=== PATIENT | female | born 1930 | race Caucasian/White ===

== ENCOUNTER 2016-06-30 01:44 | Emergency (ER) | payer MEDICARE, BC ==
[2016-06-30 01:49] VITALS: BP 160/62
--- NOTE | 2016-06-30 02:32 | EDM.PDOC ---
ED HPI GENERAL MEDICAL PROBLEM - General Chief Complaint: Respiratory Problem Stated Complaint: [facility] Time Seen by Provider: 06/30/16 01:47 Source of Information: Reports: Patient, RN Notes Reviewed History Limitations: Reports: No Limitations - History of Present Illness INITIAL COMMENTS - FREE TEXT/NARRATIVE: The patient is brought to the ED by EMS after she developed shortness of breath this evening while trying to sleep. She denies orthopnea, and states that she feels better if she is lying on her right side. She reports a dry cough with occasional white sputum that developed on Thursday, , but resolved. It returned this past Thursday or , 06/25/2016 or 06/26/2016. She has not had a fever. No recent nausea, vomiting, constipation, diarrhea, or sore throat. No prior similar symptoms. The patient's PCP is Dr. De La Torre. - Related Data Allergies Allergy/AdvReac Type Severity Reaction Status Date / Time No Known Allergies Allergy Verified 06/30/16 01:46 Home Meds: Home Meds Aspirin [Silvia Chewable Aspirin] 1 tab PO DAILY 09/20/13 [History] Ca Cmb No.1/Vit D3/B-6/FA/B12 [Vitamin D3 1,000 Unit] 1 tab PO DAILY 09/20/13 [ History] Calcium Carbonate/Vitamin D3 [Caltrate 600+D 1500 MG-400 Units] 1 tab PO DAILY 09/20/13 [History] Ezetimibe [Zetia] 10 mg PO DAILY 09/20/13 [History] Hydrochlorothiazide/Lisinopril [Lisinopril/HCTZ 20-12.5 MG] 1 tab PO DAILY 09/20 [History] Insulin Glarg,Human.Rec.Analog [Lantus] 28 units SQ BID 09/20/13 [History] Omeprazole [Prilosec] 1 tab PO DAILY 09/20/13 [History] Vitamin B6-pyridOXINE 200 mg PO DAILY 09/20/13 [History] amLODIPine [Norvasc] 1 tab PO DAILY 09/20/13 [History] Furosemide [Lasix] 40 mg PO BID #60 tablet 01/04/16 [Rx] Potassium Chloride [Klor-Con 10] 10 meq PO DAILY #5 tab.er 01/04/16 [Rx] Allopurinol [Allopurinol] 1 tab PO DAILY 01/28/16 [History] Insulin Aspart [NovoLOG] 20 units SQ TID 01/28/16 [History] Multivits,Ca,Minerals/Iron/FA [One-A-Day Women's] 1 tab PO DAILY 01/28/16 [ History] Simvastatin [Simvastatin] 1 tab PO DAILY 01/28/16 [History] Gabapentin [Neurontin] 100 mg PO DAILY 01/29/16 [History] Gabapentin [Neurontin] 200 mg PO DAILY 01/29/16 [History] Past Medical History HEENT History: Reports: Cataract, Impaired Vision Other HEENT History: Wears glasses Cardiovascular History: Reports: Heart Failure, High Cholesterol, Hypertension Gastrointestinal History: Reports: GERD Genitourinary History: Reports: Renal Calculus, Urinary Incontinence (stress) 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: Musculoskeletal History: Reports: Arthritis, Gout Psychiatric History: Reports: Depression Endocrine/Metabolic History: Reports: Hypothyroidism (untreated), IDDM, Obesity/ BMI 30+, Other (See Below) (Goiter) - Infectious Disease History Infectious Disease History: Reports: Herpes, Shingles - Past Surgical History HEENT Surgical History: Reports: Cataract Surgery Female Surgical History: Reports: Section (x 1), Lithotripsy/ESWL Social & Family History - Tobacco Use Smoking Status *Q: Never Smoker Second Hand Smoke Exposure: No - Caffeine Use Caffeine Use: Reports: Soda - Alcohol Use Alcohol Use History: No Days Per Week of Alcohol Use: 0 - Recreational Drug Use Recreational Drug Use: No - Living Situation & Occupation Living situation: Reports: , Alone Occupation: Retired ED ROS GENERAL - Review of Systems Review Of Systems: See Below Constitutional: Reports: No Symptoms HEENT: Reports: No Symptoms Respiratory: Reports: No Symptoms Cardiovascular: Reports: No Symptoms Endocrine: Reports: No Symptoms GI/Abdominal: Reports: No Symptoms : Reports: No Symptoms Musculoskeletal: Reports: No Symptoms Skin: Reports: No Symptoms Neurological: Reports: No Symptoms Psychiatric: Reports: No Symptoms Hematologic/Lymphatic: Reports: No Symptoms Immunologic: Reports: No Symptoms ED EXAM, GENERAL - Physical Exam Exam: See Below Exam Limited By: No Limitations General Appearance: Alert, WD/WN, No Apparent Distress Eye Exam: Bilateral Eye: Normal Inspection Ears: Normal External Exam, Normal Canal, Hearing Grossly Normal, Normal TMs Ear Exam: Bilateral Ear: Auricle Normal, Canal Normal, TM normal Nose: Normal Inspection, No Blood, Other (Mild nasal mucosal edema) Throat/Mouth: Normal Inspection, Normal Lips, Normal Teeth, Normal Gums, Normal Oropharynx, Normal Voice, No Airway Compromise Head: Atraumatic, Normocephalic Neck: Normal Inspection, Supple, Non-Tender, Full Range of Motion. No: Lymphadenopathy (L), Lymphadenopathy (R) Respiratory/Chest: No Respiratory Distress, Lungs Clear, Normal Breath Sounds, No Accessory Muscle Use Cardiovascular: Normal Peripheral Pulses, Regular Rate, Rhythm, No Gallop, No JVD, No Murmur, No Rub Peripheral Pulses: 4+: Radial (L), Radial (R) GI/Abdominal: Normal Bowel Sounds, Soft, Non-Tender, No Organomegaly, No Distention, No Abnormal Bruit, Other (Obese) (Female) Exam: Deferred Rectal (Female) Exam: Deferred Back Exam: Normal Inspection, Full Range of Motion, NT Extremities: Normal Inspection, Normal Range of Motion, No Pedal Edema, Normal Capillary Refill Neurological: Alert, Oriented, Normal Cognition, No Motor/Sensory Deficits Psychiatric: Normal Affect Skin Exam: Warm, Dry, Intact, Normal Color, No Rash Lymphatic: No Adenopathy EKG INTERPRETATION EKG Date: 06/30/16 Time: 02:20 Rhythm: NSR Rate (beats/min): 80 [place]: normal P-wave: present QRS: normal ST-T: normal QT: normal Comparison: no change (01/04/2016) Course - Vital Signs Last Recorded V/S: Last Vital Signs Temp 36.2 C 06/30/16 01:47 Pulse 84 06/30/16 01:47 Resp 12 06/30/16 01:47 BP 160/62 H 06/30/16 01:47 Pulse Ox 92 L 06/30/16 01:47 - Orders/Labs/Meds Orders: Active Orders 24 hr Category Date Time Status EKG Documentation Completion [RC] STAT Care 06/30/16 02:12 Active Labs: Laboratory Tests 06/30/16 06/30/16 06/30/16 Range/Units 02:25 02:28 02:28 WBC 7.45 (3.98-10.04) K/mm3 RBC 3.94 L (3.98-5.22) M/mm3 Hgb 11.4 (11.2-15.7) gm/L Hct 35.0 (34.1-44.9) % MCV 88.8 (79.4-94.8) fl MCH 28.9 (25.6-32.2) pg MCHC 32.6 (32.2-35.5) g/dl RDW Std Deviation 54.9 H (36.4-46.3) fL Plt Count 216 (182-369) K/mm3 MPV 10.9 (9.4-12.3) fl Neutrophils % (Manual) 90 H (40-60) % Band Neutrophils % 1 (0-10) % Lymphocytes % (Manual) 7 L (20-40) % Atypical Lymphs % 0 % Immat Monocytes % (Man) 0 Monocytes % (Manual) 1 L (2-10) % Eosinophils % (Manual) 1 (0.7-5.8) % Basophils % (Manual) 0 L (0.1-1.2) Metamyelocytes % 0 Myelocytes % 0 Promyelocytes % 0 Blast Cells % 0 Plasma Cell % (Manual) 0 Nucleated RBCs 0.0 % Platelet Estimate Adequate RBC Morph Comment Normal PT (8.0-13.0) SECONDS INR APTT (22-36) SECONDS D-Dimer, Quantitative (0.19-0.59) mg/L Puncture Site Lt radial ABG pH 7.43 (7.35-7.45) ABG pCO2 47.8 H (35.0-45.0) mmHg ABG pO2 52.0 L (80.0-100.0) mmHg ABG HCO3 31.2 H (22.0-26.0) meq/L ABG O2 Saturation 90.4 L (96.0-97.0) % ABG Base Excess 6.3 H (-2-2.0) Vlad Test Positive A-a Gradient 23 mmHg O2 Delivery Device Room air FiO2 21.00 (21.00-100.00) % Sodium 137 (136-145) mEq/L Potassium 3.1 L (3.5-5.1) mEq/L Chloride 99 (98-107) mEq/L Carbon Dioxide 31 (21-32) mEq/L Anion Gap 10.1 (5-15) BUN 29 H (7-18) mg/dL Creatinine 1.3 H (0.55-1.02) mg/dL Est Cr Clr Drug Dosing 24.74 mL/min Estimated GFR (MDRD) 39 (>60) mL/min BUN/Creatinine Ratio 22.3 H (14-18) Glucose 226 H (83-115) mg/dL Calcium 8.9 (8.5-10.1) mg/dL Total Bilirubin 0.3 (0.2-1.0) mg/dL AST 30 (15-37) U/L ALT 38 (14-59) U/L Alkaline Phosphatase 55 (46-116) U/L Troponin I < 0.017 (0.00-0.056) ng/mL C-Reactive Protein 1.1 H* (<1.0) mg/dL B-Natriuretic Peptide (0-100) pg/mL Total Protein 6.3 L (6.4-8.2) g/dl Albumin 3.2 L (3.4-5.0) g/dl Globulin 3.1 gm/dL Albumin/Globulin Ratio 1.0 (1-2) 06/30/16 06/30/16 Range/Units 02:28 02:28 WBC (3.98-10.04) K/mm3 RBC (3.98-5.22) M/mm3 Hgb (11.2-15.7) gm/L Hct (34.1-44.9) % MCV (79.4-94.8) fl MCH (25.6-32.2) pg MCHC (32.2-35.5) g/dl RDW Std Deviation (36.4-46.3) fL Plt Count (182-369) K/mm3 MPV (9.4-12.3) fl Neutrophils % (Manual) (40-60) % Band Neutrophils % (0-10) % Lymphocytes % (Manual) (20-40) % Atypical Lymphs % % Immat Monocytes % (Man) Monocytes % (Manual) (2-10) % Eosinophils % (Manual) (0.7-5.8) % Basophils % (Manual) (0.1-1.2) Metamyelocytes % Myelocytes % Promyelocytes % Blast Cells % Plasma Cell % (Manual) Nucleated RBCs % Platelet Estimate RBC Morph Comment PT 10.4 (8.0-13.0) SECONDS INR 0.96 APTT 28 (22-36) SECONDS D-Dimer, Quantitative 0.78 H (0.19-0.59) mg/L Puncture Site ABG pH (7.35-7.45) ABG pCO2 (35.0-45.0) mmHg ABG pO2 (80.0-100.0) mmHg ABG HCO3 (22.0-26.0) meq/L ABG O2 Saturation (96.0-97.0) % ABG Base Excess (-2-2.0) Vlad Test A-a Gradient mmHg O2 Delivery Device FiO2 (21.00-100.00) % Sodium (136-145) mEq/L Potassium (3.5-5.1) mEq/L Chloride (98-107) mEq/L Carbon Dioxide (21-32) mEq/L Anion Gap (5-15) BUN (7-18) mg/dL Creatinine (0.55-1.02) mg/dL Est Cr Clr Drug Dosing mL/min Estimated GFR (MDRD) (>60) mL/min BUN/Creatinine Ratio (14-18) Glucose (83-115) mg/dL Calcium (8.5-10.1) mg/dL Total Bilirubin (0.2-1.0) mg/dL AST (15-37) U/L ALT (14-59) U/L Alkaline Phosphatase (46-116) U/L Troponin I (0.00-0.056) ng/mL C-Reactive Protein (<1.0) mg/dL B-Natriuretic Peptide 90 (0-100) pg/mL Total Protein (6.4-8.2) g/dl Albumin (3.4-5.0) g/dl Globulin gm/dL Albumin/Globulin Ratio (1-2) Meds: Medications Discontinued Medications Generic Name Dose Route Start Last Admin Trade Name Freq PRN Reason Stop Dose Admin Insulin Human Regular 7 unit 06/30/16 03:22 06/30/16 03:29 Humulin R SUBCUT 06/30/16 03:23 7 unit ONETIME STA Administration Protocol Potassium Chloride 40 meq 06/30/16 03:15 06/30/16 03:30 Klor-Con M20 PO 06/30/16 03:16 40 meq ONETIME ONE Administration - Radiology Interpretation Free Text/Narrative:: Two-view chest radiograph appears to be grossly unremarkable. Cardiac silhouette is within normal limits. No pulmonary vascular congestion. No pleural effusions. No focal infiltrate. No pneumothorax. Bilateral diaphragmatic flattening noted, suggestive of COPD. Formal read per the Radiologist pending. - Re-Assessments/Exams Free Text/Narrative Re-Assessment/Exam: 06/30/16 03:22 Test results discussed with the patient. Today's workup is grossly unremarkable , with the exception of the finding of modest hypokalemia and hyperglycemia. The patient's D-dimer is mildly elevated at 0.70, however, this is likely due to her mild renal insufficiency. There is no evidence for pneumonia. Based on the patient's presentation and physical exam, I believe it most likely that the patient has a viral URI with cough. Departure - Departure Time of Disposition: 03:23 Disposition: Home, Self-Care 01 Condition: fair Clinical Impression: Viral URI with cough, Hypokalemia, Hyperglycemia due to type 2 diabetes mellitus - Discharge Information Instructions: Type 2 Diabetes Mellitus, Adult, Hypokalemia, Upper Respiratory Infection, Adult, [id number] Referrals: Fredis De La Torre MD [Primary Care Provider] - Forms: ED Department Discharge Additional Instructions: You were seen in the emergency room for shortness of breath and cough. Workup in the ER included blood work, an ABG, an ECG, and a chest x-ray. Your workup was remarkable for modestly low potassium at 3.1 and elevated blood sugar at 226. You were given some potassium and insulin. The remainder of your workup was unremarkable. You do not have pneumonia. You have not suffered a heart attack. You do not have a blood clot in your lungs. Your symptoms are MOST LIKELY due to a viral URI. Unfortunately, there is no treatment for a viral URI. It will simply have to run its course. We DO NOT recommend you take any [id number] cough or cold remedies. They do not work, but do have side effects, some serious. Followup with Dr. De La Torre as needed. If any other problems, please do not hesitate to return to the ER. - My Orders Last 24 Hours: My Active Orders 06/30/16 02:12 EKG Documentation Completion [RC] STAT - Assessment/Plan Last 24 Hours: My Active Orders 06/30/16 02:12 EKG Documentation Completion [RC] STAT
[2016-06-30] MEDS ORDERED: Potassium Chloride 20 MEQ Tab.ER PO ONE (03:15)
[2016-06-30] MEDS ORDERED: Insulin Regular, Human 100 Units/ML 3 ML Vial SUBCUT STA (03:22)
--- NOTE | 2016-06-30 07:37 | CR ---
Chest: Two views of the chest were obtained. Comparison: Previous chest x-ray of 01/04/16. Heart size and mediastinum are within normal limits. Lungs are hyperinflated compatible with emphysematous change. Possible mild right sided bronchitis is present. Lungs otherwise are clear. Bony structures are unremarkable for the patient's age. Impression: 1. Emphysematous change. 2. Mild increased right sided lung markings raising the possibility of bronchitis. Diagnostic code #3
== END 2016-06-30 03:45 | disposition home or self-care (01) ==
LOC: JD.ED 01:44 → SUPCPDRO 01:44 → JD.ED 03:45
DX: J06.9 Acute upper respiratory infection, unspecified (principal); E87.6 Hypokalemia; E11.65 Type 2 diabetes mellitus with hyperglycemia; I11.0 Hypertensive heart disease with heart failure; I50.9 Heart failure, unspecified; K21.9 Gastro-esophageal reflux disease without esophagitis; M19.90 Unspecified osteoarthritis, unspecified site; E78.00 Pure hypercholesterolemia, unspecified; M10.9 Gout, unspecified; E03.9 Hypothyroidism, unspecified; E66.9 Obesity, unspecified; Z79.82 Long term (current) use of aspirin; Z79.4 Long term (current) use of insulin; Z79.899 Other long term (current) drug therapy; Z68.36 Body mass index [BMI] 36.0-36.9, adult; Z98.49 Cataract extraction status, unspecified eye
CPT/HCPCS: 36415; 36600; 71020; 80053; 82803; 83880; 84484; 85025; 85379; 85610; 85730; 86140; 93005; 96372; 99285; A9270; J1817; 99283

== ENCOUNTER 2016-08-11 09:38 | Emergency (ER) | payer MEDICARE, BC ==
--- NOTE | 2016-08-11 10:04 | EDM.PDOC ---
ED HPI GENERAL MEDICAL PROBLEM - General Chief Complaint: Back Pain or Injury Stated Complaint: NECK PAIN Time Seen by Provider: 08/11/16 10:04 - History of Present Illness INITIAL COMMENTS - FREE TEXT/NARRATIVE: 85-year-old female presents emergency room with neck pain. This pain started yesterday afternoon but seemed to get better this morning she awoke and had significant discomfort in her lower neck and upper back radiating into the back of her left shoulder. She does not have any pain down her arm she has difficulty raising her arm but she has problems with her shoulders and this is not new for her. Patient denies any chest pain or breathing difficulties no shortness of breath. Patient denies any recent injuries to the head upper back or neck region. Patient denies any numbness or tingling in her upper extremities the patient ambulates usually with the aid of a walker at home. 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: Musculoskeletal History: Reports: Arthritis, Gout Other Musculoskeletal History: broken foot Neurological History: Reports: Neuropathy, Peripheral Psychiatric History: Reports: Depression Endocrine/Metabolic History: Reports: Hypothyroidism (untreated), IDDM, Obesity/ BMI 30+, Other (See Below) (Goiter) Other Endocrine/Metabolic History: 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, has goiter Dermatologic History: Reports: Melanoma - Infectious Disease History Infectious Disease History: Reports: Herpes, Shingles - Past Surgical History HEENT Surgical History: Reports: Cataract Surgery Female Surgical History: Reports: Section (x 1), Lithotripsy/ESWL Social & Family History - Tobacco Use Smoking Status *Q: Never Smoker Second Hand Smoke Exposure: No - Caffeine Use Caffeine Use: Reports: Soda - Alcohol Use Days Per Week of Alcohol Use: 0 - Recreational Drug Use Recreational Drug Use: No - Living Situation & Occupation Living situation: Reports: , Alone Occupation: Retired ED ROS GENERAL - Review of Systems Review Of Systems: See Below Constitutional: Reports: No Symptoms Respiratory: Reports: No Symptoms Cardiovascular: Reports: No Symptoms GI/Abdominal: Reports: No Symptoms Neurological: Reports: No Symptoms ED EXAM, UPPER BACK/NECK PAIN - Physical Exam Exam: See Below Exam Limited By: No Limitations General Appearance: Alert, No Apparent Distress Head Exam: Atraumatic, Normocephalic Neck Exam: Normal Alignment, Other (Patient has a midline discomfort at the base of her neck most of her discomfort seems to be in the left lateral neck in the paraspinous muscles radiated into her shoulder. ) Cardiovascular/Respiratory: Regular Rate, Rhythm, No M/R/G, Normal Peripheral Pulses, Normal Breath Sounds, No Respiratory Distress Back Exam: Other (She has some discomfort near her thoracic region on the left side this is somewhat vague she does have some midline discomfort.) Extremities: Other (Examination patient of the left upper extremity shows some decreased range of motion with her shoulder according to the patient this is not new. She has no numbness or tingling vascular status of the hand is normal as his neurologic status) Course - Vital Signs Last Recorded V/S: Last Vital Signs Temp 37.1 C 08/11/16 10:01 Pulse 82 08/11/16 10:01 Resp 16 08/11/16 10:01 BP 161/55 H 08/11/16 10:01 Pulse Ox 98 08/11/16 10:01 - Orders/Labs/Meds Meds: Medications Discontinued Medications Generic Name Dose Route Start Last Admin Trade Name Dominikq PRN Reason Stop Dose Admin Acetaminophen 650 mg 08/11/16 10:12 08/11/16 10:30 Tylenol PO 08/11/16 10:13 650 mg NOW ONE Administration - Re-Assessments/Exams Free Text/Narrative Re-Assessment/Exam: 08/11/16 11:50 Patient received 650 mg Tylenol she's having some improvement certainly not complete. X-ray examination of her thoracic spine so is some scoliosis and degenerative changes no acute fracture dislocation examination of her C-spines a little bit limited because of body habitus area to get some arthritic changes with some spondylosis is noted at C4-5 and C5-6 no acute changes noted. Discussed further treatment with this with the patient this point we'll try her on Tylenol 650 mg 4 times a day and see how she does we discussed stronger pain medication and the risk of balance and falling the patient does not want to take at this time. She agrees to follow-up with her regular physician next week Departure - Departure Time of Disposition: 11:51 Disposition: Home, Self-Care 01 Clinical Impression: Cervical strain, acute - Discharge Information Forms: ED Department Discharge Additional Instructions: Return to the emergency room with any questions problems or worsening symptoms. Follow up with your regular physician next week for recheck. As we discussed start out with Tylenol regular strength 325 mg tablets take 2 every 6 hours and let see how you do. You may increase the dose but I would not use more than 3000 mg of Tylenol, or acetaminophen in a 24-hour period. As we discussed try icing the area as this is often beneficial.
[2016-08-11] MEDS ORDERED: Acetaminophen 325 MG Tab PO ONE (10:12)
[2016-08-11 10:15] VITALS: BP 161/55
--- NOTE | 2016-08-11 11:45 | CR ---
Cervical spine: AP, lateral and odontoid views of the cervical spine were obtained. Comparison: Previous MRI cervical spine study of 02/07/12. Moderate to severe disc space narrowing is seen at C5-C6. Mild disc space narrowing is noted at C6-C7. Disc spaces otherwise are felt to be maintained. Mild posterior ridging and anterior osteophytes are noted at C5-C6. Very minimal spondylolisthesis is noted at C4-C5 likely due to degenerative apophyseal change. Prevertebral soft tissues are normal. No acute abnormality is seen. Impression: 1. Degenerative change as described above. Diagnostic code #2
--- NOTE | 2016-08-11 11:45 | CR ---
Thoracic spine: AP, lateral and swimmer's views of the thoracic spine were obtained. Comparison: No previous thoracic spine imaging. Vertebral body heights are maintained. Mild disc space narrowing is scattered within the thoracic spine which is most prominent within the upper levels. Mild scattered endplate osteophytes are seen. Pedicles are intact. Minimal scoliosis is noted. No subluxation or fracture is seen. Impression: 1. Mild degenerative change and mild scoliosis. Diagnostic code #2
== END 2016-08-11 12:10 | disposition home or self-care (01) ==
LOC: JD.ED 09:38
DX: S16.1XXA Strain of muscle, fascia and tendon at neck level, initial encounter (principal); I50.9 Heart failure, unspecified; E78.00 Pure hypercholesterolemia, unspecified; K21.9 Gastro-esophageal reflux disease without esophagitis; E03.9 Hypothyroidism, unspecified; E11.9 Type 2 diabetes mellitus without complications; E66.9 Obesity, unspecified; Z98.49 Cataract extraction status, unspecified eye; Z87.442 Personal history of urinary calculi; X58.XXXA Exposure to other specified factors, initial encounter
CPT/HCPCS: 72040; 72072; 99284; A9270; 99283

== ENCOUNTER 2016-09-04 03:17 | Emergency (ER) | payer MEDICARE, BC ==
[2016-09-04 03:24] VITALS: BP 169/68
[2016-09-04] MEDS ORDERED: Sodium Chloride 0.9% 10 ML Syringe FLUSH PRN (03:26)
[2016-09-04] MEDS ORDERED: Ondansetron 4 MG/2 ML SDV IVPUSH ONE (03:34)
--- NOTE | 2016-09-04 04:25 | EDM.PDOC ---
ED HPI GENERAL MEDICAL PROBLEM - General Chief Complaint: Abdominal Pain Stated Complaint: [facility] Time Seen by Provider: 09/04/16 03:26 Source of Information: Reports: Patient, RN Notes Reviewed - History of Present Illness INITIAL COMMENTS - FREE TEXT/NARRATIVE: 85-year-old female has been brought in by ambulance with right lower quadrant pain. This started about 2 or 3 hours ago. She had been feeling fine all through the prior day and even last evening. She had fairly sudden onset of the discomfort. The pain does not radiate. She did have some mild nausea and dry heaves but that has resolved. After arrival to the ED she states that the pain also is much less and very mild at time of my evaluation. She's had no recent diarrhea. She also denies constipation problems. No voiding symptomatology. She still does have her appendix and that is her main concern at this time. He has had prior C-sections. - Related Data Allergies Allergy/AdvReac Type Severity Reaction Status Date / Time No Known Allergies Allergy Verified 09/04/16 03:31 Home Meds: Home Meds Allopurinol [Zyloprim] 100 mg PO BID 08/11/16 [History] Aspirin 81 mg PO DAILY 08/11/16 [History] Furosemide [Lasix] 20 mg PO BID 08/11/16 [History] Gabapentin [Neurontin] 300 mg PO BID 08/11/16 [History] Insulin Aspart [Novolog Flexpen] 0 units SUBCUT TID 08/11/16 [History] Insulin Glarg,Human.Rec.Analog [Lantus] 28 units SUBCUT BID 08/11/16 [History] Lisinopril/Hydrochlorothiazide [Lisinopril-Hctz 20-12.5 mg Tab] 1 tab PO DAILY 08/11/16 [History] Omeprazole 20 mg PO DAILY 08/11/16 [History] Simvastatin [Zocor] 20 mg PO BEDTIME 08/11/16 [History] amLODIPine [Norvasc] 2.5 mg PO DAILY 08/11/16 [History] Calcium Carbonate/Vitamin D3 [Caltrate 600 Plus D3 Tablet] 1 tab PO DAILY [History] Fenofibrate 160 mg PO BEDTIME 09/04/16 [History] Potassium Chloride [Klor-Con] 20 meq PO BEDTIME 09/04/16 [History] Vit B6/Mag Cit & Ox/Potass Cit [Theralith XR] 200 tab PO DAILY 09/04/16 [History ] Vit D3/Folic Acid/B2/B6/B12 [Folgard Tablet] 1,000 mg PO DAILY 09/04/16 [History ] Past Medical History HEENT History: Reports: Cataract, Impaired Vision Other HEENT History: Wears glasses Cardiovascular History: Reports: Heart Failure, High Cholesterol, Hypertension Respiratory History: Reports: SOB Gastrointestinal History: Reports: GERD Genitourinary History: Reports: Renal Calculus, Urinary Incontinence 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: Musculoskeletal History: Reports: Arthritis, Gout Other Musculoskeletal History: broken foot Neurological History: Reports: Neuropathy, Peripheral Psychiatric History: Reports: Depression Endocrine/Metabolic History: Reports: Hypothyroidism, IDDM, Obesity/BMI 30+, Other (See Below) Other Endocrine/Metabolic History: 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, has goiter Dermatologic History: Reports: Melanoma - Infectious Disease History Infectious Disease History: Reports: Herpes, Shingles - Past Surgical History HEENT Surgical History: Reports: Cataract Surgery Female Surgical History: Reports: Section, Lithotripsy/ESWL Social & Family History - Tobacco Use Smoking Status *Q: Never Smoker Second Hand Smoke Exposure: No - Caffeine Use Caffeine Use: Reports: None - Alcohol Use Days Per Week of Alcohol Use: 0 - Recreational Drug Use Recreational Drug Use: No - Living Situation & Occupation Living situation: Reports: , Alone Occupation: Retired ED ROS GENERAL - Review of Systems Review Of Systems: See Below Constitutional: Denies: Fever, Chills, Diaphoresis HEENT: Reports: No Symptoms Respiratory: Denies: Shortness of Breath Cardiovascular: Denies: Chest Pain GI/Abdominal: Reports: Abdominal Pain, Nausea. Denies: Constipation, Diarrhea, Vomiting Musculoskeletal: Reports: No Symptoms Skin: Reports: No Symptoms Neurological: Reports: No Symptoms ED EXAM, GI/ABD - Physical Exam Exam: See Below General Appearance: Alert, No Apparent Distress Throat/Mouth: Normal Inspection, Normal Oropharynx Head: Atraumatic Neck: Supple, Full Range of Motion Respiratory/Chest: No Respiratory Distress, Lungs Clear, Normal Breath Sounds Cardiovascular: Regular Rate, Rhythm GI/Abdominal Exam: Soft, Tender (Very minimal tenderness right lower abdomen). No: Guarding, Rebound Extremities: Normal Inspection. No: Pedal Edema Neurological: Alert, Oriented, No Motor/Sensory Deficits Skin Exam: Warm, Dry, Normal Color Course - Vital Signs Last Recorded V/S: Last Vital Signs Temp 97.4 F 09/04/16 03:19 Pulse 79 09/04/16 03:19 Resp 18 09/04/16 03:19 BP 169/68 H 09/04/16 03:19 Pulse Ox 91 L 09/04/16 03:19 - Orders/Labs/Meds Orders: Active Orders 24 hr Category Date Time Status Peripheral IV Care [RC] . DIRECTED Care 09/04/16 03:26 Active Abdomen 2V AP Flat Upright [CR] Stat Exams 09/04/16 03:34 Taken Sodium Chloride 0.9% [Saline Flush] Med 09/04/16 03:26 Active 10 ml FLUSH ASDIRECTED PRN Peripheral IV Insertion Adult [OM.PC] Stat Oth 09/04/16 03:26 Ordered Medication Orders Sodium Chloride (Saline Flush) 10 ml FLUSH ASDIRECTED PRN PRN Reason: Keep Vein Open Last Admin: 09/04/16 03:45 Dose: 10 ml Labs: Laboratory Tests 09/04/16 09/04/16 09/04/16 Range/Units 03:27 03:45 03:45 WBC 7.36 (3.98-10.04) K/mm3 RBC 3.96 L (3.98-5.22) M/mm3 Hgb 12.1 (11.2-15.7) gm/L Hct 35.7 (34.1-44.9) % MCV 90.2 (79.4-94.8) fl MCH 30.6 (25.6-32.2) pg MCHC 33.9 (32.2-35.5) g/dl RDW Std Deviation 50.3 H (36.4-46.3) fL Plt Count 265 (182-369) K/mm3 MPV 10.7 (9.4-12.3) fl Neut % (Auto) 67.5 (34.0-71.1) % Lymph % (Auto) 21.1 (19.3-51.7) % Talbot % (Auto) 9.0 (4.7-12.5) % Eos % (Auto) 2.0 (0.7-5.8) Baso % (Auto) 0.1 (0.1-1.2) % Neut # (Auto) 4.97 (1.56-6.13) K/mm3 Lymph # (Auto) 1.55 (1.18-3.74) K/mm3 Talbot # (Auto) 0.66 H (0.24-0.36) K/mm3 Eos # (Auto) 0.15 (0.04-0.36) K/mm3 Baso # (Auto) 0.01 (0.01-0.08) K/mm3 Sodium (136-145) mEq/L Potassium (3.5-5.1) mEq/L Chloride (98-107) mEq/L Carbon Dioxide (21-32) mEq/L Anion Gap (5-15) BUN (7-18) mg/dL Creatinine (0.55-1.02) mg/dL Est Cr Clr Drug Dosing Estimated GFR (MDRD) (>60) mL/min BUN/Creatinine Ratio (14-18) Glucose (83-115) mg/dL POC Glucose 209 H (83-110) mg/dL Calcium (8.5-10.1) mg/dL Total Bilirubin (0.2-1.0) mg/dL AST (15-37) U/L ALT (14-59) U/L Alkaline Phosphatase (46-116) U/L C-Reactive Protein < 0.2 (<1.0) mg/dL Total Protein (6.4-8.2) g/dl Albumin (3.4-5.0) g/dl Globulin gm/dL Albumin/Globulin Ratio (1-2) 09/04/16 Range/Units 03:45 WBC (3.98-10.04) K/mm3 RBC (3.98-5.22) M/mm3 Hgb (11.2-15.7) gm/L Hct (34.1-44.9) % MCV (79.4-94.8) fl MCH (25.6-32.2) pg MCHC (32.2-35.5) g/dl RDW Std Deviation (36.4-46.3) fL Plt Count (182-369) K/mm3 MPV (9.4-12.3) fl Neut % (Auto) (34.0-71.1) % Lymph % (Auto) (19.3-51.7) % Talbot % (Auto) (4.7-12.5) % Eos % (Auto) (0.7-5.8) Baso % (Auto) (0.1-1.2) % Neut # (Auto) (1.56-6.13) K/mm3 Lymph # (Auto) (1.18-3.74) K/mm3 Talbot # (Auto) (0.24-0.36) K/mm3 Eos # (Auto) (0.04-0.36) K/mm3 Baso # (Auto) (0.01-0.08) K/mm3 Sodium 137 (136-145) mEq/L Potassium 3.6 (3.5-5.1) mEq/L Chloride 100 (98-107) mEq/L Carbon Dioxide 28 (21-32) mEq/L Anion Gap 12.6 (5-15) BUN 26 H (7-18) mg/dL Creatinine 1.5 H (0.55-1.02) mg/dL Est Cr Clr Drug Dosing TNP Estimated GFR (MDRD) 33 (>60) mL/min BUN/Creatinine Ratio 17.3 (14-18) Glucose 223 H (83-115) mg/dL POC Glucose (83-110) mg/dL Calcium 9.2 (8.5-10.1) mg/dL Total Bilirubin 0.4 (0.2-1.0) mg/dL AST 27 (15-37) U/L ALT 35 (14-59) U/L Alkaline Phosphatase 38 L (46-116) U/L C-Reactive Protein (<1.0) mg/dL Total Protein 6.3 L (6.4-8.2) g/dl Albumin 3.4 (3.4-5.0) g/dl Globulin 2.9 gm/dL Albumin/Globulin Ratio 1.2 (1-2) Meds: Medications Generic Name Dose Route Start Last Admin Trade Name Freq PRN Reason Stop Dose Admin Sodium Chloride 10 ml 09/04/16 03:26 09/04/16 03:45 Saline Flush FLUSH 10 ml ASDIRECTED PRN Administration Keep Vein Open Discontinued Medications Generic Name Dose Route Start Last Admin Trade Name Freq PRN Reason Stop Dose Admin Ondansetron HCl 4 mg 09/04/16 03:34 09/04/16 03:46 Zofran IVPUSH 09/04/16 03:35 4 mg ONETIME ONE Administration - Re-Assessments/Exams Free Text/Narrative Re-Assessment/Exam: 09/04/16 05:24 White blood count was normal, C-reactive protein less than 0.2. SHe has been resting quite comfortably. When she did get up to use the bathroom she did have some mild discomfort in the right lower abdomen. On reevaluation her abdomen is really soft with just small areas of very slight tenderness right lower abdomen and left lower abdomen. She continues to have no guarding or rebound. He does not have an acute abdomen at this time. Therefore CT of abdomen pelvis not clinically indicated at this time. I've discussed with her that if the pain gets worse today instead of resolving then she will need to come back and consideration will be given for CT of abdomen and pelvis. Departure - Departure Time of Disposition: Disposition: Home, Self-Care 01 Condition: Fair Clinical Impression: Abdominal pain Qualifiers: Abdominal location: lower abdomen, unspecified Qualified Code(s): R10.30 - Lower abdominal pain, unspecified - Discharge Information Forms: ED Department Discharge Additional Instructions: I recommend clear liquids only until noon today and then very careful bland diet as tolerated thereafter. It also would be helpful to vegetable picker some probiotic , available OTC and take that twice daily for about 5 days. Follow-up with your regular medical provider in 1-2 days if not getting better as expected or return to ED if pain in right lower abdomen worsening, if you start running a fever or otherwise becoming more ill. - My Orders Last 24 Hours: My Active Orders 09/04/16 03:26 Peripheral IV Care [RC] . DIRECTED Sodium Chloride 0.9% [Saline Flush] 10 ml FLUSH ASDIRECTED PRN Peripheral IV Insertion Adult [OM.PC] Stat 09/04/16 03:34 Abdomen 2V AP Flat Upright [CR] Stat - Assessment/Plan Last 24 Hours: My Active Orders 09/04/16 03:26 Peripheral IV Care [RC] . DIRECTED Sodium Chloride 0.9% [Saline Flush] 10 ml FLUSH ASDIRECTED PRN Peripheral IV Insertion Adult [OM.PC] Stat 09/04/16 03:34 Abdomen 2V AP Flat Upright [CR] Stat
[2016-09-04] MEDS ORDERED: HYDROmorphone 0.5 MG/0.5 ML Syringe IVPUSH ONE (05:31)
--- NOTE | 2016-09-04 08:39 | CR ---
Abdomen: Supine and upright views of the abdomen were obtained. Comparison: No previous abdominal x-ray, previous CT abdomen and pelvis exam of 01/05/15 was utilized for comparison. Slight degenerative change is scattered within the spine. Bowel gas pattern is unremarkable. Several calcifications are seen within the left upper abdomen compatible with splenic artery calcification. Several calcifications are noted within the right upper abdomen which appear to correlate to a calcified lymph node on the CT exam. Mitral annulus calcification is seen within the heart. No additional abnormality is seen. Impression: 1. Incidental findings. Nothing acute is appreciated. Diagnostic code #2
== END 2016-09-04 05:59 | disposition home or self-care (01) ==
LOC: JD.ED 03:17
DX: R10.31 Right lower quadrant pain (principal); I11.0 Hypertensive heart disease with heart failure; I50.9 Heart failure, unspecified; E78.00 Pure hypercholesterolemia, unspecified; K21.9 Gastro-esophageal reflux disease without esophagitis; M19.90 Unspecified osteoarthritis, unspecified site; E11.42 Type 2 diabetes mellitus with diabetic polyneuropathy; E03.9 Hypothyroidism, unspecified; E66.9 Obesity, unspecified; Z85.820 Personal history of malignant melanoma of skin; Z98.49 Cataract extraction status, unspecified eye; Z87.442 Personal history of urinary calculi; Z98.890 Other specified postprocedural states; Z79.82 Long term (current) use of aspirin; Z79.4 Long term (current) use of insulin; Z79.899 Other long term (current) drug therapy; Z68.36 Body mass index [BMI] 36.0-36.9, adult
CPT/HCPCS: 36415; 74020; 80053; 82962; 85025; 86140; 96374; 96375; 99285; J1170; J2405; J7050; 99284

== ENCOUNTER 2016-09-25 07:59 | Inpatient (IN) | payer MEDICARE, BC ==
[~2016-09-25 07:59] MED LIST: Lactated Ringers 1,000 ML IV SCH; Lidocaine 1%/Sod Bicarbonate in NS 8.4% 1 ML Syringe IV PRN; Sodium Chloride 0.9% 10 ML Syringe FLUSH PRN
[2016-09-25] MEDS: Sodium Chloride 0.9% 1,000 ML IV SCH ×2 (08:45→21:55)
--- NOTE | 2016-09-25 09:12 | PCM.PREANE ---
Preanesthetic Assessment - Procedure Proposed Procedure: Lap Milana with IOC - Anesthesia/Transfusion/Family Hx Anesthesia History: Prior Anesthesia Without Reaction Family History of Anesthesia Reaction: No Transfusion History: No Prior Transfusion(s) Additional History: renal insufficiency - Review of Systems General: No Symptoms Pulmonary: Shortness of Breath (with exertion) Cardiovascular: Edema, Other (HTN, HLD, CHF) Neurological: Numbness (diabtic neuropathy feet, hands ) Other: Reports: Easy Bleeding, Diabetes (IDDM), Depression - Physical Assessment NPO Status Date: 09/24/16 NPO Status Time: 21:00 O2 Sat by Pulse Oximetry: 94 Respiratory Rate: 18 Vital Signs: Last Vital Signs Temp 36.6 C 09/25/16 08:10 Pulse 73 09/25/16 08:10 Resp 18 09/25/16 08:10 BP 112/59 L 09/25/16 08:10 Pulse Ox 94 L 09/25/16 08:10 Height: 1.55 m Weight: 88.451 kg ASA Class: 3 Mental Status: Alert & Oriented x3 Airway Class: Mallampati = 2 Dentition: Reports: Dentures (upper and lower ) Thyro-Mental Finger Breadths: 3 Mouth Opening Finger Breadths: 3 ROM/Head Extension: Full Lungs: Clear to Auscultation, Normal Respiratory Effort Cardiovascular: Regular Rate, Regular Rhythm - Allergies Allergies/Adverse Reactions: Allergies Allergy/AdvReac Type Severity Reaction Status Date / Time No Known Allergies Allergy Verified 09/04/16 03:31 - Blood Blood Available: No Product(s) Available: None - Anesthesia Plan Pre-Op Medication Ordered: None - Acknowledgements Anesthesia Type Planned: General Anesthesia Pt an Appropriate Candidate for the Planned Anesthesia: Yes Alternatives and Risks of Anesthesia Discussed w Pt/Guardian: Yes Pt/Guardian Understands and Agrees with Anesthesia Plan: Yes PreAnesthesia Questionnaire HEENT History: Reports: Cataract, Impaired Vision Other HEENT History: Wears glasses Cardiovascular History: Reports: Heart Failure, High Cholesterol, Hypertension Respiratory History: Reports: SOB Gastrointestinal History: Reports: GERD Genitourinary History: Reports: Renal Calculus, Urinary Incontinence 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: Musculoskeletal History: Reports: Arthritis, Gout Other Musculoskeletal History: broken foot Neurological History: Reports: Neuropathy, Peripheral Psychiatric History: Reports: Depression Endocrine/Metabolic History: Reports: Hypothyroidism, IDDM, Obesity/BMI 30+, Other (See Below) Other Endocrine/Metabolic History: 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, has goiter Dermatologic History: Reports: Melanoma - Infectious Disease History Infectious Disease History: Reports: Herpes, Shingles - Past Surgical History HEENT Surgical History: Reports: Cataract Surgery Female Surgical History: Reports: Section, Lithotripsy/ESWL - SUBSTANCE USE Smoking Status *Q: Never Smoker Second Hand Smoke Exposure: No Days Per Week of Alcohol Use: 0 Recreational Drug Use History: No - HOME MEDS Home Medications: Home Meds Allopurinol [Zyloprim] 100 mg PO BID 08/11/16 [History] Aspirin 81 mg PO DAILY 08/11/16 [History] Furosemide [Lasix] 20 mg PO BID 08/11/16 [History] Gabapentin [Neurontin] 300 mg PO BID 08/11/16 [History] Insulin Aspart [Novolog Flexpen] 0 units SUBCUT TID 08/11/16 [History] Insulin Glarg,Human.Rec.Analog [Lantus] 28 units SUBCUT BID 08/11/16 [History] Lisinopril/Hydrochlorothiazide [Lisinopril-Hctz 20-12.5 mg Tab] 1 tab PO DAILY 08/11/16 [History] Omeprazole 20 mg PO DAILY 08/11/16 [History] Simvastatin [Zocor] 20 mg PO BEDTIME 08/11/16 [History] amLODIPine [Norvasc] 2.5 mg PO DAILY 08/11/16 [History] Calcium Carbonate/Vitamin D3 [Caltrate 600 Plus D3 Tablet] 1 tab PO DAILY [History] Fenofibrate 160 mg PO BEDTIME 09/04/16 [History] Potassium Chloride [Klor-Con] 20 meq PO BEDTIME 09/04/16 [History] Vit B6/Mag Cit & Ox/Potass Cit [Theralith XR] 200 tab PO DAILY 09/04/16 [History ] Vit D3/Folic Acid/B2/B6/B12 [Folgard Tablet] 1,000 mg PO DAILY 09/04/16 [History ] - CURRENT (IN HOUSE) MEDS Current Meds: Current Medications Lactated Ringer's (Ringers, Lactated) 1,000 mls @ 125 mls/hr IV ASDIRECTED HECTOR Lidocaine/Sodium Bicarbonate (Buffered Lidocaine 1% In Ns 8.4%) 0.25 ml IV ONETIME PRN PRN Reason: Prior to IV Start Sodium Chloride (Saline Flush) 10 ml FLUSH ASDIRECTED PRN PRN Reason: Keep Vein Open Discontinued Medications Bupivacaine HCl (Marcaine 0.5%) Confirm Administered Dose 30 ml .ROUTE .STK-MED ONE Stop: 09/25/16 08:53 Iopamidol (Isovue-300 (61%)) Confirm Administered Dose 50 ml .ROUTE .STK-MED ONE Stop: 09/25/16 08:53 Sodium Chloride (Normal Saline) Confirm Administered Dose 50 ml .ROUTE .STK-MED ONE Stop: 09/25/16 08:53
[2016-09-25] MEDS ORDERED: fentaNYL 100 MCG/2 ML SDV ONE (09:37)
[2016-09-25] MEDS ORDERED: Propofol 200 MG/20 ML SDV ONE ×2 (09:37→09:43)
[2016-09-25] MEDS ORDERED: fentaNYL 250 MCG/5 ML SDV ONE (09:43)
[2016-09-25] MEDS ORDERED: Rocuronium 50 MG/5 ML Vial ONE (09:44)
[2016-09-25] MEDS ORDERED: Lidocaine 1% 4 ML ONE (09:44)
[2016-09-25] MEDS ORDERED: Ondansetron 4 MG/2 ML SDV ONE (09:44)
[2016-09-25] MEDS ORDERED: ceFAZolin 1 GM Vial ONE (09:46)
[2016-09-25] MEDS: Bupivacaine 0.5% 30 ML SDV ONE ×2 (10:08→10:36)
[2016-09-25] MEDS ORDERED: ePHEDrine 50 MG/ML SDV ONE (10:14)
[2016-09-25] MEDS: Iopamidol 612 MG/ML 50 ML SDV ONE ×2 (10:36→11:00)
[2016-09-25] MEDS: Sodium Chloride 0.9% 50 ML SDV ONE ×2 (10:38→11:00)
[2016-09-25] MEDS ORDERED: Albuterol 6.7 GM Inhaler INH ONE (10:51)
[2016-09-25] MEDS ORDERED: Glycopyrrolate 0.2 MG/ML SDV ONE ×2 (10:55)
[2016-09-25] MEDS ORDERED: Neostigmine Methylsulfate 10 MG/10 ML MDV ONE (10:55)
[2016-09-25] MEDS ORDERED: Ondansetron 4 MG/2 ML SDV IVPUSH PRN ×2 (11:40→12:07)
[2016-09-25] MEDS ORDERED: fentaNYL 100 MCG/2 ML SDV IVPUSH PRN (11:40)
--- NOTE | 2016-09-25 12:04 | PCM.OPNOTE ---
- General Post-Op/Procedure Note Date of Surgery/Procedure: 09/25/16 Operative Procedure(s): lap diana with Ioc Pre Op Diagnosis: cholecystitis with cholelithiasis with obstruction of the cystic duct Post-Op Diagnosis: Same Primary Surgeon: Ricardo Denson EBL in mLs: 20 Complications: None Condition: Good
[2016-09-25] MEDS ORDERED: Lactated Ringers 1,000 ML IV SCH (12:15)
--- NOTE | 2016-09-25 12:27 | PCM.POSTAN ---
POST ANESTHESIA ASSESSMENT - MENTAL STATUS Mental Status: Alert, Oriented - VITAL SIGNS Pulse Rate: 89 SaO2: 96 Resp Rate: 19 Blood Pressure: 150/62 Temperature: 99.7 C - RESPIRATORY Respiratory Status: Respiratory Rate WNL, Airway Patent, O2 Saturation Stable - CARDIOVASCULAR CV Status: Pulse Rate WNL, Blood Pressure Stable - GASTROINTESTINAL GI Status: No Symptoms - POST OP HYDRATION Hydration Status: Adequate & Stable (verbalizing comfort)
[2016-09-25] MEDS ORDERED: HYDROmorphone 0.5 MG/0.5 ML Syringe IVPUSH PRN (12:30)
[2016-09-25] MEDS: HYDROmorphone 0.5 MG/0.5 ML Syringe IVPUSH PRN ×3 (15:09→21:56)
[2016-09-25] MEDS ORDERED: Sodium Chloride 0.9% 10 ML Syringe FLUSH PRN (17:01)
--- NOTE | 2016-09-25 17:50 | PCM.CONSN ---
- General Info Date of Service: 09/25/16 Admission Dx/Problem (Free Text): 85 year old female referred for cholecystitis is s/p cholecystectomy, POD 0. She initially presented with abdominal pain triggered by fatty food on 09/04/16. Subsequently she was seen by her PCP who made the referral for a cholecystectomy. The surgical risk was assessed by Dr Scott Chen and Sole Peng. She is post op without significant nausea or vomiting. Medical management for diabetes mellitus is requested. Functional Status: Reports: Pain Controlled, Urinating - Review of Systems General: Reports: No Symptoms HEENT: Reports: No Symptoms Pulmonary: Reports: No Symptoms Cardiovascular: Reports: No Symptoms Gastrointestinal: Reports: No Symptoms Genitourinary: Reports: No Symptoms Musculoskeletal: Reports: No Symptoms Skin: Reports: No Symptoms Neurological: Reports: No Symptoms Psychiatric: Reports: No Symptoms - Patient Data Vitals - Most Recent: Last Vital Signs Temp 36.9 C 09/25/16 17:04 Pulse 88 09/25/16 17:17 Resp 18 09/25/16 17:04 BP 133/58 L 09/25/16 17:17 Pulse Ox 93 L 09/25/16 17:23 Weight - Most Recent: 132.449 kg I&O - Last 24 Hours: Intake & Output 09/25/16 09/25/16 09/25/16 06:59 14:59 22:59 Intake Total 30 Balance 30 Lab Results Last 24 Hours: Laboratory Results - last 24 hr 09/25/16 Range/Units 12:12 POC Glucose 182 H (83-110) mg/dL Med Orders - Current: Current Medications Hydrocodone Bitart/Acetaminophen ([place] 325-5 Mg) 1 tab PO Q6H PRN PRN Reason: Pain Allopurinol (Zyloprim) 200 mg PO BID [facility] Fentanyl (Sublimaze) 50 mcg IVPUSH Q5M PRN PRN Reason: Pain Stop: 09/25/16 18:00 Furosemide (Lasix) 20 mg PO BID [facility] Hydrochlorothiazide (Hydrochlorothiazide) 12.5 mg PO DAILY [facility] Hydromorphone HCl (Dilaudid) 0.5 mg IVPUSH Q1H PRN PRN Reason: Pain Last Admin: 09/25/16 16:11 Dose: 0.5 mg Sodium Chloride (Normal Saline) 1,000 mls @ 100 mls/hr IV ASDIRECTED [facility] Stop: 09/25/16 23:00 Last Admin: 09/25/16 08:45 Dose: 100 mls/hr Lidocaine/Sodium Bicarbonate (Buffered Lidocaine 1% In Ns 8.4%) 0.25 ml IV ONETIME PRN PRN Reason: Prior to IV Start Stop: 09/25/16 18:00 Last Admin: 09/25/16 08:44 Dose: 0.25 ml Lisinopril (Prinivil) 20 mg PO DAILY [facility] Non-Formulary Medication (Fenofibrate) 160 mg PO BEDTIME [facility] Ondansetron HCl (Zofran) 4 mg IVPUSH ONETIME PRN PRN Reason: Nausea/Vomiting Stop: 09/25/16 18:00 Ondansetron HCl (Zofran) 4 mg IVPUSH Q8H PRN PRN Reason: Nausea Last Admin: 09/25/16 14:54 Dose: 4 mg Omeprazole 20 Mg 0 each PO DAILY [facility] Simvastatin (Zocor) 20 mg PO BEDTIME [facility] Sodium Chloride (Saline Flush) 10 ml FLUSH ASDIRECTED PRN PRN Reason: Keep Vein Open Stop: 09/25/16 18:00 Discontinued Medications Albuterol (Proventil Hfa) Confirm Administered Dose 6.7 gm INH .STK-MED ONE Stop: 09/25/16 10:52 Bupivacaine HCl (Marcaine 0.5%) Confirm Administered Dose 30 ml .ROUTE .STK-MED ONE Stop: 09/25/16 08:53 Last Admin: 09/25/16 10:08 Dose: 30 ml Cefazolin Sodium (Ancef) Confirm Administered Dose 2 gm .ROUTE .STK-MED ONE Stop: 09/25/16 09:47 Ephedrine Sulfate (Ephedrine Sulfate) Confirm Administered Dose 50 mg .ROUTE .STK-MED ONE Stop: 09/25/16 10:15 Fentanyl (Sublimaze) Confirm Administered Dose 100 mcg .ROUTE .STK-MED ONE Stop: 09/25/16 09:38 Fentanyl (Sublimaze) Confirm Administered Dose 250 mcg .ROUTE .STK-MED ONE Stop: 09/25/16 09:44 Glycopyrrolate (Robinul) Confirm Administered Dose 0.2 mg .ROUTE .STK-MED ONE Stop: 09/25/16 10:56 Glycopyrrolate (Robinul) Confirm Administered Dose 0.2 mg .ROUTE .STK-MED ONE Stop: 09/25/16 10:56 Hydromorphone HCl (Dilaudid) 0.5 mg IVPUSH Q15M PRN PRN Reason: severe pain Stop: 09/25/16 12:46 Lactated Ringer's (Ringers, Lactated) 1,000 mls @ 125 mls/hr IV ASDIRECTED [facility] Lidocaine HCl (Xylocaine-Mpf 1%) Confirm Administered Dose 4 mls @ as directed .ROUTE .STK-MED ONE Stop: 09/25/16 09:45 Lactated Ringer's (Ringers, Lactated) 1,000 mls @ 75 mls/hr IV ASDIRECTED [facility] Iopamidol (Isovue-300 (61%)) Confirm Administered Dose 50 ml .ROUTE .STK-MED ONE Stop: 09/25/16 08:53 Last Admin: 09/25/16 11:00 Dose: 20 ml Neostigmine Methylsulfate (Neostigmine Methylsulfate) Confirm Administered Dose 10 mg .ROUTE .STK-MED ONE Stop: 09/25/16 10:56 Ondansetron HCl (Zofran) Confirm Administered Dose 4 mg .ROUTE .STK-MED ONE Stop: 09/25/16 09:45 Propofol (Diprivan 20 Ml) Confirm Administered Dose 200 mg .ROUTE .STK-MED ONE Stop: 09/25/16 09:38 Propofol (Diprivan 20 Ml) Confirm Administered Dose 200 mg .ROUTE .STK-MED ONE Stop: 09/25/16 09:44 Rocuronium [place] (Zemuron) Confirm Administered Dose 50 mg .ROUTE .STK-MED ONE Stop: 09/25/16 09:45 Sodium Chloride (Normal Saline) Confirm Administered Dose 50 ml .ROUTE .STK-MED ONE Stop: 09/25/16 08:53 Last Admin: 09/25/16 11:00 Dose: 20 ml Sodium Chloride (Saline Flush) 10 ml FLUSH ASDIRECTED PRN PRN Reason: Keep Vein Open - Exam Quality Assessment: Supplemental Oxygen, Urine Catheter, DVT Prophylaxis General: Alert, Oriented, Cooperative, No Acute Distress HEENT: Pupils Equal, Pupils Reactive, EOMI Neck: Supple, Trachea Midline, No JVD Lungs: Normal Respiratory Effort Cardiovascular: Regular Rate, Regular Rhythm GI/Abdominal Exam: Soft, No Organomegaly, Abnormal Bowel Sounds (Female) Exam: Deferred Back Exam: Normal Inspection Extremities: Normal Inspection, Normal Capillary Refill Skin: Warm Neurological: No New Focal Deficit Psy/Mental Status: Alert, Normal Affect, Normal Mood Consult PN Assessment/Plan POD#: 0 Procedures: Procedures ASSAY OF FREE THYROXINE (09/20/13) ASSAY OF MAGNESIUM (05/14/15) ASSAY OF NATRIURETIC PEPTIDE (06/30/16) ASSAY OF TROPONIN QUANT (06/30/16) ASSAY THYROID STIM HORMONE (09/20/13) BLOOD GASES ANY COMBINATION (06/30/16) C-REACTIVE PROTEIN (09/04/16) CARDIOVASCULAR STRESS TEST (01/14/16) CHEST X-RAY 1 VIEW FRONTAL (01/04/16) CHEST X-RAY 2VW FRONTAL&LATL (06/30/16) COMPLETE CBC W/AUTO DIFF WBC (09/04/16) COMPREHEN METABOLIC PANEL (09/04/16) CREATINE MB FRACTION (05/14/15) CT ABD & PELV W/CONTRAST (01/05/15) CT HEAD/BRAIN W/O DYE (09/20/13) ELECTROCARDIOGRAM TRACING (06/30/16) EMERGENCY DEPT VISIT (09/04/16) EMERGENCY DEPT VISIT (08/11/16) EMERGENCY DEPT VISIT (06/30/16) EXC TR-EXT MAL+MARY KATE 2.1-3 CM (01/29/16) FIBRIN DEGRADATION QUANT (06/30/16) GAIT TRAINING THERAPY (09/20/13) GLUCOSE BLOOD TEST (09/04/16) HT MUSCLE IMAGE SPECT MULT (01/14/16) HYDRATE IV INFUSION ADD-ON (09/20/13) INTMD RPR S/A/T/EXT 2.5 CM/< (01/29/16) OT EVALUATION (09/20/13) PATH CONSULT INTRAOP 1 BLOC (01/29/16) PATH CONSULT INTRAOP ADDL (01/29/16) PPSV23 VACC 2 YRS+ SUBQ/IM (09/20/13) PROTHROMBIN TIME (06/30/16) PT EVALUATION (09/20/13) ROUTINE VENIPUNCTURE (09/04/16) SELF CARE MNGMENT TRAINING (09/20/13) THER/PROPH/DIAG INJ IV PUSH (09/04/16) THER/PROPH/DIAG INJ SC/IM (06/30/16) THROMBOPLASTIN TIME PARTIAL (06/30/16) TISSUE EXAM BY PATHOLOGIST (01/29/16) TX/PRO/DX INJ NEW DRUG ADDON (09/04/16) URINALYSIS AUTO W/SCOPE (05/14/15) URINE BACTERIA CULTURE (09/20/13) WITHDRAWAL OF ARTERIAL BLOOD (06/30/16) X-RAY EXAM NECK SPINE 2-3 VW (08/11/16) X-RAY EXAM OF ABDOMEN (09/04/16) X-RAY EXAM THORAC SPINE 3VWS (08/11/16) (1) Gallstones SNOMED Code(s): 842007759 Code(s): K80.20 - CALCULUS OF GALLBLADDER W/O CHOLECYSTITIS W/O OBSTRUCTION Current Visit: Yes (2) S/P cholecystectomy SNOMED Code(s): 944391560, 407500953 Code(s): Z90.49 - ACQUIRED ABSENCE OF OTHER SPECIFIED PARTS OF DIGESTIVE TRACT Current Visit: Yes (3) Diabetes mellitus SNOMED Code(s): 12558177 Code(s): E11.9 - TYPE 2 DIABETES MELLITUS WITHOUT COMPLICATIONS Current Visit: Yes (4) Hyperlipemia SNOMED Code(s): 25123975 Code(s): E78.5 - HYPERLIPIDEMIA, UNSPECIFIED Current Visit: Yes (5) Hypertension SNOMED Code(s): 25532057 Code(s): I10 - ESSENTIAL (PRIMARY) HYPERTENSION Current Visit: Yes (6) Abdominal pain SNOMED Code(s): 63264566 Code(s): R10.9 - UNSPECIFIED ABDOMINAL PAIN Current Visit: No Qualifiers: Abdominal location: lower abdomen, unspecified Qualified Code(s): R10.30 - Lower abdominal pain, unspecified (7) Hyperglycemia due to type 2 diabetes mellitus SNOMED Code(s): 748353584013079, 732104558652263 Code(s): E11.65 - TYPE 2 DIABETES MELLITUS WITH HYPERGLYCEMIA Current Visit : No Problem List Initiated/Reviewed/Updated: Yes Plan: Impression: POD 0, cholecystectomy Diabetes Mellitus Chronic CHF HLD HTN GERD Hypothyroidism Obesity Plan: Resume home meds as appropriate Sliding scale insulin DVT/GI prophylaxis Pain mgt/IVF per primary service Daily Labs
[2016-09-25] MEDS: Acetaminophen/HYDROcodone 325-5 MG Tab PO PRN (18:04)
[2016-09-25] MEDS ORDERED: 50% Dextrose in Water 50 ML Syringe IVPUSH PRN (18:07)
[2016-09-25] MEDS ORDERED: hydrALAZINE 20 MG/ML SDV IVPUSH PRN (18:08)
[2016-09-25] MEDS: Fenofibrate 54 MG Tab PO SCH (20:35)
[2016-09-25] MEDS: Simvastatin 20 MG Tab PO SCH (20:36)
[2016-09-25] MEDS: Allopurinol 100 MG Tab PO SCH (20:36)
[2016-09-25] MEDS: Furosemide 20 MG Tab PO SCH (20:36)
[2016-09-25] MEDS: Insulin Aspart 100 Units/ML 3 ML Pen SUBCUT SCH (21:57)
[2016-09-26] MEDS: Acetaminophen/HYDROcodone 325-5 MG Tab PO PRN ×2 (06:14→16:29)
--- NOTE | 2016-09-26 08:17 | CR ---
Operative cholangiogram: Multiple fluoroscopic spot views utilizing C-arm device was obtained during operative cholangiogram exam. Opacification of the CHD and CBD is noted. Mild intrahepatic opacification is seen. No filling defects are seen within the opacified biliary tree to indicate retained stone. Contrast is noted within the duodenum. Impression: 1. No abnormality is identified on operative cholangiogram exam. Diagnostic code #1
[2016-09-26] MEDS: Insulin Aspart 100 Units/ML 3 ML Pen SUBCUT SCH ×4 (08:36→22:13)
[2016-09-26] MEDS: Allopurinol 100 MG Tab PO SCH ×2 (08:37→22:12)
[2016-09-26] MEDS: Hydrochlorothiazide 12.5 MG Cap PO SCH (08:37)
[2016-09-26] MEDS: Furosemide 20 MG Tab PO SCH ×2 (08:38→22:11)
[2016-09-26] MEDS: Lisinopril 20 MG Tab PO SCH (08:38)
--- NOTE | 2016-09-26 08:56 | PCM48HPAN ---
Post Anesthesia Note - EVALUATION WITHIN 48HRS OF ANESTHETIC Vital Signs in Normal Range: Yes Patient Participated in Evaluation: Yes Respiratory Function Stable: Yes Airway Patent: Yes Cardiovascular Function Stable: Yes Hydration Status Stable: Yes Pain Control Satisfactory: Yes Nausea and Vomiting Control Satisfactory: Yes Mental Status Recovered: Yes
[2016-09-26] MEDS ORDERED: Pantoprazole 40 MG Tab.CR PO SCH (09:06)
--- NOTE | 2016-09-26 10:12 | OR ---
DATE OF OPERATION: 09/25/2016 SURGEON: Ricardo Denson MD PREOPERATIVE DIAGNOSIS: Cholecystitis and cholelithiasis. POSTOPERATIVE DIAGNOSIS: Cholecystitis and cholelithiasis. OPERATION PERFORMED: Laparoscopic cholecystectomy and intraoperative cholangiogram. FINDINGS: Gallbladder with obstruction of the cystic duct, which was very deep in the subhepatic space, making this a very difficult gallbladder to remove laparoscopically. ESTIMATED BLOOD LOSS: About 10 to 20 mL. ANESTHESIA: Procedure done under general anesthetic. DESCRIPTION OF PROCEDURE: The patient was taken to the operating room, placed in a supine position, connected to monitoring equipment, given antibiotics, given a general anesthetic and intubated. The abdomen was then prepped with DuraPrep and draped off in a sterile fashion. An incision was made just above the umbilicus and using a 5-mm Opti port, the abdominal cavity was entered without incident. Pneumoperitoneum established and a 5-mm 0-degree camera was inserted. Abdominal cavity was scanned showing an obese female with a large omentum. The gallbladder was buried deep into the subhepatic space and would not come up readily, thus making this a very tedious operation. A 10-mm trocar was placed in the epigastric position and 5-mm trocar placed in the right upper and right lateral position. The patient was placed in reverse Trendelenburg with leftward tilt. The fundus of the gallbladder was then retracted as much as possible in the cephalad position. The omentum was pushed inferiorly, and I could see just the Criss pouch, which was adherent to the surrounding tissues deep in the subhepatic space. These tissues were then carefully dissected free, clipping the cystic artery and cutting, after securing it with proximal and distal clips. The space between Criss pouch and the cystic duct was then dissected out along with the cystic plate showing a critical anatomy. It was noted that the cystic duct was obstructed with a stone. A clip was placed in the cystic duct Criss pouch junction and an incision of the cystic duct was performed. It was milked and then cholangiogram was obtained using contrast material diluted with equal parts of saline and C-arm. This demonstrated free flow of dye into the duodenum, right and left hepatic ducts. The cholangiocatheter was removed. Then, 2 clips were placed in the cystic duct, cystic duct was cut, and 0 PDS Endoloop was placed on this. The Criss pouch was still quite tethered and by careful lifting it up and careful dissection, this was brought up out of the pelvis. I was able to complete the operative procedure by removing the attachments of the gallbladder from the liver. It was placed in an Endobag and removed. An enlargement of the incision was necessary in order to remove this gallbladder in the Endopouch. The fascia of the epigastric port was then closed with running 0 PDS Vicryl suture and pneumoperitoneum was established. The area was checked for bleeding. Some detachment of the lateral edge of the gallbladder capsule from the liver was noted, and this was controlled with electrocautery. Then, a Surgicel was placed and the oozing stopped. This completed the intraabdominal portion. Pneumoperitoneum was removed along with the ports. Each ports were closed with subdermal 4-0 Dexon suture and injected with 0.5% Marcaine. Steri- Strips, sterile dressing placed. The patient tolerated the procedure. Because of her living situation, she is alone, she is diabetic, she is obese, and she has had a long laparoscopic surgery that it would be prudent to keep this patient in for observation overnight. MMODAL /[id number]
[2016-09-26] MEDS ORDERED: Bisacodyl 10 MG Supp RECTAL ONE (11:46)
--- NOTE | 2016-09-26 11:46 | PCM.SURGPN ---
- General Info Date of Service: 09/26/16 POD#: 1 Functional Status: Reports: Pain Controlled - Review of Systems General: Reports: No Symptoms Pulmonary: Reports: Other (hypoxia off o2) Gastrointestinal: Reports: No Symptoms - Patient Data Vitals - Most Recent: Last Vital Signs Temp 98.4 F 09/26/16 08:34 Pulse 82 09/26/16 09:29 Resp 14 09/26/16 08:34 BP 146/67 H 09/26/16 08:38 Pulse Ox 91 L 09/26/16 09:29 Weight - Most Recent: 89.896 kg I&O - Last 24 Hours: Intake & Output 09/25/16 09/26/16 09/26/16 23:59 07:59 15:59 Intake Total 240 1200 800 Balance 240 1200 800 Lab Results Last 24 Hrs: Laboratory Results - last 24 hr 09/25/16 09/25/16 09/25/16 Range/Units 12:12 17:55 21:34 POC Glucose 182 H 168 H 194 H (83-110) mg/dL 09/26/16 09/26/16 Range/Units 06:17 11:08 POC Glucose 194 H 219 H (83-110) mg/dL Med Orders - Current: Current Medications Hydrocodone Bitart/Acetaminophen ([place] 325-5 Mg) 1 tab PO Q6H PRN PRN Reason: Pain Last Admin: 09/26/16 06:14 Dose: 1 tab Allopurinol (Zyloprim) 200 mg PO BID [facility] Last Admin: 09/26/16 08:37 Dose: 200 mg Dextrose/Water (Dextrose 50% In Water) 50 ml IVPUSH ASDIRECTED PRN PRN Reason: Hypoglycemia Fenofibrate (Fenofibrate) 162 mg PO BEDTIME [facility] Last Admin: 09/25/16 20:35 Dose: Not Given Furosemide (Lasix) 20 mg PO BID [facility] Last Admin: 09/26/16 08:38 Dose: 20 mg Hydralazine HCl (Apresoline) 10 mg IVPUSH Q6H PRN PRN Reason: Hypertension Hydrochlorothiazide (Hydrochlorothiazide) 12.5 mg PO DAILY [facility] Last Admin: 09/26/16 08:37 Dose: 12.5 mg Hydromorphone HCl (Dilaudid) 0.5 mg IVPUSH Q1H PRN PRN Reason: Pain Last Admin: 09/25/16 21:56 Dose: 0.5 mg Insulin Aspart (Novolog) 0 unit SUBCUT QIDACANDBED [facility] PRN Reason: Protocol Last Admin: 09/26/16 11:09 Dose: 2 unit Lisinopril (Prinivil) 20 mg PO DAILY [facility] Last Admin: 09/26/16 08:38 Dose: 20 mg Ondansetron HCl (Zofran) 4 mg IVPUSH Q8H PRN PRN Reason: Nausea Last Admin: 09/25/16 14:54 Dose: 4 mg Pantoprazole Sodium (Protonix) 40 mg PO DAILY [facility] Simvastatin (Zocor) 20 mg PO BEDTIME [facility] Last Admin: 09/25/16 20:36 Dose: Not Given Discontinued Medications Albuterol (Proventil Hfa) Confirm Administered Dose 6.7 gm INH .STK-MED ONE Stop: 09/25/16 10:52 Bupivacaine HCl (Marcaine 0.5%) Confirm Administered Dose 30 ml .ROUTE .STK-MED ONE Stop: 09/25/16 08:53 Last Admin: 09/25/16 10:08 Dose: 30 ml Cefazolin Sodium (Ancef) Confirm Administered Dose 2 gm .ROUTE .STK-MED ONE Stop: 09/25/16 09:47 Ephedrine Sulfate (Ephedrine Sulfate) Confirm Administered Dose 50 mg .ROUTE .STK-MED ONE Stop: 09/25/16 10:15 Fentanyl (Sublimaze) Confirm Administered Dose 100 mcg .ROUTE .STK-MED ONE Stop: 09/25/16 09:38 Fentanyl (Sublimaze) Confirm Administered Dose 250 mcg .ROUTE .STK-MED ONE Stop: 09/25/16 09:44 Fentanyl (Sublimaze) 50 mcg IVPUSH Q5M PRN PRN Reason: Pain Stop: 09/25/16 18:00 Glycopyrrolate (Robinul) Confirm Administered Dose 0.2 mg .ROUTE .STK-MED ONE Stop: 09/25/16 10:56 Glycopyrrolate (Robinul) Confirm Administered Dose 0.2 mg .ROUTE .STK-MED ONE Stop: 09/25/16 10:56 Hydromorphone HCl (Dilaudid) 0.5 mg IVPUSH Q15M PRN PRN Reason: severe pain Stop: 09/25/16 12:46 Lactated Ringer's (Ringers, Lactated) 1,000 mls @ 125 mls/hr IV ASDIRECTED [facility]ECTOR Sodium Chloride (Normal Saline) 1,000 mls @ 100 mls/hr IV ASDIRECTED [facility]ECTOR Stop: 09/25/16 23:00 Last Admin: 09/25/16 21:55 Dose: 100 mls/hr Lidocaine HCl (Xylocaine-Mpf 1%) Confirm Administered Dose 4 mls @ as directed .ROUTE .STK-MED ONE Stop: 09/25/16 09:45 Lactated Ringer's (Ringers, Lactated) 1,000 mls @ 75 mls/hr IV ASDIRECTED [facility] Iopamidol (Isovue-300 (61%)) Confirm Administered Dose 50 ml .ROUTE .STK-MED ONE Stop: 09/25/16 08:53 Last Admin: 09/25/16 11:00 Dose: 20 ml Lidocaine/Sodium Bicarbonate (Buffered Lidocaine 1% In Ns 8.4%) 0.25 ml IV ONETIME PRN PRN Reason: Prior to IV Start Stop: 09/25/16 18:00 Last Admin: 09/25/16 08:44 Dose: 0.25 ml Neostigmine Methylsulfate (Neostigmine Methylsulfate) Confirm Administered Dose 10 mg .ROUTE .STK-MED ONE Stop: 09/25/16 10:56 Ondansetron HCl (Zofran) Confirm Administered Dose 4 mg .ROUTE .STK-MED ONE Stop: 09/25/16 09:45 Ondansetron HCl (Zofran) 4 mg IVPUSH ONETIME PRN PRN Reason: Nausea/Vomiting Stop: 09/25/16 18:00 Omeprazole 20 Mg 0 each PO DAILY [facility] Last Admin: 09/26/16 08:39 Dose: Not Given Propofol (Diprivan 20 Ml) Confirm Administered Dose 200 mg .ROUTE .STK-MED ONE Stop: 09/25/16 09:38 Propofol (Diprivan 20 Ml) Confirm Administered Dose 200 mg .ROUTE .STK-MED ONE Stop: 09/25/16 09:44 Rocuronium [place] (Zemuron) Confirm Administered Dose 50 mg .ROUTE .STK-MED ONE Stop: 09/25/16 09:45 Sodium Chloride (Saline Flush) 10 ml FLUSH ASDIRECTED PRN PRN Reason: Keep Vein Open Stop: 09/25/16 18:00 Sodium Chloride (Normal Saline) Confirm Administered Dose 50 ml .ROUTE .STK-MED ONE Stop: 09/25/16 08:53 Last Admin: 09/25/16 11:00 Dose: 20 ml Sodium Chloride (Saline Flush) 10 ml FLUSH ASDIRECTED PRN PRN Reason: Keep Vein Open - Exam Wound/Incisions: Healing Well General: Alert, Oriented Lungs: Clear to Auscultation, Normal Respiratory Effort Cardiovascular: Regular Rate, Regular Rhythm GI/Abdominal Exam: Other (thypanic ) - Problem List Review Problem List Initiated/Reviewed/Updated: Yes - My Orders Last 24 Hours: Active Orders 24 hr Category Date Time Status Patient Status [ADT] Stat ADT 09/25/16 12:04 Active Ambulate [RC] PER UNIT ROUTINE Care 09/25/16 12:06 Active Antiembolic Devices [RC] PER UNIT ROUTINE Care 09/25/16 19:49 Active Blood Glucose Check, Bedside [RC] QIDACANDBED Care 09/25/16 18:07 Active Notify Provider [RC] ASDIRECTED Care 09/25/16 11:40 Active Oxygen Therapy [RC] ASDIRECTED Care 09/25/16 11:39 Active Pulse Oximetry [RC] ASDIRECTED Care 09/25/16 11:39 Active Turn, Cough, Deep Breathe [RC] .PRN Care 09/25/16 12:06 Active Vital Signs [RC] Q4HR Care 09/25/16 11:39 Active ADA Diabetic [[employer] Diet] [DIET Diet 09/26/16 Lunch Active ] CBC W/O DIFF,HEMOGRAM [HEME] MOTH@0700 Lab 09/29/16 07:00 Ordered CBC W/O DIFF,HEMOGRAM [HEME] MOTH@0700 Lab 10/02/16 07:00 Ordered CBC W/O DIFF,HEMOGRAM [HEME] MOTH@0700 Lab 10/06/16 07:00 Ordered CBC W/O DIFF,HEMOGRAM [HEME] MOTH@0700 Lab 10/09/16 07:00 Ordered CBC W/O DIFF,HEMOGRAM [HEME] MOTH@0700 Lab 10/13/16 07:00 Ordered CBC W/O DIFF,HEMOGRAM [HEME] MOTH@0700 Lab 10/16/16 07:00 Ordered Acetaminophen/HYDROcodone [[place]elzer 325-5 MG] Med 09/25/16 17:00 Active 1 tab PO Q6H PRN Allopurinol [Zyloprim] Med 09/25/16 21:00 Active 200 mg PO BID Dextrose 50% in Water Med 09/25/16 18:07 Active 50 ml IVPUSH ASDIRECTED PRN Fenofibrate Med 09/25/16 21:00 Active 162 mg PO BEDTIME Furosemide [Lasix] Med 09/25/16 21:00 Active 20 mg PO BID HYDROmorphone [Dilaudid] Med 09/25/16 12:07 Active 0.5 mg IVPUSH Q1H PRN Heparin Sodium Med 09/26/16 21:00 Ordered 5,000 units SUBCUT Q12HR Hydrochlorothiazide Med 09/26/16 09:00 Active 12.5 mg PO DAILY Insulin Aspart [NovoLOG] Med 09/25/16 22:00 Active See Protocol SUBCUT QIDACANDBED Lisinopril [Prinivil] Med 09/26/16 09:00 Active 20 mg PO DAILY Ondansetron [Zofran] Med 09/25/16 12:07 Active 4 mg IVPUSH Q8H PRN Pantoprazole [ProTONIX] Med 09/26/16 09:06 Active 40 mg PO DAILY Simvastatin [Zocor] Med 09/25/16 21:00 Active 20 mg PO BEDTIME hydrALAZINE [Apresoline] Med 09/25/16 18:08 Active 10 mg IVPUSH Q6H PRN Convert IV to Saline Lock [OM.PC] Routine Oth 09/25/16 17:01 Ordered SCD [Sequential Compression Device] [OM.PC] Routine Oth 09/25/16 19:49 Ordered Code Status [Resuscitation Status] Routine Resus Stat 09/25/16 17:02 Ordered Medication Orders Hydrocodone Bitart/Acetaminophen ([place]zer 325-5 Mg) 1 tab PO Q6H PRN PRN Reason: Pain Last Admin: 09/26/16 06:14 Dose: 1 tab Admin: 09/25/16 18:04 Dose: 1 tab Allopurinol (Zyloprim) 200 mg PO BID [facility] Last Admin: 09/26/16 08:37 Dose: 200 mg Admin: 09/25/16 20:36 Dose: Not Given Dextrose/Water (Dextrose 50% In Water) 50 ml IVPUSH ASDIRECTED PRN PRN Reason: Hypoglycemia Fenofibrate (Fenofibrate) 162 mg PO BEDTIME [facility] Last Admin: 09/25/16 20:35 Dose: Furosemide (Lasix) 20 mg PO BID [facility] Last Admin: 09/26/16 08:38 Dose: 20 mg Admin: 09/25/16 20:36 Dose: Not Given Hydralazine HCl (Apresoline) 10 mg IVPUSH Q6H PRN PRN Reason: Hypertension Hydrochlorothiazide (Hydrochlorothiazide) 12.5 mg PO DAILY [facility] Last Admin: 09/26/16 08:37 Dose: 12.5 mg Hydromorphone HCl (Dilaudid) 0.5 mg IVPUSH Q1H PRN PRN Reason: Pain Last Admin: 09/25/16 21:56 Dose: 0.5 mg Admin: 09/25/16 16:11 Dose: 0.5 mg Admin: 09/25/16 15:09 Dose: 0.5 mg Insulin Aspart (Novolog) 0 unit SUBCUT QIDACANDBED [facility] PRN Reason: Protocol Last Admin: 09/26/16 11:09 Dose: 2 unit Admin: 09/26/16 08:36 Dose: 1 unit Admin: 09/25/16 21:57 Dose: 1 unit Lisinopril (Prinivil) 20 mg PO DAILY [facility] Last Admin: 09/26/16 08:38 Dose: 20 mg Ondansetron HCl (Zofran) 4 mg IVPUSH Q8H PRN PRN Reason: Nausea Last Admin: 09/25/16 14:54 Dose: 4 mg Pantoprazole Sodium (Protonix) 40 mg PO DAILY [facility] Simvastatin (Zocor) 20 mg PO BEDTIME [facility] Last Admin: 09/25/16 20:36 Dose: Not Given - Plan Plan (Free Text/Narrative):: pt alert and feeling better eating without problem having some flatus exam hypoxia on room air in 88 % abdomen typanic on percussion ass gas present hypoxemia plan continue with o2 by [employer] and will give suppository and advance diet and will DC IV fluid and start sub q heparin. LI
--- NOTE | 2016-09-26 11:53 | PCM.CONSN ---
- General Info Functional Status: Reports: Tolerating Diet, Urinating - Review of Systems General: Reports: No Symptoms HEENT: Reports: No Symptoms Pulmonary: Reports: No Symptoms Cardiovascular: Reports: No Symptoms Gastrointestinal: Reports: No Symptoms Genitourinary: Reports: No Symptoms Musculoskeletal: Reports: No Symptoms Skin: Reports: No Symptoms Neurological: Reports: No Symptoms Psychiatric: Reports: No Symptoms - Patient Data Vitals - Most Recent: Last Vital Signs Temp 36.9 C 09/26/16 08:34 Pulse 82 09/26/16 09:29 Resp 14 09/26/16 08:34 BP 146/67 H 09/26/16 08:38 Pulse Ox 91 L 09/26/16 09:29 Weight - Most Recent: 89.896 kg I&O - Last 24 Hours: Intake & Output 09/25/16 09/26/16 09/26/16 22:59 06:59 14:59 Intake Total 240 1200 800 Balance 240 1200 800 Lab Results Last 24 Hours: Laboratory Results - last 24 hr 09/25/16 09/25/16 09/25/16 Range/Units 12:12 17:55 21:34 POC Glucose 182 H 168 H 194 H (83-110) mg/dL 09/26/16 09/26/16 Range/Units 06:17 11:08 POC Glucose 194 H 219 H (83-110) mg/dL Med Orders - Current: Current Medications Hydrocodone Bitart/Acetaminophen ([place] 325-5 Mg) 1 tab PO Q6H PRN PRN Reason: Pain Last Admin: 09/26/16 06:14 Dose: 1 tab Allopurinol (Zyloprim) 200 mg PO BID [facility] Last Admin: 09/26/16 08:37 Dose: 200 mg Dextrose/Water (Dextrose 50% In Water) 50 ml IVPUSH ASDIRECTED PRN PRN Reason: Hypoglycemia Fenofibrate (Fenofibrate) 162 mg PO BEDTIME [facility] Last Admin: 09/25/16 20:35 Dose: Not Given Furosemide (Lasix) 20 mg PO BID [facility] Last Admin: 09/26/16 08:38 Dose: 20 mg Heparin Sodium (Porcine) (Heparin Sodium) 5,000 units SUBCUT Q12HR [facility] Hydralazine HCl (Apresoline) 10 mg IVPUSH Q6H PRN PRN Reason: Hypertension Hydrochlorothiazide (Hydrochlorothiazide) 12.5 mg PO DAILY [facility] Last Admin: 09/26/16 08:37 Dose: 12.5 mg Hydromorphone HCl (Dilaudid) 0.5 mg IVPUSH Q1H PRN PRN Reason: Pain Last Admin: 09/25/16 21:56 Dose: 0.5 mg Insulin Aspart (Novolog) 0 unit SUBCUT QIDACANDBED [facility] PRN Reason: Protocol Last Admin: 09/26/16 11:09 Dose: 2 unit Lisinopril (Prinivil) 20 mg PO DAILY [facility] Last Admin: 09/26/16 08:38 Dose: 20 mg Ondansetron HCl (Zofran) 4 mg IVPUSH Q8H PRN PRN Reason: Nausea Last Admin: 09/25/16 14:54 Dose: 4 mg Pantoprazole Sodium (Protonix) 40 mg PO DAILY [facility] Simvastatin (Zocor) 20 mg PO BEDTIME [facility] Last Admin: 09/25/16 20:36 Dose: Not Given Discontinued Medications Albuterol (Proventil Hfa) Confirm Administered Dose 6.7 gm INH .STK-MED ONE Stop: 09/25/16 10:52 Bupivacaine HCl (Marcaine 0.5%) Confirm Administered Dose 30 ml .ROUTE .STK-MED ONE Stop: 09/25/16 08:53 Last Admin: 09/25/16 10:08 Dose: 30 ml Cefazolin Sodium (Ancef) Confirm Administered Dose 2 gm .ROUTE .STK-MED ONE Stop: 09/25/16 09:47 Ephedrine Sulfate (Ephedrine Sulfate) Confirm Administered Dose 50 mg .ROUTE .STK-MED ONE Stop: 09/25/16 10:15 Fentanyl (Sublimaze) Confirm Administered Dose 100 mcg .ROUTE .STK-MED ONE Stop: 09/25/16 09:38 Fentanyl (Sublimaze) Confirm Administered Dose 250 mcg .ROUTE .STK-MED ONE Stop: 09/25/16 09:44 Fentanyl (Sublimaze) 50 mcg IVPUSH Q5M PRN PRN Reason: Pain Stop: 09/25/16 18:00 Glycopyrrolate (Robinul) Confirm Administered Dose 0.2 mg .ROUTE .STK-MED ONE Stop: 09/25/16 10:56 Glycopyrrolate (Robinul) Confirm Administered Dose 0.2 mg .ROUTE .STK-MED ONE Stop: 09/25/16 10:56 Hydromorphone HCl (Dilaudid) 0.5 mg IVPUSH Q15M PRN PRN Reason: severe pain Stop: 09/25/16 12:46 Lactated Ringer's (Ringers, Lactated) 1,000 mls @ 125 mls/hr IV ASDIRECTED [facility] Sodium Chloride (Normal Saline) 1,000 mls @ 100 mls/hr IV ASDIRECTED [facility]ECTOR Stop: 09/25/16 23:00 Last Admin: 09/25/16 21:55 Dose: 100 mls/hr Lidocaine HCl (Xylocaine-Mpf 1%) Confirm Administered Dose 4 mls @ as directed .ROUTE .STK-MED ONE Stop: 09/25/16 09:45 Lactated Ringer's (Ringers, Lactated) 1,000 mls @ 75 mls/hr IV ASDIRECTED [facility] Iopamidol (Isovue-300 (61%)) Confirm Administered Dose 50 ml .ROUTE .STK-MED ONE Stop: 09/25/16 08:53 Last Admin: 09/25/16 11:00 Dose: 20 ml Lidocaine/Sodium Bicarbonate (Buffered Lidocaine 1% In Ns 8.4%) 0.25 ml IV ONETIME PRN PRN Reason: Prior to IV Start Stop: 09/25/16 18:00 Last Admin: 09/25/16 08:44 Dose: 0.25 ml Neostigmine Methylsulfate (Neostigmine Methylsulfate) Confirm Administered Dose 10 mg .ROUTE .STK-MED ONE Stop: 09/25/16 10:56 Ondansetron HCl (Zofran) Confirm Administered Dose 4 mg .ROUTE .STK-MED ONE Stop: 09/25/16 09:45 Ondansetron HCl (Zofran) 4 mg IVPUSH ONETIME PRN PRN Reason: Nausea/Vomiting Stop: 09/25/16 18:00 Omeprazole 20 Mg 0 each PO DAILY [facility] Last Admin: 09/26/16 08:39 Dose: Not Given Propofol (Diprivan 20 Ml) Confirm Administered Dose 200 mg .ROUTE .STK-MED ONE Stop: 09/25/16 09:38 Propofol (Diprivan 20 Ml) Confirm Administered Dose 200 mg .ROUTE .STK-MED ONE Stop: 09/25/16 09:44 Rocuronium [place] (Zemuron) Confirm Administered Dose 50 mg .ROUTE .STK-MED ONE Stop: 09/25/16 09:45 Sodium Chloride (Saline Flush) 10 ml FLUSH ASDIRECTED PRN PRN Reason: Keep Vein Open Stop: 09/25/16 18:00 Sodium Chloride (Normal Saline) Confirm Administered Dose 50 ml .ROUTE .STK-MED ONE Stop: 09/25/16 08:53 Last Admin: 09/25/16 11:00 Dose: 20 ml Sodium Chloride (Saline Flush) 10 ml FLUSH ASDIRECTED PRN PRN Reason: Keep Vein Open - Exam Quality Assessment: DVT Prophylaxis General: Alert, Oriented, Cooperative, No Acute Distress HEENT: Pupils Equal, Pupils Reactive, EOMI Neck: Supple, Trachea Midline Lungs: Normal Respiratory Effort Cardiovascular: Regular Rate, Regular Rhythm GI/Abdominal Exam: Normal Bowel Sounds, Soft, Non-Tender, No Organomegaly, No Distention (Female) Exam: Deferred Back Exam: Normal Inspection Extremities: Normal Inspection, Normal Capillary Refill Skin: Warm Wound/Incisions: Healing Well Neurological: No New Focal Deficit, Normal Gait, Normal Speech Psy/Mental Status: Alert, Normal Affect, Normal Mood Consult PN Assessment/Plan POD#: 1 Procedures: Procedures ASSAY OF FREE THYROXINE (09/20/13) ASSAY OF MAGNESIUM (05/14/15) ASSAY OF NATRIURETIC PEPTIDE (06/30/16) ASSAY OF TROPONIN QUANT (06/30/16) ASSAY THYROID STIM HORMONE (09/20/13) BLOOD GASES ANY COMBINATION (06/30/16) C-REACTIVE PROTEIN (09/04/16) CARDIOVASCULAR STRESS TEST (01/14/16) CHEST X-RAY 1 VIEW FRONTAL (01/04/16) CHEST X-RAY 2VW FRONTAL&LATL (06/30/16) COMPLETE CBC W/AUTO DIFF WBC (09/04/16) COMPREHEN METABOLIC PANEL (09/04/16) CREATINE MB FRACTION (05/14/15) CT ABD & PELV W/CONTRAST (01/05/15) CT HEAD/BRAIN W/O DYE (09/20/13) ELECTROCARDIOGRAM TRACING (06/30/16) EMERGENCY DEPT VISIT (09/04/16) EMERGENCY DEPT VISIT (08/11/16) EMERGENCY DEPT VISIT (06/30/16) EXC TR-EXT MAL+MARY KATE 2.1-3 CM (01/29/16) FIBRIN DEGRADATION QUANT (06/30/16) GAIT TRAINING THERAPY (09/20/13) GLUCOSE BLOOD TEST (09/04/16) HT MUSCLE IMAGE SPECT MULT (01/14/16) HYDRATE IV INFUSION ADD-ON (09/20/13) INTMD RPR S/A/T/EXT 2.5 CM/< (01/29/16) OT EVALUATION (09/20/13) PATH CONSULT INTRAOP 1 BLOC (01/29/16) PATH CONSULT INTRAOP ADDL (01/29/16) PPSV23 VACC 2 YRS+ SUBQ/IM (09/20/13) PROTHROMBIN TIME (06/30/16) PT EVALUATION (09/20/13) ROUTINE VENIPUNCTURE (09/04/16) SELF CARE MNGMENT TRAINING (09/20/13) THER/PROPH/DIAG INJ IV PUSH (09/04/16) THER/PROPH/DIAG INJ SC/IM (06/30/16) THROMBOPLASTIN TIME PARTIAL (06/30/16) TISSUE EXAM BY PATHOLOGIST (01/29/16) TX/PRO/DX INJ NEW DRUG ADDON (09/04/16) URINALYSIS AUTO W/SCOPE (05/14/15) URINE BACTERIA CULTURE (09/20/13) WITHDRAWAL OF ARTERIAL BLOOD (06/30/16) X-RAY EXAM NECK SPINE 2-3 VW (08/11/16) X-RAY EXAM OF ABDOMEN (09/04/16) X-RAY EXAM THORAC SPINE 3VWS (08/11/16) (1) Gallstones SNOMED Code(s): 017518443 Code(s): K80.20 - CALCULUS OF GALLBLADDER W/O CHOLECYSTITIS W/O OBSTRUCTION Current Visit: Yes (2) S/P cholecystectomy SNOMED Code(s): 179279551, 843507266 Code(s): Z90.49 - ACQUIRED ABSENCE OF OTHER SPECIFIED PARTS OF DIGESTIVE TRACT Current Visit: Yes (3) Diabetes mellitus SNOMED Code(s): 90060541 Code(s): E11.9 - TYPE 2 DIABETES MELLITUS WITHOUT COMPLICATIONS Current Visit: Yes (4) Hyperlipemia SNOMED Code(s): 15745672 Code(s): E78.5 - HYPERLIPIDEMIA, UNSPECIFIED Current Visit: Yes (5) Hypertension SNOMED Code(s): 06946317 Code(s): I10 - ESSENTIAL (PRIMARY) HYPERTENSION Current Visit: Yes (6) Abdominal pain SNOMED Code(s): 44420774 Code(s): R10.9 - UNSPECIFIED ABDOMINAL PAIN Current Visit: No Qualifiers: Abdominal location: lower abdomen, unspecified Qualified Code(s): R10.30 - Lower abdominal pain, unspecified (7) Hyperglycemia due to type 2 diabetes mellitus SNOMED Code(s): 574731216698998, 631595002444272 Code(s): E11.65 - TYPE 2 DIABETES MELLITUS WITH HYPERGLYCEMIA Current Visit : No Problem List Initiated/Reviewed/Updated: Yes My Orders Last 24 Hours: My Active Orders 09/25/16 18:07 Blood Glucose Check, Bedside [RC] QIDACANDBED Dextrose 50% in Water 50 ml IVPUSH ASDIRECTED PRN 09/25/16 18:08 hydrALAZINE [Apresoline] 10 mg IVPUSH Q6H PRN 09/25/16 22:00 Insulin Aspart [NovoLOG] See Protocol SUBCUT QIDACANDBED 09/27/16 05:00 CBC WITH AUTO DIFF [HEME] Routine 09/27/16 05:41 BASIC METABOLIC PANEL,BMP [CHEM] Routine Plan: Impression/Plan: POD 1 Cholecystectomy Diabetes mellitus on sliding scale insulin Advance diet as tolerated per primary service Pain controlled post op DVT/GI prophylaxis
[2016-09-26] MEDS: HYDROmorphone 0.5 MG/0.5 ML Syringe IVPUSH PRN (16:47)
[2016-09-26] MEDS: Fenofibrate 54 MG Tab PO SCH (22:10)
[2016-09-26] MEDS: Heparin Sodium 5,000 Units/ML Vial SUBCUT SCH (22:11)
[2016-09-26] MEDS: Simvastatin 20 MG Tab PO SCH (22:12)
[2016-09-27] MEDS: Acetaminophen/HYDROcodone 325-5 MG Tab PO PRN ×3 (03:27→17:25)
[2016-09-27] MEDS: Insulin Aspart 100 Units/ML 3 ML Pen SUBCUT SCH ×4 (08:34→22:33)
[2016-09-27] MEDS: Lisinopril 20 MG Tab PO SCH (08:35)
[2016-09-27] MEDS: Heparin Sodium 5,000 Units/ML Vial SUBCUT SCH ×2 (08:35→22:31)
[2016-09-27] MEDS: Furosemide 20 MG Tab PO SCH (08:36)
[2016-09-27] MEDS: Hydrochlorothiazide 12.5 MG Cap PO SCH (08:36)
[2016-09-27] MEDS: Allopurinol 100 MG Tab PO SCH ×2 (08:36→21:49)
[2016-09-27] MEDS: HYDROmorphone 0.5 MG/0.5 ML Syringe IVPUSH PRN ×3 (08:49→18:26)
[2016-09-27] MEDS ORDERED: Piperacillin/Tazobactam 3.375 GM in Sodium Chloride 0.9% 100 ML IV SCH (09:15)
[2016-09-27] MEDS ORDERED: Piperacillin/Tazobactam 4.5 GM in Sodium Chloride 0.9% 100 ML IV ONE (09:30)
--- NOTE | 2016-09-27 10:54 | PCM.CONSN ---
- General Info Date of Service: 09/27/16 Functional Status: Reports: Tolerating Diet, Ambulating, Urinating - Review of Systems General: Reports: No Symptoms HEENT: Reports: No Symptoms Pulmonary: Reports: Shortness of Breath Cardiovascular: Reports: No Symptoms Gastrointestinal: Reports: No Symptoms Genitourinary: Reports: No Symptoms Musculoskeletal: Reports: No Symptoms Skin: Reports: No Symptoms Neurological: Reports: No Symptoms Psychiatric: Reports: No Symptoms - Patient Data Vitals - Most Recent: Last Vital Signs Temp 36.4 C 09/27/16 08:30 Pulse 118 H 09/27/16 08:30 Resp 16 09/27/16 08:30 BP 156/97 H 09/27/16 08:35 Pulse Ox 92 L 09/27/16 10:07 Weight - Most Recent: 90.855 kg I&O - Last 24 Hours: Intake & Output 09/26/16 09/27/16 09/27/16 22:59 06:59 14:59 Intake Total 1960 800 Output Total 400 1300 Balance 1560 -500 Lab Results Last 24 Hours: Laboratory Results - last 24 hr 09/26/16 09/26/16 09/26/16 Range/Units 11:08 16:50 22:08 WBC (3.98-10.04) K/mm3 RBC (3.98-5.22) M/mm3 Hgb (11.2-15.7) gm/L Hct (34.1-44.9) % MCV (79.4-94.8) fl MCH (25.6-32.2) pg MCHC (32.2-35.5) g/dl RDW Std Deviation (36.4-46.3) fL Plt Count (182-369) K/mm3 MPV (9.4-12.3) fl Neut % (Auto) (34.0-71.1) % Lymph % (Auto) (19.3-51.7) % [place] % (Auto) (4.7-12.5) % Eos % (Auto) (0.7-5.8) Baso % (Auto) (0.1-1.2) % Neut # (Auto) (1.56-6.13) K/mm3 Lymph # (Auto) (1.18-3.74) K/mm3 [place] # (Auto) (0.24-0.36) K/mm3 Eos # (Auto) (0.04-0.36) K/mm3 Baso # (Auto) (0.01-0.08) K/mm3 Sodium (136-145) mEq/L Potassium (3.5-5.1) mEq/L Chloride (98-107) mEq/L Carbon Dioxide (21-32) mEq/L Anion Gap (5-15) BUN (7-18) mg/dL Creatinine (0.55-1.02) mg/dL Est Cr Clr Drug Dosing mL/min Estimated GFR (MDRD) (>60) mL/min BUN/Creatinine Ratio (14-18) Glucose (83-115) mg/dL POC Glucose 219 H 187 H 193 H (83-110) mg/dL Calcium (8.5-10.1) mg/dL Total Bilirubin (0.2-1.0) mg/dL AST (15-37) U/L ALT (14-59) U/L Alkaline Phosphatase (46-116) U/L Total Protein (6.4-8.2) g/dl Albumin (3.4-5.0) g/dl Globulin gm/dL Albumin/Globulin Ratio (1-2) 09/27/16 09/27/16 09/27/16 Range/Units 05:50 05:50 05:50 WBC 13.64 H (3.98-10.04) K/mm3 RBC 3.75 L (3.98-5.22) M/mm3 Hgb 11.4 (11.2-15.7) gm/L Hct 35.3 (34.1-44.9) % MCV 94.1 (79.4-94.8) fl MCH 30.4 (25.6-32.2) pg MCHC 32.3 (32.2-35.5) g/dl RDW Std Deviation 51.9 H (36.4-46.3) fL Plt Count 233 (182-369) K/mm3 MPV 11.3 (9.4-12.3) fl Neut % (Auto) 79.8 H (34.0-71.1) % Lymph % (Auto) 12.0 L (19.3-51.7) % [place] % (Auto) 6.7 (4.7-12.5) % Eos % (Auto) 1.2 (0.7-5.8) Baso % (Auto) 0.1 (0.1-1.2) % Neut # (Auto) 10.88 H (1.56-6.13) K/mm3 Lymph # (Auto) 1.63 (1.18-3.74) K/mm3 [place] # (Auto) 0.92 H (0.24-0.36) K/mm3 Eos # (Auto) 0.17 (0.04-0.36) K/mm3 Baso # (Auto) 0.01 (0.01-0.08) K/mm3 Sodium 138 136 (136-145) mEq/L Potassium 4.1 4.1 (3.5-5.1) mEq/L Chloride 102 101 (98-107) mEq/L Carbon Dioxide 27 27 (21-32) mEq/L Anion Gap 13.1 12.1 (5-15) BUN 18 19 H (7-18) mg/dL Creatinine 1.2 H 1.3 H (0.55-1.02) mg/dL Est Cr Clr Drug Dosing 26.80 24.74 mL/min Estimated GFR (MDRD) 43 39 (>60) mL/min BUN/Creatinine Ratio 15.0 14.6 (14-18) Glucose 208 H 206 H (83-115) mg/dL POC Glucose (83-110) mg/dL Calcium 8.8 8.9 (8.5-10.1) mg/dL Total Bilirubin 0.6 (0.2-1.0) mg/dL AST 51 H (15-37) U/L ALT 36 (14-59) U/L Alkaline Phosphatase 48 (46-116) U/L Total Protein 6.2 L (6.4-8.2) g/dl Albumin 2.9 L (3.4-5.0) g/dl Globulin 3.3 gm/dL Albumin/Globulin Ratio 0.9 L (1-2) 09/27/16 Range/Units 06:55 WBC (3.98-10.04) K/mm3 RBC (3.98-5.22) M/mm3 Hgb (11.2-15.7) gm/L Hct (34.1-44.9) % MCV (79.4-94.8) fl MCH (25.6-32.2) pg MCHC (32.2-35.5) g/dl RDW Std Deviation (36.4-46.3) fL Plt Count (182-369) K/mm3 MPV (9.4-12.3) fl Neut % (Auto) (34.0-71.1) % Lymph % (Auto) (19.3-51.7) % [place] % (Auto) (4.7-12.5) % Eos % (Auto) (0.7-5.8) Baso % (Auto) (0.1-1.2) % Neut # (Auto) (1.56-6.13) K/mm3 Lymph # (Auto) (1.18-3.74) K/mm3 [place] # (Auto) (0.24-0.36) K/mm3 Eos # (Auto) (0.04-0.36) K/mm3 Baso # (Auto) (0.01-0.08) K/mm3 Sodium (136-145) mEq/L Potassium (3.5-5.1) mEq/L Chloride (98-107) mEq/L Carbon Dioxide (21-32) mEq/L Anion Gap (5-15) BUN (7-18) mg/dL Creatinine (0.55-1.02) mg/dL Est Cr Clr Drug Dosing mL/min Estimated GFR (MDRD) (>60) mL/min BUN/Creatinine Ratio (14-18) Glucose (83-115) mg/dL POC Glucose 206 H (83-110) mg/dL Calcium (8.5-10.1) mg/dL Total Bilirubin (0.2-1.0) mg/dL AST (15-37) U/L ALT (14-59) U/L Alkaline Phosphatase (46-116) U/L Total Protein (6.4-8.2) g/dl Albumin (3.4-5.0) g/dl Globulin gm/dL Albumin/Globulin Ratio (1-2) Med Orders - Current: Current Medications Hydrocodone Bitart/Acetaminophen ([place] 325-5 Mg) 1 tab PO Q6H PRN PRN Reason: Pain Last Admin: 09/27/16 09:41 Dose: 1 tab Allopurinol (Zyloprim) 200 mg PO BID [facility] Last Admin: 09/27/16 08:36 Dose: 200 mg Dextrose/Water (Dextrose 50% In Water) 50 ml IVPUSH ASDIRECTED PRN PRN Reason: Hypoglycemia Fenofibrate (Fenofibrate) 162 mg PO BEDTIME [facility] Last Admin: 09/26/16 22:10 Dose: 162 mg Furosemide (Lasix) 20 mg PO BID [facility] Last Admin: 09/27/16 08:36 Dose: 20 mg Gabapentin (Neurontin) 300 mg PO BID [facility] Heparin Sodium (Porcine) (Heparin Sodium) 5,000 units SUBCUT Q12HR [facility] Last Admin: 09/27/16 08:35 Dose: 5,000 units Hydralazine HCl (Apresoline) 10 mg IVPUSH Q6H PRN PRN Reason: Hypertension Hydrochlorothiazide (Hydrochlorothiazide) 12.5 mg PO DAILY [facility] Last Admin: 09/27/16 08:36 Dose: 12.5 mg Hydromorphone HCl (Dilaudid) 0.5 mg IVPUSH Q1H PRN PRN Reason: Pain Last Admin: 09/27/16 08:49 Dose: 0.5 mg Piperacillin Sod/Tazobactam (Sod 4.5 gm/ Sodium Chloride) 100 mls @ 25 mls/hr IV Q8H [facility] Insulin Aspart (Novolog) 0 unit SUBCUT QIDACANDBED [facility] PRN Reason: Protocol Last Admin: 09/27/16 08:34 Dose: 2 unit Lisinopril (Prinivil) 20 mg PO DAILY [facility] Last Admin: 09/27/16 08:35 Dose: 20 mg Ondansetron HCl (Zofran) 4 mg IVPUSH Q8H PRN PRN Reason: Nausea Last Admin: 09/25/16 14:54 Dose: 4 mg Pantoprazole Sodium (Protonix) 40 mg PO DAILY [facility] Last Admin: 09/27/16 08:36 Dose: 40 mg Potassium Chloride (Klor-Con 10) 10 meq PO BEDTIME [facility] Simvastatin (Zocor) 20 mg PO BEDTIME [facility] Last Admin: 09/26/16 22:12 Dose: 20 mg Discontinued Medications Albuterol (Proventil Hfa) Confirm Administered Dose 6.7 gm INH .STK-MED ONE Stop: 09/25/16 10:52 Bisacodyl (Dulcolax) 10 mg RECTAL ONETIME ONE Stop: 09/26/16 11:47 Last Admin: 09/26/16 14:27 Dose: Not Given Bupivacaine HCl (Marcaine 0.5%) Confirm Administered Dose 30 ml .ROUTE .STK-MED ONE Stop: 09/25/16 08:53 Last Admin: 09/25/16 10:08 Dose: 30 ml Cefazolin Sodium (Ancef) Confirm Administered Dose 2 gm .ROUTE .STK-MED ONE Stop: 09/25/16 09:47 Ephedrine Sulfate (Ephedrine Sulfate) Confirm Administered Dose 50 mg .ROUTE .STK-MED ONE Stop: 09/25/16 10:15 Fentanyl (Sublimaze) Confirm Administered Dose 100 mcg .ROUTE .STK-MED ONE Stop: 09/25/16 09:38 Fentanyl (Sublimaze) Confirm Administered Dose 250 mcg .ROUTE .STK-MED ONE Stop: 09/25/16 09:44 Fentanyl (Sublimaze) 50 mcg IVPUSH Q5M PRN PRN Reason: Pain Stop: 09/25/16 18:00 Glycopyrrolate (Robinul) Confirm Administered Dose 0.2 mg .ROUTE .STK-MED ONE Stop: 09/25/16 10:56 Glycopyrrolate (Robinul) Confirm Administered Dose 0.2 mg .ROUTE .STK-MED ONE Stop: 09/25/16 10:56 Hydromorphone HCl (Dilaudid) 0.5 mg IVPUSH Q15M PRN PRN Reason: severe pain Stop: 09/25/16 12:46 Lactated Ringer's (Ringers, Lactated) 1,000 mls @ 125 mls/hr IV ASDIRECTED [facility] Sodium Chloride (Normal Saline) 1,000 mls @ 100 mls/hr IV ASDIRECTED [facility] Stop: 09/25/16 23:00 Last Admin: 09/25/16 21:55 Dose: 100 mls/hr Lidocaine HCl (Xylocaine-Mpf 1%) Confirm Administered Dose 4 mls @ as directed .ROUTE .STK-MED ONE Stop: 09/25/16 09:45 Lactated Ringer's (Ringers, Lactated) 1,000 mls @ 75 mls/hr IV ASDIRECTED [facility] Piperacillin Sod/Tazobactam (Sod 3.375 gm/ Sodium Chloride) 100 mls @ 25 mls/ hr IV Q6H [facility] Last Admin: 09/27/16 10:30 Dose: Not Given Piperacillin Sod/Tazobactam (Sod 4.5 gm/ Sodium Chloride) 100 mls @ 200 mls/hr IV ONETIME ONE Stop: 09/27/16 09:59 Last Admin: 09/27/16 09:41 Dose: 200 mls/hr Iopamidol (Isovue-300 (61%)) Confirm Administered Dose 50 ml .ROUTE .STK-MED ONE Stop: 09/25/16 08:53 Last Admin: 09/25/16 11:00 Dose: 20 ml Lidocaine/Sodium Bicarbonate (Buffered Lidocaine 1% In Ns 8.4%) 0.25 ml IV ONETIME PRN PRN Reason: Prior to IV Start Stop: 09/25/16 18:00 Last Admin: 09/25/16 08:44 Dose: 0.25 ml Neostigmine Methylsulfate (Neostigmine Methylsulfate) Confirm Administered Dose 10 mg .ROUTE .STK-MED ONE Stop: 09/25/16 10:56 Ondansetron HCl (Zofran) Confirm Administered Dose 4 mg .ROUTE .STK-MED ONE Stop: 09/25/16 09:45 Ondansetron HCl (Zofran) 4 mg IVPUSH ONETIME PRN PRN Reason: Nausea/Vomiting Stop: 09/25/16 18:00 Omeprazole 20 Mg 0 each PO DAILY [facility] Last Admin: 09/26/16 08:39 Dose: Not Given Propofol (Diprivan 20 Ml) Confirm Administered Dose 200 mg .ROUTE .STK-MED ONE Stop: 09/25/16 09:38 Propofol (Diprivan 20 Ml) Confirm Administered Dose 200 mg .ROUTE .STK-MED ONE Stop: 09/25/16 09:44 Rocuronium [place] (Zemuron) Confirm Administered Dose 50 mg .ROUTE .STK-MED ONE Stop: 09/25/16 09:45 Sodium Chloride (Saline Flush) 10 ml FLUSH ASDIRECTED PRN PRN Reason: Keep Vein Open Stop: 09/25/16 18:00 Sodium Chloride (Normal Saline) Confirm Administered Dose 50 ml .ROUTE .STK-MED ONE Stop: 09/25/16 08:53 Last Admin: 09/25/16 11:00 Dose: 20 ml Sodium Chloride (Saline Flush) 10 ml FLUSH ASDIRECTED PRN PRN Reason: Keep Vein Open - Exam Quality Assessment: Supplemental Oxygen, DVT Prophylaxis General: Alert, Oriented, No Acute Distress HEENT: Pupils Equal, Pupils Reactive, EOMI Neck: Supple, Trachea Midline, No JVD Lungs: Normal Respiratory Effort Cardiovascular: Regular Rate, Regular Rhythm GI/Abdominal Exam: Normal Bowel Sounds, Soft, Non-Tender, No Organomegaly, No Distention (Female) Exam: Deferred Back Exam: Normal Inspection Extremities: Normal Inspection, Normal Capillary Refill Skin: Warm Wound/Incisions: Healing Well Neurological: No New Focal Deficit, Normal Gait, Normal Speech Psy/Mental Status: Alert, Normal Affect, Normal Mood Consult PN Assessment/Plan POD#: 2 Procedures: Procedures ASSAY OF FREE THYROXINE (09/20/13) ASSAY OF MAGNESIUM (05/14/15) ASSAY OF NATRIURETIC PEPTIDE (06/30/16) ASSAY OF TROPONIN QUANT (06/30/16) ASSAY THYROID STIM HORMONE (09/20/13) BLOOD GASES ANY COMBINATION (06/30/16) C-REACTIVE PROTEIN (09/04/16) CARDIOVASCULAR STRESS TEST (01/14/16) CHEST X-RAY 1 VIEW FRONTAL (01/04/16) CHEST X-RAY 2VW FRONTAL&LATL (06/30/16) COMPLETE CBC W/AUTO DIFF WBC (09/04/16) COMPREHEN METABOLIC PANEL (09/04/16) CREATINE MB FRACTION (05/14/15) CT ABD & PELV W/CONTRAST (01/05/15) CT HEAD/BRAIN W/O DYE (09/20/13) ELECTROCARDIOGRAM TRACING (06/30/16) EMERGENCY DEPT VISIT (09/04/16) EMERGENCY DEPT VISIT (08/11/16) EMERGENCY DEPT VISIT (06/30/16) EXC TR-EXT MAL+MARY KATE 2.1-3 CM (01/29/16) FIBRIN DEGRADATION QUANT (06/30/16) GAIT TRAINING THERAPY (09/20/13) GLUCOSE BLOOD TEST (09/04/16) HT MUSCLE IMAGE SPECT MULT (01/14/16) HYDRATE IV INFUSION ADD-ON (09/20/13) INTMD RPR S/A/T/EXT 2.5 CM/< (01/29/16) OT EVALUATION (09/20/13) PATH CONSULT INTRAOP 1 BLOC (01/29/16) PATH CONSULT INTRAOP ADDL (01/29/16) PPSV23 VACC 2 YRS+ SUBQ/IM (09/20/13) PROTHROMBIN TIME (06/30/16) PT EVALUATION (09/20/13) ROUTINE VENIPUNCTURE (09/04/16) SELF CARE MNGMENT TRAINING (09/20/13) THER/PROPH/DIAG INJ IV PUSH (09/04/16) THER/PROPH/DIAG INJ SC/IM (06/30/16) THROMBOPLASTIN TIME PARTIAL (06/30/16) TISSUE EXAM BY PATHOLOGIST (01/29/16) TX/PRO/DX INJ NEW DRUG ADDON (09/04/16) URINALYSIS AUTO W/SCOPE (05/14/15) URINE BACTERIA CULTURE (09/20/13) WITHDRAWAL OF ARTERIAL BLOOD (06/30/16) X-RAY EXAM NECK SPINE 2-3 VW (08/11/16) X-RAY EXAM OF ABDOMEN (09/04/16) X-RAY EXAM THORAC SPINE 3VWS (08/11/16) (1) Gallstones SNOMED Code(s): 203752268 Code(s): K80.20 - CALCULUS OF GALLBLADDER W/O CHOLECYSTITIS W/O OBSTRUCTION Current Visit: Yes (2) S/P cholecystectomy SNOMED Code(s): 961337479, 403703523 Code(s): Z90.49 - ACQUIRED ABSENCE OF OTHER SPECIFIED PARTS OF DIGESTIVE TRACT Current Visit: Yes (3) Diabetes mellitus SNOMED Code(s): 38329799 Code(s): E11.9 - TYPE 2 DIABETES MELLITUS WITHOUT COMPLICATIONS Current Visit: Yes (4) Hyperlipemia SNOMED Code(s): 01952122 Code(s): E78.5 - HYPERLIPIDEMIA, UNSPECIFIED Current Visit: Yes (5) Hypertension SNOMED Code(s): 24345574 Code(s): I10 - ESSENTIAL (PRIMARY) HYPERTENSION Current Visit: Yes (6) Abdominal pain SNOMED Code(s): 71765234 Code(s): R10.9 - UNSPECIFIED ABDOMINAL PAIN Current Visit: No Qualifiers: Abdominal location: lower abdomen, unspecified Qualified Code(s): R10.30 - Lower abdominal pain, unspecified (7) Hyperglycemia due to type 2 diabetes mellitus SNOMED Code(s): 680452032117978, 274462568602326 Code(s): E11.65 - TYPE 2 DIABETES MELLITUS WITH HYPERGLYCEMIA Current Visit : No Problem List Initiated/Reviewed/Updated: Yes Plan: Impression/Plan: Persistent hypoxia, empiric coverage for PNA cf atelectasis POD 2 cholecystectomy Diabetes mellitus Diet advance/pain mgt per primary Continue home meds for HTN Keep sliding scale for DM DVT/GI prophylaxis Pulmonary toilet
[2016-09-27] MEDS ORDERED: Furosemide 20 MG/2 ML VIAL IVPUSH ONE (11:30)
[2016-09-27] MEDS ORDERED: Magnesium Hydroxide 400 MG/5 ML Susp 30 ML Cup PO ONE (12:16)
[2016-09-27] MEDS: Piperacillin/Tazobactam 4.5 GM in Sodium Chloride 0.9% 100 ML IV SCH (17:26)
[2016-09-27] MEDS ORDERED: Bisacodyl 10 MG Supp RECTAL ONE (17:45)
--- NOTE | 2016-09-27 17:58 | PCM.SURGPN ---
- General Info Date of Service: 09/27/16 POD#: 2 - Review of Systems Pulmonary: Reports: No Symptoms, Other (hypoxia) Cardiovascular: Reports: No Symptoms Gastrointestinal: Reports: Abdominal Pain (cramps), Decreased Appetite - Patient Data Vitals - Most Recent: Last Vital Signs Temp 98.4 F 09/27/16 15:26 Pulse 88 09/27/16 15:27 Resp 18 09/27/16 15:26 BP 137/55 L 09/27/16 15:27 Pulse Ox 93 L 09/27/16 15:27 Weight - Most Recent: 90.855 kg I&O - Last 24 Hours: Intake & Output 09/27/16 09/27/16 09/27/16 07:59 15:59 23:59 Intake Total 800 220 800 Output Total 1300 750 Balance -500 220 50 Lab Results Last 24 Hrs: Laboratory Results - last 24 hr 09/26/16 09/27/16 09/27/16 Range/Units 22:08 05:50 05:50 WBC 13.64 H (3.98-10.04) K/mm3 RBC 3.75 L (3.98-5.22) M/mm3 Hgb 11.4 (11.2-15.7) gm/L Hct 35.3 (34.1-44.9) % MCV 94.1 (79.4-94.8) fl MCH 30.4 (25.6-32.2) pg MCHC 32.3 (32.2-35.5) g/dl RDW Std Deviation 51.9 H (36.4-46.3) fL Plt Count 233 (182-369) K/mm3 MPV 11.3 (9.4-12.3) fl Neut % (Auto) 79.8 H (34.0-71.1) % Lymph % (Auto) 12.0 L (19.3-51.7) % [place] % (Auto) 6.7 (4.7-12.5) % Eos % (Auto) 1.2 (0.7-5.8) Baso % (Auto) 0.1 (0.1-1.2) % Neut # (Auto) 10.88 H (1.56-6.13) K/mm3 Lymph # (Auto) 1.63 (1.18-3.74) K/mm3 [place] # (Auto) 0.92 H (0.24-0.36) K/mm3 Eos # (Auto) 0.17 (0.04-0.36) K/mm3 Baso # (Auto) 0.01 (0.01-0.08) K/mm3 Sodium 138 (136-145) mEq/L Potassium 4.1 (3.5-5.1) mEq/L Chloride 102 (98-107) mEq/L Carbon Dioxide 27 (21-32) mEq/L Anion Gap 13.1 (5-15) BUN 18 (7-18) mg/dL Creatinine 1.2 H (0.55-1.02) mg/dL Est Cr Clr Drug Dosing 26.80 mL/min Estimated GFR (MDRD) 43 (>60) mL/min BUN/Creatinine Ratio 15.0 (14-18) Glucose 208 H (83-115) mg/dL POC Glucose 193 H (83-110) mg/dL Calcium 8.8 (8.5-10.1) mg/dL Total Bilirubin (0.2-1.0) mg/dL AST (15-37) U/L ALT (14-59) U/L Alkaline Phosphatase (46-116) U/L Total Protein (6.4-8.2) g/dl Albumin (3.4-5.0) g/dl Globulin gm/dL Albumin/Globulin Ratio (1-2) 09/27/16 09/27/16 09/27/16 Range/Units 05:50 06:55 11:38 WBC (3.98-10.04) K/mm3 RBC (3.98-5.22) M/mm3 Hgb (11.2-15.7) gm/L Hct (34.1-44.9) % MCV (79.4-94.8) fl MCH (25.6-32.2) pg MCHC (32.2-35.5) g/dl RDW Std Deviation (36.4-46.3) fL Plt Count (182-369) K/mm3 MPV (9.4-12.3) fl Neut % (Auto) (34.0-71.1) % Lymph % (Auto) (19.3-51.7) % [place] % (Auto) (4.7-12.5) % Eos % (Auto) (0.7-5.8) Baso % (Auto) (0.1-1.2) % Neut # (Auto) (1.56-6.13) K/mm3 Lymph # (Auto) (1.18-3.74) K/mm3 [place] # (Auto) (0.24-0.36) K/mm3 Eos # (Auto) (0.04-0.36) K/mm3 Baso # (Auto) (0.01-0.08) K/mm3 Sodium 136 (136-145) mEq/L Potassium 4.1 (3.5-5.1) mEq/L Chloride 101 (98-107) mEq/L Carbon Dioxide 27 (21-32) mEq/L Anion Gap 12.1 (5-15) BUN 19 H (7-18) mg/dL Creatinine 1.3 H (0.55-1.02) mg/dL Est Cr Clr Drug Dosing 24.74 mL/min Estimated GFR (MDRD) 39 (>60) mL/min BUN/Creatinine Ratio 14.6 (14-18) Glucose 206 H (83-115) mg/dL POC Glucose 206 H 209 H (83-110) mg/dL Calcium 8.9 (8.5-10.1) mg/dL Total Bilirubin 0.6 (0.2-1.0) mg/dL AST 51 H (15-37) U/L ALT 36 (14-59) U/L Alkaline Phosphatase 48 (46-116) U/L Total Protein 6.2 L (6.4-8.2) g/dl Albumin 2.9 L (3.4-5.0) g/dl Globulin 3.3 gm/dL Albumin/Globulin Ratio 0.9 L (1-2) 09/27/16 Range/Units 17:30 WBC (3.98-10.04) K/mm3 RBC (3.98-5.22) M/mm3 Hgb (11.2-15.7) gm/L Hct (34.1-44.9) % MCV (79.4-94.8) fl MCH (25.6-32.2) pg MCHC (32.2-35.5) g/dl RDW Std Deviation (36.4-46.3) fL Plt Count (182-369) K/mm3 MPV (9.4-12.3) fl Neut % (Auto) (34.0-71.1) % Lymph % (Auto) (19.3-51.7) % [place] % (Auto) (4.7-12.5) % Eos % (Auto) (0.7-5.8) Baso % (Auto) (0.1-1.2) % Neut # (Auto) (1.56-6.13) K/mm3 Lymph # (Auto) (1.18-3.74) K/mm3 [place] # (Auto) (0.24-0.36) K/mm3 Eos # (Auto) (0.04-0.36) K/mm3 Baso # (Auto) (0.01-0.08) K/mm3 Sodium (136-145) mEq/L Potassium (3.5-5.1) mEq/L Chloride (98-107) mEq/L Carbon Dioxide (21-32) mEq/L Anion Gap (5-15) BUN (7-18) mg/dL Creatinine (0.55-1.02) mg/dL Est Cr Clr Drug Dosing mL/min Estimated GFR (MDRD) (>60) mL/min BUN/Creatinine Ratio (14-18) Glucose (83-115) mg/dL POC Glucose 258 H (83-110) mg/dL Calcium (8.5-10.1) mg/dL Total Bilirubin (0.2-1.0) mg/dL AST (15-37) U/L ALT (14-59) U/L Alkaline Phosphatase (46-116) U/L Total Protein (6.4-8.2) g/dl Albumin (3.4-5.0) g/dl Globulin gm/dL Albumin/Globulin Ratio (1-2) Med Orders - Current: Current Medications Hydrocodone Bitart/Acetaminophen ([place] 325-5 Mg) 1 tab PO Q6H PRN PRN Reason: Pain Last Admin: 09/27/16 17:25 Dose: 1 tab Allopurinol (Zyloprim) 200 mg PO BID [facility] Last Admin: 09/27/16 08:36 Dose: 200 mg Dextrose/Water (Dextrose 50% In Water) 50 ml IVPUSH ASDIRECTED PRN PRN Reason: Hypoglycemia Fenofibrate (Fenofibrate) 162 mg PO BEDTIME [facility] Last Admin: 09/26/16 22:10 Dose: 162 mg Furosemide (Lasix) 20 mg PO BID [facility] Last Admin: 09/27/16 08:36 Dose: 20 mg Gabapentin (Neurontin) 300 mg PO BID [facility] Heparin Sodium (Porcine) (Heparin Sodium) 5,000 units SUBCUT Q12HR [facility] Last Admin: 09/27/16 08:35 Dose: 5,000 units Hydralazine HCl (Apresoline) 10 mg IVPUSH Q6H PRN PRN Reason: Hypertension Hydrochlorothiazide (Hydrochlorothiazide) 12.5 mg PO DAILY [facility] Last Admin: 09/27/16 08:36 Dose: 12.5 mg Hydromorphone HCl (Dilaudid) 0.5 mg IVPUSH Q1H PRN PRN Reason: Pain Last Admin: 09/27/16 17:24 Dose: 0.5 mg Piperacillin Sod/Tazobactam (Sod 4.5 gm/ Sodium Chloride) 100 mls @ 25 mls/hr IV Q8H [facility] Last Admin: 09/27/16 17:26 Dose: 25 mls/hr Insulin Aspart (Novolog) 0 unit SUBCUT QIDACANDBED [facility] PRN Reason: Protocol Last Admin: 09/27/16 17:30 Dose: 3 unit Lisinopril (Prinivil) 20 mg PO DAILY [facility] Last Admin: 09/27/16 08:35 Dose: 20 mg Metoclopramide HCl (Reglan) 5 mg IVPUSH Q6H [facility] Stop: 09/28/16 18:00 Pantoprazole Sodium (Protonix) 40 mg PO DAILY [facility] Last Admin: 09/27/16 08:36 Dose: 40 mg Potassium Chloride (Klor-Con 10) 10 meq PO BEDTIME [facility] Simvastatin (Zocor) 20 mg PO BEDTIME [facility] Last Admin: 09/26/16 22:12 Dose: 20 mg Discontinued Medications Albuterol (Proventil Hfa) Confirm Administered Dose 6.7 gm INH .STK-MED ONE Stop: 09/25/16 10:52 Bisacodyl (Dulcolax) 10 mg RECTAL ONETIME ONE Stop: 09/26/16 11:47 Last Admin: 09/26/16 14:27 Dose: Not Given Bisacodyl (Dulcolax) 10 mg RECTAL ONETIME ONE Stop: 09/27/16 17:46 Bupivacaine HCl (Marcaine 0.5%) Confirm Administered Dose 30 ml .ROUTE .STK-MED ONE Stop: 09/25/16 08:53 Last Admin: 09/25/16 10:08 Dose: 30 ml Cefazolin Sodium (Ancef) Confirm Administered Dose 2 gm .ROUTE .STK-MED ONE Stop: 09/25/16 09:47 Ephedrine Sulfate (Ephedrine Sulfate) Confirm Administered Dose 50 mg .ROUTE .STK-MED ONE Stop: 09/25/16 10:15 Fentanyl (Sublimaze) Confirm Administered Dose 100 mcg .ROUTE .STK-MED ONE Stop: 09/25/16 09:38 Fentanyl (Sublimaze) Confirm Administered Dose 250 mcg .ROUTE .STK-MED ONE Stop: 09/25/16 09:44 Fentanyl (Sublimaze) 50 mcg IVPUSH Q5M PRN PRN Reason: Pain Stop: 09/25/16 18:00 Furosemide (Lasix) 20 mg IVPUSH ONETIME ONE Stop: 09/27/16 11:31 Last Admin: 09/27/16 12:35 Dose: 20 mg Glycopyrrolate (Robinul) Confirm Administered Dose 0.2 mg .ROUTE .STK-MED ONE Stop: 09/25/16 10:56 Glycopyrrolate (Robinul) Confirm Administered Dose 0.2 mg .ROUTE .STK-MED ONE Stop: 09/25/16 10:56 Hydromorphone HCl (Dilaudid) 0.5 mg IVPUSH Q15M PRN PRN Reason: severe pain Stop: 09/25/16 12:46 Lactated Ringer's (Ringers, Lactated) 1,000 mls @ 125 mls/hr IV ASDIRECTED [facility] Sodium Chloride (Normal Saline) 1,000 mls @ 100 mls/hr IV ASDIRECTED [facility] Stop: 09/25/16 23:00 Last Admin: 09/25/16 21:55 Dose: 100 mls/hr Lidocaine HCl (Xylocaine-Mpf 1%) Confirm Administered Dose 4 mls @ as directed .ROUTE .STK-MED ONE Stop: 09/25/16 09:45 Lactated Ringer's (Ringers, Lactated) 1,000 mls @ 75 mls/hr IV ASDIRECTED [facility] Piperacillin Sod/Tazobactam (Sod 3.375 gm/ Sodium Chloride) 100 mls @ 25 mls/ hr IV Q6H [facility] Last Admin: 09/27/16 10:30 Dose: Not Given Piperacillin Sod/Tazobactam (Sod 4.5 gm/ Sodium Chloride) 100 mls @ 200 mls/hr IV ONETIME ONE Stop: 09/27/16 09:59 Last Admin: 09/27/16 09:41 Dose: 200 mls/hr Iopamidol (Isovue-300 (61%)) Confirm Administered Dose 50 ml .ROUTE .STK-MED ONE Stop: 09/25/16 08:53 Last Admin: 09/25/16 11:00 Dose: 20 ml Lidocaine/Sodium Bicarbonate (Buffered Lidocaine 1% In Ns 8.4%) 0.25 ml IV ONETIME PRN PRN Reason: Prior to IV Start Stop: 09/25/16 18:00 Last Admin: 09/25/16 08:44 Dose: 0.25 ml Magnesium Hydroxide (Milk Of Magnesia) 30 ml PO ONETIME ONE Stop: 09/27/16 12:17 Last Admin: 09/27/16 12:35 Dose: 30 ml Neostigmine Methylsulfate (Neostigmine Methylsulfate) Confirm Administered Dose 10 mg .ROUTE .STK-MED ONE Stop: 09/25/16 10:56 Ondansetron HCl (Zofran) Confirm Administered Dose 4 mg .ROUTE .STK-MED ONE Stop: 09/25/16 09:45 Ondansetron HCl (Zofran) 4 mg IVPUSH ONETIME PRN PRN Reason: Nausea/Vomiting Stop: 09/25/16 18:00 Ondansetron HCl (Zofran) 4 mg IVPUSH Q8H PRN PRN Reason: Nausea Last Admin: 09/25/16 14:54 Dose: 4 mg Omeprazole 20 Mg 0 each PO DAILY [facility] Last Admin: 09/26/16 08:39 Dose: Not Given Propofol (Diprivan 20 Ml) Confirm Administered Dose 200 mg .ROUTE .STK-MED ONE Stop: 09/25/16 09:38 Propofol (Diprivan 20 Ml) Confirm Administered Dose 200 mg .ROUTE .STK-MED ONE Stop: 09/25/16 09:44 Rocuronium [place] (Zemuron) Confirm Administered Dose 50 mg .ROUTE .STK-MED ONE Stop: 09/25/16 09:45 Sodium Chloride (Saline Flush) 10 ml FLUSH ASDIRECTED PRN PRN Reason: Keep Vein Open Stop: 09/25/16 18:00 Sodium Chloride (Normal Saline) Confirm Administered Dose 50 ml .ROUTE .STK-MED ONE Stop: 09/25/16 08:53 Last Admin: 09/25/16 11:00 Dose: 20 ml Sodium Chloride (Saline Flush) 10 ml FLUSH ASDIRECTED PRN PRN Reason: Keep Vein Open - Exam Wound/Incisions: Healing Well Lungs: Clear to Auscultation, Normal Respiratory Effort Cardiovascular: Regular Rate, Regular Rhythm GI/Abdominal Exam: Non-Tender, No Abnormal Bruit, No Mass, Distended (tympanic) - Problem List Review Problem List Initiated/Reviewed/Updated: Yes - My Orders Last 24 Hours: Active Orders 24 hr Category Date Time Status Admission Status [Patient Status] [ADT] Routine ADT 09/27/16 11:59 Active May Shower [RC] ASDIRECTED Care 09/27/16 08:44 Active Abdomen 2V AP Flat Upright [CR] Urgent Exams 09/27/16 17:46 Ordered CXR [Chest 2V] [CR] Routine Exams 09/27/16 08:39 Taken CBC W/O DIFF,HEMOGRAM [HEME] MOTH@0700 Lab 09/29/16 07:00 Ordered CBC W/O DIFF,HEMOGRAM [HEME] MOTH@0700 Lab 10/02/16 07:00 Ordered CBC W/O DIFF,HEMOGRAM [HEME] MOTH@0700 Lab 10/06/16 07:00 Ordered CBC W/O DIFF,HEMOGRAM [HEME] MOTH@0700 Lab 10/09/16 07:00 Ordered CBC W/O DIFF,HEMOGRAM [HEME] MOTH@0700 Lab 10/13/16 07:00 Ordered CBC W/O DIFF,HEMOGRAM [HEME] MOTH@0700 Lab 10/16/16 07:00 Ordered Gabapentin [Neurontin] Med 09/27/16 09:00 Pending 300 mg PO BID Heparin Sodium Med 09/26/16 21:00 Active 5,000 units SUBCUT Q12HR Metoclopramide [Reglan] Med 09/27/16 18:00 Active 5 mg IVPUSH Q6H Piperacillin/Tazobactam [Zosyn] 4.5 gm Med 09/27/16 17:30 Active Sodium Chloride 0.9% [Normal Saline] 100 ml IV Q8H Potassium Chloride [Klor-Con 10] Med 09/27/16 21:00 Pending 10 meq PO BEDTIME Medication Orders Hydrocodone Bitart/Acetaminophen ([place] 325-5 Mg) 1 tab PO Q6H PRN PRN Reason: Pain Last Admin: 09/27/16 17:25 Dose: 1 tab Admin: 09/27/16 09:41 Dose: 1 tab Admin: 09/27/16 03:27 Dose: 1 tab Admin: 09/26/16 16:29 Dose: 1 tab Admin: 09/26/16 06:14 Dose: 1 tab Admin: 09/25/16 18:04 Dose: 1 tab Allopurinol (Zyloprim) 200 mg PO BID [facility] Last Admin: 09/27/16 08:36 Dose: 200 mg Admin: 09/26/16 22:12 Dose: 200 mg Admin: 09/26/16 08:37 Dose: 200 mg Admin: 09/25/16 20:36 Dose: Not Given Dextrose/Water (Dextrose 50% In Water) 50 ml IVPUSH ASDIRECTED PRN PRN Reason: Hypoglycemia Fenofibrate (Fenofibrate) 162 mg PO BEDTIME [facility] Last Admin: 09/26/16 22:10 Dose: 162 mg Admin: 09/25/16 20:35 Dose: Furosemide (Lasix) 20 mg PO BID [facility] Last Admin: 09/27/16 08:36 Dose: 20 mg Admin: 09/26/16 22:11 Dose: 20 mg Admin: 09/26/16 08:38 Dose: 20 mg Admin: 09/25/16 20:36 Dose: Not Given Gabapentin (Neurontin) 300 mg PO BID [facility] Heparin Sodium (Porcine) (Heparin Sodium) 5,000 units SUBCUT Q12HR [facility] Last Admin: 09/27/16 08:35 Dose: 5,000 units Admin: 09/26/16 22:11 Dose: 5,000 units Hydralazine HCl (Apresoline) 10 mg IVPUSH Q6H PRN PRN Reason: Hypertension Hydrochlorothiazide (Hydrochlorothiazide) 12.5 mg PO DAILY [facility] Last Admin: 09/27/16 08:36 Dose: 12.5 mg Admin: 09/26/16 08:37 Dose: 12.5 mg Hydromorphone HCl (Dilaudid) 0.5 mg IVPUSH Q1H PRN PRN Reason: Pain Last Admin: 09/27/16 17:24 Dose: 0.5 mg Admin: 09/27/16 08:49 Dose: 0.5 mg Admin: 09/26/16 16:47 Dose: 0.5 mg Admin: 09/25/16 21:56 Dose: 0.5 mg Admin: 09/25/16 16:11 Dose: 0.5 mg Admin: 09/25/16 15:09 Dose: 0.5 mg Piperacillin Sod/Tazobactam (Sod 4.5 gm/ Sodium Chloride) 100 mls @ 25 mls/hr IV Q8H [facility] Last Admin: 09/27/16 17:26 Dose: 25 mls/hr Insulin Aspart (Novolog) 0 unit SUBCUT QIDACANDBED [facility] PRN Reason: Protocol Last Admin: 09/27/16 17:30 Dose: 3 unit Admin: 09/27/16 12:35 Dose: 2 unit Admin: 09/27/16 08:34 Dose: 2 unit Admin: 09/26/16 22:13 Dose: 1 unit Admin: 09/26/16 16:51 Dose: 1 unit Admin: 09/26/16 11:09 Dose: 2 unit Admin: 09/26/16 08:36 Dose: 1 unit Admin: 09/25/16 21:57 Dose: 1 unit Lisinopril (Prinivil) 20 mg PO DAILY [facility] Last Admin: 09/27/16 08:35 Dose: 20 mg Admin: 09/26/16 08:38 Dose: 20 mg Metoclopramide HCl (Reglan) 5 mg IVPUSH Q6H [facility] Stop: 09/28/16 18:00 Pantoprazole Sodium (Protonix) 40 mg PO DAILY [facility] Last Admin: 09/27/16 08:36 Dose: 40 mg Potassium Chloride (Klor-Con 10) 10 meq PO BEDTIME [facility] Simvastatin (Zocor) 20 mg PO BEDTIME [facility] Last Admin: 09/26/16 22:12 Dose: 20 mg Admin: 09/25/16 20:36 Dose: Not Given - Plan Plan (Free Text/Narrative):: pt stable VS but slow to improve face is puffy no rales abdomen sugest ileus, and lab reviewed good lytes wbc elevated ass possible ongoing infection in abdomen, and possible fluid excess ileus plan will start antibiotic teat with dulcolx suppositoriescheck xray of abdomen and relgan and
[2016-09-27] MEDS: Metoclopramide 10 MG/2 ML SDV IVPUSH SCH ×2 (18:18→23:37)
[2016-09-27] MEDS ORDERED: Lactated Ringers 1,000 ML IV SCH (20:45)
[2016-09-27] MEDS: Fenofibrate 54 MG Tab PO SCH (21:48)
[2016-09-27] MEDS: Simvastatin 20 MG Tab PO SCH (21:49)
[2016-09-27] MEDS: Pantoprazole 40 MG Vial IVPUSH SCH (22:31)
[2016-09-28] MEDS: Piperacillin/Tazobactam 4.5 GM in Sodium Chloride 0.9% 100 ML IV SCH ×3 (01:58→17:22)
[2016-09-28] MEDS: Metoclopramide 10 MG/2 ML SDV IVPUSH SCH ×3 (05:52→17:22)
[2016-09-28] MEDS: Insulin Aspart 100 Units/ML 3 ML Pen SUBCUT SCH ×4 (06:00→22:21)
[2016-09-28] MEDS: Allopurinol 100 MG Tab PO SCH ×2 (08:18→22:06)
[2016-09-28] MEDS: Lisinopril 20 MG Tab PO SCH (08:19)
--- NOTE | 2016-09-28 08:19 | PCM.CONSN ---
- General Info Date of Service: 09/28/16 Admission Dx/Problem (Free Text): Hyperglycemia with IDDM Subjective Update: Follow Up Functional Status: Reports: Pain Controlled, Ambulating, New Symptoms. Denies: Urinating - Review of Systems General: Denies: Fever, Chills HEENT: Reports: No Symptoms Pulmonary: Reports: Shortness of Breath Cardiovascular: Denies: Chest Pain Gastrointestinal: Reports: Abdominal Pain, Flatus. Denies: Nausea, Vomiting Genitourinary: Reports: No Symptoms Musculoskeletal: Reports: No Symptoms Skin: Denies: Cyanosis, Pruritis, Rash Neurological: Denies: Confusion, Difficulty Walking, Weakness, Gait Disturbance Psychiatric: Denies: Depression, Anxiety, Hallucinations Systems Review Comment:: No significant overnight issues. She did not sleep well last night due to NGT in her nose. She is passing gas. Her last BM was yesterday. She denies abdominal pain, chest pain, nausea or vomiting. - Patient Data Vitals - Most Recent: Last Vital Signs Temp 36.6 C 09/28/16 02:52 Pulse 103 H 09/28/16 02:52 Resp 18 09/28/16 02:52 BP 158/96 H 09/28/16 02:52 Pulse Ox 96 09/28/16 02:52 Weight - Most Recent: 89.267 kg I&O - Last 24 Hours: Intake & Output 09/27/16 09/28/16 09/28/16 22:59 06:59 14:59 Intake Total 900 870 Output Total 750 450 Balance 150 420 Lab Results Last 24 Hours: Laboratory Results - last 24 hr 09/27/16 09/27/16 09/27/16 Range/Units 05:50 11:38 17:30 WBC (3.98-10.04) K/mm3 RBC (3.98-5.22) M/mm3 Hgb (11.2-15.7) gm/L Hct (34.1-44.9) % MCV (79.4-94.8) fl MCH (25.6-32.2) pg MCHC (32.2-35.5) g/dl RDW Std Deviation (36.4-46.3) fL Plt Count (182-369) K/mm3 MPV (9.4-12.3) fl Neut % (Auto) (34.0-71.1) % Lymph % (Auto) (19.3-51.7) % [place] % (Auto) (4.7-12.5) % Eos % (Auto) (0.7-5.8) Baso % (Auto) (0.1-1.2) % Neut # (Auto) (1.56-6.13) K/mm3 Lymph # (Auto) (1.18-3.74) K/mm3 [place] # (Auto) (0.24-0.36) K/mm3 Eos # (Auto) (0.04-0.36) K/mm3 Baso # (Auto) (0.01-0.08) K/mm3 Sodium 136 (136-145) mEq/L Potassium 4.1 (3.5-5.1) mEq/L Chloride 101 (98-107) mEq/L Carbon Dioxide 27 (21-32) mEq/L Anion Gap 12.1 (5-15) BUN 19 H (7-18) mg/dL Creatinine 1.3 H (0.55-1.02) mg/dL Est Cr Clr Drug Dosing 24.74 mL/min Estimated GFR (MDRD) 39 (>60) mL/min BUN/Creatinine Ratio 14.6 (14-18) Glucose 206 H (83-115) mg/dL POC Glucose 209 H 258 H (83-110) mg/dL Calcium 8.9 (8.5-10.1) mg/dL Total Bilirubin 0.6 (0.2-1.0) mg/dL AST 51 H (15-37) U/L ALT 36 (14-59) U/L Alkaline Phosphatase 48 (46-116) U/L Total Protein 6.2 L (6.4-8.2) g/dl Albumin 2.9 L (3.4-5.0) g/dl Globulin 3.3 gm/dL Albumin/Globulin Ratio 0.9 L (1-2) Amylase (20-160) U/L 09/27/16 09/28/16 09/28/16 Range/Units 21:07 01:52 05:41 WBC 9.99 (3.98-10.04) K/mm3 RBC 3.83 L (3.98-5.22) M/mm3 Hgb 11.5 (11.2-15.7) gm/L Hct 35.4 (34.1-44.9) % MCV 92.4 (79.4-94.8) fl MCH 30.0 (25.6-32.2) pg MCHC 32.5 (32.2-35.5) g/dl RDW Std Deviation 49.8 H (36.4-46.3) fL Plt Count 254 (182-369) K/mm3 MPV 11.3 (9.4-12.3) fl Neut % (Auto) 78.5 H (34.0-71.1) % Lymph % (Auto) 13.0 L (19.3-51.7) % [place] % (Auto) 6.8 (4.7-12.5) % Eos % (Auto) 1.4 (0.7-5.8) Baso % (Auto) 0.1 (0.1-1.2) % Neut # (Auto) 7.84 H (1.56-6.13) K/mm3 Lymph # (Auto) 1.30 (1.18-3.74) K/mm3 [place] # (Auto) 0.68 H (0.24-0.36) K/mm3 Eos # (Auto) 0.14 (0.04-0.36) K/mm3 Baso # (Auto) 0.01 (0.01-0.08) K/mm3 Sodium (136-145) mEq/L Potassium (3.5-5.1) mEq/L Chloride (98-107) mEq/L Carbon Dioxide (21-32) mEq/L Anion Gap (5-15) BUN (7-18) mg/dL Creatinine (0.55-1.02) mg/dL Est Cr Clr Drug Dosing mL/min Estimated GFR (MDRD) (>60) mL/min BUN/Creatinine Ratio (14-18) Glucose (83-115) mg/dL POC Glucose 255 H 256 H (83-110) mg/dL Calcium (8.5-10.1) mg/dL Total Bilirubin (0.2-1.0) mg/dL AST (15-37) U/L ALT (14-59) U/L Alkaline Phosphatase (46-116) U/L Total Protein (6.4-8.2) g/dl Albumin (3.4-5.0) g/dl Globulin gm/dL Albumin/Globulin Ratio (1-2) Amylase (20-160) U/L 09/28/16 09/28/16 Range/Units 05:41 05:46 WBC (3.98-10.04) K/mm3 RBC (3.98-5.22) M/mm3 Hgb (11.2-15.7) gm/L Hct (34.1-44.9) % MCV (79.4-94.8) fl MCH (25.6-32.2) pg MCHC (32.2-35.5) g/dl RDW Std Deviation (36.4-46.3) fL Plt Count (182-369) K/mm3 MPV (9.4-12.3) fl Neut % (Auto) (34.0-71.1) % Lymph % (Auto) (19.3-51.7) % [place] % (Auto) (4.7-12.5) % Eos % (Auto) (0.7-5.8) Baso % (Auto) (0.1-1.2) % Neut # (Auto) (1.56-6.13) K/mm3 Lymph # (Auto) (1.18-3.74) K/mm3 [place] # (Auto) (0.24-0.36) K/mm3 Eos # (Auto) (0.04-0.36) K/mm3 Baso # (Auto) (0.01-0.08) K/mm3 Sodium 139 (136-145) mEq/L Potassium 3.7 (3.5-5.1) mEq/L Chloride 101 (98-107) mEq/L Carbon Dioxide 30 (21-32) mEq/L Anion Gap 11.7 (5-15) BUN 17 (7-18) mg/dL Creatinine 1.2 H (0.55-1.02) mg/dL Est Cr Clr Drug Dosing 26.80 mL/min Estimated GFR (MDRD) 43 (>60) mL/min BUN/Creatinine Ratio 14.2 (14-18) Glucose 234 H (83-115) mg/dL POC Glucose 239 H (83-110) mg/dL Calcium 9.1 (8.5-10.1) mg/dL Total Bilirubin 0.6 (0.2-1.0) mg/dL AST 36 (15-37) U/L ALT 31 (14-59) U/L Alkaline Phosphatase 73 (46-116) U/L Total Protein 6.5 (6.4-8.2) g/dl Albumin 2.9 L (3.4-5.0) g/dl Globulin 3.6 gm/dL Albumin/Globulin Ratio 0.8 L (1-2) Amylase 20 (20-160) U/L Med Orders - Current: Current Medications Hydrocodone Bitart/Acetaminophen ([place] 325-5 Mg) 1 tab PO Q6H PRN PRN Reason: Pain Last Admin: 09/27/16 17:25 Dose: 1 tab Allopurinol (Zyloprim) 200 mg PO BID [facility] Last Admin: 09/27/16 21:49 Dose: Not Given Dextrose/Water (Dextrose 50% In Water) 50 ml IVPUSH ASDIRECTED PRN PRN Reason: Hypoglycemia Fenofibrate (Fenofibrate) 162 mg PO BEDTIME [facility] Last Admin: 09/27/16 21:48 Dose: Not Given Furosemide (Lasix) 20 mg PO BID [facility] Last Admin: 09/27/16 08:36 Dose: 20 mg Gabapentin (Neurontin) 300 mg PO BID [facility] Heparin Sodium (Porcine) (Heparin Sodium) 5,000 units SUBCUT Q12HR [facility] Last Admin: 09/27/16 22:31 Dose: 5,000 units Hydralazine HCl (Apresoline) 10 mg IVPUSH Q6H PRN PRN Reason: Hypertension Last Admin: 09/28/16 06:43 Dose: 10 mg Hydrochlorothiazide (Hydrochlorothiazide) 12.5 mg PO DAILY [facility] Last Admin: 09/27/16 08:36 Dose: 12.5 mg Piperacillin Sod/Tazobactam (Sod 4.5 gm/ Sodium Chloride) 100 mls @ 25 mls/hr IV Q8H [facility] Last Admin: 09/28/16 01:58 Dose: 25 mls/hr Lactated Ringer's (Ringers, Lactated) 1,000 mls @ 75 mls/hr IV ASDIRECTED [facility] Last Admin: 09/27/16 22:32 Dose: 75 mls/hr Insulin Aspart (Novolog) 0 unit SUBCUT QIDACANDBED [facility] PRN Reason: Protocol Last Admin: 09/28/16 06:00 Dose: 2 unit Lisinopril (Prinivil) 20 mg PO DAILY [facility] Last Admin: 09/27/16 08:35 Dose: 20 mg Metoclopramide HCl (Reglan) 5 mg IVPUSH Q6H [facility] Stop: 09/28/16 18:00 Last Admin: 09/28/16 05:52 Dose: 5 mg Pantoprazole Sodium (Protonix Iv) 40 mg IVPUSH DAILY [facility] Last Admin: 09/27/16 22:31 Dose: 40 mg Potassium Chloride (Klor-Con 10) 10 meq PO BEDTIME [facility] Simvastatin (Zocor) 20 mg PO BEDTIME [facility] Last Admin: 09/27/16 21:49 Dose: Not Given Discontinued Medications Albuterol (Proventil Hfa) Confirm Administered Dose 6.7 gm INH .STK-MED ONE Stop: 09/25/16 10:52 Bisacodyl (Dulcolax) 10 mg RECTAL ONETIME ONE Stop: 09/26/16 11:47 Last Admin: 09/26/16 14:27 Dose: Not Given Bisacodyl (Dulcolax) 10 mg RECTAL ONETIME ONE Stop: 09/27/16 17:46 Last Admin: 09/27/16 18:18 Dose: 10 mg Bupivacaine HCl (Marcaine 0.5%) Confirm Administered Dose 30 ml .ROUTE .STK-MED ONE Stop: 09/25/16 08:53 Last Admin: 09/25/16 10:08 Dose: 30 ml Cefazolin Sodium (Ancef) Confirm Administered Dose 2 gm .ROUTE .STK-MED ONE Stop: 09/25/16 09:47 Ephedrine Sulfate (Ephedrine Sulfate) Confirm Administered Dose 50 mg .ROUTE .STK-MED ONE Stop: 09/25/16 10:15 Fentanyl (Sublimaze) Confirm Administered Dose 100 mcg .ROUTE .STK-MED ONE Stop: 09/25/16 09:38 Fentanyl (Sublimaze) Confirm Administered Dose 250 mcg .ROUTE .STK-MED ONE Stop: 09/25/16 09:44 Fentanyl (Sublimaze) 50 mcg IVPUSH Q5M PRN PRN Reason: Pain Stop: 09/25/16 18:00 Furosemide (Lasix) 20 mg IVPUSH ONETIME ONE Stop: 09/27/16 11:31 Last Admin: 09/27/16 12:35 Dose: 20 mg Glycopyrrolate (Robinul) Confirm Administered Dose 0.2 mg .ROUTE .STK-MED ONE Stop: 09/25/16 10:56 Glycopyrrolate (Robinul) Confirm Administered Dose 0.2 mg .ROUTE .STK-MED ONE Stop: 09/25/16 10:56 Hydromorphone HCl (Dilaudid) 0.5 mg IVPUSH Q15M PRN PRN Reason: severe pain Stop: 09/25/16 12:46 Hydromorphone HCl (Dilaudid) 0.5 mg IVPUSH Q1H PRN PRN Reason: Pain Last Admin: 09/27/16 18:26 Dose: 0.5 mg Lactated Ringer's (Ringers, Lactated) 1,000 mls @ 125 mls/hr IV ASDIRECTED [facility] Sodium Chloride (Normal Saline) 1,000 mls @ 100 mls/hr IV ASDIRECTED [facility] Stop: 09/25/16 23:00 Last Admin: 09/25/16 21:55 Dose: 100 mls/hr Lidocaine HCl (Xylocaine-Mpf 1%) Confirm Administered Dose 4 mls @ as directed .ROUTE .STK-MED ONE Stop: 09/25/16 09:45 Lactated Ringer's (Ringers, Lactated) 1,000 mls @ 75 mls/hr IV ASDIRECTED [facility] Piperacillin Sod/Tazobactam (Sod 3.375 gm/ Sodium Chloride) 100 mls @ 25 mls/ hr IV Q6H [facility] Last Admin: 09/27/16 10:30 Dose: Not Given Piperacillin Sod/Tazobactam (Sod 4.5 gm/ Sodium Chloride) 100 mls @ 200 mls/hr IV ONETIME ONE Stop: 09/27/16 09:59 Last Admin: 09/27/16 09:41 Dose: 200 mls/hr Iopamidol (Isovue-300 (61%)) Confirm Administered Dose 50 ml .ROUTE .STK-MED ONE Stop: 09/25/16 08:53 Last Admin: 09/25/16 11:00 Dose: 20 ml Lidocaine/Sodium Bicarbonate (Buffered Lidocaine 1% In Ns 8.4%) 0.25 ml IV ONETIME PRN PRN Reason: Prior to IV Start Stop: 09/25/16 18:00 Last Admin: 09/25/16 08:44 Dose: 0.25 ml Magnesium Hydroxide (Milk Of Magnesia) 30 ml PO ONETIME ONE Stop: 09/27/16 12:17 Last Admin: 09/27/16 12:35 Dose: 30 ml Neostigmine Methylsulfate (Neostigmine Methylsulfate) Confirm Administered Dose 10 mg .ROUTE .STK-MED ONE Stop: 09/25/16 10:56 Ondansetron HCl (Zofran) Confirm Administered Dose 4 mg .ROUTE .STK-MED ONE Stop: 09/25/16 09:45 Ondansetron HCl (Zofran) 4 mg IVPUSH ONETIME PRN PRN Reason: Nausea/Vomiting Stop: 09/25/16 18:00 Ondansetron HCl (Zofran) 4 mg IVPUSH Q8H PRN PRN Reason: Nausea Last Admin: 09/25/16 14:54 Dose: 4 mg Pantoprazole Sodium (Protonix) 40 mg PO DAILY [facility] Last Admin: 09/27/16 08:36 Dose: 40 mg Omeprazole 20 Mg 0 each PO DAILY [facility] Last Admin: 09/26/16 08:39 Dose: Not Given Propofol (Diprivan 20 Ml) Confirm Administered Dose 200 mg .ROUTE .STK-MED ONE Stop: 09/25/16 09:38 Propofol (Diprivan 20 Ml) Confirm Administered Dose 200 mg .ROUTE .STK-MED ONE Stop: 09/25/16 09:44 Rocuronium [place] (Zemuron) Confirm Administered Dose 50 mg .ROUTE .STK-MED ONE Stop: 09/25/16 09:45 Sodium Chloride (Saline Flush) 10 ml FLUSH ASDIRECTED PRN PRN Reason: Keep Vein Open Stop: 09/25/16 18:00 Sodium Chloride (Normal Saline) Confirm Administered Dose 50 ml .ROUTE .STK-MED ONE Stop: 09/25/16 08:53 Last Admin: 09/25/16 11:00 Dose: 20 ml Sodium Chloride (Saline Flush) 10 ml FLUSH ASDIRECTED PRN PRN Reason: Keep Vein Open - Exam General: Alert, Oriented, Cooperative, No Acute Distress, Other HEENT: Pupils Equal, Pupils Reactive, EOMI, Mucous Membr. Moist/[place], Other ( NGT in place) Neck: Supple, Trachea Midline, No JVD, No Thyromegaly, Other (short and thick) Lungs: Clear to Auscultation, Normal Respiratory Effort Cardiovascular: Regular Rate, Regular Rhythm GI/Abdominal Exam: Soft, No Distention, No Abnormal Bruit, No Mass, Tender, Abnormal Bowel Sounds. No: Distended, Guarding, Rigid, Rebound (Female) Exam: Deferred Back Exam: Normal Inspection, Decreased Range of Motion Extremities: Normal Inspection, Normal Range of Motion, Non-Tender, No Pedal Edema, Normal Capillary Refill Peripheral Pulses: 2+: Dorsalis Pedis (L), Dorsalis Pedis (R) Skin: Warm, Dry, Intact Neurological: No New Focal Deficit Psy/Mental Status: Alert, Normal Affect, Normal Mood Consult PN Assessment/Plan POD#: 3 Procedures: Procedures ASSAY OF FREE THYROXINE (09/20/13) ASSAY OF MAGNESIUM (05/14/15) ASSAY OF NATRIURETIC PEPTIDE (06/30/16) ASSAY OF TROPONIN QUANT (06/30/16) ASSAY THYROID STIM HORMONE (09/20/13) BLOOD GASES ANY COMBINATION (06/30/16) C-REACTIVE PROTEIN (09/04/16) CARDIOVASCULAR STRESS TEST (01/14/16) CHEST X-RAY 1 VIEW FRONTAL (01/04/16) CHEST X-RAY 2VW FRONTAL&LATL (06/30/16) COMPLETE CBC W/AUTO DIFF WBC (09/04/16) COMPREHEN METABOLIC PANEL (09/04/16) CREATINE MB FRACTION (05/14/15) CT ABD & PELV W/CONTRAST (01/05/15) CT HEAD/BRAIN W/O DYE (09/20/13) ELECTROCARDIOGRAM TRACING (06/30/16) EMERGENCY DEPT VISIT (09/04/16) EMERGENCY DEPT VISIT (08/11/16) EMERGENCY DEPT VISIT (06/30/16) EXC TR-EXT MAL+MARY KATE 2.1-3 CM (01/29/16) FIBRIN DEGRADATION QUANT (06/30/16) GAIT TRAINING THERAPY (09/20/13) GLUCOSE BLOOD TEST (09/04/16) HT MUSCLE IMAGE SPECT MULT (01/14/16) HYDRATE IV INFUSION ADD-ON (09/20/13) INTMD RPR S/A/T/EXT 2.5 CM/< (01/29/16) OT EVALUATION (09/20/13) PATH CONSULT INTRAOP 1 BLOC (01/29/16) PATH CONSULT INTRAOP ADDL (01/29/16) PPSV23 VACC 2 YRS+ SUBQ/IM (09/20/13) PROTHROMBIN TIME (06/30/16) PT EVALUATION (09/20/13) ROUTINE VENIPUNCTURE (09/04/16) SELF CARE MNGMENT TRAINING (09/20/13) THER/PROPH/DIAG INJ IV PUSH (09/04/16) THER/PROPH/DIAG INJ SC/IM (06/30/16) THROMBOPLASTIN TIME PARTIAL (06/30/16) TISSUE EXAM BY PATHOLOGIST (01/29/16) TX/PRO/DX INJ NEW DRUG ADDON (09/04/16) URINALYSIS AUTO W/SCOPE (05/14/15) URINE BACTERIA CULTURE (09/20/13) WITHDRAWAL OF ARTERIAL BLOOD (06/30/16) X-RAY EXAM NECK SPINE 2-3 VW (08/11/16) X-RAY EXAM OF ABDOMEN (09/04/16) X-RAY EXAM THORAC SPINE 3VWS (08/11/16) Problem List Initiated/Reviewed/Updated: Yes Plan: Impression/Plan: Acute: Hyperglycemia with IDDM - She takes Lantus 28 units Sub Q BID, will change to 15 units subQ BID since she is NPO - Also on ISS at home with 20-23 units SubQ TID, change to High dose ISS - Allow permissive hyperglycemia but no > 300 Persistent Hypoxia - She has baseline SOB - Likely from Atelectasis and Shallow Breaths - She takes shallow breaths due to pain - CXR shows no obvious infiltrates - Recommend against empiric PNA coverage with ATB - IS as directed and Ambulated QID Post-Operative Ileus - Defer management to GS - Encourage patient to move and be mobile POD 3 cholecystectomy - GS following Chronic: HTN HLD HF of Unknown EF SOB GERD OA Gout Peripheral Neuropathy Hypothyroidism Obesity with BMI 37 Depression Plan: Patient is clinically stable Continue current treatment Diet as per primary team DVT/GI prophylaxis Pulmonary toilet Additional orders as above
[2016-09-28] MEDS: Hydrochlorothiazide 12.5 MG Cap PO SCH (08:20)
[2016-09-28] MEDS: Heparin Sodium 5,000 Units/ML Vial SUBCUT SCH ×2 (08:20→22:19)
[2016-09-28] MEDS: Gabapentin 300 MG Cap PO SCH ×3 (08:20→22:05)
[2016-09-28] MEDS: Pantoprazole 40 MG Vial IVPUSH SCH (08:22)
[2016-09-28] MEDS ORDERED: Metoprolol Tartrate 5 MG/5 ML SDV IVPUSH PRN (08:54)
[2016-09-28] MEDS ORDERED: hydrALAZINE 20 MG/ML SDV IVPUSH PRN (08:54)
[2016-09-28] MEDS ORDERED: Insulin Detemir 100 Units/ML 3 ML Pen SUBCUT SCH ×2 (09:00→21:00)
[2016-09-28] MEDS: Furosemide 20 MG Tab PO SCH ×2 (10:19→22:04)
[2016-09-28] MEDS ORDERED: Insulin Detemir 100 Units/ML 3 ML Pen SUBCUT ONE (12:54)
[2016-09-28] MEDS ORDERED: Sodium Chloride 0.9% 10 ML Syringe FLUSH PRN (13:22)
--- NOTE | 2016-09-28 13:26 | PCM.SURGPN ---
- General Info Date of Service: 09/28/16 POD#: 3 Functional Status: Reports: Pain Controlled - Review of Systems General: Reports: No Symptoms Pulmonary: Reports: No Symptoms Cardiovascular: Reports: No Symptoms Gastrointestinal: Reports: No Symptoms - Patient Data Vitals - Most Recent: Last Vital Signs Temp 98.4 F 09/28/16 07:53 Pulse 105 H 09/28/16 08:11 Resp 18 09/28/16 07:53 BP 165/68 H 09/28/16 08:19 Pulse Ox 87 L 09/28/16 09:13 Weight - Most Recent: 89.267 kg I&O - Last 24 Hours: Intake & Output 09/27/16 09/28/16 09/28/16 23:59 07:59 15:59 Intake Total 1078 592 537 Output Total 850 350 Balance 228 242 537 Lab Results Last 24 Hrs: Laboratory Results - last 24 hr 09/27/16 09/27/16 09/28/16 Range/Units 17:30 21:07 01:52 WBC (3.98-10.04) K/mm3 RBC (3.98-5.22) M/mm3 Hgb (11.2-15.7) gm/L Hct (34.1-44.9) % MCV (79.4-94.8) fl MCH (25.6-32.2) pg MCHC (32.2-35.5) g/dl RDW Std Deviation (36.4-46.3) fL Plt Count (182-369) K/mm3 MPV (9.4-12.3) fl Neut % (Auto) (34.0-71.1) % Lymph % (Auto) (19.3-51.7) % [place] % (Auto) (4.7-12.5) % Eos % (Auto) (0.7-5.8) Baso % (Auto) (0.1-1.2) % Neut # (Auto) (1.56-6.13) K/mm3 Lymph # (Auto) (1.18-3.74) K/mm3 [place] # (Auto) (0.24-0.36) K/mm3 Eos # (Auto) (0.04-0.36) K/mm3 Baso # (Auto) (0.01-0.08) K/mm3 Sodium (136-145) mEq/L Potassium (3.5-5.1) mEq/L Chloride (98-107) mEq/L Carbon Dioxide (21-32) mEq/L Anion Gap (5-15) BUN (7-18) mg/dL Creatinine (0.55-1.02) mg/dL Est Cr Clr Drug Dosing mL/min Estimated GFR (MDRD) (>60) mL/min BUN/Creatinine Ratio (14-18) Glucose (83-115) mg/dL POC Glucose 258 H 255 H 256 H (83-110) mg/dL Calcium (8.5-10.1) mg/dL Total Bilirubin (0.2-1.0) mg/dL AST (15-37) U/L ALT (14-59) U/L Alkaline Phosphatase (46-116) U/L Total Protein (6.4-8.2) g/dl Albumin (3.4-5.0) g/dl Globulin gm/dL Albumin/Globulin Ratio (1-2) Amylase (20-160) U/L 09/28/16 09/28/16 09/28/16 Range/Units 05:41 05:41 05:46 WBC 9.99 (3.98-10.04) K/mm3 RBC 3.83 L (3.98-5.22) M/mm3 Hgb 11.5 (11.2-15.7) gm/L Hct 35.4 (34.1-44.9) % MCV 92.4 (79.4-94.8) fl MCH 30.0 (25.6-32.2) pg MCHC 32.5 (32.2-35.5) g/dl RDW Std Deviation 49.8 H (36.4-46.3) fL Plt Count 254 (182-369) K/mm3 MPV 11.3 (9.4-12.3) fl Neut % (Auto) 78.5 H (34.0-71.1) % Lymph % (Auto) 13.0 L (19.3-51.7) % [place] % (Auto) 6.8 (4.7-12.5) % Eos % (Auto) 1.4 (0.7-5.8) Baso % (Auto) 0.1 (0.1-1.2) % Neut # (Auto) 7.84 H (1.56-6.13) K/mm3 Lymph # (Auto) 1.30 (1.18-3.74) K/mm3 [place] # (Auto) 0.68 H (0.24-0.36) K/mm3 Eos # (Auto) 0.14 (0.04-0.36) K/mm3 Baso # (Auto) 0.01 (0.01-0.08) K/mm3 Sodium 139 (136-145) mEq/L Potassium 3.7 (3.5-5.1) mEq/L Chloride 101 (98-107) mEq/L Carbon Dioxide 30 (21-32) mEq/L Anion Gap 11.7 (5-15) BUN 17 (7-18) mg/dL Creatinine 1.2 H (0.55-1.02) mg/dL Est Cr Clr Drug Dosing 26.80 mL/min Estimated GFR (MDRD) 43 (>60) mL/min BUN/Creatinine Ratio 14.2 (14-18) Glucose 234 H (83-115) mg/dL POC Glucose 239 H (83-110) mg/dL Calcium 9.1 (8.5-10.1) mg/dL Total Bilirubin 0.6 (0.2-1.0) mg/dL AST 36 (15-37) U/L ALT 31 (14-59) U/L Alkaline Phosphatase 73 (46-116) U/L Total Protein 6.5 (6.4-8.2) g/dl Albumin 2.9 L (3.4-5.0) g/dl Globulin 3.6 gm/dL Albumin/Globulin Ratio 0.8 L (1-2) Amylase 20 (20-160) U/L 09/28/16 Range/Units 11:56 WBC (3.98-10.04) K/mm3 RBC (3.98-5.22) M/mm3 Hgb (11.2-15.7) gm/L Hct (34.1-44.9) % MCV (79.4-94.8) fl MCH (25.6-32.2) pg MCHC (32.2-35.5) g/dl RDW Std Deviation (36.4-46.3) fL Plt Count (182-369) K/mm3 MPV (9.4-12.3) fl Neut % (Auto) (34.0-71.1) % Lymph % (Auto) (19.3-51.7) % [place] % (Auto) (4.7-12.5) % Eos % (Auto) (0.7-5.8) Baso % (Auto) (0.1-1.2) % Neut # (Auto) (1.56-6.13) K/mm3 Lymph # (Auto) (1.18-3.74) K/mm3 [place] # (Auto) (0.24-0.36) K/mm3 Eos # (Auto) (0.04-0.36) K/mm3 Baso # (Auto) (0.01-0.08) K/mm3 Sodium (136-145) mEq/L Potassium (3.5-5.1) mEq/L Chloride (98-107) mEq/L Carbon Dioxide (21-32) mEq/L Anion Gap (5-15) BUN (7-18) mg/dL Creatinine (0.55-1.02) mg/dL Est Cr Clr Drug Dosing mL/min Estimated GFR (MDRD) (>60) mL/min BUN/Creatinine Ratio (14-18) Glucose (83-115) mg/dL POC Glucose 287 H (83-110) mg/dL Calcium (8.5-10.1) mg/dL Total Bilirubin (0.2-1.0) mg/dL AST (15-37) U/L ALT (14-59) U/L Alkaline Phosphatase (46-116) U/L Total Protein (6.4-8.2) g/dl Albumin (3.4-5.0) g/dl Globulin gm/dL Albumin/Globulin Ratio (1-2) Amylase (20-160) U/L Med Orders - Current: Current Medications Hydrocodone Bitart/Acetaminophen (Rice 325-5 Mg) 1 tab PO Q6H PRN PRN Reason: Pain Last Admin: 09/27/16 17:25 Dose: 1 tab Allopurinol (Zyloprim) 200 mg PO BID [facility] Last Admin: 09/28/16 08:18 Dose: 200 mg Dextrose/Water (Dextrose 50% In Water) 50 ml IVPUSH ASDIRECTED PRN PRN Reason: Hypoglycemia Fenofibrate (Fenofibrate) 162 mg PO BEDTIME [facility] Last Admin: 09/27/16 21:48 Dose: Not Given Furosemide (Lasix) 20 mg PO BID [facility] Last Admin: 09/28/16 10:19 Dose: 20 mg Gabapentin (Neurontin) 300 mg PO BID [facility] Last Admin: 09/28/16 08:20 Dose: 300 mg Heparin Sodium (Porcine) (Heparin Sodium) 5,000 units SUBCUT Q12HR [facility] Last Admin: 09/28/16 08:20 Dose: 5,000 units Hydralazine HCl (Apresoline) 10 mg IVPUSH Q4H PRN PRN Reason: Hypertension Hydrochlorothiazide (Hydrochlorothiazide) 12.5 mg PO DAILY [facility] Last Admin: 09/28/16 08:20 Dose: 12.5 mg Piperacillin Sod/Tazobactam (Sod 4.5 gm/ Sodium Chloride) 100 mls @ 25 mls/hr IV Q8H [facility] Last Admin: 09/28/16 10:07 Dose: 25 mls/hr Lactated Ringer's (Ringers, Lactated) 1,000 mls @ 75 mls/hr IV ASDIRECTED [facility] Last Admin: 09/27/16 22:32 Dose: 75 mls/hr Insulin Aspart (Novolog) 0 unit SUBCUT QIDACANDBED [facility] PRN Reason: Protocol Last Admin: 09/28/16 12:57 Dose: 9 unit Insulin Detemir (Levemir) 15 unit SUBCUT BID [facility] Lisinopril (Prinivil) 20 mg PO DAILY [facility] Last Admin: 09/28/16 08:19 Dose: 20 mg Metoclopramide HCl (Reglan) 5 mg IVPUSH Q6H [facility] Stop: 09/28/16 18:00 Last Admin: 09/28/16 12:59 Dose: 5 mg Metoprolol Tartrate (Lopressor) 5 mg IVPUSH Q4H PRN PRN Reason: Tachycardia Potassium Chloride (Klor-Con 10) 10 meq PO BEDTIME [facility] Simvastatin (Zocor) 20 mg PO BEDTIME [facility] Last Admin: 09/27/16 21:49 Dose: Not Given Discontinued Medications Albuterol (Proventil Hfa) Confirm Administered Dose 6.7 gm INH .STK-MED ONE Stop: 09/25/16 10:52 Bisacodyl (Dulcolax) 10 mg RECTAL ONETIME ONE Stop: 09/26/16 11:47 Last Admin: 09/26/16 14:27 Dose: Not Given Bisacodyl (Dulcolax) 10 mg RECTAL ONETIME ONE Stop: 09/27/16 17:46 Last Admin: 09/27/16 18:18 Dose: 10 mg Bupivacaine HCl (Marcaine 0.5%) Confirm Administered Dose 30 ml .ROUTE .STK-MED ONE Stop: 09/25/16 08:53 Last Admin: 09/25/16 10:08 Dose: 30 ml Cefazolin Sodium (Ancef) Confirm Administered Dose 2 gm .ROUTE .STK-MED ONE Stop: 09/25/16 09:47 Ephedrine Sulfate (Ephedrine Sulfate) Confirm Administered Dose 50 mg .ROUTE .STK-MED ONE Stop: 09/25/16 10:15 Fentanyl (Sublimaze) Confirm Administered Dose 100 mcg .ROUTE .STK-MED ONE Stop: 09/25/16 09:38 Fentanyl (Sublimaze) Confirm Administered Dose 250 mcg .ROUTE .STK-MED ONE Stop: 09/25/16 09:44 Fentanyl (Sublimaze) 50 mcg IVPUSH Q5M PRN PRN Reason: Pain Stop: 09/25/16 18:00 Furosemide (Lasix) 20 mg IVPUSH ONETIME ONE Stop: 09/27/16 11:31 Last Admin: 09/27/16 12:35 Dose: 20 mg Glycopyrrolate (Robinul) Confirm Administered Dose 0.2 mg .ROUTE .STK-MED ONE Stop: 09/25/16 10:56 Glycopyrrolate (Robinul) Confirm Administered Dose 0.2 mg .ROUTE .STK-MED ONE Stop: 09/25/16 10:56 Hydralazine HCl (Apresoline) 10 mg IVPUSH Q6H PRN PRN Reason: Hypertension Last Admin: 09/28/16 06:43 Dose: 10 mg Hydromorphone HCl (Dilaudid) 0.5 mg IVPUSH Q15M PRN PRN Reason: severe pain Stop: 09/25/16 12:46 Hydromorphone HCl (Dilaudid) 0.5 mg IVPUSH Q1H PRN PRN Reason: Pain Last Admin: 09/27/16 18:26 Dose: 0.5 mg Lactated Ringer's (Ringers, Lactated) 1,000 mls @ 125 mls/hr IV ASDIRECTED [facility] Sodium Chloride (Normal Saline) 1,000 mls @ 100 mls/hr IV ASDIRECTED [facility] Stop: 09/25/16 23:00 Last Admin: 09/25/16 21:55 Dose: 100 mls/hr Lidocaine HCl (Xylocaine-Mpf 1%) Confirm Administered Dose 4 mls @ as directed .ROUTE .STK-MED ONE Stop: 09/25/16 09:45 Lactated Ringer's (Ringers, Lactated) 1,000 mls @ 75 mls/hr IV ASDIRECTED [facility] Piperacillin Sod/Tazobactam (Sod 3.375 gm/ Sodium Chloride) 100 mls @ 25 mls/ hr IV Q6H [facility] Last Admin: 09/27/16 10:30 Dose: Not Given Piperacillin Sod/Tazobactam (Sod 4.5 gm/ Sodium Chloride) 100 mls @ 200 mls/hr IV ONETIME ONE Stop: 09/27/16 09:59 Last Admin: 09/27/16 09:41 Dose: 200 mls/hr Insulin Detemir (Levemir) 10 unit SUBCUT BID [facility] Last Admin: 09/28/16 10:19 Dose: 10 units Insulin Detemir (Levemir) 12 unit SUBCUT BID [facility] Insulin Detemir (Levemir) 5 unit SUBCUT ONETIME ONE Stop: 09/28/16 12:55 Last Admin: 09/28/16 13:17 Dose: 5 units Iopamidol (Isovue-300 (61%)) Confirm Administered Dose 50 ml .ROUTE .STK-MED ONE Stop: 09/25/16 08:53 Last Admin: 09/25/16 11:00 Dose: 20 ml Lidocaine/Sodium Bicarbonate (Buffered Lidocaine 1% In Ns 8.4%) 0.25 ml IV ONETIME PRN PRN Reason: Prior to IV Start Stop: 09/25/16 18:00 Last Admin: 09/25/16 08:44 Dose: 0.25 ml Magnesium Hydroxide (Milk Of Magnesia) 30 ml PO ONETIME ONE Stop: 09/27/16 12:17 Last Admin: 09/27/16 12:35 Dose: 30 ml Neostigmine Methylsulfate (Neostigmine Methylsulfate) Confirm Administered Dose 10 mg .ROUTE .STK-MED ONE Stop: 09/25/16 10:56 Ondansetron HCl (Zofran) Confirm Administered Dose 4 mg .ROUTE .STK-MED ONE Stop: 09/25/16 09:45 Ondansetron HCl (Zofran) 4 mg IVPUSH ONETIME PRN PRN Reason: Nausea/Vomiting Stop: 09/25/16 18:00 Ondansetron HCl (Zofran) 4 mg IVPUSH Q8H PRN PRN Reason: Nausea Last Admin: 09/25/16 14:54 Dose: 4 mg Pantoprazole Sodium (Protonix) 40 mg PO DAILY [facility] Last Admin: 09/27/16 08:36 Dose: 40 mg Pantoprazole Sodium (Protonix Iv) 40 mg IVPUSH DAILY [facility] Last Admin: 09/28/16 08:22 Dose: 40 mg Omeprazole 20 Mg 0 each PO DAILY [facility] Last Admin: 09/26/16 08:39 Dose: Not Given Propofol (Diprivan 20 Ml) Confirm Administered Dose 200 mg .ROUTE .STK-MED ONE Stop: 09/25/16 09:38 Propofol (Diprivan 20 Ml) Confirm Administered Dose 200 mg .ROUTE .STK-MED ONE Stop: 09/25/16 09:44 Rocuronium Prentiss (Zemuron) Confirm Administered Dose 50 mg .ROUTE .STK-MED ONE Stop: 09/25/16 09:45 Sodium Chloride (Saline Flush) 10 ml FLUSH ASDIRECTED PRN PRN Reason: Keep Vein Open Stop: 09/25/16 18:00 Sodium Chloride (Normal Saline) Confirm Administered Dose 50 ml .ROUTE .STK-MED ONE Stop: 09/25/16 08:53 Last Admin: 09/25/16 11:00 Dose: 20 ml Sodium Chloride (Saline Flush) 10 ml FLUSH ASDIRECTED PRN PRN Reason: Keep Vein Open - Exam General: Alert, Oriented Lungs: Clear to Auscultation, Normal Respiratory Effort Cardiovascular: Regular Rate, Regular Rhythm GI/Abdominal Exam: Normal Bowel Sounds, Soft, Non-Tender, No Organomegaly, No Distention, No Abnormal Bruit, No Mass, Pelvis Stable - Problem List Review Problem List Initiated/Reviewed/Updated: Yes - My Orders Last 24 Hours: Active Orders 24 hr Category Date Time Status Blood Glucose Check, Bedside [RC] Q6HR Care 09/28/16 00:01 Active Blood Glucose Check, Bedside [RC] QIDACANDBED Care 09/28/16 08:53 Active Communication Order [RC] 09,21 Care 09/27/16 23:31 Active Enema [RC] ASDIRECTED Care 09/27/16 21:30 Active Enema [RC] ASDIRECTED Care 09/28/16 13:20 Ordered Intake and Output [RC] 23,07,15 Care 09/27/16 21:09 Active NG [Gastrointestinal Tube Mgmt] [RC] 10,22 Care 09/27/16 21:13 Active Clear Liquid Diet [DIET] Diet 09/28/16 Dinner Ordered Clear Liquid Diet [DIET] Diet 09/28/16 Lunch Active Abdomen 2V AP Flat Upright [CR] Urgent Exams 09/27/16 17:46 Taken CXR [Chest 1V Frontal] [CR] Urgent Exams 09/27/16 20:56 Taken CBC W/O DIFF,HEMOGRAM [HEME] MOTH@0700 Lab 09/29/16 07:00 Ordered CBC W/O DIFF,HEMOGRAM [HEME] MOTH@0700 Lab 10/02/16 07:00 Ordered CBC W/O DIFF,HEMOGRAM [HEME] MOTH@0700 Lab 10/06/16 07:00 Ordered CBC W/O DIFF,HEMOGRAM [HEME] MOTH@0700 Lab 10/09/16 07:00 Ordered CBC W/O DIFF,HEMOGRAM [HEME] MOTH@0700 Lab 10/13/16 07:00 Ordered CBC W/O DIFF,HEMOGRAM [HEME] MOTH@0700 Lab 10/16/16 07:00 Ordered Insulin Detemir [Levemir] Med 09/28/16 21:00 Active 15 unit SUBCUT BID Lactated Ringers [Ringers, Lactated] 1,000 ml Med 09/27/16 20:45 Active IV ASDIRECTED Metoclopramide [Reglan] Med 09/27/16 18:00 Active 5 mg IVPUSH Q6H Metoprolol Tartrate [Lopressor] Med 09/28/16 08:54 Active 5 mg IVPUSH Q4H PRN Piperacillin/Tazobactam [Zosyn] 4.5 gm Med 09/27/16 17:30 Active Sodium Chloride 0.9% [Normal Saline] 100 ml IV Q8H Potassium Chloride [Klor-Con 10] Med 09/27/16 21:00 Active 10 meq PO BEDTIME Sodium Chloride 0.9% [Saline Flush] Med 09/28/16 13:22 Ordered 10 ml FLUSH ASDIRECTED PRN hydrALAZINE [Apresoline] Med 09/28/16 08:54 Active 10 mg IVPUSH Q4H PRN Convert IV to Saline Lock [OM.PC] Routine Oth 09/28/16 13:22 Ordered NG [Nasogastric Orogastric Tube Insertion] [OM.PC] Oth 09/27/16 20:35 Ordered Routine NG [Nasogastric Orogastric Tube Removal] [OM.PC] Stat Ot 09/28/16 13:18 Ordered Medication Orders Hydrocodone Bitart/Acetaminophen (Rice 325-5 Mg) 1 tab PO Q6H PRN PRN Reason: Pain Last Admin: 09/27/16 17:25 Dose: 1 tab Admin: 09/27/16 09:41 Dose: 1 tab Admin: 09/27/16 03:27 Dose: 1 tab Admin: 09/26/16 16:29 Dose: 1 tab Admin: 09/26/16 06:14 Dose: 1 tab Admin: 09/25/16 18:04 Dose: 1 tab Allopurinol (Zyloprim) 200 mg PO BID [facility] Last Admin: 09/28/16 08:18 Dose: 200 mg Admin: 09/27/16 21:49 Dose: Admin: 09/27/16 08:36 Dose: 200 mg Admin: 09/26/16 22:12 Dose: 200 mg Admin: 09/26/16 08:37 Dose: 200 mg Admin: 09/25/16 20:36 Dose: Not Given Dextrose/Water (Dextrose 50% In Water) 50 ml IVPUSH ASDIRECTED PRN PRN Reason: Hypoglycemia Fenofibrate (Fenofibrate) 162 mg PO BEDTIME [facility] Last Admin: 09/27/16 21:48 Dose: Admin: 09/26/16 22:10 Dose: 162 mg Admin: 09/25/16 20:35 Dose: Furosemide (Lasix) 20 mg PO BID [facility] Last Admin: 09/28/16 10:19 Dose: 20 mg Admin: 09/27/16 08:36 Dose: 20 mg Admin: 09/26/16 22:11 Dose: 20 mg Admin: 09/26/16 08:38 Dose: 20 mg Admin: 09/25/16 20:36 Dose: Not Given Gabapentin (Neurontin) 300 mg PO BID [facility] Last Admin: 09/28/16 08:20 Dose: 300 mg Heparin Sodium (Porcine) (Heparin Sodium) 5,000 units SUBCUT Q12HR [facility] Last Admin: 09/28/16 08:20 Dose: 5,000 units Admin: 09/27/16 22:31 Dose: 5,000 units Admin: 09/27/16 08:35 Dose: 5,000 units Admin: 09/26/16 22:11 Dose: 5,000 units Hydralazine HCl (Apresoline) 10 mg IVPUSH Q4H PRN PRN Reason: Hypertension Hydrochlorothiazide (Hydrochlorothiazide) 12.5 mg PO DAILY [facility] Last Admin: 09/28/16 08:20 Dose: 12.5 mg Admin: 09/27/16 08:36 Dose: 12.5 mg Admin: 09/26/16 08:37 Dose: 12.5 mg Piperacillin Sod/Tazobactam (Sod 4.5 gm/ Sodium Chloride) 100 mls @ 25 mls/hr IV Q8H [facility] Last Admin: 09/28/16 10:07 Dose: 25 mls/hr Infusion: 09/28/16 05:58 Dose: 25 mls/hr Admin: 09/28/16 01:58 Dose: 25 mls/hr Infusion: 09/27/16 21:26 Dose: 25 mls/hr Admin: 09/27/16 17:26 Dose: 25 mls/hr Lactated Ringer's (Ringers, Lactated) 1,000 mls @ 75 mls/hr IV ASDIRECTED [facility] Last Admin: 09/27/16 22:32 Dose: 75 mls/hr Insulin Aspart (Novolog) 0 unit SUBCUT QIDACANDBED [facility] PRN Reason: Protocol Last Admin: 09/28/16 12:57 Dose: 9 unit Admin: 09/28/16 06:00 Dose: 2 unit Admin: 09/27/16 22:33 Dose: 3 unit Admin: 09/27/16 17:30 Dose: 3 unit Admin: 09/27/16 12:35 Dose: 2 unit Admin: 09/27/16 08:34 Dose: 2 unit Admin: 09/26/16 22:13 Dose: 1 unit Admin: 09/26/16 16:51 Dose: 1 unit Admin: 09/26/16 11:09 Dose: 2 unit Admin: 09/26/16 08:36 Dose: 1 unit Admin: 09/25/16 21:57 Dose: 1 unit Insulin Detemir (Levemir) 15 unit SUBCUT BID [facility] Lisinopril (Prinivil) 20 mg PO DAILY [facility] Last Admin: 09/28/16 08:19 Dose: 20 mg Admin: 09/27/16 08:35 Dose: 20 mg Admin: 09/26/16 08:38 Dose: 20 mg Metoclopramide HCl (Reglan) 5 mg IVPUSH Q6H [facility] Stop: 09/28/16 18:00 Last Admin: 09/28/16 12:59 Dose: 5 mg Admin: 09/28/16 05:52 Dose: 5 mg Admin: 09/27/16 23:37 Dose: 5 mg Admin: 09/27/16 18:18 Dose: 5 mg Metoprolol Tartrate (Lopressor) 5 mg IVPUSH Q4H PRN PRN Reason: Tachycardia Potassium Chloride (Klor-Con 10) 10 meq PO BEDTIME [facility] Simvastatin (Zocor) 20 mg PO BEDTIME [facility] Last Admin: 09/27/16 21:49 Dose: Admin: 09/26/16 22:12 Dose: 20 mg Admin: 09/25/16 20:36 Dose: Not Given - Plan Plan (Free Text/Narrative):: continues to drop her stauratins to 88% on room air improved in that her GI functin has returned ass improved Lab evaluated wbc is normal and her amaylase is normal plan DC NG start diet and give oral meds and enemas and will follow her her saturations. LI
--- NOTE | 2016-09-28 13:35 | PCM.CONSN ---
- General Info Date of Service: 09/28/16 Functional Status: Reports: Pain Controlled - Review of Systems General: Reports: No Symptoms Pulmonary: Reports: No Symptoms Cardiovascular: Reports: No Symptoms Gastrointestinal: Reports: No Symptoms - Patient Data Vitals - Most Recent: Last Vital Signs Temp 98.4 F 09/28/16 07:53 Pulse 105 H 09/28/16 08:11 Resp 18 09/28/16 07:53 BP 165/68 H 09/28/16 08:19 Pulse Ox 87 L 09/28/16 09:13 Weight - Most Recent: 89.267 kg I&O - Last 24 Hours: Intake & Output 09/27/16 09/28/16 09/28/16 23:59 07:59 15:59 Intake Total 1078 592 537 Output Total 850 350 Balance 228 242 537 Lab Results Last 24 Hours: Laboratory Results - last 24 hr 09/27/16 09/27/16 09/28/16 Range/Units 17:30 21:07 01:52 WBC (3.98-10.04) K/mm3 RBC (3.98-5.22) M/mm3 Hgb (11.2-15.7) gm/L Hct (34.1-44.9) % MCV (79.4-94.8) fl MCH (25.6-32.2) pg MCHC (32.2-35.5) g/dl RDW Std Deviation (36.4-46.3) fL Plt Count (182-369) K/mm3 MPV (9.4-12.3) fl Neut % (Auto) (34.0-71.1) % Lymph % (Auto) (19.3-51.7) % [place]alier % (Auto) (4.7-12.5) % Eos % (Auto) (0.7-5.8) Baso % (Auto) (0.1-1.2) % Neut # (Auto) (1.56-6.13) K/mm3 Lymph # (Auto) (1.18-3.74) K/mm3 [place] # (Auto) (0.24-0.36) K/mm3 Eos # (Auto) (0.04-0.36) K/mm3 Baso # (Auto) (0.01-0.08) K/mm3 Sodium (136-145) mEq/L Potassium (3.5-5.1) mEq/L Chloride (98-107) mEq/L Carbon Dioxide (21-32) mEq/L Anion Gap (5-15) BUN (7-18) mg/dL Creatinine (0.55-1.02) mg/dL Est Cr Clr Drug Dosing mL/min Estimated GFR (MDRD) (>60) mL/min BUN/Creatinine Ratio (14-18) Glucose (83-115) mg/dL POC Glucose 258 H 255 H 256 H (83-110) mg/dL Calcium (8.5-10.1) mg/dL Total Bilirubin (0.2-1.0) mg/dL AST (15-37) U/L ALT (14-59) U/L Alkaline Phosphatase (46-116) U/L Total Protein (6.4-8.2) g/dl Albumin (3.4-5.0) g/dl Globulin gm/dL Albumin/Globulin Ratio (1-2) Amylase (20-160) U/L 09/28/16 09/28/16 09/28/16 Range/Units 05:41 05:41 05:46 WBC 9.99 (3.98-10.04) K/mm3 RBC 3.83 L (3.98-5.22) M/mm3 Hgb 11.5 (11.2-15.7) gm/L Hct 35.4 (34.1-44.9) % MCV 92.4 (79.4-94.8) fl MCH 30.0 (25.6-32.2) pg MCHC 32.5 (32.2-35.5) g/dl RDW Std Deviation 49.8 H (36.4-46.3) fL Plt Count 254 (182-369) K/mm3 MPV 11.3 (9.4-12.3) fl Neut % (Auto) 78.5 H (34.0-71.1) % Lymph % (Auto) 13.0 L (19.3-51.7) % [place]alier % (Auto) 6.8 (4.7-12.5) % Eos % (Auto) 1.4 (0.7-5.8) Baso % (Auto) 0.1 (0.1-1.2) % Neut # (Auto) 7.84 H (1.56-6.13) K/mm3 Lymph # (Auto) 1.30 (1.18-3.74) K/mm3 [place]alier # (Auto) 0.68 H (0.24-0.36) K/mm3 Eos # (Auto) 0.14 (0.04-0.36) K/mm3 Baso # (Auto) 0.01 (0.01-0.08) K/mm3 Sodium 139 (136-145) mEq/L Potassium 3.7 (3.5-5.1) mEq/L Chloride 101 (98-107) mEq/L Carbon Dioxide 30 (21-32) mEq/L Anion Gap 11.7 (5-15) BUN 17 (7-18) mg/dL Creatinine 1.2 H (0.55-1.02) mg/dL Est Cr Clr Drug Dosing 26.80 mL/min Estimated GFR (MDRD) 43 (>60) mL/min BUN/Creatinine Ratio 14.2 (14-18) Glucose 234 H (83-115) mg/dL POC Glucose 239 H (83-110) mg/dL Calcium 9.1 (8.5-10.1) mg/dL Total Bilirubin 0.6 (0.2-1.0) mg/dL AST 36 (15-37) U/L ALT 31 (14-59) U/L Alkaline Phosphatase 73 (46-116) U/L Total Protein 6.5 (6.4-8.2) g/dl Albumin 2.9 L (3.4-5.0) g/dl Globulin 3.6 gm/dL Albumin/Globulin Ratio 0.8 L (1-2) Amylase 20 (20-160) U/L 09/28/16 Range/Units 11:56 WBC (3.98-10.04) K/mm3 RBC (3.98-5.22) M/mm3 Hgb (11.2-15.7) gm/L Hct (34.1-44.9) % MCV (79.4-94.8) fl MCH (25.6-32.2) pg MCHC (32.2-35.5) g/dl RDW Std Deviation (36.4-46.3) fL Plt Count (182-369) K/mm3 MPV (9.4-12.3) fl Neut % (Auto) (34.0-71.1) % Lymph % (Auto) (19.3-51.7) % [place]alier % (Auto) (4.7-12.5) % Eos % (Auto) (0.7-5.8) Baso % (Auto) (0.1-1.2) % Neut # (Auto) (1.56-6.13) K/mm3 Lymph # (Auto) (1.18-3.74) K/mm3 [place] # (Auto) (0.24-0.36) K/mm3 Eos # (Auto) (0.04-0.36) K/mm3 Baso # (Auto) (0.01-0.08) K/mm3 Sodium (136-145) mEq/L Potassium (3.5-5.1) mEq/L Chloride (98-107) mEq/L Carbon Dioxide (21-32) mEq/L Anion Gap (5-15) BUN (7-18) mg/dL Creatinine (0.55-1.02) mg/dL Est Cr Clr Drug Dosing mL/min Estimated GFR (MDRD) (>60) mL/min BUN/Creatinine Ratio (14-18) Glucose (83-115) mg/dL POC Glucose 287 H (83-110) mg/dL Calcium (8.5-10.1) mg/dL Total Bilirubin (0.2-1.0) mg/dL AST (15-37) U/L ALT (14-59) U/L Alkaline Phosphatase (46-116) U/L Total Protein (6.4-8.2) g/dl Albumin (3.4-5.0) g/dl Globulin gm/dL Albumin/Globulin Ratio (1-2) Amylase (20-160) U/L Med Orders - Current: Current Medications Hydrocodone Bitart/Acetaminophen ([place] 325-5 Mg) 1 tab PO Q6H PRN PRN Reason: Pain Last Admin: 09/27/16 17:25 Dose: 1 tab Allopurinol (Zyloprim) 200 mg PO BID [facility] Last Admin: 09/28/16 08:18 Dose: 200 mg Dextrose/Water (Dextrose 50% In Water) 50 ml IVPUSH ASDIRECTED PRN PRN Reason: Hypoglycemia Fenofibrate (Fenofibrate) 162 mg PO BEDTIME [facility] Last Admin: 09/27/16 21:48 Dose: Not Given Furosemide (Lasix) 20 mg PO BID [facility] Last Admin: 09/28/16 10:19 Dose: 20 mg Gabapentin (Neurontin) 300 mg PO BID [facility] Last Admin: 09/28/16 08:20 Dose: 300 mg Heparin Sodium (Porcine) (Heparin Sodium) 5,000 units SUBCUT Q12HR [facility] Last Admin: 09/28/16 08:20 Dose: 5,000 units Hydralazine HCl (Apresoline) 10 mg IVPUSH Q4H PRN PRN Reason: Hypertension Hydrochlorothiazide (Hydrochlorothiazide) 12.5 mg PO DAILY [facility] Last Admin: 09/28/16 08:20 Dose: 12.5 mg Piperacillin Sod/Tazobactam (Sod 4.5 gm/ Sodium Chloride) 100 mls @ 25 mls/hr IV Q8H [facility] Last Admin: 09/28/16 10:07 Dose: 25 mls/hr Lactated Ringer's (Ringers, Lactated) 1,000 mls @ 75 mls/hr IV ASDIRECTED [facility] Last Admin: 09/27/16 22:32 Dose: 75 mls/hr Insulin Aspart (Novolog) 0 unit SUBCUT QIDACANDBED [facility] PRN Reason: Protocol Last Admin: 09/28/16 12:57 Dose: 9 unit Insulin Detemir (Levemir) 15 unit SUBCUT BID [facility] Lisinopril (Prinivil) 20 mg PO DAILY [facility] Last Admin: 09/28/16 08:19 Dose: 20 mg Metoclopramide HCl (Reglan) 5 mg IVPUSH Q6H [facility] Stop: 09/28/16 18:00 Last Admin: 09/28/16 12:59 Dose: 5 mg Metoprolol Tartrate (Lopressor) 5 mg IVPUSH Q4H PRN PRN Reason: Tachycardia Potassium Chloride (Klor-Con 10) 10 meq PO BEDTIME [facility] Simvastatin (Zocor) 20 mg PO BEDTIME [facility] Last Admin: 09/27/16 21:49 Dose: Not Given Sodium Chloride (Saline Flush) 10 ml FLUSH ASDIRECTED PRN PRN Reason: Keep Vein Open Discontinued Medications Albuterol (Proventil Hfa) Confirm Administered Dose 6.7 gm INH .STK-MED ONE Stop: 09/25/16 10:52 Bisacodyl (Dulcolax) 10 mg RECTAL ONETIME ONE Stop: 09/26/16 11:47 Last Admin: 09/26/16 14:27 Dose: Not Given Bisacodyl (Dulcolax) 10 mg RECTAL ONETIME ONE Stop: 09/27/16 17:46 Last Admin: 09/27/16 18:18 Dose: 10 mg Bupivacaine HCl (Marcaine 0.5%) Confirm Administered Dose 30 ml .ROUTE .STK-MED ONE Stop: 09/25/16 08:53 Last Admin: 09/25/16 10:08 Dose: 30 ml Cefazolin Sodium (Ancef) Confirm Administered Dose 2 gm .ROUTE .STK-MED ONE Stop: 09/25/16 09:47 Ephedrine Sulfate (Ephedrine Sulfate) Confirm Administered Dose 50 mg .ROUTE .STK-MED ONE Stop: 09/25/16 10:15 Fentanyl (Sublimaze) Confirm Administered Dose 100 mcg .ROUTE .STK-MED ONE Stop: 09/25/16 09:38 Fentanyl (Sublimaze) Confirm Administered Dose 250 mcg .ROUTE .STK-MED ONE Stop: 09/25/16 09:44 Fentanyl (Sublimaze) 50 mcg IVPUSH Q5M PRN PRN Reason: Pain Stop: 09/25/16 18:00 Furosemide (Lasix) 20 mg IVPUSH ONETIME ONE Stop: 09/27/16 11:31 Last Admin: 09/27/16 12:35 Dose: 20 mg Glycopyrrolate (Robinul) Confirm Administered Dose 0.2 mg .ROUTE .STK-MED ONE Stop: 09/25/16 10:56 Glycopyrrolate (Robinul) Confirm Administered Dose 0.2 mg .ROUTE .STK-MED ONE Stop: 09/25/16 10:56 Hydralazine HCl (Apresoline) 10 mg IVPUSH Q6H PRN PRN Reason: Hypertension Last Admin: 09/28/16 06:43 Dose: 10 mg Hydromorphone HCl (Dilaudid) 0.5 mg IVPUSH Q15M PRN PRN Reason: severe pain Stop: 09/25/16 12:46 Hydromorphone HCl (Dilaudid) 0.5 mg IVPUSH Q1H PRN PRN Reason: Pain Last Admin: 09/27/16 18:26 Dose: 0.5 mg Lactated Ringer's (Ringers, Lactated) 1,000 mls @ 125 mls/hr IV ASDIRECTED [facility] Sodium Chloride (Normal Saline) 1,000 mls @ 100 mls/hr IV ASDIRECTED [facility] Stop: 09/25/16 23:00 Last Admin: 09/25/16 21:55 Dose: 100 mls/hr Lidocaine HCl (Xylocaine-Mpf 1%) Confirm Administered Dose 4 mls @ as directed .ROUTE .STK-MED ONE Stop: 09/25/16 09:45 Lactated Ringer's (Ringers, Lactated) 1,000 mls @ 75 mls/hr IV ASDIRECTED [facility] Piperacillin Sod/Tazobactam (Sod 3.375 gm/ Sodium Chloride) 100 mls @ 25 mls/ hr IV Q6H [facility] Last Admin: 09/27/16 10:30 Dose: Not Given Piperacillin Sod/Tazobactam (Sod 4.5 gm/ Sodium Chloride) 100 mls @ 200 mls/hr IV ONETIME ONE Stop: 09/27/16 09:59 Last Admin: 09/27/16 09:41 Dose: 200 mls/hr Insulin Detemir (Levemir) 10 unit SUBCUT BID [facility] Last Admin: 09/28/16 10:19 Dose: 10 units Insulin Detemir (Levemir) 12 unit SUBCUT BID [facility] Insulin Detemir (Levemir) 5 unit SUBCUT ONETIME ONE Stop: 09/28/16 12:55 Last Admin: 09/28/16 13:17 Dose: 5 units Iopamidol (Isovue-300 (61%)) Confirm Administered Dose 50 ml .ROUTE .STK-MED ONE Stop: 09/25/16 08:53 Last Admin: 09/25/16 11:00 Dose: 20 ml Lidocaine/Sodium Bicarbonate (Buffered Lidocaine 1% In Ns 8.4%) 0.25 ml IV ONETIME PRN PRN Reason: Prior to IV Start Stop: 09/25/16 18:00 Last Admin: 09/25/16 08:44 Dose: 0.25 ml Magnesium Hydroxide (Milk Of Magnesia) 30 ml PO ONETIME ONE Stop: 09/27/16 12:17 Last Admin: 09/27/16 12:35 Dose: 30 ml Neostigmine Methylsulfate (Neostigmine Methylsulfate) Confirm Administered Dose 10 mg .ROUTE .STK-MED ONE Stop: 09/25/16 10:56 Ondansetron HCl (Zofran) Confirm Administered Dose 4 mg .ROUTE .STK-MED ONE Stop: 09/25/16 09:45 Ondansetron HCl (Zofran) 4 mg IVPUSH ONETIME PRN PRN Reason: Nausea/Vomiting Stop: 09/25/16 18:00 Ondansetron HCl (Zofran) 4 mg IVPUSH Q8H PRN PRN Reason: Nausea Last Admin: 09/25/16 14:54 Dose: 4 mg Pantoprazole Sodium (Protonix) 40 mg PO DAILY [facility] Last Admin: 09/27/16 08:36 Dose: 40 mg Pantoprazole Sodium (Protonix Iv) 40 mg IVPUSH DAILY [facility] Last Admin: 09/28/16 08:22 Dose: 40 mg Omeprazole 20 Mg 0 each PO DAILY [facility] Last Admin: 09/26/16 08:39 Dose: Not Given Propofol (Diprivan 20 Ml) Confirm Administered Dose 200 mg .ROUTE .STK-MED ONE Stop: 09/25/16 09:38 Propofol (Diprivan 20 Ml) Confirm Administered Dose 200 mg .ROUTE .STK-MED ONE Stop: 09/25/16 09:44 Rocuronium [place] (Zemuron) Confirm Administered Dose 50 mg .ROUTE .STK-MED ONE Stop: 09/25/16 09:45 Sodium Chloride (Saline Flush) 10 ml FLUSH ASDIRECTED PRN PRN Reason: Keep Vein Open Stop: 09/25/16 18:00 Sodium Chloride (Normal Saline) Confirm Administered Dose 50 ml .ROUTE .STK-MED ONE Stop: 09/25/16 08:53 Last Admin: 09/25/16 11:00 Dose: 20 ml Sodium Chloride (Saline Flush) 10 ml FLUSH ASDIRECTED PRN PRN Reason: Keep Vein Open - Exam Lungs: Clear to Auscultation, Normal Respiratory Effort, Other (hypoxia) Consult PN Assessment/Plan Procedures: Procedures ASSAY OF FREE THYROXINE (09/20/13) ASSAY OF MAGNESIUM (05/14/15) ASSAY OF NATRIURETIC PEPTIDE (06/30/16) ASSAY OF TROPONIN QUANT (06/30/16) ASSAY THYROID STIM HORMONE (09/20/13) BLOOD GASES ANY COMBINATION (06/30/16) C-REACTIVE PROTEIN (09/04/16) CARDIOVASCULAR STRESS TEST (01/14/16) CHEST X-RAY 1 VIEW FRONTAL (01/04/16) CHEST X-RAY 2VW FRONTAL&LATL (06/30/16) COMPLETE CBC W/AUTO DIFF WBC (09/04/16) COMPREHEN METABOLIC PANEL (09/04/16) CREATINE MB FRACTION (05/14/15) CT ABD & PELV W/CONTRAST (01/05/15) CT HEAD/BRAIN W/O DYE (09/20/13) ELECTROCARDIOGRAM TRACING (06/30/16) EMERGENCY DEPT VISIT (09/04/16) EMERGENCY DEPT VISIT (08/11/16) EMERGENCY DEPT VISIT (06/30/16) EXC TR-EXT MAL+MARY KATE 2.1-3 CM (01/29/16) FIBRIN DEGRADATION QUANT (06/30/16) GAIT TRAINING THERAPY (09/20/13) GLUCOSE BLOOD TEST (09/04/16) HT MUSCLE IMAGE SPECT MULT (01/14/16) HYDRATE IV INFUSION ADD-ON (09/20/13) INTMD RPR S/A/T/EXT 2.5 CM/< (01/29/16) OT EVALUATION (09/20/13) PATH CONSULT INTRAOP 1 BLOC (01/29/16) PATH CONSULT INTRAOP ADDL (01/29/16) PPSV23 VACC 2 YRS+ SUBQ/IM (09/20/13) PROTHROMBIN TIME (06/30/16) PT EVALUATION (09/20/13) ROUTINE VENIPUNCTURE (09/04/16) SELF CARE MNGMENT TRAINING (09/20/13) THER/PROPH/DIAG INJ IV PUSH (09/04/16) THER/PROPH/DIAG INJ SC/IM (06/30/16) THROMBOPLASTIN TIME PARTIAL (06/30/16) TISSUE EXAM BY PATHOLOGIST (01/29/16) TX/PRO/DX INJ NEW DRUG ADDON (09/04/16) URINALYSIS AUTO W/SCOPE (05/14/15) URINE BACTERIA CULTURE (09/20/13) WITHDRAWAL OF ARTERIAL BLOOD (06/30/16) X-RAY EXAM NECK SPINE 2-3 VW (08/11/16) X-RAY EXAM OF ABDOMEN (09/04/16) X-RAY EXAM THORAC SPINE 3VWS (08/11/16) Problem List Initiated/Reviewed/Updated: Yes My Orders Last 24 Hours: My Active Orders 09/27/16 17:30 Piperacillin/Tazobactam [Zosyn] 4.5 gm Sodium Chloride 0.9% [Normal Saline] 100 ml IV Q8H 09/27/16 17:46 Abdomen 2V AP Flat Upright [CR] Urgent 09/27/16 18:00 Metoclopramide [Reglan] 5 mg IVPUSH Q6H 09/27/16 20:35 NG [Nasogastric Orogastric Tube Insertion] [OM.PC] Routine 09/27/16 20:45 Lactated Ringers [Ringers, Lactated] 1,000 ml IV ASDIRECTED 09/27/16 20:56 CXR [Chest 1V Frontal] [CR] Urgent 09/27/16 21:00 Potassium Chloride [Klor-Con 10] 10 meq PO BEDTIME 09/27/16 21:09 Intake and Output [RC] 23,07,15 09/27/16 21:13 NG [Gastrointestinal Tube Mgmt] [RC] 10,22 09/27/16 21:30 Enema [RC] ASDIRECTED 09/27/16 23:31 Communication Order [RC] 09,21 09/28/16 13:18 NG [Nasogastric Orogastric Tube Removal] [OM.PC] Stat 09/28/16 13:20 Enema [RC] ASDIRECTED 09/28/16 13:22 Sodium Chloride 0.9% [Saline Flush] 10 ml FLUSH ASDIRECTED PRN Convert IV to Saline Lock [OM.PC] Routine 09/28/16 Dinner Clear Liquid Diet [DIET] 09/28/16 Lunch Clear Liquid Diet [DIET] 09/29/16 07:00 CBC W/O DIFF,HEMOGRAM [HEME] MOTH@69910/02/16 07:00 CBC W/O DIFF,HEMOGRAM [HEME] MOTH@0700 10/06/16 07:00 CBC W/O DIFF,HEMOGRAM [HEME] MOTH@69910/09/16 07:00 CBC W/O DIFF,HEMOGRAM [HEME] MOTH@69910/13/16 07:00 CBC W/O DIFF,HEMOGRAM [HEME] MOTH@00 10/16/16 07:00 CBC W/O DIFF,HEMOGRAM [HEME] MOTH@699 Plan: lab looks good her BI function has returned to normal VS good abdomen soft surgical site healed ass improved GI function plan start diet and remove NG tube and give enema continue to hypoxic and will continue with O@ at [facility]
[2016-09-28] MEDS: Potassium Chloride 10 MEQ Tab.ER PO SCH ×2 (22:05→22:07)
[2016-09-28] MEDS: Simvastatin 20 MG Tab PO SCH (22:07)
[2016-09-28] MEDS: Insulin Detemir 100 Units/ML 3 ML Pen SUBCUT SCH (22:16)
[2016-09-28] MEDS: Fenofibrate 54 MG Tab PO SCH (22:25)
[2016-09-29] MEDS: Piperacillin/Tazobactam 4.5 GM in Sodium Chloride 0.9% 100 ML IV SCH ×3 (01:57→18:12)
--- NOTE | 2016-09-29 07:24 | CR ---
Chest: Two views of the chest were obtained. Comparison: Previous chest x-ray of 06/30/16. Diffuse increased lung markings are seen which are more prominent than on prior study. Atelectasis noted within the right mid lung. Diaphragms are slightly flattened on the lateral view compatible with emphysematous change. Heart size appears within normal limits. Tortuous thoracic aorta is seen. Degenerative change is scattered within the spine. Mildly dilated air-filled small bowel loops seen within the upper abdomen. Impression: 1. Diffuse increased lung markings from prior exam. Please correlate if patient has any symptoms of bronchitis. Findings could also represent fluid overload or minimal pulmonary vascular congestion. 2. Emphysematous change. 3. Atelectasis within the right mid lung. 4. Dilated air-filled small bowel loops within the upper abdomen Diagnostic code #3
--- NOTE | 2016-09-29 07:24 | CR ---
Chest: Frontal view of the chest was obtained. Comparison: Previous chest x-ray performed earlier on the same date (8:59 AM). Heart size at the upper limits of normal. Tortuous thoracic aorta is seen. Lung markings diffusely increased which appear improved from prior study. Slight atelectasis is again noted within the right mid lung along the minor fissure. Lungs otherwise are clear. Nasogastric tube is seen with tip lying within the region of the stomach. Impression: 1. Increased lung markings which are improved from prior exam. 2. Nasogastric tube with tip felt to be within the stomach. 3. Slight right sided atelectasis. Diagnostic code #3
--- NOTE | 2016-09-29 08:27 | CR ---
Abdomen: Supine and upright views of the abdomen were obtained. Comparison: Previous abdominal x-ray of 09/04/16. Dilated air-filled loops of small bowel noted. Colonic gas also noted on the right side. Bony structures are osteopenic. Slight degenerative change noted within the spine. Surgical clips seen within the right upper abdomen. Vascular calcification is seen. Impression: 1. Dilated air-filled small bowel loops as well as mildly dilated right colon. Radiographically findings have the appearance of distal small bowel obstruction although given the history of recent surgery, findings more likely due to postoperative ileus. 2. Other incidental findings as noted above. Diagnostic code #3 Agree with preliminary report issued by [employer] [facility] ([facility] preliminary report dictated on 09/27/16, 9:42 PM Central Time)
[2016-09-29] MEDS: Insulin Aspart 100 Units/ML 3 ML Pen SUBCUT SCH ×4 (08:30→21:58)
[2016-09-29] MEDS: Lisinopril 20 MG Tab PO SCH (08:37)
[2016-09-29] MEDS: Hydrochlorothiazide 12.5 MG Cap PO SCH (08:38)
[2016-09-29] MEDS: Allopurinol 100 MG Tab PO SCH ×2 (08:38→21:47)
[2016-09-29] MEDS: Gabapentin 300 MG Cap PO SCH ×2 (08:38→21:48)
[2016-09-29] MEDS: Furosemide 20 MG Tab PO SCH ×2 (08:38→21:48)
[2016-09-29] MEDS: Insulin Detemir 100 Units/ML 3 ML Pen SUBCUT SCH ×2 (08:39→21:56)
[2016-09-29] MEDS: Heparin Sodium 5,000 Units/ML Vial SUBCUT SCH ×2 (08:41→21:50)
--- NOTE | 2016-09-29 09:52 | PCM.CONSN ---
- General Info Date of Service: 09/29/16 Admission Dx/Problem (Free Text): Hyperglycemia with IDDM Subjective Update: Follow Up Functional Status: Reports: Pain Controlled, Tolerating Diet, Urinating. Denies : New Symptoms - Review of Systems General: Denies: Fever, Weakness, Fatigue, Malaise, Chills HEENT: Reports: No Symptoms Pulmonary: Denies: Shortness of Breath Cardiovascular: Denies: Chest Pain Gastrointestinal: Reports: Flatus. Denies: Abdominal Pain, Difficulty Swallowing, Nausea, Vomiting Genitourinary: Reports: No Symptoms Musculoskeletal: Reports: No Symptoms Skin: Denies: Rash Neurological: Denies: Confusion, Dizziness, Difficulty Walking, Weakness, Gait Disturbance Psychiatric: Denies: Depression, Anxiety, Agitation, Hallucinations Systems Review Comment:: No overnight or acute issues. She is doing well. Her NGT is out and has been tolerating current diet level. She has a bowel movement this am. Her BS is well controlled currently. She denies any acute issues. - Patient Data Vitals - Most Recent: Last Vital Signs Temp 37.2 C 09/29/16 03:08 Pulse 65 09/29/16 07:55 Resp 16 09/29/16 08:36 BP 143/97 H 09/29/16 08:37 Pulse Ox 95 09/29/16 08:36 Weight - Most Recent: 88.859 kg I&O - Last 24 Hours: Intake & Output 09/28/16 09/29/16 09/29/16 22:59 06:59 14:59 Intake Total 240 350 Output Total 400 1150 Balance -160 -800 Lab Results Last 24 Hours: Laboratory Results - last 24 hr 09/28/16 09/28/16 09/29/16 Range/Units 11:56 22:16 05:55 WBC (3.98-10.04) K/mm3 RBC (3.98-5.22) M/mm3 Hgb (11.2-15.7) gm/L Hct (34.1-44.9) % MCV (79.4-94.8) fl MCH (25.6-32.2) pg MCHC (32.2-35.5) g/dl RDW Std Deviation (36.4-46.3) fL Plt Count (182-369) K/mm3 MPV (9.4-12.3) fl POC Glucose 287 H 145 H 108 (83-110) mg/dL 09/29/16 Range/Units 06:00 WBC 7.42 (3.98-10.04) K/mm3 RBC 3.67 L (3.98-5.22) M/mm3 Hgb 11.1 L (11.2-15.7) gm/L Hct 33.6 L (34.1-44.9) % MCV 91.6 (79.4-94.8) fl MCH 30.2 (25.6-32.2) pg MCHC 33.0 (32.2-35.5) g/dl RDW Std Deviation 49.4 H (36.4-46.3) fL Plt Count 285 (182-369) K/mm3 MPV 11.2 (9.4-12.3) fl POC Glucose (83-110) mg/dL Med Orders - Current: Current Medications Hydrocodone Bitart/Acetaminophen (Diablo 325-5 Mg) 1 tab PO Q6H PRN PRN Reason: Pain Last Admin: 09/27/16 17:25 Dose: 1 tab Allopurinol (Zyloprim) 200 mg PO BID [facility] Last Admin: 09/29/16 08:38 Dose: 200 mg Dextrose/Water (Dextrose 50% In Water) 50 ml IVPUSH ASDIRECTED PRN PRN Reason: Hypoglycemia Fenofibrate (Fenofibrate) 162 mg PO BEDTIME [facility] Last Admin: 09/28/16 22:25 Dose: 162 mg Furosemide (Lasix) 20 mg PO BID [facility] Last Admin: 09/29/16 08:38 Dose: 20 mg Gabapentin (Neurontin) 300 mg PO BID [facility] Last Admin: 09/29/16 08:38 Dose: 300 mg Heparin Sodium (Porcine) (Heparin Sodium) 5,000 units SUBCUT Q12HR [facility] Last Admin: 09/29/16 08:41 Dose: 5,000 units Hydralazine HCl (Apresoline) 10 mg IVPUSH Q4H PRN PRN Reason: Hypertension Hydrochlorothiazide (Hydrochlorothiazide) 12.5 mg PO DAILY [facility] Last Admin: 09/29/16 08:38 Dose: 12.5 mg Piperacillin Sod/Tazobactam (Sod 4.5 gm/ Sodium Chloride) 100 mls @ 25 mls/hr IV Q8H [facility] Last Admin: 09/29/16 08:47 Dose: 25 mls/hr Lactated Ringer's (Ringers, Lactated) 1,000 mls @ 75 mls/hr IV ASDIRECTED [facility] Last Admin: 09/27/16 22:32 Dose: 75 mls/hr Insulin Aspart (Novolog) 0 unit SUBCUT QIDACANDBED [facility] PRN Reason: Protocol Last Admin: 09/29/16 08:30 Dose: Not Given Insulin Detemir (Levemir) 15 unit SUBCUT BID [facility] Last Admin: 09/29/16 08:39 Dose: 15 units Lisinopril (Prinivil) 20 mg PO DAILY [facility] Last Admin: 09/29/16 08:37 Dose: 20 mg Metoprolol Tartrate (Lopressor) 5 mg IVPUSH Q4H PRN PRN Reason: Tachycardia Potassium Chloride (Klor-Con 10) 10 meq PO BEDTIME [facility] Last Admin: 09/28/16 22:07 Dose: 10 meq Simvastatin (Zocor) 20 mg PO BEDTIME [facility] Last Admin: 09/28/16 22:07 Dose: 20 mg Sodium Chloride (Saline Flush) 10 ml FLUSH ASDIRECTED PRN PRN Reason: Keep Vein Open Discontinued Medications Albuterol (Proventil Hfa) Confirm Administered Dose 6.7 gm INH .STK-MED ONE Stop: 09/25/16 10:52 Bisacodyl (Dulcolax) 10 mg RECTAL ONETIME ONE Stop: 09/26/16 11:47 Last Admin: 09/26/16 14:27 Dose: Not Given Bisacodyl (Dulcolax) 10 mg RECTAL ONETIME ONE Stop: 09/27/16 17:46 Last Admin: 09/27/16 18:18 Dose: 10 mg Bupivacaine HCl (Marcaine 0.5%) Confirm Administered Dose 30 ml .ROUTE .STK-MED ONE Stop: 09/25/16 08:53 Last Admin: 09/25/16 10:08 Dose: 30 ml Cefazolin Sodium (Ancef) Confirm Administered Dose 2 gm .ROUTE .STK-MED ONE Stop: 09/25/16 09:47 Ephedrine Sulfate (Ephedrine Sulfate) Confirm Administered Dose 50 mg .ROUTE .STK-MED ONE Stop: 09/25/16 10:15 Fentanyl (Sublimaze) Confirm Administered Dose 100 mcg .ROUTE .STK-MED ONE Stop: 09/25/16 09:38 Fentanyl (Sublimaze) Confirm Administered Dose 250 mcg .ROUTE .STK-MED ONE Stop: 09/25/16 09:44 Fentanyl (Sublimaze) 50 mcg IVPUSH Q5M PRN PRN Reason: Pain Stop: 09/25/16 18:00 Furosemide (Lasix) 20 mg IVPUSH ONETIME ONE Stop: 09/27/16 11:31 Last Admin: 09/27/16 12:35 Dose: 20 mg Glycopyrrolate (Robinul) Confirm Administered Dose 0.2 mg .ROUTE .STK-MED ONE Stop: 09/25/16 10:56 Glycopyrrolate (Robinul) Confirm Administered Dose 0.2 mg .ROUTE .STK-MED ONE Stop: 09/25/16 10:56 Hydralazine HCl (Apresoline) 10 mg IVPUSH Q6H PRN PRN Reason: Hypertension Last Admin: 09/28/16 06:43 Dose: 10 mg Hydromorphone HCl (Dilaudid) 0.5 mg IVPUSH Q15M PRN PRN Reason: severe pain Stop: 09/25/16 12:46 Hydromorphone HCl (Dilaudid) 0.5 mg IVPUSH Q1H PRN PRN Reason: Pain Last Admin: 09/27/16 18:26 Dose: 0.5 mg Lactated Ringer's (Ringers, Lactated) 1,000 mls @ 125 mls/hr IV ASDIRECTED [facility] Sodium Chloride (Normal Saline) 1,000 mls @ 100 mls/hr IV ASDIRECTED [facility]ECTOR Stop: 09/25/16 23:00 Last Admin: 09/25/16 21:55 Dose: 100 mls/hr Lidocaine HCl (Xylocaine-Mpf 1%) Confirm Administered Dose 4 mls @ as directed .ROUTE .STK-MED ONE Stop: 09/25/16 09:45 Lactated Ringer's (Ringers, Lactated) 1,000 mls @ 75 mls/hr IV ASDIRECTED [facility] Piperacillin Sod/Tazobactam (Sod 3.375 gm/ Sodium Chloride) 100 mls @ 25 mls/ hr IV Q6H [facility] Last Admin: 09/27/16 10:30 Dose: Not Given Piperacillin Sod/Tazobactam (Sod 4.5 gm/ Sodium Chloride) 100 mls @ 200 mls/hr IV ONETIME ONE Stop: 09/27/16 09:59 Last Admin: 09/27/16 09:41 Dose: 200 mls/hr Insulin Detemir (Levemir) 10 unit SUBCUT BID [facility] Last Admin: 09/28/16 10:19 Dose: 10 units Insulin Detemir (Levemir) 12 unit SUBCUT BID [facility] Insulin Detemir (Levemir) 5 unit SUBCUT ONETIME ONE Stop: 09/28/16 12:55 Last Admin: 09/28/16 13:17 Dose: 5 units Iopamidol (Isovue-300 (61%)) Confirm Administered Dose 50 ml .ROUTE .STK-MED ONE Stop: 09/25/16 08:53 Last Admin: 09/25/16 11:00 Dose: 20 ml Lidocaine/Sodium Bicarbonate (Buffered Lidocaine 1% In Ns 8.4%) 0.25 ml IV ONETIME PRN PRN Reason: Prior to IV Start Stop: 09/25/16 18:00 Last Admin: 09/25/16 08:44 Dose: 0.25 ml Magnesium Hydroxide (Milk Of Magnesia) 30 ml PO ONETIME ONE Stop: 09/27/16 12:17 Last Admin: 09/27/16 12:35 Dose: 30 ml Metoclopramide HCl (Reglan) 5 mg IVPUSH Q6H [facility] Stop: 09/28/16 18:00 Last Admin: 09/28/16 17:22 Dose: 5 mg Neostigmine Methylsulfate (Neostigmine Methylsulfate) Confirm Administered Dose 10 mg .ROUTE .STK-MED ONE Stop: 09/25/16 10:56 Ondansetron HCl (Zofran) Confirm Administered Dose 4 mg .ROUTE .STK-MED ONE Stop: 09/25/16 09:45 Ondansetron HCl (Zofran) 4 mg IVPUSH ONETIME PRN PRN Reason: Nausea/Vomiting Stop: 09/25/16 18:00 Ondansetron HCl (Zofran) 4 mg IVPUSH Q8H PRN PRN Reason: Nausea Last Admin: 09/25/16 14:54 Dose: 4 mg Pantoprazole Sodium (Protonix) 40 mg PO DAILY [facility] Last Admin: 09/27/16 08:36 Dose: 40 mg Pantoprazole Sodium (Protonix Iv) 40 mg IVPUSH DAILY [facility] Last Admin: 09/28/16 08:22 Dose: 40 mg Omeprazole 20 Mg 0 each PO DAILY [facility] Last Admin: 09/26/16 08:39 Dose: Not Given Propofol (Diprivan 20 Ml) Confirm Administered Dose 200 mg .ROUTE .STK-MED ONE Stop: 09/25/16 09:38 Propofol (Diprivan 20 Ml) Confirm Administered Dose 200 mg .ROUTE .STK-MED ONE Stop: 09/25/16 09:44 Rocuronium [place] (Zemuron) Confirm Administered Dose 50 mg .ROUTE .STK-MED ONE Stop: 09/25/16 09:45 Sodium Chloride (Saline Flush) 10 ml FLUSH ASDIRECTED PRN PRN Reason: Keep Vein Open Stop: 09/25/16 18:00 Sodium Chloride (Normal Saline) Confirm Administered Dose 50 ml .ROUTE .STK-MED ONE Stop: 09/25/16 08:53 Last Admin: 09/25/16 11:00 Dose: 20 ml Sodium Chloride (Saline Flush) 10 ml FLUSH ASDIRECTED PRN PRN Reason: Keep Vein Open - Exam Quality Assessment: Supplemental Oxygen General: Alert, Oriented, Cooperative, No Acute Distress HEENT: Pupils Equal, Pupils Reactive, EOMI, Mucous Membr. Moist/[place] Neck: Supple, Trachea Midline, No JVD, No Thyromegaly Lungs: Clear to Auscultation, Normal Respiratory Effort Cardiovascular: Regular Rate, Regular Rhythm GI/Abdominal Exam: Normal Bowel Sounds, Soft, Non-Tender, No Organomegaly, No Distention, No Abnormal Bruit, No Mass (Female) Exam: Deferred Back Exam: Normal Inspection, Decreased Range of Motion Extremities: Normal Inspection, Normal Range of Motion, Non-Tender, No Pedal Edema, Normal Capillary Refill Skin: Warm, Dry, Intact Neurological: No New Focal Deficit Psy/Mental Status: Alert, Normal Affect, Normal Mood Consult PN Assessment/Plan POD#: 4 Procedures: Procedures ASSAY OF FREE THYROXINE (09/20/13) ASSAY OF MAGNESIUM (05/14/15) ASSAY OF NATRIURETIC PEPTIDE (06/30/16) ASSAY OF TROPONIN QUANT (06/30/16) ASSAY THYROID STIM HORMONE (09/20/13) BLOOD GASES ANY COMBINATION (06/30/16) C-REACTIVE PROTEIN (09/04/16) CARDIOVASCULAR STRESS TEST (01/14/16) CHEST X-RAY 1 VIEW FRONTAL (01/04/16) CHEST X-RAY 2VW FRONTAL&LATL (06/30/16) COMPLETE CBC W/AUTO DIFF WBC (09/04/16) COMPREHEN METABOLIC PANEL (09/04/16) CREATINE MB FRACTION (05/14/15) CT ABD & PELV W/CONTRAST (01/05/15) CT HEAD/BRAIN W/O DYE (09/20/13) ELECTROCARDIOGRAM TRACING (06/30/16) EMERGENCY DEPT VISIT (09/04/16) EMERGENCY DEPT VISIT (08/11/16) EMERGENCY DEPT VISIT (06/30/16) EXC TR-EXT MAL+MARY KATE 2.1-3 CM (01/29/16) FIBRIN DEGRADATION QUANT (06/30/16) GAIT TRAINING THERAPY (09/20/13) GLUCOSE BLOOD TEST (09/04/16) HT MUSCLE IMAGE SPECT MULT (01/14/16) HYDRATE IV INFUSION ADD-ON (09/20/13) INTMD RPR S/A/T/EXT 2.5 CM/< (01/29/16) OT EVALUATION (09/20/13) PATH CONSULT INTRAOP 1 BLOC (01/29/16) PATH CONSULT INTRAOP ADDL (01/29/16) PPSV23 VACC 2 YRS+ SUBQ/IM (09/20/13) PROTHROMBIN TIME (06/30/16) PT EVALUATION (09/20/13) ROUTINE VENIPUNCTURE (09/04/16) SELF CARE MNGMENT TRAINING (09/20/13) THER/PROPH/DIAG INJ IV PUSH (09/04/16) THER/PROPH/DIAG INJ SC/IM (06/30/16) THROMBOPLASTIN TIME PARTIAL (06/30/16) TISSUE EXAM BY PATHOLOGIST (01/29/16) TX/PRO/DX INJ NEW DRUG ADDON (09/04/16) URINALYSIS AUTO W/SCOPE (05/14/15) URINE BACTERIA CULTURE (09/20/13) WITHDRAWAL OF ARTERIAL BLOOD (06/30/16) X-RAY EXAM NECK SPINE 2-3 VW (08/11/16) X-RAY EXAM OF ABDOMEN (09/04/16) X-RAY EXAM THORAC SPINE 3VWS (08/11/16) Problem List Initiated/Reviewed/Updated: Yes My Orders Last 24 Hours: My Active Orders 09/28/16 08:53 Blood Glucose Check, Bedside [RC] QIDACANDBED 09/28/16 08:54 Metoprolol Tartrate [Lopressor] 5 mg IVPUSH Q4H PRN hydrALAZINE [Apresoline] 10 mg IVPUSH Q4H PRN 09/28/16 21:00 Insulin Detemir [Levemir] 15 unit SUBCUT BID Plan: Impression/Plan: Acute: Hyperglycemia with IDDM, Improved - She takes Lantus 28 units Sub Q BID, will change to 15 units subQ BID since she is NPO - Also on ISS at home with 20-23 units SubQ TID, change to High dose ISS - Will titrate insulin dose at her diet level improves Persistent Hypoxia - She has baseline SOB - Likely from Atelectasis and Shallow Breaths - She takes shallow breaths due to pain - CXR shows no obvious infiltrates - Recommend against empiric PNA coverage with ATB - IS as directed and Ambulated QID - Recommend titrate to wean off Post-Surgical/Operative Ileus - Defer management to GS - Encourage patient to move and be mobile POD 4 cholecystectomy - GS following Chronic: HTN HLD HF of Unknown EF SOB GERD OA Gout Peripheral Neuropathy Hypothyroidism Obesity with BMI 37 Depression Plan: Patient remains clinically stable Diet level as per primary team DVT/GI prophylaxis Encourage to ambulate We have no additional recommendations but to continue current treatment
--- NOTE | 2016-09-29 17:26 | PCM.SURGPN ---
- General Info Date of Service: 09/29/16 POD#: 3 Functional Status: Reports: Pain Controlled - Review of Systems HEENT: Reports: No Symptoms Pulmonary: Reports: No Symptoms Cardiovascular: Reports: No Symptoms Gastrointestinal: Reports: No Symptoms - Patient Data Vitals - Most Recent: Last Vital Signs Temp 99.1 F 09/29/16 15:30 Pulse 87 09/29/16 15:30 Resp 14 09/29/16 15:30 BP 165/72 H 09/29/16 15:30 Pulse Ox 91 L 09/29/16 15:30 Weight - Most Recent: 88.859 kg I&O - Last 24 Hours: Intake & Output 09/29/16 09/29/16 09/29/16 07:59 15:59 23:59 Intake Total 350 600 500 Output Total 1150 1000 Balance -800 600 -500 Lab Results Last 24 Hrs: Laboratory Results - last 24 hr 09/28/16 09/29/16 09/29/16 Range/Units 22:16 05:55 06:00 WBC 7.42 (3.98-10.04) K/mm3 RBC 3.67 L (3.98-5.22) M/mm3 Hgb 11.1 L (11.2-15.7) gm/L Hct 33.6 L (34.1-44.9) % MCV 91.6 (79.4-94.8) fl MCH 30.2 (25.6-32.2) pg MCHC 33.0 (32.2-35.5) g/dl RDW Std Deviation 49.4 H (36.4-46.3) fL Plt Count 285 (182-369) K/mm3 MPV 11.2 (9.4-12.3) fl POC Glucose 145 H 108 (83-110) mg/dL 09/29/16 09/29/16 Range/Units 10:58 17:05 WBC (3.98-10.04) K/mm3 RBC (3.98-5.22) M/mm3 Hgb (11.2-15.7) gm/L Hct (34.1-44.9) % MCV (79.4-94.8) fl MCH (25.6-32.2) pg MCHC (32.2-35.5) g/dl RDW Std Deviation (36.4-46.3) fL Plt Count (182-369) K/mm3 MPV (9.4-12.3) fl POC Glucose 228 H 189 H (83-110) mg/dL Med Orders - Current: Current Medications Hydrocodone Bitart/Acetaminophen ([place] 325-5 Mg) 1 tab PO Q6H PRN PRN Reason: Pain Last Admin: 09/27/16 17:25 Dose: 1 tab Allopurinol (Zyloprim) 200 mg PO BID [facility] Last Admin: 09/29/16 08:38 Dose: 200 mg Dextrose/Water (Dextrose 50% In Water) 50 ml IVPUSH ASDIRECTED PRN PRN Reason: Hypoglycemia Fenofibrate (Fenofibrate) 162 mg PO BEDTIME [facility] Last Admin: 09/28/16 22:25 Dose: 162 mg Furosemide (Lasix) 20 mg PO BID [facility] Last Admin: 09/29/16 08:38 Dose: 20 mg Gabapentin (Neurontin) 300 mg PO BID [facility] Last Admin: 09/29/16 08:38 Dose: 300 mg Heparin Sodium (Porcine) (Heparin Sodium) 5,000 units SUBCUT Q12HR [facility] Last Admin: 09/29/16 08:41 Dose: 5,000 units Hydralazine HCl (Apresoline) 10 mg IVPUSH Q4H PRN PRN Reason: Hypertension Last Admin: 09/29/16 15:50 Dose: 10 mg Hydrochlorothiazide (Hydrochlorothiazide) 12.5 mg PO DAILY [facility] Last Admin: 09/29/16 08:38 Dose: 12.5 mg Piperacillin Sod/Tazobactam (Sod 4.5 gm/ Sodium Chloride) 100 mls @ 25 mls/hr IV Q8H [facility] Last Admin: 09/29/16 08:47 Dose: 25 mls/hr Insulin Aspart (Novolog) 0 unit SUBCUT QIDACANDBED [facility] PRN Reason: Protocol Last Admin: 09/29/16 12:54 Dose: 6 unit Insulin Detemir (Levemir) 15 unit SUBCUT BID [facility] Last Admin: 09/29/16 08:39 Dose: 15 units Lisinopril (Prinivil) 20 mg PO DAILY [facility] Last Admin: 09/29/16 08:37 Dose: 20 mg Metoprolol Tartrate (Lopressor) 5 mg IVPUSH Q4H PRN PRN Reason: Tachycardia Potassium Chloride (Klor-Con 10) 10 meq PO BEDTIME [facility] Last Admin: 09/28/16 22:07 Dose: 10 meq Simvastatin (Zocor) 20 mg PO BEDTIME [facility] Last Admin: 09/28/16 22:07 Dose: 20 mg Sodium Chloride (Saline Flush) 10 ml FLUSH ASDIRECTED PRN PRN Reason: Keep Vein Open Discontinued Medications Albuterol (Proventil Hfa) Confirm Administered Dose 6.7 gm INH .STK-MED ONE Stop: 09/25/16 10:52 Bisacodyl (Dulcolax) 10 mg RECTAL ONETIME ONE Stop: 09/26/16 11:47 Last Admin: 09/26/16 14:27 Dose: Not Given Bisacodyl (Dulcolax) 10 mg RECTAL ONETIME ONE Stop: 09/27/16 17:46 Last Admin: 09/27/16 18:18 Dose: 10 mg Bupivacaine HCl (Marcaine 0.5%) Confirm Administered Dose 30 ml .ROUTE .STK-MED ONE Stop: 09/25/16 08:53 Last Admin: 09/25/16 10:08 Dose: 30 ml Cefazolin Sodium (Ancef) Confirm Administered Dose 2 gm .ROUTE .STK-MED ONE Stop: 09/25/16 09:47 Ephedrine Sulfate (Ephedrine Sulfate) Confirm Administered Dose 50 mg .ROUTE .STK-MED ONE Stop: 09/25/16 10:15 Fentanyl (Sublimaze) Confirm Administered Dose 100 mcg .ROUTE .STK-MED ONE Stop: 09/25/16 09:38 Fentanyl (Sublimaze) Confirm Administered Dose 250 mcg .ROUTE .STK-MED ONE Stop: 09/25/16 09:44 Fentanyl (Sublimaze) 50 mcg IVPUSH Q5M PRN PRN Reason: Pain Stop: 09/25/16 18:00 Furosemide (Lasix) 20 mg IVPUSH ONETIME ONE Stop: 09/27/16 11:31 Last Admin: 09/27/16 12:35 Dose: 20 mg Glycopyrrolate (Robinul) Confirm Administered Dose 0.2 mg .ROUTE .STK-MED ONE Stop: 09/25/16 10:56 Glycopyrrolate (Robinul) Confirm Administered Dose 0.2 mg .ROUTE .STK-MED ONE Stop: 09/25/16 10:56 Hydralazine HCl (Apresoline) 10 mg IVPUSH Q6H PRN PRN Reason: Hypertension Last Admin: 09/28/16 06:43 Dose: 10 mg Hydromorphone HCl (Dilaudid) 0.5 mg IVPUSH Q15M PRN PRN Reason: severe pain Stop: 09/25/16 12:46 Hydromorphone HCl (Dilaudid) 0.5 mg IVPUSH Q1H PRN PRN Reason: Pain Last Admin: 09/27/16 18:26 Dose: 0.5 mg Lactated Ringer's (Ringers, Lactated) 1,000 mls @ 125 mls/hr IV ASDIRECTED [facility] Sodium Chloride (Normal Saline) 1,000 mls @ 100 mls/hr IV ASDIRECTED [facility] Stop: 09/25/16 23:00 Last Admin: 09/25/16 21:55 Dose: 100 mls/hr Lidocaine HCl (Xylocaine-Mpf 1%) Confirm Administered Dose 4 mls @ as directed .ROUTE .STK-MED ONE Stop: 09/25/16 09:45 Lactated Ringer's (Ringers, Lactated) 1,000 mls @ 75 mls/hr IV ASDIRECTED [facility] Piperacillin Sod/Tazobactam (Sod 3.375 gm/ Sodium Chloride) 100 mls @ 25 mls/ hr IV Q6H [facility] Last Admin: 09/27/16 10:30 Dose: Not Given Piperacillin Sod/Tazobactam (Sod 4.5 gm/ Sodium Chloride) 100 mls @ 200 mls/hr IV ONETIME ONE Stop: 09/27/16 09:59 Last Admin: 09/27/16 09:41 Dose: 200 mls/hr Lactated Ringer's (Ringers, Lactated) 1,000 mls @ 75 mls/hr IV ASDIRECTED [facility] Last Admin: 09/27/16 22:32 Dose: 75 mls/hr Insulin Detemir (Levemir) 10 unit SUBCUT BID [facility] Last Admin: 09/28/16 10:19 Dose: 10 units Insulin Detemir (Levemir) 12 unit SUBCUT BID [facility] Insulin Detemir (Levemir) 5 unit SUBCUT ONETIME ONE Stop: 09/28/16 12:55 Last Admin: 09/28/16 13:17 Dose: 5 units Iopamidol (Isovue-300 (61%)) Confirm Administered Dose 50 ml .ROUTE .STK-MED ONE Stop: 09/25/16 08:53 Last Admin: 09/25/16 11:00 Dose: 20 ml Lidocaine/Sodium Bicarbonate (Buffered Lidocaine 1% In Ns 8.4%) 0.25 ml IV ONETIME PRN PRN Reason: Prior to IV Start Stop: 09/25/16 18:00 Last Admin: 09/25/16 08:44 Dose: 0.25 ml Magnesium Hydroxide (Milk Of Magnesia) 30 ml PO ONETIME ONE Stop: 09/27/16 12:17 Last Admin: 09/27/16 12:35 Dose: 30 ml Metoclopramide HCl (Reglan) 5 mg IVPUSH Q6H [facility] Stop: 09/28/16 18:00 Last Admin: 09/28/16 17:22 Dose: 5 mg Neostigmine Methylsulfate (Neostigmine Methylsulfate) Confirm Administered Dose 10 mg .ROUTE .STK-MED ONE Stop: 09/25/16 10:56 Ondansetron HCl (Zofran) Confirm Administered Dose 4 mg .ROUTE .STK-MED ONE Stop: 09/25/16 09:45 Ondansetron HCl (Zofran) 4 mg IVPUSH ONETIME PRN PRN Reason: Nausea/Vomiting Stop: 09/25/16 18:00 Ondansetron HCl (Zofran) 4 mg IVPUSH Q8H PRN PRN Reason: Nausea Last Admin: 09/25/16 14:54 Dose: 4 mg Pantoprazole Sodium (Protonix) 40 mg PO DAILY [facility] Last Admin: 09/27/16 08:36 Dose: 40 mg Pantoprazole Sodium (Protonix Iv) 40 mg IVPUSH DAILY [facility] Last Admin: 09/28/16 08:22 Dose: 40 mg Omeprazole 20 Mg 0 each PO DAILY [facility] Last Admin: 09/26/16 08:39 Dose: Not Given Propofol (Diprivan 20 Ml) Confirm Administered Dose 200 mg .ROUTE .STK-MED ONE Stop: 09/25/16 09:38 Propofol (Diprivan 20 Ml) Confirm Administered Dose 200 mg .ROUTE .STK-MED ONE Stop: 09/25/16 09:44 Rocuronium [place] (Zemuron) Confirm Administered Dose 50 mg .ROUTE .STK-MED ONE Stop: 09/25/16 09:45 Sodium Chloride (Saline Flush) 10 ml FLUSH ASDIRECTED PRN PRN Reason: Keep Vein Open Stop: 09/25/16 18:00 Sodium Chloride (Normal Saline) Confirm Administered Dose 50 ml .ROUTE .STK-MED ONE Stop: 09/25/16 08:53 Last Admin: 09/25/16 11:00 Dose: 20 ml Sodium Chloride (Saline Flush) 10 ml FLUSH ASDIRECTED PRN PRN Reason: Keep Vein Open - Exam Wound/Incisions: Healing Well General: Alert Lungs: Clear to Auscultation Cardiovascular: Regular Rate, Regular Rhythm GI/Abdominal Exam: Normal Bowel Sounds, Soft, Non-Tender, No Organomegaly, No Distention, No Abnormal Bruit, No Mass, Pelvis Stable - Problem List Review Problem List Initiated/Reviewed/Updated: Yes - My Orders Last 24 Hours: Active Orders 24 hr Category Date Time Status ADA Diabetic [[employer] [place] [employer] Diet] [DIET Diet 09/29/16 Lunch Active ] CBC W/O DIFF,HEMOGRAM [HEME] MOTH@0700 Lab 10/02/16 07:00 Ordered CBC W/O DIFF,HEMOGRAM [HEME] MOTH@0700 Lab 10/06/16 07:00 Ordered CBC W/O DIFF,HEMOGRAM [HEME] MOTH@0700 Lab 10/09/16 07:00 Ordered CBC W/O DIFF,HEMOGRAM [HEME] MOTH@0700 Lab 10/13/16 07:00 Ordered CBC W/O DIFF,HEMOGRAM [HEME] MOTH@0700 Lab 10/16/16 07:00 Ordered Insulin Detemir [Levemir] Med 09/28/16 21:00 Active 15 unit SUBCUT BID Medication Orders Hydrocodone Bitart/Acetaminophen ([place] 325-5 Mg) 1 tab PO Q6H PRN PRN Reason: Pain Last Admin: 09/27/16 17:25 Dose: 1 tab Admin: 09/27/16 09:41 Dose: 1 tab Admin: 09/27/16 03:27 Dose: 1 tab Admin: 09/26/16 16:29 Dose: 1 tab Admin: 09/26/16 06:14 Dose: 1 tab Admin: 09/25/16 18:04 Dose: 1 tab Allopurinol (Zyloprim) 200 mg PO BID [facility] Last Admin: 09/29/16 08:38 Dose: 200 mg Admin: 09/28/16 22:06 Dose: 200 mg Admin: 09/28/16 08:18 Dose: 200 mg Admin: 09/27/16 21:49 Dose: Admin: 09/27/16 08:36 Dose: 200 mg Admin: 09/26/16 22:12 Dose: 200 mg Admin: 09/26/16 08:37 Dose: 200 mg Admin: 09/25/16 20:36 Dose: Not Given Dextrose/Water (Dextrose 50% In Water) 50 ml IVPUSH ASDIRECTED PRN PRN Reason: Hypoglycemia Fenofibrate (Fenofibrate) 162 mg PO BEDTIME [facility] Last Admin: 09/28/16 22:25 Dose: 162 mg Admin: 09/27/16 21:48 Dose: Admin: 09/26/16 22:10 Dose: 162 mg Admin: 09/25/16 20:35 Dose: Furosemide (Lasix) 20 mg PO BID [facility] Last Admin: 09/29/16 08:38 Dose: 20 mg Admin: 09/28/16 22:04 Dose: 20 mg Admin: 09/28/16 10:19 Dose: 20 mg Admin: 09/27/16 08:36 Dose: 20 mg Admin: 09/26/16 22:11 Dose: 20 mg Admin: 09/26/16 08:38 Dose: 20 mg Admin: 09/25/16 20:36 Dose: Not Given Gabapentin (Neurontin) 300 mg PO BID [facility] Last Admin: 09/29/16 08:38 Dose: 300 mg Admin: 09/28/16 22:05 Dose: 300 mg Admin: 09/28/16 22:05 Dose: Admin: 09/28/16 22:05 Dose: Admin: 09/28/16 08:20 Dose: 300 mg Heparin Sodium (Porcine) (Heparin Sodium) 5,000 units SUBCUT Q12HR [facility] Last Admin: 09/29/16 08:41 Dose: 5,000 units Admin: 09/28/16 22:19 Dose: 5,000 units Admin: 09/28/16 08:20 Dose: 5,000 units Admin: 09/27/16 22:31 Dose: 5,000 units Admin: 09/27/16 08:35 Dose: 5,000 units Admin: 09/26/16 22:11 Dose: 5,000 units Hydralazine HCl (Apresoline) 10 mg IVPUSH Q4H PRN PRN Reason: Hypertension Last Admin: 09/29/16 15:50 Dose: 10 mg Hydrochlorothiazide (Hydrochlorothiazide) 12.5 mg PO DAILY [facility] Last Admin: 09/29/16 08:38 Dose: 12.5 mg Admin: 09/28/16 08:20 Dose: 12.5 mg Admin: 09/27/16 08:36 Dose: 12.5 mg Admin: 09/26/16 08:37 Dose: 12.5 mg Piperacillin Sod/Tazobactam (Sod 4.5 gm/ Sodium Chloride) 100 mls @ 25 mls/hr IV Q8H [facility] Last Admin: 09/29/16 08:47 Dose: 25 mls/hr Infusion: 09/29/16 05:57 Dose: 25 mls/hr Admin: 09/29/16 01:57 Dose: 25 mls/hr Infusion: 09/28/16 21:22 Dose: 25 mls/hr Admin: 09/28/16 17:22 Dose: 25 mls/hr Infusion: 09/28/16 14:07 Dose: 25 mls/hr Admin: 09/28/16 10:07 Dose: 25 mls/hr Infusion: 09/28/16 05:58 Dose: 25 mls/hr Admin: 09/28/16 01:58 Dose: 25 mls/hr Infusion: 09/27/16 21:26 Dose: 25 mls/hr Admin: 09/27/16 17:26 Dose: 25 mls/hr Insulin Aspart (Novolog) 0 unit SUBCUT QIDACANDBED [facility] PRN Reason: Protocol Last Admin: 09/29/16 12:54 Dose: 6 unit Admin: 09/29/16 08:30 Dose: Not Given Admin: 09/28/16 22:21 Dose: Not Given Admin: 09/28/16 17:19 Dose: 6 unit Admin: 09/28/16 12:57 Dose: 9 unit Admin: 09/28/16 06:00 Dose: 2 unit Admin: 09/27/16 22:33 Dose: 3 unit Admin: 09/27/16 17:30 Dose: 3 unit Admin: 09/27/16 12:35 Dose: 2 unit Admin: 09/27/16 08:34 Dose: 2 unit Admin: 09/26/16 22:13 Dose: 1 unit Admin: 09/26/16 16:51 Dose: 1 unit Admin: 09/26/16 11:09 Dose: 2 unit Admin: 09/26/16 08:36 Dose: 1 unit Admin: 09/25/16 21:57 Dose: 1 unit Insulin Detemir (Levemir) 15 unit SUBCUT BID [facility] Last Admin: 09/29/16 08:39 Dose: 15 units Admin: 09/28/16 22:16 Dose: 1 units Lisinopril (Prinivil) 20 mg PO DAILY [facility] Last Admin: 09/29/16 08:37 Dose: 20 mg Admin: 09/28/16 08:19 Dose: 20 mg Admin: 09/27/16 08:35 Dose: 20 mg Admin: 09/26/16 08:38 Dose: 20 mg Metoprolol Tartrate (Lopressor) 5 mg IVPUSH Q4H PRN PRN Reason: Tachycardia Potassium Chloride (Klor-Con 10) 10 meq PO BEDTIME [facility] Last Admin: 09/28/16 22:07 Dose: 10 meq Admin: 09/28/16 22:05 Dose: Simvastatin (Zocor) 20 mg PO BEDTIME [facility] Last Admin: 09/28/16 22:07 Dose: 20 mg Admin: 09/27/16 21:49 Dose: Admin: 09/26/16 22:12 Dose: 20 mg Admin: 09/25/16 20:36 Dose: Not Given Sodium Chloride (Saline Flush) 10 ml FLUSH ASDIRECTED PRN PRN Reason: Keep Vein Open - Plan Plan (Free Text/Narrative):: pt improving up and about and general well being improved she is being weaned off o2 ass improved plan continue antibiotic [facility]
[2016-09-29] MEDS: Fenofibrate 54 MG Tab PO SCH (21:47)
[2016-09-29] MEDS: Potassium Chloride 10 MEQ Tab.ER PO SCH (21:48)
[2016-09-29] MEDS: Simvastatin 20 MG Tab PO SCH (21:48)
[2016-09-29] MEDS: Acetaminophen/HYDROcodone 325-5 MG Tab PO PRN (23:06)
[2016-09-30] MEDS: Piperacillin/Tazobactam 4.5 GM in Sodium Chloride 0.9% 100 ML IV SCH ×2 (01:39→09:08)
[2016-09-30] MEDS: Insulin Aspart 100 Units/ML 3 ML Pen SUBCUT SCH ×2 (06:47→12:31)
--- NOTE | 2016-09-30 07:52 | PCM.PN ---
- General Info Date of Service: 09/30/16 Admission Dx/Problem (Free Text): Hyperglycemia with IDDM Subjective Update: Follow Up Functional Status: Reports: Pain Controlled, Tolerating Diet, Ambulating, Urinating - Review of Systems General: Denies: Fever, Weakness, Fatigue, Malaise, Chills HEENT: Reports: No Symptoms Pulmonary: Denies: Shortness of Breath Cardiovascular: Denies: Chest Pain, Dyspnea on Exertion Gastrointestinal: Denies: Abdominal Pain, Nausea, Vomiting Genitourinary: Reports: No Symptoms Musculoskeletal: Reports: No Symptoms Skin: Denies: Cyanosis, Pruritis, Rash Neurological: Denies: Confusion, Difficulty Walking, Weakness Psychiatric: Denies: Depression, Anxiety, Agitation, Hallucinations - Patient Data Vitals - Most Recent: Last Vital Signs Temp 37.2 C 09/30/16 03:34 Pulse 93 09/30/16 03:34 Resp 14 09/30/16 03:34 BP 143/58 H 09/30/16 03:34 Pulse Ox 88 L 09/30/16 03:34 Weight - Most Recent: 89.086 kg I&O - Last 24 Hours: Intake & Output 09/29/16 09/30/16 09/30/16 22:59 06:59 14:59 Intake Total 740 800 Output Total 1000 650 Balance -260 150 Lab Results Last 24 Hours: Laboratory Results - last 24 hr 09/29/16 09/29/16 09/29/16 Range/Units 10:58 17:05 21:25 POC Glucose 228 H 189 H 262 H (83-110) mg/dL 09/30/16 Range/Units 06:39 POC Glucose 102 (83-110) mg/dL Med Orders - Current: Current Medications Hydrocodone Bitart/Acetaminophen ([place] 325-5 Mg) 1 tab PO Q6H PRN PRN Reason: Pain Last Admin: 09/29/16 23:06 Dose: 1 tab Allopurinol (Zyloprim) 200 mg PO BID [facility] Last Admin: 09/29/16 21:47 Dose: 200 mg Dextrose/Water (Dextrose 50% In Water) 50 ml IVPUSH ASDIRECTED PRN PRN Reason: Hypoglycemia Fenofibrate (Fenofibrate) 162 mg PO BEDTIME [facility] Last Admin: 09/29/16 21:47 Dose: 162 mg Furosemide (Lasix) 20 mg PO BID [facility] Last Admin: 09/29/16 21:48 Dose: 20 mg Gabapentin (Neurontin) 300 mg PO BID [facility] Last Admin: 09/29/16 21:48 Dose: 300 mg Heparin Sodium (Porcine) (Heparin Sodium) 5,000 units SUBCUT Q12HR [facility] Last Admin: 09/29/16 21:50 Dose: 5,000 units Hydralazine HCl (Apresoline) 10 mg IVPUSH Q4H PRN PRN Reason: Hypertension Last Admin: 09/29/16 15:50 Dose: 10 mg Hydrochlorothiazide (Hydrochlorothiazide) 12.5 mg PO DAILY [facility] Last Admin: 09/29/16 08:38 Dose: 12.5 mg Piperacillin Sod/Tazobactam (Sod 4.5 gm/ Sodium Chloride) 100 mls @ 25 mls/hr IV Q8H [facility] Last Admin: 09/30/16 01:39 Dose: 25 mls/hr Insulin Aspart (Novolog) 0 unit SUBCUT QIDACANDBED [facility] PRN Reason: Protocol Last Admin: 09/30/16 06:47 Dose: Not Given Insulin Detemir (Levemir) 15 unit SUBCUT BID [facility] Last Admin: 09/29/16 21:56 Dose: 15 units Lisinopril (Prinivil) 20 mg PO DAILY [facility] Last Admin: 09/29/16 08:37 Dose: 20 mg Metoprolol Tartrate (Lopressor) 5 mg IVPUSH Q4H PRN PRN Reason: Tachycardia Potassium Chloride (Klor-Con 10) 10 meq PO BEDTIME [facility] Last Admin: 09/29/16 21:48 Dose: 10 meq Simvastatin (Zocor) 20 mg PO BEDTIME [facility] Last Admin: 09/29/16 21:48 Dose: 20 mg Sodium Chloride (Saline Flush) 10 ml FLUSH ASDIRECTED PRN PRN Reason: Keep Vein Open Discontinued Medications Albuterol (Proventil Hfa) Confirm Administered Dose 6.7 gm INH .STK-MED ONE Stop: 09/25/16 10:52 Bisacodyl (Dulcolax) 10 mg RECTAL ONETIME ONE Stop: 09/26/16 11:47 Last Admin: 09/26/16 14:27 Dose: Not Given Bisacodyl (Dulcolax) 10 mg RECTAL ONETIME ONE Stop: 09/27/16 17:46 Last Admin: 09/27/16 18:18 Dose: 10 mg Bupivacaine HCl (Marcaine 0.5%) Confirm Administered Dose 30 ml .ROUTE .STK-MED ONE Stop: 09/25/16 08:53 Last Admin: 09/25/16 10:08 Dose: 30 ml Cefazolin Sodium (Ancef) Confirm Administered Dose 2 gm .ROUTE .STK-MED ONE Stop: 09/25/16 09:47 Ephedrine Sulfate (Ephedrine Sulfate) Confirm Administered Dose 50 mg .ROUTE .STK-MED ONE Stop: 09/25/16 10:15 Fentanyl (Sublimaze) Confirm Administered Dose 100 mcg .ROUTE .STK-MED ONE Stop: 09/25/16 09:38 Fentanyl (Sublimaze) Confirm Administered Dose 250 mcg .ROUTE .STK-MED ONE Stop: 09/25/16 09:44 Fentanyl (Sublimaze) 50 mcg IVPUSH Q5M PRN PRN Reason: Pain Stop: 09/25/16 18:00 Furosemide (Lasix) 20 mg IVPUSH ONETIME ONE Stop: 09/27/16 11:31 Last Admin: 09/27/16 12:35 Dose: 20 mg Glycopyrrolate (Robinul) Confirm Administered Dose 0.2 mg .ROUTE .STK-MED ONE Stop: 09/25/16 10:56 Glycopyrrolate (Robinul) Confirm Administered Dose 0.2 mg .ROUTE .STK-MED ONE Stop: 09/25/16 10:56 Hydralazine HCl (Apresoline) 10 mg IVPUSH Q6H PRN PRN Reason: Hypertension Last Admin: 09/28/16 06:43 Dose: 10 mg Hydromorphone HCl (Dilaudid) 0.5 mg IVPUSH Q15M PRN PRN Reason: severe pain Stop: 09/25/16 12:46 Hydromorphone HCl (Dilaudid) 0.5 mg IVPUSH Q1H PRN PRN Reason: Pain Last Admin: 09/27/16 18:26 Dose: 0.5 mg Lactated Ringer's (Ringers, Lactated) 1,000 mls @ 125 mls/hr IV ASDIRECTED [facility] Sodium Chloride (Normal Saline) 1,000 mls @ 100 mls/hr IV ASDIRECTED [facility] Stop: 09/25/16 23:00 Last Admin: 09/25/16 21:55 Dose: 100 mls/hr Lidocaine HCl (Xylocaine-Mpf 1%) Confirm Administered Dose 4 mls @ as directed .ROUTE .STK-MED ONE Stop: 09/25/16 09:45 Lactated Ringer's (Ringers, Lactated) 1,000 mls @ 75 mls/hr IV ASDIRECTED [facility] Piperacillin Sod/Tazobactam (Sod 3.375 gm/ Sodium Chloride) 100 mls @ 25 mls/ hr IV Q6H [facility] Last Admin: 09/27/16 10:30 Dose: Not Given Piperacillin Sod/Tazobactam (Sod 4.5 gm/ Sodium Chloride) 100 mls @ 200 mls/hr IV ONETIME ONE Stop: 09/27/16 09:59 Last Admin: 09/27/16 09:41 Dose: 200 mls/hr Lactated Ringer's (Ringers, Lactated) 1,000 mls @ 75 mls/hr IV ASDIRECTED [facility] Last Admin: 09/27/16 22:32 Dose: 75 mls/hr Insulin Detemir (Levemir) 10 unit SUBCUT BID [facility] Last Admin: 09/28/16 10:19 Dose: 10 units Insulin Detemir (Levemir) 12 unit SUBCUT BID [facility] Insulin Detemir (Levemir) 5 unit SUBCUT ONETIME ONE Stop: 09/28/16 12:55 Last Admin: 09/28/16 13:17 Dose: 5 units Iopamidol (Isovue-300 (61%)) Confirm Administered Dose 50 ml .ROUTE .STK-MED ONE Stop: 09/25/16 08:53 Last Admin: 09/25/16 11:00 Dose: 20 ml Lidocaine/Sodium Bicarbonate (Buffered Lidocaine 1% In Ns 8.4%) 0.25 ml IV ONETIME PRN PRN Reason: Prior to IV Start Stop: 09/25/16 18:00 Last Admin: 09/25/16 08:44 Dose: 0.25 ml Magnesium Hydroxide (Milk Of Magnesia) 30 ml PO ONETIME ONE Stop: 09/27/16 12:17 Last Admin: 09/27/16 12:35 Dose: 30 ml Metoclopramide HCl (Reglan) 5 mg IVPUSH Q6H [facility] Stop: 09/28/16 18:00 Last Admin: 09/28/16 17:22 Dose: 5 mg Neostigmine Methylsulfate (Neostigmine Methylsulfate) Confirm Administered Dose 10 mg .ROUTE .[facility]-MED ONE Stop: 09/25/16 10:56 Ondansetron HCl (Zofran) Confirm Administered Dose 4 mg .ROUTE .[facility] ONE Stop: 09/25/16 09:45 Ondansetron HCl (Zofran) 4 mg IVPUSH ONETIME PRN PRN Reason: Nausea/Vomiting Stop: 09/25/16 18:00 Ondansetron HCl (Zofran) 4 mg IVPUSH Q8H PRN PRN Reason: Nausea Last Admin: 09/25/16 14:54 Dose: 4 mg Pantoprazole Sodium (Protonix) 40 mg PO DAILY [facility] Last Admin: 09/27/16 08:36 Dose: 40 mg Pantoprazole Sodium (Protonix Iv) 40 mg IVPUSH DAILY [facility] Last Admin: 09/28/16 08:22 Dose: 40 mg Omeprazole 20 Mg 0 each PO DAILY [facility] Last Admin: 09/26/16 08:39 Dose: Not Given Propofol (Diprivan 20 Ml) Confirm Administered Dose 200 mg .ROUTE .[facility] Stop: 09/25/16 09:38 Propofol (Diprivan 20 Ml) Confirm Administered Dose 200 mg .ROUTE .[facility] Stop: 09/25/16 09:44 Rocuronium [place] (Zemuron) Confirm Administered Dose 50 mg .ROUTE .[facility] Stop: 09/25/16 09:45 Sodium Chloride (Saline Flush) 10 ml FLUSH ASDIRECTED PRN PRN Reason: Keep Vein Open Stop: 09/25/16 18:00 Sodium Chloride (Normal Saline) Confirm Administered Dose 50 ml .ROUTE .[facility] ONE Stop: 09/25/16 08:53 Last Admin: 09/25/16 11:00 Dose: 20 ml Sodium Chloride (Saline Flush) 10 ml FLUSH ASDIRECTED PRN PRN Reason: Keep Vein Open - Exam General: Alert, Oriented, Cooperative, No Acute Distress HEENT: Pupils Equal, Pupils Reactive, EOMI, Mucous Membr. Moist/[place] Neck: Supple, Trachea Midline, No JVD, No Thyromegaly Lungs: Clear to Auscultation, Normal Respiratory Effort Cardiovascular: Regular Rate, Regular Rhythm GI/Abdominal Exam: Normal Bowel Sounds, Soft, Non-Tender, No Organomegaly, No Distention, No Abnormal Bruit, No Mass (Female) Exam: Deferred Back Exam: Normal Inspection, Decreased Range of Motion Extremities: Normal Inspection, Normal Range of Motion, Non-Tender, No Pedal Edema, Normal Capillary Refill Peripheral Pulses: 2+: Dorsalis Pedis (L), Dorsalis Pedis (R) Skin: Warm, Dry, Intact Neurological: No New Focal Deficit Psy/Mental Status: Alert, Normal Affect, Normal Mood - Problem List Review Problem List Initiated/Reviewed/Updated: Yes - Plan Plan:: Impression/Plan: Acute: Hyperglycemia with IDDM, Stable - She takes Lantus 28 units Sub Q BID, will change to 15 units subQ BID since she is NPO - Also on ISS at home with 20-23 units SubQ TID, change to High dose ISS - Patient is now on her regular diet, will resume home insulin regimen Persistent Hypoxia, Resolved - She has baseline SOB - Likely from Atelectasis and Shallow Breaths - She takes shallow breaths due to pain - CXR shows no obvious infiltrates - Recommend against empiric PNA coverage with ATB - IS as directed and Ambulated QID - Recommend titrate to wean off Post-Surgical/Operative Ileus, Resolved - Defer management to GS - Encourage patient to move and be mobile POD 4 cholecystectomy - GS following Chronic: HTN HLD HF of Unknown EF SOB GERD OA Gout Peripheral Neuropathy Hypothyroidism Obesity with BMI 37 Depression Plan: Patient remains clinically stable Diet level as per primary team DVT/GI prophylaxis Encourage to ambulate From hospitalist standpoint, patient is doing relatively well. We have no additional recommendations but to continue current treatment. We are signing off on her case. Again, thank you Dr. Denson for the opportunity to participate in her care.
[2016-09-30 08:58] VITALS: BP 150/72
[2016-09-30] MEDS: Lisinopril 20 MG Tab PO SCH (09:12)
[2016-09-30] MEDS: Hydrochlorothiazide 12.5 MG Cap PO SCH (09:12)
[2016-09-30] MEDS: Heparin Sodium 5,000 Units/ML Vial SUBCUT SCH (09:12)
[2016-09-30] MEDS: Gabapentin 300 MG Cap PO SCH (09:12)
[2016-09-30] MEDS: Insulin Detemir 100 Units/ML 3 ML Pen SUBCUT SCH (09:12)
[2016-09-30] MEDS: Allopurinol 100 MG Tab PO SCH (09:12)
[2016-09-30] MEDS: Furosemide 20 MG Tab PO SCH (09:12)
--- NOTE | 2016-10-01 08:44 | DISCH ---
ADMISSION DATE: 09/27/2016 DISCHARGE DATE: 09/30/2016 HISTORY: Aaliyah Hartmann is an 85-year-old female who had a history of right upper quadrant abdominal pain, underwent ultrasound evaluation by Dr. Chen finding a cholelithiasis. The patient was scheduled for surgery, which was done on the . Examination at that time showed mild tenderness in the right upper quadrant. Heart and lungs were unremarkable. She did have comorbidities of diabetes mellitus, hypertension. She underwent a laparoscopic cholecystectomy and intraoperative cholangiogram. The intraoperative cholangiogram demonstrated a normal study. There are stones obstructing the cystic duct and swollen gallbladder. The patient's immediate postoperative course was that of some hypoxia and history of diabetes insulin-dependent without help at home. The patient was thus admitted to the hospital. HOSPITAL COURSE: The patient's hospital course was one of hypoxia, some abdominal pain and failure to eat and thrive. Examination demonstrated abdominal distention and mild tenderness and x-rays of the abdomen eventually done on Thursday demonstrated some ileus although it was called small-bowel obstruction and was felt to be postoperative ileus. Had a white count, but no fever or chills. She was empirically started on antibiotics with piperacillin although there was no sign of infection. She was started on NG tube for 24 hours which helped resolve her ileus, given laxatives. The patient's hypoxia slowly resolved and she was weaned off the oxygen. Her diet was advanced and she tolerated this. She was having bowel movements. At the time of discharge, there was no abdominal distention. No tenderness in the abdomen. Surgical site was healing. She is up and ambulating, eating, showering, and was able to perform activities of daily living. During this time, her medical problems are cared for especially her diabetes by the hospitalist. The patient reached maximum hospital benefit and discharged. Postoperative blood sugars remained 180s to 200 range, down the 102. She did have an elevated blood pressure, which was controlled by Medicine. FINAL DIAGNOSES: 1. Cholelithiasis obstructed common duct status post laparoscopic cholecystectomy with intraoperative cholangiogram. 2. Hypertension resolved. 3. Diabetes, elevated blood sugar managed. 4. Hypoxia resolved. 5. Ileus resolved. PLAN: Plan is to discharge the patient on home medications. Continue course for another 3 days of antibiotics. Pain medication will consist of Motrin. She will follow up with her family doctor and myself in the clinic on a diabetic diet and no work, pushing or pulling. CONDITION ON DISCHARGE: Improved. DISCHARGE MEDICATIONS: See above. DIET: See above. ACTIVITY: See above. FOLLOW-UP: See above. ASTON /[id number]
== END 2016-09-30 14:45 | disposition home or self-care (01) | DRG 357 ==
LOC: JD.SDS 07:59 → JD.MS 11:59 → OBSVTOIN 09-27 11:59
PROVIDERS: ADMIT Surgery; ATTEND Surgery
PROC: 0FT44ZZ Resection of Gallbladder, Percutaneous Endoscopic Approach (ICD-10-PCS; principal; 2016-09-25)
DX: K56.7 Ileus, unspecified (principal); K80.11 Calculus of gallbladder with chronic cholecystitis with obstruction; I13.0 Hypertensive heart and chronic kidney disease with heart failure and stage 1 through stage 4 chronic kidney disease, or unspecified chronic kidney disease; R09.02 Hypoxemia; E78.5 Hyperlipidemia, unspecified; I50.9 Heart failure, unspecified; N18.2 Chronic kidney disease, stage 2 (mild); E11.65 Type 2 diabetes mellitus with hyperglycemia; Z79.4 Long term (current) use of insulin; E87.5 Hyperkalemia; K21.9 Gastro-esophageal reflux disease without esophagitis; M19.90 Unspecified osteoarthritis, unspecified site; M10.9 Gout, unspecified; E66.9 Obesity, unspecified; Z68.37 Body mass index [BMI] 37.0-37.9, adult; E03.9 Hypothyroidism, unspecified; E11.22 Type 2 diabetes mellitus with diabetic chronic kidney disease; F32.9 Major depressive disorder, single episode, unspecified; G62.9 Polyneuropathy, unspecified; Z79.82 Long term (current) use of aspirin; Z79.899 Other long term (current) drug therapy
CPT/HCPCS: 00790; 36415; 71010; 71010-26; 71020; 71020-26; 74020; 74020-26; 74300; 74300-26; 80048; 80053; 82150; 82962; 85025; 85027; 88304; A9270-GY; C9113; G0378; J0360; J0690; J1170; J1644; J1815-GY; J2405; J2543; J2704; J2710; J2765; J3010; J3490; J7030; J7040; J7120; Q9967

== ENCOUNTER 2017-07-28 16:24 | Emergency (ER) | payer MEDICARE, BC ==
--- NOTE | 2017-07-28 16:59 | EDM.PDOC ---
ED HPI GENERAL MEDICAL PROBLEM - General Chief Complaint: Respiratory Problem Stated Complaint: SHORTNESS OF BREATH Time Seen by Provider: 07/28/17 16:40 Source of Information: Reports: Patient, RN Notes Reviewed - History of Present Illness INITIAL COMMENTS - FREE TEXT/NARRATIVE: 86-year-old lady comes in with multiple vague symptoms. States she's been feeling weak, dizzy, tired no energy the last week or so. She's been more short of breath than usual the past several days. She has not been coughing. No fever or chills. She did have some lower abdominal discomfort during the night but now that is gone. She is insulin-dependent diabetic. She also does have history of hypertension, on medication for that as well. There's been no vomiting or diarrhea. - Related Data Allergies Allergy/AdvReac Type Severity Reaction Status Date / Time No Known Allergies Allergy Verified 07/28/17 16:35 Home Meds: Home Meds Allopurinol [Zyloprim] 200 mg PO BID 08/11/16 [History] Aspirin 81 mg PO DAILY 08/11/16 [History] Furosemide [Lasix] 40 mg PO QAM 08/11/16 [History] Gabapentin [Neurontin] 300 mg PO QAM 08/11/16 [History] Insulin Aspart [Novolog Flexpen] 20 units SUBCUT TID 08/11/16 [History] Insulin Glarg,Human.Rec.Analog [Lantus] 32 units SUBCUT ACBREAKFAST 08/11/16 [ History] Lisinopril/Hydrochlorothiazide [Lisinopril-Hctz 20-12.5 mg Tab] 1 tab PO DAILY 08/11/16 [History] Omeprazole 20 mg PO DAILY 08/11/16 [History] Simvastatin [Zocor] 20 mg PO BEDTIME 08/11/16 [History] amLODIPine [Norvasc] 2.5 mg PO DAILY 08/11/16 [History] Calcium Carbonate/Vitamin D3 [Caltrate 600 Plus D3 Tablet] 1 tab PO DAILY [History] Fenofibrate 160 mg PO BEDTIME 09/04/16 [History] Vit B6/Mag Cit & Ox/Potass Cit [Theralith XR] 200 tab PO DAILY 09/04/16 [History ] Vit D3/Folic Acid/B2/B6/B12 [Folgard Tablet] 1,000 mg PO DAILY 09/04/16 [History ] Gabapentin [Neurontin] 600 mg PO QPM 07/28/17 [History] Insulin Glarg,Human.Rec.Analog [Lantus] 24 unit SUBCUT QPM 07/28/17 [History] L.acidoph,Paracasei, B.lactis [Probiotic] 1 each PO DAILY 07/28/17 [History] Potassium Chloride [Klor-Con 10] 1 tab PO QPM 07/28/17 [History] Rivaroxaban [Xarelto] 15 mg PO QPM 07/28/17 [History] Past Medical History HEENT History: Reports: Cataract, Impaired Vision Other HEENT History: Wears glasses Cardiovascular History: Reports: Heart Failure, High Cholesterol, Hypertension Other Cardiovascular History: irregular beats Respiratory History: Reports: SOB Other Respiratory History: "I have fluid on my lungs every so often" Gastrointestinal History: Reports: GERD Other Gastrointestinal History: occasional constipation Genitourinary History: Reports: Renal Calculus, Urinary Incontinence Other Genitourinary History: lithrotripsy PODIATRIC AIDE History: Reports: Other OB/BYN History: had 15 children Musculoskeletal History: Reports: Arthritis, Gout Other Musculoskeletal History: broken right foot Neurological History: Reports: Neuropathy, Peripheral Psychiatric History: Reports: Depression Endocrine/Metabolic History: Reports: Hypothyroidism, IDDM, Obesity/BMI 30+, Other (See Below) Other Endocrine/Metabolic History: 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, has goiter Hematologic History: Reports: B12 Deficiency Oncologic (Cancer) History: Reports: Other (See Below) Other Oncologic History: skin cancer Dermatologic History: Reports: Melanoma - Infectious Disease History Infectious Disease History: Reports: Herpes, Shingles - Past Surgical History HEENT Surgical History: Reports: Cataract Surgery Other HEENT Surgeries/Procedures: cataract surgery "few years ago" GI Surgical History: Reports: Cholecystectomy Other GI Surgeries/Procedures: current lap diana Female Surgical History: Reports: Section, Lithotripsy/ESWL Social & Family History - Family History Family Medical History: Noncontributory - Tobacco Use Smoking Status *Q: Never Smoker - Caffeine Use Caffeine Use: Reports: Soda - Recreational Drug Use Recreational Drug Use: No - Living Situation & Occupation Living situation: Reports: , Alone Occupation: Retired ED ROS GENERAL - Review of Systems Review Of Systems: See Below Constitutional: Reports: Malaise, Fatigue. Denies: Fever, Chills, Diaphoresis HEENT: Denies: Sinus Problem, Throat Pain Respiratory: Reports: Shortness of Breath. Denies: Pleuritic Chest Pain, Cough Cardiovascular: Denies: Chest Pain GI/Abdominal: Reports: Abdominal Pain (Mild lower abdominal discomfort, gone). Denies: Diarrhea, Nausea, Vomiting Musculoskeletal: Reports: Back Pain (Right low back, Several weeks ago, now better) Skin: Reports: No Symptoms Neurological: Reports: Dizziness. Denies: Trouble Speaking, Difficulty Walking ED EXAM, GENERAL - Physical Exam Exam: See Below General Appearance: Alert, No Apparent Distress Eye Exam: Bilateral Eye: PERRL Throat/Mouth: Normal Inspection, Normal Oropharynx Head: Atraumatic. No: Facial Swelling Neck: Supple, Full Range of Motion Respiratory/Chest: No Respiratory Distress, Lungs Clear, Normal Breath Sounds Cardiovascular: Regular Rate, Rhythm GI/Abdominal: Soft, Non-Tender. No: Guarding Back Exam: No: CVA Tenderness (L), CVA Tenderness (R) Extremities: Normal Inspection. No: Pedal Edema, Leg Pain Neurological: Alert, Oriented, No Motor/Sensory Deficits Skin Exam: Warm, Dry, Normal Color Course - Vital Signs Last Recorded V/S: Last Vital Signs Temp 98.6 F 07/28/17 16:30 Pulse 76 07/28/17 16:30 Resp 18 07/28/17 16:30 BP 164/76 H 07/28/17 16:30 Pulse Ox 91 L 07/28/17 16:30 - Orders/Labs/Meds Orders: Active Orders 24 hr Category Date Time Status Chest 1V Frontal [CR] Stat Exams 07/28/17 16:55 Taken Labs: Laboratory Tests 07/28/17 07/28/17 Range/Units 17:12 17:12 WBC 7.92 (3.98-10.04) K/mm3 RBC 4.12 (3.98-5.22) M/mm3 Hgb 12.0 (11.2-15.7) gm/L Hct 37.0 (34.1-44.9) % MCV 89.8 (79.4-94.8) fl MCH 29.1 (25.6-32.2) pg MCHC 32.4 (32.2-35.5) g/dl RDW Std Deviation 51.3 H (36.4-46.3) fL Plt Count 274 (182-369) K/mm3 MPV 10.8 (9.4-12.3) fl Neut % (Auto) 70.1 (34.0-71.1) % Lymph % (Auto) 20.1 (19.3-51.7) % [place] % (Auto) 8.0 (4.7-12.5) % Eos % (Auto) 1.3 (0.7-5.8) Baso % (Auto) 0.1 (0.1-1.2) % Neut # (Auto) 5.56 (1.56-6.13) K/mm3 Lymph # (Auto) 1.59 (1.18-3.74) K/mm3 [place] # (Auto) 0.63 H (0.24-0.36) K/mm3 Eos # (Auto) 0.10 (0.04-0.36) K/mm3 Baso # (Auto) 0.01 (0.01-0.08) K/mm3 Sodium 133 L (136-145) mEq/L Potassium 3.5 (3.5-5.1) mEq/L Chloride 94 L (98-107) mEq/L Carbon Dioxide 30 (21-32) mEq/L Anion Gap 12.5 (5-15) BUN 24 H (7-18) mg/dL Creatinine 1.4 H (0.55-1.02) mg/dL Est Cr Clr Drug Dosing 21.49 mL/min Estimated GFR (MDRD) 36 (>60) mL/min BUN/Creatinine Ratio 17.1 (14-18) Glucose 292 H (83-115) mg/dL Calcium 9.0 (8.5-10.1) mg/dL Total Bilirubin 0.4 (0.2-1.0) mg/dL AST 31 (15-37) U/L ALT 36 (14-59) U/L Alkaline Phosphatase 37 L (46-116) U/L Total Protein 6.3 L (6.4-8.2) g/dl Albumin 3.5 (3.4-5.0) g/dl Globulin 2.8 gm/dL Albumin/Globulin Ratio 1.3 (1-2) Meds: Medications Discontinued Medications Generic Name Dose Route Start Last Admin Trade Name Freq PRN Reason Stop Dose Admin Furosemide 40 mg 07/28/17 17:32 07/28/17 17:43 Lasix PO 07/28/17 17:33 40 mg ONETIME ONE Administration - Re-Assessments/Exams Free Text/Narrative Re-Assessment/Exam: 07/28/17 18:50 Patient is in mild CHF, x-ray shows mild cardiomegaly, mild pulmonary congestion. She has been given an extra Lasix 40 mg orally about an hour ago. Has been up to the bathroom and voided at least once or twice. She is not having chest pain or appreciable respiratory distress while here in the ED. Blood sugar came back at 292. Her chart her sugars have been quite variable but mostly in the 120-250 range. She does have sliding scale orders. She has her insulin with her. We will help her take her pre-evening meal dose now at time of discharge. Departure - Departure Time of Disposition: 18:53 Disposition: Home, Self-Care 01 Condition: Fair Clinical Impression: Hyperglycemia - Discharge Information Referrals: Fredis De La Torre MD [Primary Care Provider] - Forms: ED Department Discharge Additional Instructions: Continue with furosemide 40 mg every morning, increase your 1:00 dose to 40 mg until you see Dr. Ramey in about one week. Continue other medications as currently prescribed. Return to ED as needed if symptoms worsening in any way. - My Orders Last 24 Hours: My Active Orders 07/28/17 16:55 Chest 1V Frontal [CR] Stat - Assessment/Plan Last 24 Hours: My Active Orders 07/28/17 16:55 Chest 1V Frontal [CR] Stat
[2017-07-28] MEDS ORDERED: Furosemide 40 MG Tab PO ONE (17:32)
[2017-07-28 20:29] VITALS: BP 136/57
--- NOTE | 2017-07-29 08:30 | CR ---
Chest: Portable view of the chest was obtained. Comparison: Prior chest x-ray of 09/27/16. Heart is slightly enlarged. Tortuous thoracic aorta is seen. Mild bibasilar atelectasis is noted as well as mild linear scarring within the right midlung. Pulmonary vessels show slight central congestion which appear chronic. Bony structures are grossly intact. Impression: 1. Findings as described above. Nothing acute is seen. Diagnostic code #3
== END 2017-07-28 19:10 | disposition home or self-care (01) ==
LOC: JD.ED 16:24
DX: E11.65 Type 2 diabetes mellitus with hyperglycemia (principal); I11.0 Hypertensive heart disease with heart failure; E78.00 Pure hypercholesterolemia, unspecified; I50.9 Heart failure, unspecified; K21.9 Gastro-esophageal reflux disease without esophagitis; E03.9 Hypothyroidism, unspecified; Z79.4 Long term (current) use of insulin; Z79.82 Long term (current) use of aspirin; Z79.899 Other long term (current) drug therapy
CPT/HCPCS: 36415; 71045; 80053; 85025; 99285; A9270; 99283

== ENCOUNTER 2017-08-02 06:46 | Inpatient (IN) | payer MEDICARE, BC ==
[2017-08-02] MEDS ORDERED: Sodium Chloride 0.9% 10 ML Syringe FLUSH PRN ×2 (07:04→09:20)
[2017-08-02] MEDS ORDERED: Albuterol/Ipratropium 3.0-0.5 MG/3 ML Neb Soln NEB ONE (07:25)
--- NOTE | 2017-08-02 08:37 | EDM.PDOC ---
ED HPI GENERAL MEDICAL PROBLEM - General Chief Complaint: Respiratory Problem Stated Complaint: TROUBLE BREATHING Time Seen by Provider: 08/02/17 06:55 Source of Information: Reports: Patient History Limitations: Reports: No Limitations - History of Present Illness INITIAL COMMENTS - FREE TEXT/NARRATIVE: The patient presents with shortness of breath. This has been going on for over a week but last night it got worse. She has a history of CHF and she was seen here last week. She was given more lasix and she did that for a week. She is more short of breath now. She has no fever, chills or cough. She has no swelling in her legs. She has no chest pain. She does have some lower abdominal pain and nausea. She did not vomit. She has no dysuria but she does have some urinary frequency. Onset: Gradual Duration: Week(s): Location: Reports: Abdomen Quality: Reports: Ache Severity: Mild Improves with: Reports: None Worsens with: Reports: None Associated Symptoms: Reports: Shortness of Breath. Denies: Chest Pain, Cough, Fever/Chills, Headaches, Nausea/Vomiting - Related Data Allergies Allergy/AdvReac Type Severity Reaction Status Date / Time No Known Allergies Allergy Verified 08/02/17 06:53 Home Meds: Home Meds Allopurinol [Zyloprim] 200 mg PO BID 08/11/16 [History] Aspirin 81 mg PO DAILY 08/11/16 [History] Furosemide [Lasix] 60 mg PO QAM 08/11/16 [History] Gabapentin [Neurontin] 300 mg PO QAM 08/11/16 [History] Insulin Aspart [Novolog Flexpen] 20 units SUBCUT TID 08/11/16 [History] Insulin Glarg,Human.Rec.Analog [Lantus] 32 units SUBCUT ACBREAKFAST 08/11/16 [ History] Lisinopril/Hydrochlorothiazide [Lisinopril-Hctz 20-12.5 mg Tab] 1 tab PO DAILY 08/11/16 [History] Omeprazole 20 mg PO DAILY 08/11/16 [History] Simvastatin [Zocor] 20 mg PO BEDTIME 08/11/16 [History] amLODIPine [Norvasc] 2.5 mg PO DAILY 08/11/16 [History] Calcium Carbonate/Vitamin D3 [Caltrate 600 Plus D3 Tablet] 1 tab PO DAILY [History] Fenofibrate 160 mg PO BEDTIME 09/04/16 [History] Vit D3/Folic Acid/B2/B6/B12 [Folgard Tablet] 1,000 mg PO DAILY 09/04/16 [History ] Gabapentin [Neurontin] 600 mg PO QPM 07/28/17 [History] Insulin Glarg,Human.Rec.Analog [Lantus] 18 unit SUBCUT QPM 07/28/17 [History] L.acidoph,Paracasei, B.lactis [Probiotic] 1 each PO DAILY 07/28/17 [History] Potassium Chloride [Klor-Con 10] 1 tab PO QPM 07/28/17 [History] Rivaroxaban [Xarelto] 15 mg PO QPM 07/28/17 [History] Furosemide [Lasix] 40 mg PO QPM 08/02/17 [History] Ondansetron HCl [Zofran] 4 mg PO Q8HR PRN 08/02/17 [History] Pyridoxine HCl (Vitamin B6) [B-6] 1 tab PO DAILY 08/02/17 [History] Ubidecarenone [Coenzyme Q10] 100 mg PO DAILY 08/02/17 [History] Past Medical History HEENT History: Reports: Cataract, Impaired Vision Other HEENT History: Wears glasses Cardiovascular History: Reports: Heart Failure, High Cholesterol, Hypertension Other Cardiovascular History: irregular beats Respiratory History: Reports: SOB Other Respiratory History: "I have fluid on my lungs every so often" Gastrointestinal History: Reports: GERD Other Gastrointestinal History: occasional constipation Genitourinary History: Reports: Renal Calculus, Urinary Incontinence Other Genitourinary History: lithrotripsy 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 [employer]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[employer] History: Reports: Other OB/BYN History: had 15 children Musculoskeletal History: Reports: Arthritis, Gout Other Musculoskeletal History: broken right foot Neurological History: Reports: Neuropathy, Peripheral Psychiatric History: Reports: Depression Endocrine/Metabolic History: Reports: Hypothyroidism, IDDM, Obesity/BMI 30+, Other (See Below) Other Endocrine/Metabolic History: 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, has goiter Hematologic History: Reports: B12 Deficiency Oncologic (Cancer) History: Reports: Other (See Below) Other Oncologic History: skin cancer Dermatologic History: Reports: Melanoma - Infectious Disease History Infectious Disease History: Reports: Herpes, Shingles - Past Surgical History HEENT Surgical History: Reports: Cataract Surgery Other HEENT Surgeries/Procedures: cataract surgery "few years ago" GI Surgical History: Reports: Cholecystectomy Other GI Surgeries/Procedures: current lap diana Female Surgical History: Reports: Section, Lithotripsy/ESWL Social & Family History - Family History Family Medical History: Noncontributory - Tobacco Use Smoking Status *Q: Never Smoker - Caffeine Use Caffeine Use: Reports: Soda - Recreational Drug Use Recreational Drug Use: No - Living Situation & Occupation Living situation: Reports: , Alone Occupation: Retired ED ROS GENERAL - Review of Systems Review Of Systems: See Below Constitutional: Reports: No Symptoms HEENT: Reports: No Symptoms Respiratory: Reports: Shortness of Breath. Denies: Cough Cardiovascular: Reports: No Symptoms Endocrine: Reports: No Symptoms GI/Abdominal: Reports: Abdominal Pain, Nausea. Denies: Diarrhea, Vomiting : Reports: Frequency. Denies: Dysuria Musculoskeletal: Reports: No Symptoms ED EXAM, GENERAL - Physical Exam Exam: See Below Exam Limited By: No Limitations General Appearance: Alert, No Apparent Distress Ears: Normal External Exam Nose: Normal Inspection Head: Atraumatic, Normocephalic Neck: Normal Inspection Respiratory/Chest: No Respiratory Distress, Decreased Breath Sounds Cardiovascular: Regular Rate, Rhythm, No Edema, No Murmur GI/Abdominal: Soft, Non-Tender, No Organomegaly, No Mass Back Exam: Normal Inspection Extremities: Normal Inspection Neurological: Alert, Oriented, No Motor/Sensory Deficits EKG INTERPRETATION EKG Date: 08/02/17 Time: 06:54 Rhythm: A-Fib Rate (Beats/Min): 94 Gravel Switch: LAD-Left Gravel Switch Deviation QRS: Normal ST-T: Normal QT: Normal Course - Vital Signs Last Recorded V/S: Last Vital Signs Temp 97.7 F 08/02/17 06:50 Pulse 74 08/02/17 07:16 Resp 16 08/02/17 07:16 BP 138/66 08/02/17 07:15 Pulse Ox 98 08/02/17 07:25 - Orders/Labs/Meds Orders: Active Orders 24 hr Category Date Time Status Cardiac Monitoring [RC] . DIRECTED Care 08/02/17 07:04 Active EKG Documentation Completion [RC] STAT Care 08/02/17 07:04 Active Oxygen Therapy [RC] PRN Care 08/02/17 07:04 Active Peripheral IV Care [RC] . DIRECTED Care 08/02/17 07:04 Active RT Aerosol Therapy [RC] ASDIRECTED Care 08/02/17 07:25 Active Chest 1V Frontal [CR] Stat Exams 08/02/17 07:05 Taken UA W/MICROSCOPIC [URIN] Stat Lab 08/02/17 08:47 Ordered Sodium Chloride 0.9% [Normal Saline] 1,000 ml Med 08/02/17 08:45 Active IV ASDIRECTED Sodium Chloride 0.9% [Normal Saline] 100 ml Med 08/02/17 09:30 Active IV ASDIRECTED Sodium Chloride 0.9% [Saline Flush] Med 08/02/17 07:04 Active 10 ml FLUSH ASDIRECTED PRN Sodium Chloride 0.9% [Saline Flush] Med 08/02/17 09:20 Active 10 ml FLUSH ONETIME PRN Peripheral IV Insertion Adult [OM.PC] Stat Oth 08/02/17 07:04 Ordered Medication Orders Sodium Chloride (Normal Saline) 1,000 mls @ 150 mls/hr IV ASDIRECTED HECTOR Last Admin: 08/02/17 09:10 Dose: 150 mls/hr Sodium Chloride (Normal Saline) 100 mls @ 75 mls/hr IV ASDIRECTED HECTOR Last Admin: 08/02/17 09:38 Dose: 75 mls/hr Sodium Chloride (Saline Flush) 10 ml FLUSH ASDIRECTED PRN PRN Reason: Keep Vein Open Last Admin: 08/02/17 07:15 Dose: 10 ml Sodium Chloride (Saline Flush) 10 ml FLUSH ONETIME PRN PRN Reason: IV FLUSH Last Admin: 08/02/17 09:38 Dose: 10 ml Labs: Laboratory Tests 08/02/17 08/02/17 08/02/17 Range/Units 07:00 07:00 07:00 WBC 8.73 (3.98-10.04) K/mm3 RBC 4.49 (3.98-5.22) M/mm3 Hgb 13.0 (11.2-15.7) gm/L Hct 39.1 (34.1-44.9) % MCV 87.1 (79.4-94.8) fl MCH 29.0 (25.6-32.2) pg MCHC 33.2 (32.2-35.5) g/dl RDW Std Deviation 49.4 H (36.4-46.3) fL Plt Count 285 (182-369) K/mm3 MPV 10.8 (9.4-12.3) fl Neut % (Auto) 70.5 (34.0-71.1) % Lymph % (Auto) 20.5 (19.3-51.7) % [place] % (Auto) 7.1 (4.7-12.5) % Eos % (Auto) 1.5 (0.7-5.8) Baso % (Auto) 0.1 (0.1-1.2) % Neut # (Auto) 6.15 H (1.56-6.13) K/mm3 Lymph # (Auto) 1.79 (1.18-3.74) K/mm3 [place] # (Auto) 0.62 H (0.24-0.36) K/mm3 Eos # (Auto) 0.13 (0.04-0.36) K/mm3 Baso # (Auto) 0.01 (0.01-0.08) K/mm3 Sodium 134 L (136-145) mEq/L Potassium 3.3 L (3.5-5.1) mEq/L Chloride 95 L (98-107) mEq/L Carbon Dioxide 29 (21-32) mEq/L Anion Gap 13.3 (5-15) BUN 28 H (7-18) mg/dL Creatinine 1.3 H (0.55-1.02) mg/dL Est Cr Clr Drug Dosing 23.14 mL/min Estimated GFR (MDRD) 39 (>60) mL/min BUN/Creatinine Ratio 21.5 H (14-18) Glucose 281 H (83-115) mg/dL POC Glucose (83-110) mg/dL Calcium 9.4 (8.5-10.1) mg/dL Total Bilirubin 0.7 (0.2-1.0) mg/dL AST 25 (15-37) U/L ALT 33 (14-59) U/L Alkaline Phosphatase 41 L (46-116) U/L Troponin I < 0.017 (0.00-0.056) ng/mL NT-Pro-B Natriuret Pep 883 H (0-450) pg/mL Total Protein 6.8 (6.4-8.2) g/dl Albumin 3.6 (3.4-5.0) g/dl Globulin 3.2 gm/dL Albumin/Globulin Ratio 1.1 (1-2) Urine Color (Yellow) Urine Appearance (Clear) Urine pH (5.0-8.0) Ur Specific [place] (1.005-1.030) Urine Protein (Negative) Urine Glucose (UA) (Negative) Urine Ketones (Negative) Urine Occult Blood (Negative) Urine Nitrite (Negative) Urine Bilirubin (Negative) Urine Urobilinogen (0.2-1.0) Ur Leukocyte Esterase (Negative) Urine RBC (0-5) /hpf Urine WBC (0-5) /hpf Ur Epithelial Cells (0-5) /hpf Urine Bacteria (FEW) /hpf Urine Mucus (FEW) /hpf 08/02/17 08/02/17 Range/Units 08:47 09:14 WBC (3.98-10.04) K/mm3 RBC (3.98-5.22) M/mm3 Hgb (11.2-15.7) gm/L Hct (34.1-44.9) % MCV (79.4-94.8) fl MCH (25.6-32.2) pg MCHC (32.2-35.5) g/dl RDW Std Deviation (36.4-46.3) fL Plt Count (182-369) K/mm3 MPV (9.4-12.3) fl Neut % (Auto) (34.0-71.1) % Lymph % (Auto) (19.3-51.7) % [place] % (Auto) (4.7-12.5) % Eos % (Auto) (0.7-5.8) Baso % (Auto) (0.1-1.2) % Neut # (Auto) (1.56-6.13) K/mm3 Lymph # (Auto) (1.18-3.74) K/mm3 [place] # (Auto) (0.24-0.36) K/mm3 Eos # (Auto) (0.04-0.36) K/mm3 Baso # (Auto) (0.01-0.08) K/mm3 Sodium (136-145) mEq/L Potassium (3.5-5.1) mEq/L Chloride (98-107) mEq/L Carbon Dioxide (21-32) mEq/L Anion Gap (5-15) BUN (7-18) mg/dL Creatinine (0.55-1.02) mg/dL Est Cr Clr Drug Dosing mL/min Estimated GFR (MDRD) (>60) mL/min BUN/Creatinine Ratio (14-18) Glucose (83-115) mg/dL POC Glucose 292 H (83-110) mg/dL Calcium (8.5-10.1) mg/dL Total Bilirubin (0.2-1.0) mg/dL AST (15-37) U/L ALT (14-59) U/L Alkaline Phosphatase (46-116) U/L Troponin I (0.00-0.056) ng/mL NT-Pro-B Natriuret Pep (0-450) pg/mL Total Protein (6.4-8.2) g/dl Albumin (3.4-5.0) g/dl Globulin gm/dL Albumin/Globulin Ratio (1-2) Urine Color Yellow (Yellow) Urine Appearance Clear (Clear) Urine pH 7.0 (5.0-8.0) Ur Specific [place] 1.020 (1.005-1.030) Urine Protein Negative (Negative) Urine Glucose (UA) Negative (Negative) Urine Ketones Negative (Negative) Urine Occult Blood Negative (Negative) Urine Nitrite Negative (Negative) Urine Bilirubin Negative (Negative) Urine Urobilinogen 0.2 (0.2-1.0) Ur Leukocyte Esterase Negative (Negative) Urine RBC 0-5 (0-5) /hpf Urine WBC 0-5 (0-5) /hpf Ur Epithelial Cells 0-5 (0-5) /hpf Urine Bacteria Not seen (FEW) /hpf Urine Mucus Not seen (FEW) /hpf Meds: Medications Generic Name Dose Route Start Last Admin Trade Name Freq PRN Reason Stop Dose Admin Sodium Chloride 1,000 mls @ 150 mls/hr 08/02/17 08:45 08/02/17 09:10 Normal Saline IV 150 mls/hr ASDIRECTED HECTOR Administration Sodium Chloride 100 mls @ 75 mls/hr 08/02/17 09:30 08/02/17 09:38 Normal Saline IV 75 mls/hr ASDIRECTED HECTOR Administration Sodium Chloride 10 ml 08/02/17 07:04 08/02/17 07:15 Saline Flush FLUSH 10 ml ASDIRECTED PRN Administration Keep Vein Open Sodium Chloride 10 ml 08/02/17 09:20 08/02/17 09:38 Saline Flush FLUSH 10 ml ONETIME PRN Administration IV FLUSH Discontinued Medications Generic Name Dose Route Start Last Admin Trade Name Luis PRN Reason Stop Dose Admin Albuterol/Ipratropium 3 ml 08/02/17 07:25 08/02/17 07:39 Duoneb 3.0-0.5 Mg/3 Ml NEB 08/02/17 07:26 3 ml ONETIME ONE Administration Insulin Aspart 30 unit 08/02/17 09:25 Novolog SUBCUT 08/02/17 09:26 NOW STA Iopamidol 100 ml 08/02/17 09:20 08/02/17 09:38 Isovue-370 (76%) IVPUSH 08/02/17 09:21 70 ml ONETIME ONE Administration - Re-Assessments/Exams Free Text/Narrative Re-Assessment/Exam: 08/02/17 09:40 I ordered an IV saline lock, EKG, CXR, labs, UA and duoneb. Her EKG shows A- fib. She has a history of this. She is on blood thinners. Her CBC looks good. Her Na was a little low at 134. Her K was low at 3.3. Her creatinine was elevated at 1.3. Her GFR was low at 39. Her glucose was elevated at 281. Her troponin was negative. Her BNP was elevated at 883. Her UA shows no UTI. Her oxygen level went down to 76% when she was resting. I put her on some oxygen. I then ordered a CT angio of her chest to rule out PE. Her CXR shows cardiomegaly with some congestive changes and some atalectasis to the right lower lobe. I am waiting for the CT results now. 08/02/17 10:[address] shows cardiomegaly and small to moderate sized right-sided pleural effusion. Scattered areas of mild atelectasis within the right lung. No findings of pulmonary embolism. I feel she needs to be admitted for hypoxia and the pleural effusion. I called Dr Stone and he agreed to the admission. Departure - Departure Time of Disposition: 10:10 Disposition: Admitted As Inpatient 68 Condition: Fair Clinical Impression: Hypoxia, Pleural effusion on right Congestive heart failure Qualifiers: Heart failure type: other Qualified Code(s): I50.9 - Heart failure, unspecified - Discharge Information Referrals: Fredis De La Torre MD [Primary Care Provider] - Forms: ED Department Discharge - My Orders Last 24 Hours: My Active Orders 08/02/17 07:04 Cardiac Monitoring [RC] . DIRECTED EKG Documentation Completion [RC] STAT Oxygen Therapy [RC] PRN Peripheral IV Care [RC] . DIRECTED Sodium Chloride 0.9% [Saline Flush] 10 ml FLUSH ASDIRECTED PRN Peripheral IV Insertion Adult [OM.PC] Stat 08/02/17 07:05 Chest 1V Frontal [CR] Stat 08/02/17 07:25 RT Aerosol Therapy [RC] ASDIRECTED 08/02/17 08:45 Sodium Chloride 0.9% [Normal Saline] 1,000 ml IV ASDIRECTED 08/02/17 08:47 UA W/MICROSCOPIC [URIN] Stat 08/02/17 09:20 Sodium Chloride 0.9% [Saline Flush] 10 ml FLUSH ONETIME PRN 08/02/17 09:30 Sodium Chloride 0.9% [Normal Saline] 100 ml IV ASDIRECTED - Assessment/Plan Last 24 Hours: My Active Orders 08/02/17 07:04 Cardiac Monitoring [RC] . DIRECTED EKG Documentation Completion [RC] STAT Oxygen Therapy [RC] PRN Peripheral IV Care [RC] . DIRECTED Sodium Chloride 0.9% [Saline Flush] 10 ml FLUSH ASDIRECTED PRN Peripheral IV Insertion Adult [OM.PC] Stat 08/02/17 07:05 Chest 1V Frontal [CR] Stat 08/02/17 07:25 RT Aerosol Therapy [RC] ASDIRECTED 08/02/17 08:45 Sodium Chloride 0.9% [Normal Saline] 1,000 ml IV ASDIRECTED 08/02/17 08:47 UA W/MICROSCOPIC [URIN] Stat 08/02/17 09:20 Sodium Chloride 0.9% [Saline Flush] 10 ml FLUSH ONETIME PRN 08/02/17 09:30 Sodium Chloride 0.9% [Normal Saline] 100 ml IV ASDIRECTED
[2017-08-02] MEDS ORDERED: Sodium Chloride 0.9% 1,000 ML IV SCH (08:45)
[2017-08-02] MEDS ORDERED: Iopamidol 755 Mg/ML 100 ML Bottle IVPUSH ONE (09:20)
[2017-08-02] MEDS ORDERED: Insulin Aspart 100 Units/ML 3 ML Pen SUBCUT STA (09:25)
[2017-08-02] MEDS ORDERED: Sodium Chloride 0.9% 100 ML IV SCH (09:30)
--- NOTE | 2017-08-02 09:56 | CT ---
CT chest Technique: Multiple axial sections through the chest were obtained. Intravenous contrast was utilized. Study has been performed as a pulmonary angiogram protocol. Comparison: No prior chest CT. Findings: Small to moderate size right sided pleural effusion is seen. No left-sided pleural effusion is noted. Heart is enlarged. Mitral annulus calcification is seen. Coronary artery calcification is seen. Pulmonary arteries are well-opacified. No filling defects are seen to indicate pulmonary embolism. Mild areas of scattered atelectasis are seen within the right lung. Left lung shows nothing acute. Bone window settings were reviewed which shows scattered degenerative spurring within the spine with disc space narrowing. No acute osseous abnormality is identified. Impression: 1. Cardiomegaly and small to moderate sized right-sided pleural effusion. 2. Scattered areas of mild atelectasis within the right lung. 3. No findings of pulmonary embolism. Other incidental findings as noted above. Diagnostic code #3
--- NOTE | 2017-08-02 11:29 | PCM.HP ---
H&P History of Present Illness - General Date of Service: 08/02/17 Admit Problem/Dx: Admission Diagnosis/Problem Admission Diagnosis/Problem Hypoxia Source of Information: Patient, Old Records, Provider, RN Notes Reviewed History Limitations: Reports: No Limitations, Respiratory Distress - History of Present Illness Initial Comments - Free Text/Narative: This is an 86 yo elderly pleasant white female with past medical hx/o impaired vision, hyperlipidemia, hypertension, atrial fibrillation on xarelto, chronic shortness of breath, history of chronic small pleural effusion, GERD, constipation, urinary incontinence, OA/DJD, gout, peripheral neuropathy, hypothyroidism, type 2 diabetes, depression, vitamin B12 deficiency, and obesity with BMI of 40 who comes in for further evaluation of worsening shortness of breath. According to patient, her symptoms started about a week ago with what appears to be flu-like symptoms. However by Thursday she felt more tired, restless, more short of breath, and had intermittent heart palpitations. During that time, she tried to lay down but could not do it due to breathing difficulties. She tried to get in at the walk-in clinic but they were full so she was sent to the emergency department for evaluation. In ED, patient was told to increase her lasix dose in the morning to 3 tabs and double up on her afternoon dose. Thereafter she was immediately sent home with no other recommendations or additional medications added to her usual routine home medications. However she states she did not get any better and by she proceeded to see her primary care doctor. At the clinic, she was found to have pleural effusion and was told she had congestive heart failure. Her PCP made no changes on her diuretics but recommended to follow up with him this coming Thursday. Patient carries a history of congestive heart failure with unknown EF. She denies orthopnea and no peripheral edema. She is not on salt or fluid restrictions. However she states she was told to drink more fluids to prevent kidney injury. Her initial workup in the emergency department shows a CBC remarkable for RDW of 49.4, neutrophil counts of 6.15, and monocytes count of 0.62. Her chemistry is significant for sodium of 134, potassium of 3.3, chloride of 95, BUN of 20, creatinine of 1.3, glucose of 281, alkaline phosphatase of 41, and proBNP of 883. Her initial troponin level is within normal limits. Her UA is negative for UTI. Chest x-ray shows enlarged heart with considerable sized right-sided pleural effusion. Her chest CTA report reads cardiomegaly and small to moderate size right-sided pleural effusion. Scattered areas of mild atelectasis within the right lung. No findings of PE. Patient is being admitted for acute on chronic congestive heart failure with unknown EF and right-sided pleural effusion. She is full code. - Related Data Allergies/Adverse Reactions: Allergies Allergy/AdvReac Type Severity Reaction Status Date / Time No Known Allergies Allergy Verified 08/02/17 13:03 Home Medications: Home Meds Allopurinol [Zyloprim] 200 mg PO BID 08/11/16 [History] Aspirin 81 mg PO DAILY 08/11/16 [History] Furosemide [Lasix] 60 mg PO QAM 08/11/16 [History] Gabapentin [Neurontin] 300 mg PO QAM 08/11/16 [History] Insulin Aspart [Novolog Flexpen] 20 units SUBCUT TID 08/11/16 [History] Insulin Glarg,Human.Rec.Analog [Lantus] 32 units SUBCUT ACBREAKFAST 08/11/16 [ History] Lisinopril/Hydrochlorothiazide [Lisinopril-Hctz 20-12.5 mg Tab] 1 tab PO DAILY 08/11/16 [History] Omeprazole 20 mg PO DAILY 08/11/16 [History] Simvastatin [Zocor] 20 mg PO BEDTIME 08/11/16 [History] amLODIPine [Norvasc] 2.5 mg PO DAILY 08/11/16 [History] Calcium Carbonate/Vitamin D3 [Caltrate 600 Plus D3 Tablet] 1 tab PO DAILY [History] Fenofibrate 160 mg PO BEDTIME 09/04/16 [History] Vit D3/Folic Acid/B2/B6/B12 [Folgard Tablet] 1,000 mg PO DAILY 09/04/16 [History ] Gabapentin [Neurontin] 600 mg PO QPM 07/28/17 [History] Insulin Glarg,Human.Rec.Analog [Lantus] 24 unit SUBCUT QPM 07/28/17 [History] L.acidoph,Paracasei, B.lactis [Probiotic] 1 each PO DAILY 07/28/17 [History] Potassium Chloride [Klor-Con 10] 1 tab PO QPM 07/28/17 [History] Rivaroxaban [Xarelto] 15 mg PO QPM 07/28/17 [History] Furosemide [Lasix] 40 mg PO QPM 08/02/17 [History] Insulin Aspart [NovoLOG] See Protocol SUBCUT WITHMEALSANDBED 08/02/17 [History] Ondansetron HCl [Zofran] 4 mg PO TID PRN 08/02/17 [History] Pyridoxine HCl (Vitamin B6) [B-6] 1 tab PO DAILY 08/02/17 [History] Ubidecarenone [Coenzyme Q10] 100 mg PO DAILY 08/02/17 [History] Past Medical History HEENT History: Reports: Cataract, Impaired Vision Other HEENT History: Wears glasses Cardiovascular History: Reports: Heart Failure, High Cholesterol, Hypertension Other Cardiovascular History: irregular beats Respiratory History: Reports: SOB Other Respiratory History: "I have fluid on my lungs every so often" Gastrointestinal History: Reports: GERD Other Gastrointestinal History: occasional constipation Genitourinary History: Reports: Renal Calculus, Urinary Incontinence Other Genitourinary History: lithrotripsy BATH STEWARD/STEWARDESS History: Reports: Other OB/BYN History: had 15 children Musculoskeletal History: Reports: Arthritis, Gout Other Musculoskeletal History: broken right foot Neurological History: Reports: Neuropathy, Peripheral Psychiatric History: Reports: Depression Endocrine/Metabolic History: Reports: Hypothyroidism, IDDM, Obesity/BMI 30+, Other (See Below) Other Endocrine/Metabolic History: 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, has goiter Hematologic History: Reports: B12 Deficiency Oncologic (Cancer) History: Reports: Other (See Below) Other Oncologic History: skin cancer Dermatologic History: Reports: Melanoma - Infectious Disease History Infectious Disease History: Reports: Herpes, Shingles - Past Surgical History HEENT Surgical History: Reports: Cataract Surgery Other HEENT Surgeries/Procedures: cataract surgery "few years ago" GI Surgical History: Reports: Cholecystectomy Other GI Surgeries/Procedures: current lap diana Female Surgical History: Reports: Section, Lithotripsy/ESWL Social & Family History - Family History Family Medical History: Noncontributory - Tobacco Use Smoking Status *Q: Never Smoker - Caffeine Use Caffeine Use: Reports: Soda - Recreational Drug Use Recreational Drug Use: No - Living Situation & Occupation Living situation: Reports: , Alone Occupation: Retired H&P Review of Systems - Review of Systems: Review Of Systems: ROS reveals no pertinent complaints other than HPI. Exam - Exam Exam: See Below - Vital Signs Vital Signs: Last Vital Signs Temp 36.5 C 08/02/17 06:50 Pulse 74 08/02/17 07:16 Resp 16 08/02/17 07:16 BP 138/66 08/02/17 07:15 Pulse Ox 98 08/02/17 07:25 Weight: 86.183 kg - Exam Quality Assessment: No: Supplemental Oxygen General: Alert, Oriented, Cooperative. No: Mild Distress HEENT: Conjunctiva Clear, EACs Clear, EOMI, Hearing Intact, Mucosa Moist & [place] , Nares Patent, Normal Nasal Septum, Posterior Pharynx Clear, Pupils Equal, Pupils Reactive Neck: Supple, Trachea Midline Lungs: Normal Respiratory Effort, Decreased Breath Sounds Cardiovascular: Irregular Rhythm GI/Abdominal Exam: Normal Bowel Sounds, Soft, Non-Tender, No Organomegaly, No Distention, No Abnormal Bruit Rectal (Female) Exam: Deferred Back Exam: Normal Inspection, Decreased Range of Motion Extremities: Normal Inspection, Normal Range of Motion, Non-Tender, No Pedal Edema, Normal Capillary Refill Peripheral Pulses: 2+: Posterior Tibial (L), Posterior Tibial (R), Dorsalis Pedis (L), Dorsalis Pedis (R) Skin: Warm, Dry, Intact. No: [place], Ecchymosis Neuro Extensive - Mental Status: Oriented x3, Normal Cognition, Memory Intact Neuro Extensive - Motor, Sensory, Reflexes: CN II-XII Intact, Abnormal Gait Psychiatric: Alert, Normal Affect, Normal Mood - Patient Data Lab Results Last 24 hrs: Laboratory Results - last 24 hr 08/02/17 08/02/17 08/02/17 Range/Units 07:00 07:00 07:00 WBC 8.73 (3.98-10.04) K/mm3 RBC 4.49 (3.98-5.22) M/mm3 Hgb 13.0 (11.2-15.7) gm/L Hct 39.1 (34.1-44.9) % MCV 87.1 (79.4-94.8) fl MCH 29.0 (25.6-32.2) pg MCHC 33.2 (32.2-35.5) g/dl RDW Std Deviation 49.4 H (36.4-46.3) fL Plt Count 285 (182-369) K/mm3 MPV 10.8 (9.4-12.3) fl Neut % (Auto) 70.5 (34.0-71.1) % Lymph % (Auto) 20.5 (19.3-51.7) % [place] % (Auto) 7.1 (4.7-12.5) % Eos % (Auto) 1.5 (0.7-5.8) Baso % (Auto) 0.1 (0.1-1.2) % Neut # (Auto) 6.15 H (1.56-6.13) K/mm3 Lymph # (Auto) 1.79 (1.18-3.74) K/mm3 [place] # (Auto) 0.62 H (0.24-0.36) K/mm3 Eos # (Auto) 0.13 (0.04-0.36) K/mm3 Baso # (Auto) 0.01 (0.01-0.08) K/mm3 Sodium 134 L (136-145) mEq/L Potassium 3.3 L (3.5-5.1) mEq/L Chloride 95 L (98-107) mEq/L Carbon Dioxide 29 (21-32) mEq/L Anion Gap 13.3 (5-15) BUN 28 H (7-18) mg/dL Creatinine 1.3 H (0.55-1.02) mg/dL Est Cr Clr Drug Dosing 23.14 mL/min Estimated GFR (MDRD) 39 (>60) mL/min BUN/Creatinine Ratio 21.5 H (14-18) Glucose 281 H (83-115) mg/dL POC Glucose (83-110) mg/dL Calcium 9.4 (8.5-10.1) mg/dL Total Bilirubin 0.7 (0.2-1.0) mg/dL AST 25 (15-37) U/L ALT 33 (14-59) U/L Alkaline Phosphatase 41 L (46-116) U/L Troponin I < 0.017 (0.00-0.056) ng/mL NT-Pro-B Natriuret Pep 883 H (0-450) pg/mL Total Protein 6.8 (6.4-8.2) g/dl Albumin 3.6 (3.4-5.0) g/dl Globulin 3.2 gm/dL Albumin/Globulin Ratio 1.1 (1-2) Urine Color (Yellow) Urine Appearance (Clear) Urine pH (5.0-8.0) Ur Specific [place] (1.005-1.030) Urine Protein (Negative) Urine Glucose (UA) (Negative) Urine Ketones (Negative) Urine Occult Blood (Negative) Urine Nitrite (Negative) Urine Bilirubin (Negative) Urine Urobilinogen (0.2-1.0) Ur Leukocyte Esterase (Negative) Urine RBC (0-5) /hpf Urine WBC (0-5) /hpf Ur Epithelial Cells (0-5) /hpf Urine Bacteria (FEW) /hpf Urine Mucus (FEW) /hpf 08/02/17 08/02/17 Range/Units 08:47 09:14 WBC (3.98-10.04) K/mm3 RBC (3.98-5.22) M/mm3 Hgb (11.2-15.7) gm/L Hct (34.1-44.9) % MCV (79.4-94.8) fl MCH (25.6-32.2) pg MCHC (32.2-35.5) g/dl RDW Std Deviation (36.4-46.3) fL Plt Count (182-369) K/mm3 MPV (9.4-12.3) fl Neut % (Auto) (34.0-71.1) % Lymph % (Auto) (19.3-51.7) % [place] % (Auto) (4.7-12.5) % Eos % (Auto) (0.7-5.8) Baso % (Auto) (0.1-1.2) % Neut # (Auto) (1.56-6.13) K/mm3 Lymph # (Auto) (1.18-3.74) K/mm3 [place] # (Auto) (0.24-0.36) K/mm3 Eos # (Auto) (0.04-0.36) K/mm3 Baso # (Auto) (0.01-0.08) K/mm3 Sodium (136-145) mEq/L Potassium (3.5-5.1) mEq/L Chloride (98-107) mEq/L Carbon Dioxide (21-32) mEq/L Anion Gap (5-15) BUN (7-18) mg/dL Creatinine (0.55-1.02) mg/dL Est Cr Clr Drug Dosing mL/min Estimated GFR (MDRD) (>60) mL/min BUN/Creatinine Ratio (14-18) Glucose (83-115) mg/dL POC Glucose 292 H (83-110) mg/dL Calcium (8.5-10.1) mg/dL Total Bilirubin (0.2-1.0) mg/dL AST (15-37) U/L ALT (14-59) U/L Alkaline Phosphatase (46-116) U/L Troponin I (0.00-0.056) ng/mL NT-Pro-B Natriuret Pep (0-450) pg/mL Total Protein (6.4-8.2) g/dl Albumin (3.4-5.0) g/dl Globulin gm/dL Albumin/Globulin Ratio (1-2) Urine Color Yellow (Yellow) Urine Appearance Clear (Clear) Urine pH 7.0 (5.0-8.0) Ur Specific [place] 1.020 (1.005-1.030) Urine Protein Negative (Negative) Urine Glucose (UA) Negative (Negative) Urine Ketones Negative (Negative) Urine Occult Blood Negative (Negative) Urine Nitrite Negative (Negative) Urine Bilirubin Negative (Negative) Urine Urobilinogen 0.2 (0.2-1.0) Ur Leukocyte Esterase Negative (Negative) Urine RBC 0-5 (0-5) /hpf Urine WBC 0-5 (0-5) /hpf Ur Epithelial Cells 0-5 (0-5) /hpf Urine Bacteria Not seen (FEW) /hpf Urine Mucus Not seen (FEW) /hpf Result Diagrams: 08/03/17 05:25 08/03/17 05:25 EKG INTERPRETATION EKG Date: 08/02/17 Time: 06:54 Rhythm: A-Fib Rate (Beats/Min): 94 [place]: LAD-Left [place] Deviation P-Wave: Absent QRS: Normal ST-T: Normal QT: Normal Problem List Initiated/Reviewed/Updated: Yes Orders Last 24hrs: Active Orders 24 hr Category Date Time Status Patient Status [ADT] Routine ADT 08/02/17 11:14 Active Cardiac Monitoring [RC] . DIRECTED Care 08/02/17 07:04 Active EKG Documentation Completion [RC] STAT Care 08/02/17 07:04 Active Oxygen Therapy [RC] PRN Care 08/02/17 07:04 Active RT Aerosol Therapy [RC] ASDIRECTED Care 08/02/17 07:25 Active Chest 1V Frontal [CR] Stat Exams 08/02/17 07:05 Taken UA W/MICROSCOPIC [URIN] Stat Lab 08/02/17 08:47 Ordered Sodium Chloride 0.9% [Normal Saline] 1,000 ml Med 08/02/17 08:45 Active IV ASDIRECTED Sodium Chloride 0.9% [Normal Saline] 100 ml Med 08/02/17 09:30 Active IV ASDIRECTED Sodium Chloride 0.9% [Saline Flush] Med 08/02/17 07:04 Active 10 ml FLUSH ASDIRECTED PRN Sodium Chloride 0.9% [Saline Flush] Med 08/02/17 09:20 Active 10 ml FLUSH ONETIME PRN Peripheral IV Insertion Adult [OM.PC] Stat Oth 08/02/17 07:04 Ordered Medication Orders Sodium Chloride (Normal Saline) 1,000 mls @ 150 mls/hr IV ASDIRECTED HECTOR Last Admin: 08/02/17 09:10 Dose: 150 mls/hr Sodium Chloride (Normal Saline) 100 mls @ 75 mls/hr IV ASDIRECTED HECTOR Last Admin: 08/02/17 09:38 Dose: 75 mls/hr Sodium Chloride (Saline Flush) 10 ml FLUSH ASDIRECTED PRN PRN Reason: Keep Vein Open Last Admin: 08/02/17 07:15 Dose: 10 ml Sodium Chloride (Saline Flush) 10 ml FLUSH ONETIME PRN PRN Reason: IV FLUSH Last Admin: 08/02/17 09:38 Dose: 10 ml Assessment/Plan Comment:: Assessment/Plan: Acute: Heart Failure with Unknown EF - Pro BNP is 883 - She takes diuretic but not on fluid or salt restrictions - CTA shows moderate size right sided pleural effusion--> this is an internal change from her 2015 CT scan - Heart failure protocol: diuretics, salt/fluid restriction, Is/Os and daily weight check - Offered Thoracentesis vs IV Lasix-->after discussing risks and benefits with patient and her children--they all agreed for thoracentesis - 2D echo in AM Moderate Size Right Sided Pleural Effusion - Interval change (much larger) from her 2015 CT scan - She is on ASA/Xarelto; will hold both and resume them after the procedure tomorrow - Heparin SubQ 5000 units x 1 at 2100 tonight for dvt/stroke prophylaxis - Therapeutic and Diagnostic Thoracentesis in AM Mild Hypokalemia - K 3.3 - 2/2 over diuresis - Replete and monitor 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 Use of Insulin (IDD) - BS in the 200s-300s - She is on SA/LA insulin - Accu-check AC and HS with ISS - A1C in AM - Dietary consult and Diabetic Education - Consider Jardiance and Victoza with excellent cardiovascular benefit as well as weight loss Chronic: hx/o impaired vision, hyperlipidemia, hypertension, atrial fibrillation on xarelto, chronic shortness of breath, history of chronic small pleural effusion, GERD, constipation, urinary incontinence, OA/DJD, gout, peripheral neuropathy, hypothyroidism, type 2 diabetes, depression, vitamin B12 deficiency, and obesity with BMI of 40 Plan: Admit to [facility] with Tele Resume Home Meds HF Protocol Routine AM Labs PT/OT consult Dietary and Diabetic Education SW/CM for d/c planning Additional orders as above Code status: 1
[2017-08-02] MEDS ORDERED: Acetaminophen 325 MG Tab PO PRN (13:02)
[2017-08-02] MEDS ORDERED: Morphine 2 MG/ML Syringe IVPUSH PRN (13:02)
[2017-08-02] MEDS ORDERED: Acetaminophen/HYDROcodone 325-5 MG Tab PO PRN (13:02)
[2017-08-02] MEDS ORDERED: LORazepam 2 MG/ML SDV IV PRN (13:03)
[2017-08-02] MEDS ORDERED: Bisacodyl 5 MG Tab PO PRN (13:03)
[2017-08-02] MEDS ORDERED: Docusate Sodium 100 MG Cap PO PRN (13:03)
[2017-08-02] MEDS ORDERED: Temazepam 7.5 MG Cap PO PRN (13:03)
[2017-08-02] MEDS ORDERED: Promethazine 12.5 MG in Sodium Chloride 0.9% 50 ML IV PRN (13:03)
[2017-08-02] MEDS ORDERED: Ondansetron 4 MG/2 ML SDV IV PRN (13:03)
[2017-08-02] MEDS ORDERED: Polyethylene Glycol 3350 Powder 17 GM Packet PO PRN (13:03)
[2017-08-02] MEDS ORDERED: Ondansetron 4 MG Tab.DIS PO PRN (13:15)
[2017-08-02] MEDS ORDERED: Insulin Aspart 100 Units/ML 3 ML Pen SUBCUT SCH (15:00)
[2017-08-02] MEDS: Insulin Aspart 100 Units/ML 3 ML Pen SUBCUT SCH (17:16)
[2017-08-02] MEDS: Gabapentin 300 MG Cap PO SCH (17:16)
[2017-08-02] MEDS: Sodium Chloride 0.9% 1,000 ML IV SCH (17:17)
[2017-08-02] MEDS ORDERED: Rivaroxaban 10 MG Tab PO SCH (18:00)
[2017-08-02] MEDS: Simvastatin 20 MG Tab PO SCH (20:45)
[2017-08-02] MEDS: Allopurinol 100 MG Tab PO SCH (20:45)
[2017-08-02] MEDS: Insulin Detemir 100 Units/ML 3 ML Pen SUBCUT SCH (20:46)
[2017-08-02] MEDS ORDERED: Heparin Sodium 5,000 Units/ML Vial SUBCUT ONE (21:00)
[2017-08-03] MEDS ORDERED: Omeprazole 20 MG Cap.CR PO SCH (07:00)
--- NOTE | 2017-08-03 07:07 | CR ---
Chest: Portable view of the chest was obtained. Comparison: Prior chest x-ray of 07/28/17. Heart is enlarged. Mitral annulus calcification is seen. Scarring is noted around the right minor fissure. Blunting of the right lateral costophrenic angle is seen likely representing minimal pleural effusion. Pulmonary vessels are mildly increased which appear chronic. Impression: 1. Mild cardiomegaly and probable minimal right sided pleural effusion. 2. Other findings within the chest are stable from prior chest x-ray. Diagnostic code #3
[2017-08-03] MEDS: Sodium Chloride 0.9% 1,000 ML IV SCH (08:55)
[2017-08-03] MEDS ORDERED: Non-Formulary Medication 1 Each (Ubidecarenone 100 MG) PO SCH (09:00)
--- NOTE | 2017-08-03 10:29 | PCM.PN ---
- General Info Date of Service: 08/03/17 Admission Dx/Problem (Free Text): Admission Diagnosis/Problem Admission Diagnosis/Problem Hypoxia Subjective Update: Follow Up Functional Status: Reports: Pain Controlled, Tolerating Diet, Ambulating, Urinating - Review of Systems General: Denies: Fever, Weakness, Fatigue, Malaise, Chills HEENT: Reports: No Symptoms Pulmonary: Denies: Shortness of Breath, Pleuritic Chest Pain, Cough Cardiovascular: Denies: Chest Pain, Dyspnea on Exertion, Lightheadedness Gastrointestinal: Denies: Abdominal Pain, Nausea, Vomiting Genitourinary: Reports: No Symptoms Musculoskeletal: Reports: No Symptoms Skin: Denies: Cyanosis, Pallor, Diaphoresis, Rash Neurological: Reports: Gait Disturbance. Denies: Confusion, Difficulty Walking , Weakness Psychiatric: Denies: Depression, Anxiety, Agitation, Hallucinations Systems Review Comment:: No overnight or acute issues. She slept pretty good. She breaths better this morning and has no new complaints. She is ambulating as usual w/o much trouble without her breathing. - Patient Data Vitals - Most Recent: Last Vital Signs Temp 36.5 C 08/03/17 04:16 Pulse 84 08/03/17 04:16 Resp 20 08/03/17 04:16 BP 133/91 H 08/03/17 04:16 Pulse Ox 93 L 08/03/17 04:16 Weight - Most Recent: 86.183 kg I&O - Last 24 Hours: Intake & Output 08/02/17 08/03/17 08/03/17 22:59 06:59 14:59 Intake Total 556 445 360 Output Total 600 Balance 556 -155 360 Lab Results Last 24 Hours: Laboratory Results - last 24 hr 08/02/17 08/02/17 08/02/17 Range/Units 11:25 17:09 22:01 WBC (3.98-10.04) K/mm3 RBC (3.98-5.22) M/mm3 Hgb (11.2-15.7) gm/L Hct (34.1-44.9) % MCV (79.4-94.8) fl MCH (25.6-32.2) pg MCHC (32.2-35.5) g/dl RDW Std Deviation (36.4-46.3) fL Plt Count (182-369) K/mm3 MPV (9.4-12.3) fl Neut % (Auto) (34.0-71.1) % Lymph % (Auto) (19.3-51.7) % [place] % (Auto) (4.7-12.5) % Eos % (Auto) (0.7-5.8) Baso % (Auto) (0.1-1.2) % Neut # (Auto) (1.56-6.13) K/mm3 Lymph # (Auto) (1.18-3.74) K/mm3 [place] # (Auto) (0.24-0.36) K/mm3 Eos # (Auto) (0.04-0.36) K/mm3 Baso # (Auto) (0.01-0.08) K/mm3 Sodium (136-145) mEq/L Potassium (3.5-5.1) mEq/L Chloride (98-107) mEq/L Carbon Dioxide (21-32) mEq/L Anion Gap (5-15) BUN (7-18) mg/dL Creatinine (0.55-1.02) mg/dL Est Cr Clr Drug Dosing mL/min Estimated GFR (MDRD) (>60) mL/min BUN/Creatinine Ratio (14-18) Glucose (83-115) mg/dL POC Glucose 339 H 189 H 123 H (83-110) mg/dL Hemoglobin A1c (4.50-6.20) % Calcium (8.5-10.1) mg/dL Magnesium (1.8-2.4) mg/dl 08/03/17 08/03/17 08/03/17 Range/Units 05:25 05:25 05:25 WBC 7.56 (3.98-10.04) K/mm3 RBC 4.46 (3.98-5.22) M/mm3 Hgb 12.9 (11.2-15.7) gm/L Hct 39.6 (34.1-44.9) % MCV 88.8 (79.4-94.8) fl MCH 28.9 (25.6-32.2) pg MCHC 32.6 (32.2-35.5) g/dl RDW Std Deviation 51.5 H (36.4-46.3) fL Plt Count 290 (182-369) K/mm3 MPV 11.1 (9.4-12.3) fl Neut % (Auto) 59.5 (34.0-71.1) % Lymph % (Auto) 27.2 (19.3-51.7) % [place] % (Auto) 9.3 (4.7-12.5) % Eos % (Auto) 3.7 (0.7-5.8) Baso % (Auto) 0.0 L (0.1-1.2) % Neut # (Auto) 4.50 (1.56-6.13) K/mm3 Lymph # (Auto) 2.06 (1.18-3.74) K/mm3 [place] # (Auto) 0.70 H (0.24-0.36) K/mm3 Eos # (Auto) 0.28 (0.04-0.36) K/mm3 Baso # (Auto) 0.00 L (0.01-0.08) K/mm3 Sodium 139 (136-145) mEq/L Potassium 3.4 L (3.5-5.1) mEq/L Chloride 99 (98-107) mEq/L Carbon Dioxide 31 (21-32) mEq/L Anion Gap 12.4 (5-15) BUN 23 H (7-18) mg/dL Creatinine 1.2 H (0.55-1.02) mg/dL Est Cr Clr Drug Dosing 25.07 mL/min Estimated GFR (MDRD) 43 (>60) mL/min BUN/Creatinine Ratio 19.2 H (14-18) Glucose 136 H (83-115) mg/dL POC Glucose (83-110) mg/dL Hemoglobin A1c 7.80 H (4.50-6.20) % Calcium 9.7 (8.5-10.1) mg/dL Magnesium 1.4 L (1.8-2.4) mg/dl 08/03/17 Range/Units 06:51 WBC (3.98-10.04) K/mm3 RBC (3.98-5.22) M/mm3 Hgb (11.2-15.7) gm/L Hct (34.1-44.9) % MCV (79.4-94.8) fl MCH (25.6-32.2) pg MCHC (32.2-35.5) g/dl RDW Std Deviation (36.4-46.3) fL Plt Count (182-369) K/mm3 MPV (9.4-12.3) fl Neut % (Auto) (34.0-71.1) % Lymph % (Auto) (19.3-51.7) % [place] % (Auto) (4.7-12.5) % Eos % (Auto) (0.7-5.8) Baso % (Auto) (0.1-1.2) % Neut # (Auto) (1.56-6.13) K/mm3 Lymph # (Auto) (1.18-3.74) K/mm3 [place] # (Auto) (0.24-0.36) K/mm3 Eos # (Auto) (0.04-0.36) K/mm3 Baso # (Auto) (0.01-0.08) K/mm3 Sodium (136-145) mEq/L Potassium (3.5-5.1) mEq/L Chloride (98-107) mEq/L Carbon Dioxide (21-32) mEq/L Anion Gap (5-15) BUN (7-18) mg/dL Creatinine (0.55-1.02) mg/dL Est Cr Clr Drug Dosing mL/min Estimated GFR (MDRD) (>60) mL/min BUN/Creatinine Ratio (14-18) Glucose (83-115) mg/dL POC Glucose 143 H (83-110) mg/dL Hemoglobin A1c (4.50-6.20) % Calcium (8.5-10.1) mg/dL Magnesium (1.8-2.4) mg/dl Med Orders - Current: Current Medications Acetaminophen (Tylenol) 650 mg PO Q4H PRN PRN Reason: Pain (Mild 1-3)/fever Hydrocodone Bitart/Acetaminophen (Pierce 325-5 Mg) 1 tab PO Q4H PRN PRN Reason: Pain (moderate 4-6) Allopurinol (Zyloprim) 200 mg PO BID [facility] Last Admin: 08/02/17 20:45 Dose: 200 mg Amlodipine Besylate (Norvasc) 2.5 mg PO DAILY [facility] Aspirin (Halfprin) 81 mg PO DAILY [facility] Bisacodyl (Dulcolax) 5 mg PO DAILY PRN PRN Reason: Constipation Calcium Carbonate (Calcium Carbonate/Vitamin D 600 Mg-200 Unit) 1 tab PO DAILY [facility] Docusate Sodium (Colace) 100 mg PO BID PRN PRN Reason: Constipation Gabapentin (Neurontin) 600 mg PO QPM [facility] Last Admin: 08/02/17 17:16 Dose: 600 mg Gabapentin (Neurontin) 300 mg PO QAM [facility] Hydrochlorothiazide (Hydrochlorothiazide) 12.5 mg PO DAILY [facility] Promethazine HCl 12.5 mg/ (Sodium Chloride) 50.5 mls @ 100 mls/hr IV Q6H PRN PRN Reason: Nausea/Vomiting Sodium Chloride (Normal Saline) 1,000 mls @ 25 mls/hr IV ASDIRECTED [facility] Last Admin: 08/03/17 08:55 Dose: 25 mls/hr Magnesium Sulfate 2 gm/ Premix 50 mls @ 25 mls/hr IV Q2H [facility] Stop: 08/03/17 15:59 Insulin Aspart (Novolog) 20 unit SUBCUT TIDAC [facility] Last Admin: 08/02/17 17:16 Dose: 20 unit Insulin Detemir (Levemir) 32 unit SUBCUT DAILY [facility] Insulin Detemir (Levemir) 24 unit SUBCUT BEDTIME [facility] Last Admin: 08/02/17 20:46 Dose: 24 units Lisinopril (Prinivil) 20 mg PO DAILY [facility] Lorazepam (Ativan) 0.25 mg IV Q6H PRN PRN Reason: Anxiety Magnesium Sulfate (Pharmacy To Dose - Magnesium Replacement) 1 dose .XX ASDIRECTED [facility] Morphine Sulfate (Morphine) 0.25 mg IVPUSH Q2H PRN PRN Reason: Other Stop: 08/06/17 13:03 Non-Formulary Medication (Fenofibrate) 160 mg PO BEDTIME [facility] Ondansetron HCl (Zofran Odt) 4 mg PO Q8H PRN PRN Reason: nausea Ondansetron HCl (Zofran) 4 mg IV Q6H PRN PRN Reason: Nausea/Vomiting Pantoprazole Sodium (Protonix) 40 mg PO DAILY@0700 [facility] Polyethylene Glycol (Miralax) 17 gm PO DAILY PRN PRN Reason: Constipation Potassium Chloride (Pharmacy To Dose - Potassium Replacement) 1 dose .XX ASDIRECTED [facility] Potassium Chloride (Klor-Con M20) 40 meq PO ONETIME ONE Stop: 08/03/17 11:01 Pyridoxine HCl (Vitamin B6-Pyridoxine) 200 mg PO DAILY [facility] Rivaroxaban (Xarelto) 15 mg PO ONETIME ONE Stop: 08/03/17 18:01 Saccharomyces Boulardii (Florastor) 250 mg PO DAILY [facility] Senna/Docusate Sodium (Senna Plus) 1 tab PO BID PRN PRN Reason: Constipation Last Admin: 08/02/17 21:17 Dose: 1 tab Simvastatin (Zocor) 20 mg PO BEDTIME [facility] Last Admin: 08/02/17 20:45 Dose: 20 mg Sodium Chloride (Saline Flush) 10 ml FLUSH ASDIRECTED PRN PRN Reason: Keep Vein Open Last Admin: 08/02/17 07:15 Dose: 10 ml Sodium Chloride (Saline Flush) 10 ml FLUSH ONETIME PRN PRN Reason: IV FLUSH Last Admin: 08/02/17 09:38 Dose: 10 ml Temazepam (Restoril) 7.5 mg PO BEDTIME PRN PRN Reason: Sleep Vitamin B Complex/Vit C/Folic Acid (Nephrocaps) 1 tab PO DAILY [facility] Discontinued Medications Albuterol/Ipratropium (Duoneb 3.0-0.5 Mg/3 Ml) 3 ml NEB ONETIME ONE Stop: 08/02/17 07:26 Last Admin: 08/02/17 07:39 Dose: 3 ml Heparin Sodium (Porcine) (Heparin Sodium) 5,000 units SUBCUT ONETIME ONE Stop: 08/02/17 21:01 Last Admin: 08/02/17 20:45 Dose: 5,000 units Sodium Chloride (Normal Saline) 1,000 mls @ 150 mls/hr IV ASDIRECTED [facility] Last Admin: 08/02/17 09:10 Dose: 150 mls/hr Sodium Chloride (Normal Saline) 100 mls @ 75 mls/hr IV ASDIRECTED [facility] Last Admin: 08/02/17 09:38 Dose: 75 mls/hr Insulin Aspart (Novolog) 30 unit SUBCUT NOW STA Stop: 08/02/17 09:26 Last Admin: 08/02/17 10:32 Dose: 30 units Insulin Aspart (Novolog) 20 unit SUBCUT TID [facility] Last Admin: 08/02/17 15:14 Dose: Not Given Iopamidol (Isovue-370 (76%)) 100 ml IVPUSH ONETIME ONE Stop: 08/02/17 09:21 Last Admin: 08/02/17 09:38 Dose: 70 ml Non-Formulary Medication (Ubidecarenone) 100 mg PO DAILY [facility] Omeprazole (Omeprazole) 20 mg PO DAILY@0700 [facility] Rivaroxaban (Xarelto) 15 mg PO QPM [facility] - Exam Quality Assessment: No: Supplemental Oxygen General: Alert, Oriented, Cooperative, No Acute Distress HEENT: Pupils Equal, Pupils Reactive, EOMI, Mucous Membr. Moist/[place] Neck: Supple, Trachea Midline, No JVD, No Thyromegaly Lungs: Normal Respiratory Effort, Decreased Breath Sounds (right base) Cardiovascular: Irregular Rhythm GI/Abdominal Exam: Normal Bowel Sounds, Soft, Non-Tender, No Organomegaly, No Distention, No Abnormal Bruit, No Mass (Female) Exam: Deferred Back Exam: Normal Inspection, Decreased Range of Motion Extremities: Normal Inspection, Normal Range of Motion, Non-Tender, No Pedal Edema, Normal Capillary Refill Peripheral Pulses: 2+: Dorsalis Pedis (L), Dorsalis Pedis (R) Skin: Warm, Dry, Intact Neurological: No New Focal Deficit. No: Normal Gait Psy/Mental Status: Alert, Normal Affect, Normal Mood - Problem List Review Problem List Initiated/Reviewed/Updated: Yes - My Orders Last 24 Hours: My Active Orders 08/02/17 13:02 Height and Weight [RC] 04 Intake and Output [RC] 04,16 Oxygen Therapy [RC] PRN Up With Assistance [RC] ASDIRECTED Up ad Gema [RC] ASDIRECTED VTE/DVT Education [RC] DAILY Vital Signs [RC] Q4HR Acetaminophen [Tylenol] 650 mg PO Q4H PRN Acetaminophen/HYDROcodone [Pierce 325-5 MG] 1 tab PO Q4H PRN Morphine 0.25 mg IVPUSH Q2H PRN Resuscitation Status Routine 08/02/17 13:03 Bisacodyl [Dulcolax] 5 mg PO DAILY PRN Docusate Sodium [Colace] 100 mg PO BID PRN Docusate Sodium/Sennosides [Senna Plus] 1 tab PO BID PRN LORazepam [Ativan] 0.25 mg IV Q6H PRN Ondansetron [Zofran] 4 mg IV Q6H PRN Polyethylene Glycol 3350 [MiraLAX] 17 gm PO DAILY PRN Promethazine [Phenergan] 12.5 mg Sodium Chloride 0.9% [Normal Saline] 50 ml IV Q6H Temazepam [Restoril] 7.5 mg PO BEDTIME PRN 08/02/17 13:04 Consult to Case Management [CONS] Routine Consult to Tattoo And Body Artist [CONS] Routine OT Evaluation and Treatment [CONS] Routine PT Evaluation and Treatment [CONS] Routine Respiratory Care Assess and Treatment [CONS] Routine 08/02/17 13:15 Ondansetron [Zofran ODT] 4 mg PO Q8H PRN 08/02/17 14:00 Sodium Chloride 0.9% [Normal Saline] 1,000 ml IV ASDIRECTED 08/02/17 14:46 Communication Order [RC] DAILY 08/02/17 14:56 Blood Glucose Check, Bedside [RC] QIDACANDBED 08/02/17 17:00 Insulin Aspart [NovoLOG] 20 unit SUBCUT TIDAC 08/02/17 18:00 Gabapentin [Neurontin] 600 mg PO QPM 08/02/17 21:00 Allopurinol [Zyloprim] 200 mg PO BID Fenofibrate 160 mg PO BEDTIME Insulin Detemir [Levemir] 24 unit SUBCUT BEDTIME Simvastatin [Zocor] 20 mg PO BEDTIME 08/02/17 22:48 Consult to Director [employer]oplesoft [Consult to Diabetic Nurse Specialist] [CONS] Routine Consult to Wagon Person [CONS] Routine 08/02/17 Dinner Fluid Restriction [DIET] 08/02/17 Lunch 2 Gram Sodium Diet [DIET] Consistent Carbohydrate Diet [DIET] Heart Healthy Diet [DIET] 08/03/17 07:00 Echo Comp wo Cont [US] Routine Pantoprazole [ProTONIX] 40 mg PO DAILY@0700 08/03/17 08:00 Gabapentin [Neurontin] 300 mg PO QAM 08/03/17 08:43 Guide Needle Biopsy [US] Routine 08/03/17 09:00 Aspirin [Halfprin] 81 mg PO DAILY Biotin/FA/Vit C/Vit B Complex [Nephrocaps] 1 tab PO DAILY Calcium Carbonate/Vitamin D3 [Calcium Carbonate/Vitamin D 600 MG-200 Unit] 1 tab PO DAILY Hydrochlorothiazide 12.5 mg PO DAILY Insulin Detemir [Levemir] 32 unit SUBCUT DAILY Lisinopril [Prinivil] 20 mg PO DAILY Saccharomyces Boulardii [Florastor] 250 mg PO DAILY Vitamin B6-pyridOXINE 200 mg PO DAILY amLODIPine [Norvasc] 2.5 mg PO DAILY 08/03/17 10:00 Magnesium Rep Pharmacy to Dose [Pharmacy to Dose - Magnesium Replacement] 1 dose .XX ASDIRECTED Potassium Rep Pharmacy to Dose [Pharmacy to Dose - Potassium Replacement] 1 dose .XX ASDIRECTED 08/03/17 11:00 Potassium Chloride [Klor-Con M20] 40 meq PO ONETIME ONE 08/03/17 12:00 Magnesium Sulfate/Water [Magnesium Sulfate 2 GM in Water 50 ML] 2 gm Premix Bag 1 bag IV Q2H 08/03/17 18:00 Rivaroxaban [Xarelto] 15 mg PO ONETIME ONE 08/04/17 05:11 BASIC METABOLIC PANEL,BMP [CHEM] AM CBC WITH AUTO DIFF [HEME] AM MAGNESIUM [CHEM] AM 08/05/17 05:11 BASIC METABOLIC PANEL,BMP [CHEM] AM CBC WITH AUTO DIFF [HEME] AM MAGNESIUM [CHEM] AM 08/06/17 05:11 BASIC METABOLIC PANEL,BMP [CHEM] AM CBC WITH AUTO DIFF [HEME] AM MAGNESIUM [CHEM] AM 08/07/17 05:11 BASIC METABOLIC PANEL,BMP [CHEM] AM CBC WITH AUTO DIFF [HEME] AM MAGNESIUM [CHEM] AM - Plan Plan:: Assessment/Plan: Acute: Heart Failure with Unknown EF - Pro BNP is 883 - She takes diuretic but not on fluid or salt restrictions - CTA shows moderate size right sided pleural effusion--> this is an internal change from her 2015 CT scan - Heart failure protocol: diuretics, salt/fluid restriction, Is/Os and daily weight check - Offered Thoracentesis vs IV Lasix-->after discussing risks and benefits with patient and her children--they all agreed for thoracentesis - 2D echo-completed; awaiting report Moderate Size Right Sided Pleural Effusion, Improved - Interval change (much larger) from her 2015 CT scan - She is on ASA/Xarelto; will hold both and resume them after the procedure tomorrow - Received Heparin SubQ 5000 units x 1 at 2100 last night for dvt/stroke prophylaxis - Therapeutic and Diagnostic Thoracentesis-cancelled; her pleural fluid now appears smaller in size on chest U/S - Will continue with medical management Mild Hypokalemia, Slightly Improved - K 3.3--> 3.4 - 2/2 over diuresis - Replete and monitor DM2 with Passenger Screener Use of Insulin (IDD), Improved - BS in the 200s-300s--> now 120s-180s - She is on SA/LA insulin - Continue Accu-check AC and HS with ISS - A1C is &.8 - Dietary consult and Diabetic Education - Consider Jardiance and Victoza with excellent cardiovascular benefit as well as weight loss Chronic: hx/o impaired vision, hyperlipidemia, hypertension, atrial fibrillation on xarelto, chronic shortness of breath, history of chronic small pleural effusion, GERD, constipation, urinary incontinence, OA/DJD, gout, peripheral neuropathy, hypothyroidism, type 2 diabetes, depression, vitamin B12 deficiency, and obesity with BMI of 40 Plan: She is clinically stable Continue current treatment with lasix HF Protocol Routine AM Labs IS as directed PT/OT consult Resume ASA and Xarelto Bumex 1 mg IVP x1 Dietary and Diabetic Education SW/CM for d/c planning Additional orders as above Code status: 1 Possible d/c in AM pending 2 echo report
[2017-08-03] MEDS: Insulin Aspart 100 Units/ML 3 ML Pen SUBCUT SCH ×3 (10:44→17:29)
[2017-08-03] MEDS: Gabapentin 300 MG Cap PO SCH ×2 (10:45→17:31)
[2017-08-03] MEDS: Aspirin 81 MG Tab.EC PO SCH (10:45)
[2017-08-03] MEDS: Hydrochlorothiazide 12.5 MG Cap PO SCH (10:45)
[2017-08-03] MEDS: Pantoprazole 40 MG Tab.CR PO SCH (10:46)
[2017-08-03] MEDS: Calcium Carbonate/Vitamin D3 600 MG-200 Units Tab PO SCH (10:46)
[2017-08-03] MEDS: Lisinopril 20 MG Tab PO SCH (10:46)
[2017-08-03] MEDS: amLODIPine 2.5 MG Tab PO SCH (10:46)
[2017-08-03] MEDS: Insulin Detemir 100 Units/ML 3 ML Pen SUBCUT SCH ×2 (10:47→21:28)
[2017-08-03] MEDS: Saccharomyces Boulardii (Probiotic) 250 MG Cap PO SCH (10:47)
[2017-08-03] MEDS: Biotin/Folic Acid/Vitamin C/Vitamin B Complex Tab PO SCH (10:47)
[2017-08-03] MEDS: Allopurinol 100 MG Tab PO SCH ×2 (10:47→21:27)
[2017-08-03] MEDS: Vitamin B6-pyridOXINE 50 MG Tab PO SCH (10:47)
[2017-08-03] MEDS ORDERED: Potassium Chloride 20 MEQ Tab.ER PO ONE (11:00)
[2017-08-03] MEDS: Magnesium Sulfate/Water 2 GM in Premix Bag 1 BAG IV SCH ×2 (11:03→13:03)
[2017-08-03] MEDS ORDERED: Bumetanide 1 MG/4 ML MDV IVPUSH ONE (13:00)
[2017-08-03] MEDS ORDERED: Furosemide 40 MG Tab PO SCH (18:00)
[2017-08-03] MEDS ORDERED: Rivaroxaban 10 MG Tab PO SCH (18:00)
[2017-08-03] MEDS ORDERED: Rivaroxaban 10 MG Tab PO ONE (18:00)
[2017-08-03] MEDS ORDERED: hydrALAZINE 20 MG/ML SDV IVPUSH PRN (21:10)
[2017-08-03] MEDS: Simvastatin 20 MG Tab PO SCH (21:27)
[2017-08-04] MEDS: Pantoprazole 40 MG Tab.CR PO SCH (06:49)
[2017-08-04] MEDS ORDERED: Furosemide 20 MG Tab PO SCH (08:00)
--- NOTE | 2017-08-04 08:13 | PCM.DCSUM1 ---
Discharge Summary - Hospital Course HPI Initial Comments: This is an 86 yo elderly pleasant white female with past medical hx/o impaired vision, hyperlipidemia, hypertension, atrial fibrillation on xarelto, chronic shortness of breath, history of chronic small pleural effusion, GERD, constipation, urinary incontinence, OA/DJD, gout, peripheral neuropathy, hypothyroidism, type 2 diabetes, depression, vitamin B12 deficiency, and obesity with BMI of 40 who comes in for further evaluation of worsening shortness of breath. According to patient, her symptoms started about a week ago with what appears to be flu-like symptoms. However by Thursday she felt more tired, restless, more short of breath, and had intermittent heart palpitations. During that time, she tried to lay down but could not do it due to breathing difficulties. She tried to get in at the walk-in clinic but they were full so she was sent to the emergency department for evaluation. In ED, patient was told to increase her lasix dose in the morning to 3 tabs and double up on her afternoon dose. Thereafter she was immediately sent home with no other recommendations or additional medications added to her usual routine home medications. However she states she did not get any better and by she proceeded to see her primary care doctor. At the clinic, she was found to have pleural effusion and was told she had congestive heart failure. Her PCP made no changes on her diuretics but recommended to follow up with him this coming Thursday. Patient carries a history of congestive heart failure with unknown EF. She denies orthopnea and no peripheral edema. She is not on salt or fluid restrictions. However she states she was told to drink more fluids to prevent kidney injury. Her initial workup in the emergency department shows a CBC remarkable for RDW of 49.4, neutrophil counts of 6.15, and monocytes count of 0.62. Her chemistry is significant for sodium of 134, potassium of 3.3, chloride of 95, BUN of 20, creatinine of 1.3, glucose of 281, alkaline phosphatase of 41, and proBNP of 883. Her initial troponin level is within normal limits. Her UA is negative for UTI. Chest x-ray shows enlarged heart with considerable sized right-sided pleural effusion. Her chest CTA report reads cardiomegaly and small to moderate size right-sided pleural effusion. Scattered areas of mild atelectasis within the right lung. No findings of PE. Patient is being admitted for acute on chronic congestive heart failure with unknown EF and right-sided pleural effusion. She is full code. Diagnosis: Stroke: No - Discharge Data Discharge Date: 08/04/17 (Admit date:08/02/17) Discharge Disposition: Home, Self-Care 01 Condition: Good - Discharge Diagnosis/Problem(s) (1) Congestive heart failure SNOMED Code(s): 36274799 ICD Code: I50.9 - HEART FAILURE, UNSPECIFIED Status: Acute Current Visit : Yes Qualifiers: Heart failure type: other Qualified Code(s): I50.9 - Heart failure, unspecified (2) Hypoxia SNOMED Code(s): 470317485 ICD Code: R09.02 - HYPOXEMIA Status: Acute Current Visit: Yes (3) Pleural effusion on right SNOMED Code(s): 25418731 ICD Code: J90 - PLEURAL EFFUSION, NOT ELSEWHERE CLASSIFIED Status: Acute Current Visit: Yes - Patient Summary/Data Consults: Consultations 08/02/17 13:04 Consult to Case Management [CONS] Routine Consult to Environmental Permitting Specialist [CONS] Routine OT Evaluation and Treatment [CONS] Routine PT Evaluation and Treatment [CONS] Routine Respiratory Care Assess and Treatment [CONS] Routine 08/02/17 22:48 Consult to Certified Midwife [Consult to Diabetic Nurse Specialist] [CONS] Routine Consult to Administrative Office Clerk [CONS] Routine Labs Pending at D/C: Awaiting ECHO - likely will be sent 08/05 or 08/06; will forward to PCP upon receipt Recommended Follow-up Testing/Procedures: Follow-up with PCP at prior scheduled appointment, this 08/06/17 Hospital Course: Assessment/Plan: Acute: Heart Failure with Unknown EF - Pro BNP is 883 - She takes diuretic but not on fluid or salt restrictions - CTA shows moderate size right sided pleural effusion--> this is an internal change from her 2015 CT scan - Heart failure protocol: diuretics, salt/fluid restriction, Is/Os and daily weight check - Offered Thoracentesis vs IV Lasix-->after discussing risks and benefits with patient and her children--they all agreed for thoracentesis - 2D echo-completed; awaiting report Moderate Size Right Sided Pleural Effusion, Improved - Interval change (much larger) from her 2015 [address] scan - She is on ASA/Xarelto; will hold both and resume them after the procedure tomorrow - Received Heparin SubQ 5000 units x 1 at 2100 last night for dvt/stroke prophylaxis - Therapeutic and Diagnostic Thoracentesis-cancelled; her pleural fluid now appears smaller in size on chest U/S - Will continue with medical management Mild Hypokalemia, Slightly Improved - K 3.3--> 3.4 - 2/2 over diuresis - Replete and monitor DM2 with Usp Use of Insulin (IDD), Improved - BS in the 200s-300s--> now 120s-180s - She is on SA/LA insulin - Continue Accu-check AC and HS with ISS - A1C is 7.8 - Dietary consult and Diabetic Education - Consider Jardiance and Victoza with excellent cardiovascular benefit as well as weight loss Chronic: hx/o impaired vision, hyperlipidemia, hypertension, atrial fibrillation on xarelto, chronic shortness of breath, history of chronic small pleural effusion, GERD, constipation, urinary incontinence, OA/DJD, gout, peripheral neuropathy, hypothyroidism, type 2 diabetes, depression, vitamin B12 deficiency, and obesity with BMI of 40 Plan: She is clinically stable Continue current treatment with lasix HF Protocol Routine AM Labs IS as directed PT/OT consult Resume ASA and Xarelto Bumex 1 mg IVP x1 Dietary and Diabetic Education SW/CM for d/c planning Additional orders as above Code status: 1 Possible d/c in AM pending 2 echo report Overall Aaliyah did very well. She was placed on fluid and sodium restrictions and will be discharged on this. Her Echo is still pending and will be forwarded to her PCP, Dr. De La Torre upon us receiving it. Her medications and diet may need to be adjusted then. She was offered a thoracentesis due to her right sided pleural effusion however she improved medically and this was canceled. She will be discharged today on her normal home medications with fluid and sodium restrictions. She already has an appointment set-up with Dr. De La Torre this coming and the results for her Echo should be back by then. - Patient Instructions Diet: Low Sodium Fluid Restriction: 2000 mL Activity: As Tolerated Showering/Bathing: May Shower Notify Provider of: Fever, Increased Pain, Nausea and/or Vomiting (swelling, shortness of breath ) - Discharge Plan Home Medications: Home Meds Allopurinol [Zyloprim] 200 mg PO BID 08/11/16 [History] Aspirin 81 mg PO DAILY 08/11/16 [History] Furosemide [Lasix] 60 mg PO QAM 08/11/16 [History] Gabapentin [Neurontin] 300 mg PO QAM 08/11/16 [History] Insulin Aspart [Novolog Flexpen] 20 units SUBCUT TID 08/11/16 [History] Insulin Glarg,Human.Rec.Analog [Lantus] 32 units SUBCUT ACBREAKFAST 08/11/16 [ History] Lisinopril/Hydrochlorothiazide [Lisinopril-Hctz 20-12.5 mg Tab] 1 tab PO DAILY 08/11/16 [History] Omeprazole 20 mg PO DAILY 08/11/16 [History] Simvastatin [Zocor] 20 mg PO BEDTIME 08/11/16 [History] amLODIPine [Norvasc] 2.5 mg PO DAILY 08/11/16 [History] Calcium Carbonate/Vitamin D3 [Caltrate 600 Plus D3 Tablet] 1 tab PO DAILY [History] Fenofibrate 160 mg PO BEDTIME 09/04/16 [History] Vit D3/Folic Acid/B2/B6/B12 [Folgard Tablet] 1,000 mg PO DAILY 09/04/16 [History ] Gabapentin [Neurontin] 600 mg PO QPM 07/28/17 [History] Insulin Glarg,Human.Rec.Analog [Lantus] 24 unit SUBCUT QPM 07/28/17 [History] L.acidoph,Paracasei, B.lactis [Probiotic] 1 each PO DAILY 07/28/17 [History] Potassium Chloride [Klor-Con 10] 1 tab PO QPM 07/28/17 [History] Rivaroxaban [Xarelto] 15 mg PO QPM 07/28/17 [History] Furosemide [Lasix] 40 mg PO QPM 08/02/17 [History] Insulin Aspart [NovoLOG] See Protocol SUBCUT WITHMEALSANDBED 08/02/17 [History] Ondansetron HCl [Zofran] 4 mg PO TID PRN 08/02/17 [History] Pyridoxine HCl (Vitamin B6) [B-6] 1 tab PO DAILY 08/02/17 [History] Ubidecarenone [Coenzyme Q10] 100 mg PO DAILY 08/02/17 [History] Patient Handouts: Heart-Healthy Eating Plan, [place], Fluid Restriction, Low-Sodium Eating Plan, Heart Failure, [id number], Cooking With Less Salt Forms: ED Department Discharge Referrals: Fredis De La Torre MD [Primary Care Provider] - 08/06/17 9:15 am (Please keep your alreaqdy scheduled follow up with Dr. De La Torre on August 06 at 0915. Please arrive at 0815 for labs. ) - Discharge Summary/Plan Comment DC Time >30 min.: Yes (45 mins ) - General Info Date of Service: 08/04/17 Admission Dx/Problem (Free Text: Admission Diagnosis/Problem Admission Diagnosis/Problem Hypoxia Subjective Update: In to see Aaliyah. She is sitting on the edge of the bed. She reports she feels "great." Discussed her plan of care and how she should follow-up with her PCP and continue current treatment. Labs look good. She has been doing very well working with PT/OT. They are recommending outpatient PT and nursing has scheduled this. We are still awaiting her Echo and are told it will likely be in tomorrow or . She is being discharged today. Functional Status: Reports: Pain Controlled, Tolerating Diet, Ambulating, Urinating, Incentive Spirometry. Denies: New Symptoms - Review of Systems General: Reports: No Symptoms. Denies: Fever, Weakness, Fatigue, Malaise, Chills HEENT: Reports: No Symptoms. Denies: Eye Pain, Sinus Congestion, Sore Throat Pulmonary: Reports: No Symptoms. Denies: Shortness of Breath, Pleuritic Chest Pain, Cough, Sputum, Wheezing Cardiovascular: Reports: No Symptoms. Denies: Chest Pain, Palpitations, Dyspnea on Exertion, Edema, Lightheadedness Gastrointestinal: Reports: No Symptoms. Denies: Abdominal Pain, Constipation, Diarrhea, Nausea, Vomiting Genitourinary: Reports: No Symptoms. Denies: Dysuria, Frequency, Burning, Pain Musculoskeletal: Reports: No Symptoms Skin: Reports: No Symptoms Neurological: Reports: No Symptoms. Denies: Confusion, Numbness, Pre-Existing Deficit, Tingling, Trouble Speaking, Difficulty Walking, Weakness, Gait Disturbance Psychiatric: Reports: No Symptoms - Patient Data Vitals - Most Recent: Last Vital Signs Temp 98.1 F 08/04/17 03:24 Pulse 89 08/04/17 03:24 Resp 18 08/04/17 03:24 BP 135/70 08/04/17 03:24 Pulse Ox 94 L 08/04/17 03:24 Weight - Most Recent: 186 lb 6.4 oz I&O - Last 24 hours: Intake & Output 08/03/17 08/04/17 08/04/17 22:59 06:59 14:59 Intake Total 1440 235 Output Total 700 1200 Balance 740 -965 Lab Results - Last 24 hrs: Laboratory Results - last 24 hr 08/03/17 08/03/17 08/03/17 Range/Units 05:25 12:02 17:29 WBC (3.98-10.04) K/mm3 RBC (3.98-5.22) M/mm3 Hgb (11.2-15.7) gm/L Hct (34.1-44.9) % MCV (79.4-94.8) fl MCH (25.6-32.2) pg MCHC (32.2-35.5) g/dl RDW Std Deviation (36.4-46.3) fL Plt Count (182-369) K/mm3 MPV (9.4-12.3) fl Neut % (Auto) (34.0-71.1) % Lymph % (Auto) (19.3-51.7) % [place]ick[place] % (Auto) (4.7-12.5) % Eos % (Auto) (0.7-5.8) Baso % (Auto) (0.1-1.2) % Neut # (Auto) (1.56-6.13) K/mm3 Lymph # (Auto) (1.18-3.74) K/mm3 [place]ickman # (Auto) (0.24-0.36) K/mm3 Eos # (Auto) (0.04-0.36) K/mm3 Baso # (Auto) (0.01-0.08) K/mm3 Sodium (136-145) mEq/L Potassium (3.5-5.1) mEq/L Chloride (98-107) mEq/L Carbon Dioxide (21-32) mEq/L Anion Gap (5-15) BUN (7-18) mg/dL Creatinine (0.55-1.02) mg/dL Est Cr Clr Drug Dosing mL/min Estimated GFR (MDRD) (>60) mL/min BUN/Creatinine Ratio (14-18) Glucose (83-115) mg/dL POC Glucose 224 H 92 (83-110) mg/dL Hemoglobin A1c 7.80 H (4.50-6.20) % Calcium (8.5-10.1) mg/dL Magnesium (1.8-2.4) mg/dl 08/03/17 08/04/17 08/04/17 Range/Units 20:50 04:50 04:50 WBC 7.98 (3.98-10.04) K/mm3 RBC 4.50 (3.98-5.22) M/mm3 Hgb 13.0 (11.2-15.7) gm/L Hct 39.8 (34.1-44.9) % MCV 88.4 (79.4-94.8) fl MCH 28.9 (25.6-32.2) pg MCHC 32.7 (32.2-35.5) g/dl RDW Std Deviation 51.9 H (36.4-46.3) fL Plt Count 299 (182-369) K/mm3 MPV 11.0 (9.4-12.3) fl Neut % (Auto) 64.0 (34.0-71.1) % Lymph % (Auto) 26.1 (19.3-51.7) % Hickman % (Auto) 7.1 (4.7-12.5) % Eos % (Auto) 2.4 (0.7-5.8) Baso % (Auto) 0.1 (0.1-1.2) % Neut # (Auto) 5.11 (1.56-6.13) K/mm3 Lymph # (Auto) 2.08 (1.18-3.74) K/mm3 Hickman # (Auto) 0.57 H (0.24-0.36) K/mm3 Eos # (Auto) 0.19 (0.04-0.36) K/mm3 Baso # (Auto) 0.01 (0.01-0.08) K/mm3 Sodium 138 (136-145) mEq/L Potassium 3.5 (3.5-5.1) mEq/L Chloride 100 (98-107) mEq/L Carbon Dioxide 33 H (21-32) mEq/L Anion Gap 8.5 (5-15) BUN 29 H (7-18) mg/dL Creatinine 1.4 H (0.55-1.02) mg/dL Est Cr Clr Drug Dosing 21.49 mL/min Estimated GFR (MDRD) 36 (>60) mL/min BUN/Creatinine Ratio 20.7 H (14-18) Glucose 139 H (83-115) mg/dL POC Glucose 184 H (83-110) mg/dL Hemoglobin A1c (4.50-6.20) % Calcium 9.7 (8.5-10.1) mg/dL Magnesium 2.0 (1.8-2.4) mg/dl 08/04/17 Range/Units 06:51 WBC (3.98-10.04) K/mm3 RBC (3.98-5.22) M/mm3 Hgb (11.2-15.7) gm/L Hct (34.1-44.9) % MCV (79.4-94.8) fl MCH (25.6-32.2) pg MCHC (32.2-35.5) g/dl RDW Std Deviation (36.4-46.3) fL Plt Count (182-369) K/mm3 MPV (9.4-12.3) fl Neut % (Auto) (34.0-71.1) % Lymph % (Auto) (19.3-51.7) % Hickman % (Auto) (4.7-12.5) % Eos % (Auto) (0.7-5.8) Baso % (Auto) (0.1-1.2) % Neut # (Auto) (1.56-6.13) K/mm3 Lymph # (Auto) (1.18-3.74) K/mm3 Hickman # (Auto) (0.24-0.36) K/mm3 Eos # (Auto) (0.04-0.36) K/mm3 Baso # (Auto) (0.01-0.08) K/mm3 Sodium (136-145) mEq/L Potassium (3.5-5.1) mEq/L Chloride (98-107) mEq/L Carbon Dioxide (21-32) mEq/L Anion Gap (5-15) BUN (7-18) mg/dL Creatinine (0.55-1.02) mg/dL Est Cr Clr Drug Dosing mL/min Estimated GFR (MDRD) (>60) mL/min BUN/Creatinine Ratio (14-18) Glucose (83-115) mg/dL POC Glucose 114 H (83-110) mg/dL Hemoglobin A1c (4.50-6.20) % Calcium (8.5-10.1) mg/dL Magnesium (1.8-2.4) mg/dl Med Orders - Current: Current Medications Acetaminophen (Tylenol) 650 mg PO Q4H PRN PRN Reason: Pain (Mild 1-3)/fever Hydrocodone Bitart/Acetaminophen ([place] 325-5 Mg) 1 tab PO Q4H PRN PRN Reason: Pain (moderate 4-6) Allopurinol (Zyloprim) 200 mg PO BID [facility] Last Admin: 08/03/17 21:27 Dose: 200 mg Amlodipine Besylate (Norvasc) 2.5 mg PO DAILY [facility] Last Admin: 08/03/17 10:46 Dose: 2.5 mg Aspirin (Halfprin) 81 mg PO DAILY [facility] Last Admin: 08/03/17 10:45 Dose: 81 mg Bisacodyl (Dulcolax) 5 mg PO DAILY PRN PRN Reason: Constipation Calcium Carbonate (Calcium Carbonate/Vitamin D 600 Mg-200 Unit) 1 tab PO DAILY [facility] Last Admin: 08/03/17 10:46 Dose: 1 tab Docusate Sodium (Colace) 100 mg PO BID PRN PRN Reason: Constipation Furosemide (Lasix) 40 mg PO QPM [facility] Last Admin: 08/03/17 17:30 Dose: 40 mg Furosemide (Lasix) 60 mg PO QAM [facility] Gabapentin (Neurontin) 600 mg PO QPM [facility] Last Admin: 08/03/17 17:31 Dose: 600 mg Gabapentin (Neurontin) 300 mg PO QAM [facility] Last Admin: 08/03/17 10:45 Dose: 300 mg Hydralazine HCl (Apresoline) 10 mg IVPUSH Q4H PRN PRN Reason: Hypertension Last Admin: 08/03/17 21:29 Dose: 10 mg Hydrochlorothiazide (Hydrochlorothiazide) 12.5 mg PO DAILY [facility] Last Admin: 08/03/17 10:45 Dose: 12.5 mg Promethazine HCl 12.5 mg/ (Sodium Chloride) 50.5 mls @ 100 mls/hr IV Q6H PRN PRN Reason: Nausea/Vomiting Insulin Aspart (Novolog) 20 unit SUBCUT TIDAC [facility] Last Admin: 08/03/17 17:29 Dose: Not Given Insulin Detemir (Levemir) 32 unit SUBCUT DAILY [facility] Last Admin: 08/03/17 10:47 Dose: 32 units Insulin Detemir (Levemir) 24 unit SUBCUT BEDTIME [facility] Last Admin: 08/03/17 21:28 Dose: 24 units Lisinopril (Prinivil) 20 mg PO DAILY [facility] Last Admin: 08/03/17 10:46 Dose: 20 mg Lorazepam (Ativan) 0.25 mg IV Q6H PRN PRN Reason: Anxiety Magnesium Sulfate (Pharmacy To Dose - Magnesium Replacement) 1 dose .XX ASDIRECTED [facility] Morphine Sulfate (Morphine) 0.25 mg IVPUSH Q2H PRN PRN Reason: Other Stop: 08/06/17 13:03 Ondansetron HCl (Zofran Odt) 4 mg PO Q8H PRN PRN Reason: nausea Ondansetron HCl (Zofran) 4 mg IV Q6H PRN PRN Reason: Nausea/Vomiting Pantoprazole Sodium (Protonix) 40 mg PO DAILY@0700 [facility] Last Admin: 08/04/17 06:49 Dose: 40 mg Fenofibrate 160 Mg 0 each PO BEDTIME [facility] Last Admin: 08/03/17 20:45 Dose: Not Given Polyethylene Glycol (Miralax) 17 gm PO DAILY PRN PRN Reason: Constipation Potassium Chloride (Pharmacy To Dose - Potassium Replacement) 1 dose .XX ASDIRECTED [facility] Pyridoxine HCl (Vitamin B6-Pyridoxine) 200 mg PO DAILY [facility] Last Admin: 08/03/17 10:47 Dose: 200 mg Rivaroxaban (Xarelto) 15 mg PO QPM [facility] Last Admin: 08/03/17 17:31 Dose: 15 mg Saccharomyces Boulardii (Florastor) 250 mg PO DAILY [facility] Last Admin: 08/03/17 10:47 Dose: 250 mg Senna/Docusate Sodium (Senna Plus) 1 tab PO BID PRN PRN Reason: Constipation Last Admin: 08/02/17 21:17 Dose: 1 tab Simvastatin (Zocor) 20 mg PO BEDTIME [facility] Last Admin: 08/03/17 21:27 Dose: 20 mg Sodium Chloride (Saline Flush) 10 ml FLUSH ASDIRECTED PRN PRN Reason: Keep Vein Open Last Admin: 08/02/17 07:15 Dose: 10 ml Sodium Chloride (Saline Flush) 10 ml FLUSH ONETIME PRN PRN Reason: IV FLUSH Last Admin: 08/02/17 09:38 Dose: 10 ml Temazepam (Restoril) 7.5 mg PO BEDTIME PRN PRN Reason: Sleep Vitamin B Complex/Vit C/Folic Acid (Nephrocaps) 1 tab PO DAILY [facility] Last Admin: 08/03/17 10:47 Dose: 1 tab Discontinued Medications Albuterol/Ipratropium (Duoneb 3.0-0.5 Mg/3 Ml) 3 ml NEB ONETIME ONE Stop: 08/02/17 07:26 Last Admin: 08/02/17 07:39 Dose: 3 ml Bumetanide (Bumex) 1 mg IVPUSH ONETIME ONE Stop: 08/03/17 13:01 Last Admin: 08/03/17 13:03 Dose: 1 mg Heparin Sodium (Porcine) (Heparin Sodium) 5,000 units SUBCUT ONETIME ONE Stop: 08/02/17 21:01 Last Admin: 08/02/17 20:45 Dose: 5,000 units Sodium Chloride (Normal Saline) 1,000 mls @ 150 mls/hr IV ASDIRECTED [facility] Last Admin: 08/02/17 09:10 Dose: 150 mls/hr Sodium Chloride (Normal Saline) 100 mls @ 75 mls/hr IV ASDIRECTED [facility] Last Admin: 08/02/17 09:38 Dose: 75 mls/hr Sodium Chloride (Normal Saline) 1,000 mls @ 25 mls/hr IV ASDIRECTED [facility] Last Admin: 08/03/17 08:55 Dose: 25 mls/hr Magnesium Sulfate 2 gm/ Premix 50 mls @ 25 mls/hr IV Q2H [facility]OR Stop: 08/03/17 15:59 Last Admin: 08/03/17 13:03 Dose: 25 mls/hr Insulin Aspart (Novolog) 30 unit SUBCUT NOW STA Stop: 08/02/17 09:26 Last Admin: 08/02/17 10:32 Dose: 30 units Insulin Aspart (Novolog) 20 unit SUBCUT TID [facility] Last Admin: 08/02/17 15:14 Dose: Not Given Iopamidol (Isovue-370 (76%)) 100 ml IVPUSH ONETIME ONE Stop: 08/02/17 09:21 Last Admin: 08/02/17 09:38 Dose: 70 ml Non-Formulary Medication (Ubidecarenone) 100 mg PO DAILY [facility] Omeprazole (Omeprazole) 20 mg PO DAILY@0700 [facility] Last Admin: 08/03/17 13:04 Dose: Not Given Potassium Chloride (Klor-Con M20) 40 meq PO ONETIME ONE Stop: 08/03/17 11:01 Last Admin: 08/03/17 10:47 Dose: 40 meq Rivaroxaban (Xarelto) 15 mg PO QPM [facility] Rivaroxaban (Xarelto) 15 mg PO ONETIME ONE Stop: 08/03/17 18:01 - Exam Quality Assessment: Reports: DVT Prophylaxis General: Reports: Alert, Oriented, Cooperative, No Acute Distress HEENT: Reports: Pupils Equal, Pupils Reactive, EOMI, Mucous Membr. Moist/[place] Neck: Reports: Supple, Trachea Midline, No JVD Lungs: Reports: Clear to Auscultation, Normal Respiratory Effort, Decreased Breath Sounds Cardiovascular: Reports: Regular Rate, Irregular Rhythm GI/Abdominal Exam: Normal Bowel Sounds, Soft, Non-Tender, No Organomegaly, No Distention, No Abnormal Bruit, No Mass, Pelvis Stable (Female) Exam: Deferred Rectal (Female) Exam: Deferred Back Exam: Reports: Normal Inspection, Full Range of Motion Extremities: Normal Inspection, Normal Range of Motion, Non-Tender, No Pedal Edema, Normal Capillary Refill Skin: Reports: Warm, Dry, Intact Neurological: Reports: No New Focal Deficit Psy/Mental Status: Reports: Alert, Normal Affect, Normal Mood
[2017-08-04] MEDS: Saccharomyces Boulardii (Probiotic) 250 MG Cap PO SCH (09:19)
[2017-08-04] MEDS: Allopurinol 100 MG Tab PO SCH (09:20)
[2017-08-04] MEDS: Hydrochlorothiazide 12.5 MG Cap PO SCH (09:20)
[2017-08-04] MEDS: Biotin/Folic Acid/Vitamin C/Vitamin B Complex Tab PO SCH (09:20)
[2017-08-04] MEDS: Vitamin B6-pyridOXINE 50 MG Tab PO SCH (09:20)
[2017-08-04] MEDS: Aspirin 81 MG Tab.EC PO SCH (09:23)
[2017-08-04] MEDS: Insulin Detemir 100 Units/ML 3 ML Pen SUBCUT SCH (09:24)
[2017-08-04] MEDS: Insulin Aspart 100 Units/ML 3 ML Pen SUBCUT SCH ×2 (09:25→14:06)
[2017-08-04] MEDS: Calcium Carbonate/Vitamin D3 600 MG-200 Units Tab PO SCH (09:25)
[2017-08-04] MEDS: Gabapentin 300 MG Cap PO SCH (09:25)
[2017-08-04] MEDS: amLODIPine 2.5 MG Tab PO SCH (09:25)
[2017-08-04] MEDS: Lisinopril 20 MG Tab PO SCH (09:28)
[2017-08-04 11:45] VITALS: BP 138/68
[2017-08-04] MEDS ORDERED: Pneumococcal Polyvalent-23 Vaccine 0.5 ML SDV IM ONE (12:28)
== END 2017-08-04 14:00 | disposition home or self-care (01) | DRG 292 ==
LOC: JD.ED 06:46 → JD.MS 11:14
PROVIDERS: ADMIT Internal Medicine; ATTEND Internal Medicine
DX: I11.0 Hypertensive heart disease with heart failure (principal); Z68.41 Body mass index [BMI] 40.0-44.9, adult; R09.02 Hypoxemia; I50.9 Heart failure, unspecified; E66.9 Obesity, unspecified; E87.6 Hypokalemia; I48.91 Unspecified atrial fibrillation; E78.5 Hyperlipidemia, unspecified; K59.00 Constipation, unspecified; E11.42 Type 2 diabetes mellitus with diabetic polyneuropathy; M10.9 Gout, unspecified; E03.9 Hypothyroidism, unspecified; E53.8 Deficiency of other specified B group vitamins; F32.9 Major depressive disorder, single episode, unspecified; R32 Unspecified urinary incontinence; M19.90 Unspecified osteoarthritis, unspecified site; K21.9 Gastro-esophageal reflux disease without esophagitis; Z79.4 Long term (current) use of insulin; Z79.01 Long term (current) use of anticoagulants; Z79.82 Long term (current) use of aspirin
CPT/HCPCS: 36415; 71045; 71275; 80053; 81001; 82962; 83880; 84484; 85025; 93005; 94640; 96360; 96361; 96372; 99285; J1815; J7030; J7040; J7050 ×2; Q9967; 80048; 83036; 83735; 90732; 93010; 93306; 97110-GP; 97116-GP; 97162-GP; 97165-GO; 97530-GO; 97530-GP; A9270-GY; G0009; J0360; J1644; J3475

== ENCOUNTER 2017-09-19 14:14 | Emergency (ER) | payer MEDICARE, BC ==
[2017-09-19 14:25] VITALS: BP 135/49
--- NOTE | 2017-09-19 15:12 | EDM.PDOC ---
ED HPI GENERAL MEDICAL PROBLEM - General Chief Complaint: Respiratory Problem Stated Complaint: SOB Time Seen by Provider: 09/19/17 14:28 Source of Information: Reports: Patient History Limitations: Reports: No Limitations - History of Present Illness INITIAL COMMENTS - FREE TEXT/NARRATIVE: Patient's 86-year-old female with history of A. fib, chronically anticoagulated with Xarelto, hypertension, congestive heart failure, diabetes who presents ED complaining of shortness of breath, faint suprapubic abdominal discomfort, generalized aching, low back pain, generalized malaise, and just not feeling well. Patient states symptoms gradually started approximately one week ago and have persisted. States she is more short of breath with exertion. Notes with walking up 13 steps at her residence she has to stop 2 times and rest which is not unusual for her. She is lacking motivation and has noticed a poor appetite. She sleeps okay at night but notes she has to use 2-3 pillows to porp herself up. She is not any more short of breath with laying flat and or experiencing any PND. At no time has she experienced chest pain, palpitations, dizziness, fever, nausea/vomiting, or any urinary complaints. She has noticed some slight tenderness to her lower abdomen described as mild in nature. In addition she has a history of chronic low back pain and received a injection to her low back earlier this summer that did not work as well. Patient has lost approximately 30 pounds since July. States this all started with increasing her daily dose of Lasix. She has been taking 40 mg every a.m. and 20 mg at noon. She denies increase in weight. Has noted slight increase in swelling to lower legs at times. She has been under a lot more stress over the past few months. States with all her symptoms she still is sleeping okay. She has noticed a decrease in her ability to walk without getting tired. States up until a week and half ago she was able to walk approximately half block with her walker without significant getting tired. As of recent she does not believe she could do that.. She was evaluated 2 Days ago in the E.D. with lab work and chest x-ray obtained with no significant findings. She was informed to follow-up with her PCP for reevaluation. She has appointment scheduled for this coming Thursday. Otherwise denies any additional complaints. Left Feet Pain Score (Numeric/FACES): 3 - Related Data Allergies Allergy/AdvReac Type Severity Reaction Status Date / Time No Known Allergies Allergy Verified 09/17/17 19:34 Home Meds: Home Meds Allopurinol [Zyloprim] 200 mg PO BID 08/11/16 [History] Aspirin 81 mg PO QPM 08/11/16 [History] Gabapentin [Neurontin] 300 mg PO QAM 08/11/16 [History] Insulin Aspart [Novolog Flexpen] 20 units SUBCUT TID 08/11/16 [History] Lisinopril/Hydrochlorothiazide [Lisinopril-Hctz 20-12.5 mg Tab] 1 tab PO DAILY 08/11/16 [History] Omeprazole 20 mg PO DAILY 08/11/16 [History] Simvastatin [Zocor] 20 mg PO BEDTIME 08/11/16 [History] amLODIPine [Norvasc] 2.5 mg PO DAILY 08/11/16 [History] Calcium Carbonate/Vitamin D3 [Caltrate 600 Plus D3 Tablet] 1 tab PO BEDTIME [History] Fenofibrate 160 mg PO BEDTIME 09/04/16 [History] Vit D3/Folic Acid/B2/B6/B12 [Folgard Tablet] 1,000 mg PO BEDTIME 09/04/16 [ History] Gabapentin [Neurontin] 600 mg PO QPM 07/28/17 [History] Potassium Chloride [Klor-Con 10] 1 tab PO QPM 07/28/17 [History] Rivaroxaban [Xarelto] 15 mg PO QPM 07/28/17 [History] Furosemide [Lasix] 40 mg PO QAM 08/02/17 [History] Insulin Aspart [NovoLOG] See Protocol SUBCUT WITHMEALSANDBED 08/02/17 [History] Ondansetron HCl [Zofran] 4 mg PO TID PRN 08/02/17 [History] Pyridoxine HCl (Vitamin B6) [B-6] 1 tab PO BEDTIME 08/02/17 [History] LORazepam [Ativan] 0.5 mg PO Q8HR PRN #10 tablet 09/04/17 [Rx] Furosemide [Lasix] 20 mg PO QPM 09/17/17 [History] Insulin Glarg,Human.Rec.Analog [Lantus Solostar] 24 units SUBCUT QPM 09/17/17 [ History] Insulin Glarg,Human.Rec.Analog [Lantus Solostar] 32 units SUBCUT QAM 09/17/17 [ History] Past Medical History HEENT History: Reports: Cataract, Impaired Vision Other HEENT History: Wears glasses Cardiovascular History: Reports: Heart Failure, High Cholesterol, Hypertension Other Cardiovascular History: irregular beats Respiratory History: Reports: SOB Other Respiratory History: "I have fluid on my lungs every so often" Gastrointestinal History: Reports: GERD Other Gastrointestinal History: occasional constipation Genitourinary History: Reports: Renal Calculus, Urinary Incontinence Other Genitourinary History: lithrotripsy [employer]IDENTIAL [employer] History: Reports: Other RESIDENTIAL [employer] History: had 15 children Musculoskeletal History: Reports: Arthritis, Gout Other Musculoskeletal History: broken right foot Neurological History: Reports: Neuropathy, Peripheral Psychiatric History: Reports: Depression Endocrine/Metabolic History: Reports: Hypothyroidism, IDDM, Obesity/BMI 30+, Other (See Below) Other Endocrine/Metabolic History: 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, has goiter Hematologic History: Reports: B12 Deficiency Oncologic (Cancer) History: Reports: Other (See Below) Other Oncologic History: skin cancer Dermatologic History: Reports: Melanoma - Infectious Disease History Infectious Disease History: Reports: Herpes, Shingles - Past Surgical History HEENT Surgical History: Reports: Cataract Surgery Other HEENT Surgeries/Procedures: cataract surgery "few years ago" GI Surgical History: Reports: Cholecystectomy Other GI Surgeries/Procedures: current lap diana Female Surgical History: Reports: Section, Lithotripsy/ESWL Social & Family History - Family History Family Medical History: Noncontributory - Tobacco Use Smoking Status *Q: Never Smoker - Caffeine Use Caffeine Use: Reports: Soda - Recreational Drug Use Recreational Drug Use: No - Living Situation & Occupation Living situation: Reports: , Alone Occupation: Retired ED ROS GENERAL - Review of Systems Review Of Systems: See Below Constitutional: Reports: Malaise, Fatigue, Decreased Appetite. Denies: Fever, Chills, Weakness HEENT: Reports: No Symptoms Respiratory: Reports: Shortness of Breath. Denies: Wheezing, Pleuritic Chest Pain, Cough, Sputum, Hemoptysis Cardiovascular: Reports: Dyspnea on Exertion, Orthopnea (uses three pillows for the past wk. ). Denies: Chest Pain, Edema, Lightheadedness, Palpitations, PND, Syncope GI/Abdominal: Reports: Abdominal Pain (suprapubic), Decreased Appetite. Denies : Black Stool, Bloody Stool, Constipation, Diarrhea, Difficulty Swallowing, Distension, Flatus, Hematemesis, Hematochezia, Melena, Nausea, Vomiting : Denies: Discharge, Dysuria, Flank Pain, Frequency, Hematuria, Urgency, Urinary Retention Musculoskeletal: Reports: Other (low back, chronic unchanged. ). Denies: Leg Pain Skin: Reports: No Symptoms Neurological: Reports: Difficulty Walking (chronic, uses a walker. ) Psychiatric: Denies: Confusion, Depression ED EXAM, GENERAL - Physical Exam Exam: See Below Exam Limited By: No Limitations General Appearance: Alert, WD/WN, No Apparent Distress Eye Exam: Bilateral Eye: Normal Inspection Ears: Hearing Grossly Normal Nose: Normal Inspection Throat/Mouth: Normal Inspection, Normal Oropharynx, Normal Voice, No Airway Compromise, Other (able to speak in 4 to 6 word sentences with no difficulties. ) Neck: Normal Inspection, Supple, Non-Tender, Full Range of Motion Respiratory/Chest: No Respiratory Distress, Lungs Clear, Normal Breath Sounds, Chest Non-Tender Cardiovascular: Normal Peripheral Pulses, Regular Rate, Rhythm, No Murmur ( obvious). No: JVD Peripheral Pulses: 2+: Radial (L), Radial (R) GI/Abdominal: Normal Bowel Sounds, Soft, No Organomegaly, No Distention, Tender (suprapubic region) Back Exam: Normal Inspection, Vertebral Tenderness (midline low back pain. chronic unchanged. ). No: CVA Tenderness (L), CVA Tenderness (R) Extremities: Normal Inspection, Normal Range of Motion, Non-Tender, No Pedal Edema, Normal Capillary Refill Neurological: Alert, Oriented, CN II-XII Intact, Normal Cognition, Normal Gait ( with a walker. ), No Motor/Sensory Deficits Psychiatric: Normal Affect, Normal Mood Skin Exam: Warm, Dry, Intact, Normal Color, No Rash Course - Vital Signs Last Recorded V/S: Last Vital Signs Temp 97.9 F 09/19/17 14:24 Pulse 74 09/19/17 14:24 Resp 20 09/19/17 14:24 BP 135/49 L 09/19/17 14:24 Pulse Ox 96 09/19/17 14:24 - Orders/Labs/Meds Orders: Active Orders 24 hr Category Date Time Status EKG 12 Lead [EKG Documentation Completion] [RC] STAT Care 09/19/17 15:06 Active Orthostatic Vital Signs [RC] ASDIRECTED Care 09/19/17 15:09 Active Labs: Laboratory Tests 09/19/17 09/19/17 09/19/17 Range/Units 15:30 15:30 15:30 WBC 6.26 (3.98-10.04) K/mm3 RBC 3.84 L (3.98-5.22) M/mm3 Hgb 11.1 L (11.2-15.7) gm/L Hct 34.6 (34.1-44.9) % MCV 90.1 (79.4-94.8) fl MCH 28.9 (25.6-32.2) pg MCHC 32.1 L (32.2-35.5) g/dl RDW Std Deviation 51.8 H (36.4-46.3) fL Plt Count 277 (182-369) K/mm3 MPV 10.6 (9.4-12.3) fl Neutrophils % (Manual) 52 (40-60) % Band Neutrophils % 0 (0-10) % Lymphocytes % (Manual) 32 (20-40) % Atypical Lymphs % 0 % Monocytes % (Manual) 11 H (2-10) % Eosinophils % (Manual) 3 (0.7-5.8) % Basophils % (Manual) 1 (0.1-1.2) Myelocytes % 1 Platelet Estimate Adequate Plt Morphology Comment Normal RBC Morph Comment Normal Sodium 142 (136-145) mEq/L Potassium 4.1 (3.5-5.1) mEq/L Chloride 103 (98-107) mEq/L Carbon Dioxide 32 (21-32) mEq/L Anion Gap 11.1 (5-15) BUN 29 H (7-18) mg/dL Creatinine 1.4 H (0.55-1.02) mg/dL Est Cr Clr Drug Dosing 21.49 mL/min Estimated GFR (MDRD) 36 (>60) mL/min BUN/Creatinine Ratio 20.7 H (14-18) Glucose 71 L (83-115) mg/dL POC Glucose (83-110) mg/dL Calcium 9.1 (8.5-10.1) mg/dL Magnesium 1.5 L (1.8-2.4) mg/dl Total Bilirubin 0.3 (0.2-1.0) mg/dL AST 29 (15-37) U/L ALT 32 (14-59) U/L Alkaline Phosphatase 40 L (46-116) U/L Troponin I < 0.017 (0.00-0.056) ng/mL C-Reactive Protein < 0.2 (<1.0) mg/dL NT-Pro-B Natriuret Pep 3265 H (0-450) pg/mL Total Protein 6.4 (6.4-8.2) g/dl Albumin 3.4 (3.4-5.0) g/dl Globulin 3.0 gm/dL Albumin/Globulin Ratio 1.1 (1-2) TSH 3rd Generation 0.108 L (0.358-3.74) uIU/mL Urine Color (Yellow) Urine Appearance (Clear) Urine pH (5.0-8.0) Ur Specific [place] (1.005-1.030) Urine Protein (Negative) Urine Glucose (UA) (Negative) Urine Ketones (Negative) Urine Occult Blood (Negative) Urine Nitrite (Negative) Urine Bilirubin (Negative) Urine Urobilinogen (0.2-1.0) Ur Leukocyte Esterase (Negative) Urine RBC (0-5) /hpf Urine WBC (0-5) /hpf Ur Epithelial Cells (0-5) /hpf Urine Bacteria (FEW) /hpf Urine Mucus (FEW) /hpf Mycoplasma pneumon IgM Negative (NEGATIVE) 09/19/17 09/19/17 09/19/17 Range/Units 15:40 16:57 17:42 WBC (3.98-10.04) K/mm3 RBC (3.98-5.22) M/mm3 Hgb (11.2-15.7) gm/L Hct (34.1-44.9) % MCV (79.4-94.8) fl MCH (25.6-32.2) pg MCHC (32.2-35.5) g/dl RDW Std Deviation (36.4-46.3) fL Plt Count (182-369) K/mm3 MPV (9.4-12.3) fl Neutrophils % (Manual) (40-60) % Band Neutrophils % (0-10) % Lymphocytes % (Manual) (20-40) % Atypical Lymphs % % Monocytes % (Manual) (2-10) % Eosinophils % (Manual) (0.7-5.8) % Basophils % (Manual) (0.1-1.2) Myelocytes % Platelet Estimate Plt Morphology Comment RBC Morph Comment Sodium (136-145) mEq/L Potassium (3.5-5.1) mEq/L Chloride (98-107) mEq/L Carbon Dioxide (21-32) mEq/L Anion Gap (5-15) BUN (7-18) mg/dL Creatinine (0.55-1.02) mg/dL Est Cr Clr Drug Dosing mL/min Estimated GFR (MDRD) (>60) mL/min BUN/Creatinine Ratio (14-18) Glucose (83-115) mg/dL POC Glucose 58 L 146 H (83-110) mg/dL Calcium (8.5-10.1) mg/dL Magnesium (1.8-2.4) mg/dl Total Bilirubin (0.2-1.0) mg/dL AST (15-37) U/L ALT (14-59) U/L Alkaline Phosphatase (46-116) U/L Troponin I (0.00-0.056) ng/mL C-Reactive Protein (<1.0) mg/dL NT-Pro-B Natriuret Pep (0-450) pg/mL Total Protein (6.4-8.2) g/dl Albumin (3.4-5.0) g/dl Globulin gm/dL Albumin/Globulin Ratio (1-2) TSH 3rd Generation (0.358-3.74) uIU/mL Urine Color Yellow (Yellow) Urine Appearance Clear (Clear) Urine pH 7.0 (5.0-8.0) Ur Specific [place] 1.015 (1.005-1.030) Urine Protein Negative (Negative) Urine Glucose (UA) Negative (Negative) Urine Ketones Negative (Negative) Urine Occult Blood Negative (Negative) Urine Nitrite Negative (Negative) Urine Bilirubin Negative (Negative) Urine Urobilinogen 0.2 (0.2-1.0) Ur Leukocyte Esterase Negative (Negative) Urine RBC Not seen (0-5) /hpf Urine WBC Not seen (0-5) /hpf Ur Epithelial Cells 0-5 (0-5) /hpf Urine Bacteria Rare (FEW) /hpf Urine Mucus Not seen (FEW) /hpf Mycoplasma pneumon IgM (NEGATIVE) Meds: Medications Discontinued Medications Generic Name Dose Route Start Last Admin Trade Name Luis PRN Reason Stop Dose Admin Magnesium Oxide 800 mg 09/19/17 16:48 09/19/17 17:02 Magnesium Oxide PO 09/19/17 16:49 800 mg ONETIME ONE Administration - Re-Assessments/Exams Free Text/Narrative Re-Assessment/Exam: Vitals are stable. She is afebrile. Will obtain basic labs including: CBC, chem 14, CRP, magnesium level, troponin, TSH, bnp, UA. In addition she's had shortness of breath with feeling achy and crampy. I will order mycoplasma, chest x-ray one view, and also EKG. EKG compared with previous EKG dated September 17, 2017 unchanged. A-fibrillation at a rate of [address] changes noted. Positive Q waves V2 and V3. Nursing staff to get the patient up and ambulate with a walker with no difficulties noted. Patient walked around the ED having a conversation with nursing staff. SPO2 sats ranged from 93-95%. CXR reviewed with Dr. Dalton. Compared with previous chest x-ray obtained 2017. Findings concerning for increased pulmonary vessel congestion, fluid along the horizontal fissure, and worsening right-sided pleural effusion. Labs reviewed: Blood cell count 6.26, hemoglobin 11.1, platelet count 277. Cr 1.4. Glucose 71. Magnesium 1.5. Troponin WNL. CRP WNL. BNP 3265. TSH 0.108. Ordered magnesium oxide 800mg PO. POC Blood Glucose: 58, Patient given something to eat and drink. Will recheck and ensure BS normalizes. I had a long discussion with the patient to back off the short acting novalog. She has been taking NovoLog 20 units with meals 3 times a day along with a sliding scale. Will decrease the NovoLog 3 times a day to 18 units. In addition we made some small modifications to her sliding scale so that she does not hopefully experience any additional low blood sugars. She understands and has no further questions. Patient was previously on lasix 60 mg at breakfast and 40 mg at noon. This was decreased since patients kidney function worsened. At that time BNP was 1404 and CR was 2.2. This was decreased to 40mg's at breakfast and 20mgs at noon. I will increase lasix to 60mg at breakfast with no change to noon dose. She has potassium at home and will take accordingly. She has appt with PCP scheduled for Thursday. Do not believe patient requires admission. Vitals signs have been stable. SPO2 dipped to 89% but with moving SPO2 it returned to 93%. She is not having any respiratory symptoms while in the E.D. Patient agrees with plan. The patient remained hemodynamically stable while under my care in the E.D. I discussed the concerning symptoms for which to return to the E.D. with the patient/family. The patient/family verbalized understanding. All questions were answered. 09/19/17 17:42 BS 146. Patient will be discharged home. Departure - Departure Time of Disposition: 16:53 Disposition: Home, Self-Care 01 Condition: Good Clinical Impression: Low blood sugar in diabetes, Elevated brain natriuretic peptide (BNP) level, Hypomagnesemia, Low TSH level, Treated with sliding scale insulin - Discharge Information *PRESCRIPTION DRUG MONITORING PROGRAM REVIEWED*: Not Applicable *COPY OF PRESCRIPTION DRUG MONITORING REPORT IN PATIENT LEE: Not Applicable Instructions: Insulin Treatment for Diabetes Referrals: Fredis De La Torre MD [Primary Care Provider] - Forms: ED Department Discharge Additional Instructions: Labwork indicated he had a elevated BNP in comparison to one month ago. This is suggesting you are carrying more fluid thus contributing to increasing shortness of breath. Will start you on increased dose of Lasix 60 mg at breakfast and 20 mg at noon. In addition will have you take 40 mEq of potassium daily with food. Eat a balanced low-salt diet. Continue to monitor your blood sugars at least 3 times a day. Keep a log. Bloods sugars were 70 and 58 with evaluation. You need to eat a balanced diet with taking insulin. Will decrease your NovoLog to 18 units TID in hopes of not experiencing any additional lows. In addition follow the modifications to Sliding Scale as instructed. Keep appt for Thursday as scheduled. Please return to the E.D. if you should experience any new or worsening symptoms. - My Orders Last 24 Hours: My Active Orders 09/19/17 15:06 EKG 12 Lead [EKG Documentation Completion] [RC] STAT 09/19/17 15:09 Orthostatic Vital Signs [RC] ASDIRECTED - Assessment/Plan Last 24 Hours: My Active Orders 09/19/17 15:06 EKG 12 Lead [EKG Documentation Completion] [RC] STAT 09/19/17 15:09 Orthostatic Vital Signs [RC] ASDIRECTED
[2017-09-19] MEDS ORDERED: Magnesium Oxide 400 MG Tab PO ONE (16:48)
--- NOTE | 2017-09-19 16:57 | CR ---
Chest: Portable view of the chest was obtained. Comparison: Prior chest x-ray of 09/17/17. Mild atelectasis is seen within the right base. Lungs otherwise are clear. Heart size is slightly enlarged. Mitral annulus calcification is seen. Mild tortuosity of the thoracic aorta is seen. Slight scarring is noted adjacent to the right minor fissure. Bony structures are grossly intact. Impression: 1. Incidental findings as noted above. Nothing acute is appreciated. Diagnostic code #2
== END 2017-09-19 17:50 | disposition home or self-care (01) ==
LOC: JD.ED 14:14
DX: E11.649 Type 2 diabetes mellitus with hypoglycemia without coma (principal); E11.42 Type 2 diabetes mellitus with diabetic polyneuropathy; I11.0 Hypertensive heart disease with heart failure; I50.9 Heart failure, unspecified; I48.91 Unspecified atrial fibrillation; E66.9 Obesity, unspecified; R79.89 Other specified abnormal findings of blood chemistry; E83.42 Hypomagnesemia; E03.9 Hypothyroidism, unspecified; Z79.01 Long term (current) use of anticoagulants; Z79.899 Other long term (current) drug therapy; Z79.4 Long term (current) use of insulin
CPT/HCPCS: 36415; 71045; 80053; 81001; 82962; 83735; 83880; 84443; 84484; 85007; 85027; 86140; 86738; 93005; 99285; A9270

== ENCOUNTER 2017-10-17 08:10 | Emergency (ER) | payer MEDICARE, BC ==
[2017-10-17 09:02] VITALS: BP 126/54
--- NOTE | 2017-10-17 09:57 | EDM.PDOC ---
ED HPI GENERAL MEDICAL PROBLEM - General Chief Complaint: Respiratory Problem Stated Complaint: SOB Time Seen by Provider: 10/17/17 08:40 Source of Information: Reports: Patient History Limitations: Reports: No Limitations - History of Present Illness INITIAL COMMENTS - FREE TEXT/NARRATIVE: The patient's past medical history was difficult to obtain, as the patient tends to switch subjects frequently, and refers to a piece of paper that contains information about her past medical history, but that she did not bring to the ED. The patient appears to be quite anxious, and it is noted that her oxygen saturation is 100% on room air, consistent with hyperventilation. The patient states that she has had dyspnea and orthopnea since 23:00 last evening. She had nausea without emesis in the morning. No recent fever or cough. She has had similar symptoms the past, and was diagnosed with congestive heart failure. The patient has a history of diabetes, and states that she checks her blood glucose 5 or 6 times a day, with the usual range being between 117 and 461. She states that her blood glucose was 254 this morning. The patient's PCP is Tiffanie Simpson, with the patient states she saw this past 10/13/2017, for reasons unclear. - Related Data Allergies Allergy/AdvReac Type Severity Reaction Status Date / Time No Known Allergies Allergy Verified 10/17/17 08:59 Home Meds: Home Meds Allopurinol [Zyloprim] 200 mg PO DAILY 08/11/16 [History] Aspirin 81 mg PO QPM 08/11/16 [History] Gabapentin [Neurontin] 300 mg PO QAM 08/11/16 [History] Insulin Aspart [Novolog Flexpen] 20 units SUBCUT TID 08/11/16 [History] Omeprazole 20 mg PO DAILY 08/11/16 [History] Simvastatin [Zocor] 20 mg PO BEDTIME 08/11/16 [History] amLODIPine [Norvasc] 2.5 mg PO DAILY 08/11/16 [History] Calcium Carbonate/Vitamin D3 [Caltrate 600 Plus D3 Tablet] 1 tab PO BEDTIME [History] Fenofibrate 160 mg PO BEDTIME 09/04/16 [History] Vit D3/Folic Acid/B2/B6/B12 [Folgard Tablet] 1,000 mg PO BEDTIME 09/04/16 [ History] Gabapentin [Neurontin] 600 mg PO QPM 07/28/17 [History] Potassium Chloride [Klor-Con 10] 40 meq PO QPM 07/28/17 [History] Rivaroxaban [Xarelto] 15 mg PO QPM 07/28/17 [History] Furosemide [Lasix] 40 mg PO QAM 08/02/17 [History] Insulin Aspart [NovoLOG] See Protocol SUBCUT WITHMEALSANDBED 08/02/17 [History] Pyridoxine HCl (Vitamin B6) [B-6] 1 tab PO BEDTIME 08/02/17 [History] Furosemide [Lasix] 20 mg PO DAILY 09/17/17 [History] Insulin Glarg,Human.Rec.Analog [Lantus Solostar] 24 units SUBCUT QPM 09/17/17 [ History] Insulin Glarg,Human.Rec.Analog [Lantus Solostar] 32 units SUBCUT QAM 09/17/17 [ History] Lisinopril 20 mg PO DAILY 10/17/17 [History] Rivaroxaban [Xarelto] 15 mg PO DAILY 10/17/17 [History] Zaroxylyn. 1 tab PO MOWEFR 10/17/17 [History] Past Medical History HEENT History: Reports: Impaired Vision Other HEENT History: Wears glasses Cardiovascular History: Reports: Afib, Heart Failure, High Cholesterol, Hypertension Respiratory History: Reports: SOB Gastrointestinal History: Reports: GERD Genitourinary History: Reports: Renal Calculus, Urinary Incontinence (stress incontinence) POLICY AND PLANNING MANAGER History: Reports: Other POLICY AND PLANNING MANAGER History: had 15 children Musculoskeletal History: Reports: Arthritis, Fracture (right foot), Gout Psychiatric History: Reports: Anxiety, Depression Endocrine/Metabolic History: Reports: Diabetes, Type II, Hypothyroidism ( untreated), Obesity/BMI 30+ Hematologic History: Reports: B12 Deficiency - Infectious Disease History Infectious Disease History: Reports: Herpes, Shingles - Past Surgical History HEENT Surgical History: Reports: Cataract Surgery GI Surgical History: Reports: Cholecystectomy Female Surgical History: Reports: Section (x 1), Lithotripsy/ESWL Social & Family History - Family History Family Medical History: Noncontributory - Tobacco Use Smoking Status *Q: Never Smoker - Caffeine Use Caffeine Use: Reports: Soda - Alcohol Use Alcohol Use History: No - Recreational Drug Use Recreational Drug Use: No - Living Situation & Occupation Living situation: Reports: , Alone Occupation: Retired ED ROS GENERAL - Review of Systems Review Of Systems: ROS reveals no pertinent complaints other than HPI. ED EXAM, GENERAL - Physical Exam Exam: See Below Exam Limited By: No Limitations General Appearance: Alert, WD/WN, No Apparent Distress, Anxious Eye Exam: Bilateral Eye: EOMI, Normal Inspection Ears: Normal External Exam, Hearing Grossly Normal Nose: Normal Inspection, No Blood Throat/Mouth: Normal Inspection, Normal Lips, Normal Voice, No Airway Compromise Head: Atraumatic, Normocephalic Neck: Normal Inspection, Full Range of Motion Respiratory/Chest: No Respiratory Distress, Lungs Clear, Normal Breath Sounds, No Accessory Muscle Use Cardiovascular: Normal Peripheral Pulses, No Edema, No Gallop, No JVD, No Murmur , No Rub, Irregularly Irregular (normal rate) Peripheral Pulses: 4+: Radial (L), Radial (R) GI/Abdominal: Normal Bowel Sounds, Soft, Non-Tender, No Organomegaly, No Distention, No Abnormal Bruit, No Mass, Other (Obese) (Female) Exam: Deferred Rectal (Female) Exam: Deferred Back Exam: Normal Inspection, Full Range of Motion, NT Extremities: Normal Inspection, Normal Range of Motion, No Pedal Edema, Normal Capillary Refill Neurological: Alert, Oriented, Normal Cognition, No Motor/Sensory Deficits Psychiatric: Anxious Skin Exam: Warm, Dry, Intact, Normal Color, No Rash EKG INTERPRETATION EKG Date: 10/17/17 Time: 09:11 Rhythm: A-Fib Rate (Beats/Min): 77 [place]: Normal P-Wave: Absent QRS: Normal ST-T: Normal QT: Normal Comparison: No Change (09/19/2017) Course - Vital Signs Last Recorded V/S: Last Vital Signs Temp 36.3 C 10/17/17 08:59 Pulse 78 10/17/17 08:59 Resp 17 10/17/17 08:59 BP 126/54 L 10/17/17 08:59 Pulse Ox 98 10/17/17 08:59 - Orders/Labs/Meds Labs: Laboratory Tests 10/17/17 10/17/17 10/17/17 Range/Units 09:15 09:15 09:15 WBC 7.53 (3.98-10.04) K/mm3 RBC 4.28 (3.98-5.22) M/mm3 Hgb 12.5 (11.2-15.7) gm/L Hct 37.9 (34.1-44.9) % MCV 88.6 (79.4-94.8) fl MCH 29.2 (25.6-32.2) pg MCHC 33.0 (32.2-35.5) g/dl RDW Std Deviation 52.1 H (36.4-46.3) fL Plt Count 283 (182-369) K/mm3 MPV 11.6 (9.4-12.3) fl Neutrophils % (Manual) 75 H (40-60) % Band Neutrophils % 0 (0-10) % Lymphocytes % (Manual) 20 (20-40) % Atypical Lymphs % 0 % Monocytes % (Manual) 4 (2-10) % Eosinophils % (Manual) 1 (0.7-5.8) % Basophils % (Manual) 0 L (0.1-1.2) Platelet Estimate Adequate Plt Morphology Comment See note Anisocytosis 1+ slight Target Cells Few Stomatocytes Moderate RBC Morph Comment Not Reportable Puncture Site ABG pH (7.35-7.45) ABG pCO2 (35.0-45.0) mmHg ABG pO2 (80.0-100.0) mmHg ABG HCO3 (22.0-26.0) meq/L ABG O2 Saturation (96.0-97.0) % ABG Base Excess (-2-2.0) Vlad Test A-a Gradient mmHg O2 Delivery Device FiO2 (21.00-100.00) % Sodium 137 (136-145) mEq/L Potassium 3.1 L (3.5-5.1) mEq/L Chloride 97 L (98-107) mEq/L Carbon Dioxide 29 (21-32) mEq/L Anion Gap 14.1 (5-15) BUN 40 H (7-18) mg/dL Creatinine 1.6 H (0.55-1.02) mg/dL Est Cr Clr Drug Dosing 18.80 mL/min Estimated GFR (MDRD) 31 (>60) mL/min BUN/Creatinine Ratio 25.0 H (14-18) Glucose 254 H (83-115) mg/dL Lactic Acid (0.4-2.0) mmol/L Calcium 9.7 (8.5-10.1) mg/dL Total Bilirubin 0.7 (0.2-1.0) mg/dL AST 33 (15-37) U/L ALT 35 (14-59) U/L Alkaline Phosphatase 42 L (46-116) U/L Troponin I < 0.017 (0.00-0.056) ng/mL NT-Pro-B Natriuret Pep 1735 H (0-450) pg/mL Total Protein 6.7 (6.4-8.2) g/dl Albumin 3.6 (3.4-5.0) g/dl Globulin 3.1 gm/dL Albumin/Globulin Ratio 1.2 (1-2) 10/17/17 10/17/17 Range/Units 09:15 09:21 WBC (3.98-10.04) K/mm3 RBC (3.98-5.22) M/mm3 Hgb (11.2-15.7) gm/L Hct (34.1-44.9) % MCV (79.4-94.8) fl MCH (25.6-32.2) pg MCHC (32.2-35.5) g/dl RDW Std Deviation (36.4-46.3) fL Plt Count (182-369) K/mm3 MPV (9.4-12.3) fl Neutrophils % (Manual) (40-60) % Band Neutrophils % (0-10) % Lymphocytes % (Manual) (20-40) % Atypical Lymphs % % Monocytes % (Manual) (2-10) % Eosinophils % (Manual) (0.7-5.8) % Basophils % (Manual) (0.1-1.2) Platelet Estimate Plt Morphology Comment Anisocytosis Target Cells Stomatocytes RBC Morph Comment Puncture Site Lt radial ABG pH 7.54 H (7.35-7.45) ABG pCO2 32.6 L (35.0-45.0) mmHg ABG pO2 66.0 L (80.0-100.0) mmHg ABG HCO3 28.0 H (22.0-26.0) meq/L ABG O2 Saturation 95.6 L (96.0-97.0) % ABG Base Excess 5.8 H (-2-2.0) Vlad Test Positive A-a Gradient 28 mmHg O2 Delivery Device Room air FiO2 21.00 (21.00-100.00) % Sodium (136-145) mEq/L Potassium (3.5-5.1) mEq/L Chloride (98-107) mEq/L Carbon Dioxide (21-32) mEq/L Anion Gap (5-15) BUN (7-18) mg/dL Creatinine (0.55-1.02) mg/dL Est Cr Clr Drug Dosing mL/min Estimated GFR (MDRD) (>60) mL/min BUN/Creatinine Ratio (14-18) Glucose (83-115) mg/dL Lactic Acid 1.8 (0.4-2.0) mmol/L Calcium (8.5-10.1) mg/dL Total Bilirubin (0.2-1.0) mg/dL AST (15-37) U/L ALT (14-59) U/L Alkaline Phosphatase (46-116) U/L Troponin I (0.00-0.056) ng/mL NT-Pro-B Natriuret Pep (0-450) pg/mL Total Protein (6.4-8.2) g/dl Albumin (3.4-5.0) g/dl Globulin gm/dL Albumin/Globulin Ratio (1-2) Meds: Medications Discontinued Medications Generic Name Dose Route Start Last Admin Trade Name Freq PRN Reason Stop Dose Admin Lorazepam 0.5 mg 10/17/17 10:17 10/17/17 10:29 Ativan PO 10/17/17 10:18 0.5 mg ONETIME ONE Administration - Re-Assessments/Exams Free Text/Narrative Re-Assessment/Exam: 10/17/17 09:06 2-view chest radiograph reviewed. Cardiac silhouette is at the upper limits of normal. No pulmonary vascular congestion. No pleural effusions. No focal infiltrate. No pneumothorax. Formal read per the Radiologist pending. 10/17/17 10:18 Test results discussed with the patient. The ABG confirms that the patient is hyperventilating, as suspected by her oxygen saturation of 100% on room air. Her potassium is modestly depressed at 3.1, secondary to respiratory alkalosis. Her BUN/Cr is elevated at 40/1.6, due to her chronic renal insufficiency. It was 29/1.4 on 09/19/2017. The remainder of her workup today is unremarkable. Her BNP is mildly elevated at 1735, however, her chest radiograph shows no suggestion of pulmonary edema, and, as above, her oxygen saturation is 100% on room air. The patient's medical record indicates that she has been on Ativan in the past, although she states that she is no longer on it. She states that she was prescribed Ativan from the ED, then never received a refill. I suspect that the patient has chronic anxiety. For today's purposes, I will treat her with a single dose of Ativan 0.5 mg, however, I am then recommending that she then follow-up with her PCP to discuss long-term treatment for anxiety. Departure - Departure Time of Disposition: 10:23 Disposition: Home, Self-Care 01 Condition: Good Clinical Impression: Hyperventilation syndrome, Anxiety - Discharge Information *PRESCRIPTION DRUG MONITORING PROGRAM REVIEWED*: Not Applicable *COPY OF PRESCRIPTION DRUG MONITORING REPORT IN PATIENT LEE: Not Applicable Instructions: Hyperventilation, Panic Attack, [id number] Referrals: Tiffanie Brambila, [employer] HELPER [Primary Care Provider] - Forms: ED Department Discharge Additional Instructions: You were seen in the emergency room for shortness of breath since last night. Workup in the ER included blood work, an arterial blood gas, a chest x-ray, and an ECG. Your workup confirmed that you are hyperventilating, which is causing your shortness of breath. Hyperventilation is usually caused by anxiety, although can be caused by a variety of medical conditions, such as metabolic acidosis, hypocalcemia, hypoglycemia, hyperthyroidism, liver failure, severe anemia, sepsis, acute coronary event, pneumothorax, pneumonia, and decompensated CHF, however, in your case, all of these were ruled out, meaning that your hyperventilation appears to be due to anxiety. As discussed, anxiety is unpleasant, although it is not dangerous. We recommend that you follow-up with your PCP, Tiffanie Brambila, to discuss treatment options for anxiety. If any other problems, please do not hesitate to return to the ER.
[2017-10-17] MEDS ORDERED: LORazepam 0.5 MG Tab PO ONE (10:17)
--- NOTE | 2017-10-18 12:37 | CR ---
Chest: Two views of the chest are obtained. Comparison: Prior chest x-ray of 09/19/17. Heart is enlarged. Upper mediastinum is normal. Pulmonary vessels are minimally congested which appear to be chronic. Diaphragms are flattened on the lateral view suspicious for emphysematous change. Minimal degenerative endplate spurring is noted within the spine. Mitral annulus calcification is seen. Impression: 1. Cardiomegaly and mild chronic pulmonary vascular congestion. 2. Probable emphysematous change and other incidental findings. Diagnostic code #2
== END 2017-10-17 10:35 | disposition home or self-care (01) ==
LOC: JD.ED 08:10
DX: F45.8 Other somatoform disorders (principal); F41.9 Anxiety disorder, unspecified; Z79.4 Long term (current) use of insulin; Z79.82 Long term (current) use of aspirin; Z79.899 Other long term (current) drug therapy; I11.0 Hypertensive heart disease with heart failure; I50.9 Heart failure, unspecified; E11.9 Type 2 diabetes mellitus without complications; E03.9 Hypothyroidism, unspecified
CPT/HCPCS: 36415; 36600; 71046; 80053; 82803; 83605; 83880; 84484; 85007; 85027; 93005; 99285; A9270; 99284

== ENCOUNTER 2018-08-09 06:43 | Emergency (ER) | payer MEDICARE, BC ==
[2018-08-09 06:57] VITALS: BP 139/53
--- NOTE | 2018-08-09 07:09 | EDM.PDOC ---
ED HPI GENERAL MEDICAL PROBLEM - General Chief Complaint: Diabetic Complaint Stated Complaint: LOW BLOOD SUGAR Time Seen by Provider: 08/09/18 07:04 Source of Information: Reports: Patient History Limitations: Reports: No Limitations - History of Present Illness INITIAL COMMENTS - FREE TEXT/NARRATIVE: 87-year-old female presents the ED with a hypoglycemic event. She states when she got up around 0500 hrs. this morning she felt unwell with her walker walking down the hallway of her home.She felt like her legs would not carry her. Took a while before she figured out that she might be having a hypoglycemic reaction. She states she broke out in a sweat and went out on the porch to cool air. Blood sugar was 57 when she tested. No she's had cereal with sugar on it and 2 glucose tablets before she left home. Blood sugar was 70 at home and she still felt unwell and therefore elected to come to the hospital one half hour after eating the cereal with sugar on it. She came to the ED by private vehicle. Blood sugar when tested in the ED is 242. She states she feels pretty well back to normal now. Of note the patient has had diabetes since 1979. She's been on insulin for almost 20 years. She states she's been having left lateral abdominal almost flank pain for the last 3 days and was going to go to see her doctor today. She had a fever chills dysuria urgency or frequency. Bowl movements are soft and regular with stool softeners daily. He takes the bulk of insulin at bedtime i.e. long-acting insulin. Does get lows once or twice monthly. She felt that she ate and drink fairly normally yesterday. Onset: Today Onset Date: 08/09/18 Onset Time: 05:30 Duration: Minutes: Location: Reports: Generalized (Generalized sense of weakness due to a hypoglycemic event associated with diaphoresis mild nausea and trembling.) Quality: Reports: Other Severity: Moderate (Hypoglycemic reaction due to blood sugar of 52 at home.) Improves with: Reports: Other (Improved after eating breakfast and went to his teaspoons of sugar and then 2 glucose tablets before leaving home to come to the ED.) Worsens with: Reports: None Context: Reports: Other (Awoke with a hypoglycemic weakness this morning and appreciated with walking down the hallway to the bathroom with her legs being very weak and she broke out in a diaphoretic sweat.). Denies: Activity, Exercise, Lifting, Sick Contact, Trauma Associated Symptoms: Reports: Diaphoresis (Generalized sense of weakness), Nausea/Vomiting, Weakness. Denies: Rash, Seizure, Shortness of Breath ( The summer between 5 and 5:30 this morning.), Syncope Treatments SOLE TIER: Reports: Other (see below) (She had cereal 2 teaspoons of sugar. Before leaving home she had 2 glucose tablets.) - Related Data Allergies Allergy/AdvReac Type Severity Reaction Status Date / Time No Known Allergies Allergy Verified 08/09/18 06:57 Home Meds: Home Meds Allopurinol [Zyloprim] 200 mg PO DAILY 08/11/16 [History] Aspirin 81 mg PO QPM 08/11/16 [History] Insulin Aspart [Novolog Flexpen] 20 units SUBCUT TID 08/11/16 [History] Omeprazole 20 mg PO DAILY 08/11/16 [History] Simvastatin [Zocor] 20 mg PO BEDTIME 08/11/16 [History] amLODIPine [Norvasc] 2.5 mg PO DAILY 08/11/16 [History] Calcium Carbonate/Vitamin D3 [Caltrate 600 Plus D3 Tablet] 1 tab PO BEDTIME [History] Fenofibrate 160 mg PO BEDTIME 09/04/16 [History] Vit D3/Folic Acid/B2/B6/B12 [Folgard Tablet] 1,000 mg PO BEDTIME 09/04/16 [ History] Gabapentin [Neurontin] 600 mg PO BID 07/28/17 [History] Potassium Chloride [Klor-Con 10] 40 meq PO QAM 07/28/17 [History] Rivaroxaban [Xarelto] 15 mg PO QPM 07/28/17 [History] Furosemide [Lasix] 40 mg PO QAM 08/02/17 [History] Insulin Aspart [NovoLOG] See Protocol SUBCUT WITHMEALSANDBED 08/02/17 [History] Pyridoxine HCl (Vitamin B6) [B-6] 1 tab PO BEDTIME 08/02/17 [History] Furosemide [Lasix] 40 mg PO DAILY 09/17/17 [History] Insulin Glarg,Human.Rec.Analog [Lantus Solostar] 24 units SUBCUT QPM 09/17/17 [ History] Insulin Glarg,Human.Rec.Analog [Lantus Solostar] 32 units SUBCUT QAM 09/17/17 [ History] Lisinopril 20 mg PO DAILY 10/17/17 [History] Ascorbate Calcium [Vitamin C] 500 mg PO DAILY 08/09/18 [History] Insulin Glargine,Hum.Rec.Anlog [Toujeo Max Solostar] 300 unit SQ DAILY 08/09/18 [History] Lactobacillus Combo No.10 [Probiotic] 1 each PO DAILY 08/09/18 [History] Magnesium 250 mg PO BEDTIME 08/09/18 [History] Multivitamin [Multi-Vitamin Daily] 1 each PO DAILY 08/09/18 [History] Naproxen Sodium [Aleve] 1 tab PO ASDIRECTED PRN 08/09/18 [History] Ubidecarenone [COQ-10] 30 mg PO DAILY 08/09/18 [History] traMADol [Ultram] 50 mg PO Q6H PRN #20 tab 08/09/18 [Rx] Past Medical History HEENT History: Reports: Impaired Vision Other HEENT History: Wears glasses Cardiovascular History: Reports: Afib, CAD, Heart Failure, High Cholesterol, Hypertension Other Cardiovascular History: irregular beats Respiratory History: Reports: SOB Other Respiratory History: "I have fluid on my lungs every so often" Gastrointestinal History: Reports: GERD Other Gastrointestinal History: occasional constipation Genitourinary History: Reports: Renal Calculus, Urinary Incontinence Other Genitourinary History: lithrotripsy [employer]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, has goiter Hematologic History: Reports: B12 Deficiency Oncologic (Cancer) History: Reports: Other (See Below) Other Oncologic History: skin cancer Dermatologic History: Reports: Melanoma - Infectious Disease History Infectious Disease History: Reports: Herpes, Shingles - Past Surgical History HEENT Surgical History: Reports: Cataract Surgery GI Surgical History: Reports: Cholecystectomy Female Surgical History: Reports: Section, Lithotripsy/ESWL Social & Family History - Family History Family Medical History: Noncontributory - Tobacco Use Smoking Status *Q: Never Smoker - Caffeine Use Caffeine Use: Reports: Coffee - Recreational Drug Use Recreational Drug Use: No - Living Situation & Occupation Living situation: Reports: , Alone Occupation: Retired ED ROS GENERAL - Review of Systems Review Of Systems: See Below Constitutional: Reports: Malaise, Weakness, Fatigue, Diaphoresis. Denies: Fever , Chills HEENT: Reports: Glasses Respiratory: Denies: Wheezing, Pleuritic Chest Pain, Cough, Sputum, Hemoptysis Cardiovascular: Reports: Blood Pressure Problem, Dyspnea on Exertion, Lightheadedness, Palpitations (Chronically occasionally. She has a history of atrial fibrillation), Other (Chronic atrial fibrillation controlled with medication and she is on Xarelto 15 mg once daily). Denies: Chest Pain, Claudication, Edema, Orthopnea (Chronic hypertension) Endocrine: Reports: Fatigue, Low Glucose (Low glucose this morning.) GI/Abdominal: Reports: Abdominal Pain (Left lateral abdominal pain almost up to her left flank.), Constipation (Controlled with laxatives which he takes daily at bedtime), Nausea (Better once the hypoglycemic reaction has resolved). Denies: Diarrhea, Decreased Appetite, Difficulty Swallowing, Distension, Flatus , Hematemesis, Hematochezia, Melena, Mucous in Stool, Stool Incontinence, Vomiting, Other : Reports: Frequency, Incontinence (Both urge and stress components.) Musculoskeletal: Reports: Back Pain, Joint Pain Skin: Reports: No Symptoms, Other (Has not appreciated any rashes.) Neurological: Reports: Difficulty Walking, Other (Uses a walker to aid her gait. ) Psychiatric: Reports: No Symptoms ( Has peripheral neuropathy both lower extremities) Hematologic/Lymphatic: Reports: No Symptoms Immunologic: Reports: No Symptoms ED EXAM GENERAL NO PERIP PULSE - Physical Exam Exam: See Below Exam Limited By: No Limitations General Appearance: Alert, WD/WN, No Apparent Distress, Other (Vital signs show BP 139/53 with respiratory 20. Pulse 80 and sinus temperatures 36.3. O2 sats are 95% on room air) Eye Exam: Bilateral Eye: Normal Inspection Ears: Normal External Exam, Normal Canal, Hearing Grossly Normal, Normal TMs Nose: Normal Inspection, Normal Mucosa, No Blood Throat/Mouth: Normal Inspection, Normal Lips, Normal Oropharynx, Normal Voice Head: Atraumatic, Normocephalic Neck: Normal Inspection, Limited Range of Motion, Tender Lateral. No: Carotid Bruit, Lymphadenopathy (L), Lymphadenopathy (R) (Tender bilaterally. Seems to have arthritis arthritis in her neck) Respiratory/Chest: No Respiratory Distress, Lungs Clear, No Accessory Muscle Use , Chest Non-Tender, Respiratory Distress, Decreased Breath Sounds Cardiovascular: No Edema, No Gallop, No JVD, No Murmur, No Rub GI/Abdominal: Normal Bowel Sounds, Soft, No Organomegaly, No Distention, No Abnormal Bruit, No Mass, Tender (Tender left lateral abdominal wall clinically. Light touch makes the pain worse along the left lateral abdominal wall extending up to the left flank posteriorly. No zoster rash depicted.) Back Exam: Normal Inspection, CVA Tenderness (L) (On palpation.), Decreased Range of Motion, Vertebral Tenderness (She has point tenderness along the transverse processes of the lumbar spine particularly lumbar 1 and lumbar 2. No pain over the midline of the vertebra. Pain appears to be musculoskeletal in origin involving the quadratus lumborum muscles of the back and radiating around to the left lateral abdomen.). No: CVA Tenderness (R) Extremities: Normal Inspection, Non-Tender, Other (Evidence of arthritis in both knees and decreased range of motion both hips.) Neurological: Alert, Oriented, CN II-XII Intact, Normal Cognition, Sensory/ Motor Deficit (Here she has peripheral neuropathy in both lower extremities from just above the knee to the feet bilaterally.) Psychiatric: Normal Affect, Normal Mood Skin Exam: Warm, Dry, Intact, Normal Color, No Rash. No: Cool, Cyanosis EKG INTERPRETATION EKG Date: 08/09/18 Time: 07:32 Rhythm: A-Fib (With rate of 54-88/m.) Rate (Beats/Min): 75 [place]: Normal P-Wave: Absent QRS: Other (Q waves V1 to V3 compatible with old anteroseptal myocardial infarction.) ST-T: Other (T-wave irregularity of the baseline leads 3 and aVF with near flattening.) QT: Normal EKG Interpretation Comments: Abnormal ECG Course - Vital Signs Last Recorded V/S: Last Vital Signs Temp 36.3 C 08/09/18 06:54 Pulse 80 08/09/18 06:54 Resp 20 08/09/18 06:54 BP 139/53 L 08/09/18 06:54 Pulse Ox - Orders/Labs/Meds Orders: Active Orders 24 hr Category Date Time Status Blood Glucose Check, Bedside [RC] ONETIME Care 08/09/18 07:35 Active Blood Glucose Check, Bedside [RC] ONETIME Care 08/09/18 09:01 Active EKG Documentation Completion [RC] STAT Care 08/09/18 07:12 Active Labs: Laboratory Tests 08/09/18 08/09/18 08/09/18 Range/Units 06:53 06:55 06:55 WBC 6.63 (3.98-10.04) K/mm3 RBC 3.92 L (3.98-5.22) M/mm3 Hgb 11.5 (11.2-15.7) gm/L Hct 34.6 (34.1-44.9) % MCV 88.3 (79.4-94.8) fl MCH 29.3 (25.6-32.2) pg MCHC 33.2 (32.2-35.5) g/dl RDW Std Deviation 53.2 H (36.4-46.3) fL Plt Count 275 (182-369) K/mm3 MPV 10.7 (9.4-12.3) fl Neutrophils % (Manual) 71 H (40-60) % Band Neutrophils % 0 (0-10) % Lymphocytes % (Manual) 22 (20-40) % Atypical Lymphs % 0 % Monocytes % (Manual) 5 (2-10) % Eosinophils % (Manual) 2 (0.7-5.8) % Basophils % (Manual) 0 L (0.1-1.2) Platelet Estimate Adequate Anisocytosis 1+ slight Macrocytosis 1+ slight Stomatocytes 1+ slight RBC Morph Comment Abnormal Sodium 135 L (136-145) mEq/L Potassium 3.6 (3.5-5.1) mEq/L Chloride 99 (98-107) mEq/L Carbon Dioxide 29 (21-32) mEq/L Anion Gap 10.6 (5-15) BUN 30 H (7-18) mg/dL Creatinine 1.7 H (0.55-1.02) mg/dL Est Cr Clr Drug Dosing 18.26 mL/min Estimated GFR (MDRD) 29 (>60) mL/min BUN/Creatinine Ratio 17.6 (14-18) Glucose 248 H (83-115) mg/dL POC Glucose 242 H (83-110) mg/dL Hemoglobin A1c (4.50-6.20) % Calcium 9.4 (8.5-10.1) mg/dL Magnesium (1.8-2.4) mg/dl Total Bilirubin 0.4 (0.2-1.0) mg/dL AST 27 (15-37) U/L ALT 33 (14-59) U/L Alkaline Phosphatase 40 L (46-116) U/L Troponin I (0.00-0.056) ng/mL C-Reactive Protein 0.2 (<1.0) mg/dL NT-Pro-B Natriuret Pep (0-450) pg/mL Total Protein 6.3 L (6.4-8.2) g/dl Albumin 3.3 L (3.4-5.0) g/dl Globulin 3.0 gm/dL Albumin/Globulin Ratio 1.1 (1-2) Urine Color (Yellow) Urine Appearance (Clear) Urine pH (5.0-8.0) Ur Specific [place] (1.005-1.030) Urine Protein (Negative) Urine Glucose (UA) (Negative) Urine Ketones (Negative) Urine Occult Blood (Negative) Urine Nitrite (Negative) Urine Bilirubin (Negative) Urine Urobilinogen (0.2-1.0) Ur Leukocyte Esterase (Negative) Urine RBC (0-5) /hpf Urine WBC (0-5) /hpf Ur Epithelial Cells (0-5) /hpf Urine Bacteria (FEW) /hpf Urine Mucus (FEW) /hpf 08/09/18 08/09/18 08/09/18 Range/Units 06:55 06:55 06:55 WBC (3.98-10.04) K/mm3 RBC (3.98-5.22) M/mm3 Hgb (11.2-15.7) gm/L Hct (34.1-44.9) % MCV (79.4-94.8) fl MCH (25.6-32.2) pg MCHC (32.2-35.5) g/dl RDW Std Deviation (36.4-46.3) fL Plt Count (182-369) K/mm3 MPV (9.4-12.3) fl Neutrophils % (Manual) (40-60) % Band Neutrophils % (0-10) % Lymphocytes % (Manual) (20-40) % Atypical Lymphs % % Monocytes % (Manual) (2-10) % Eosinophils % (Manual) (0.7-5.8) % Basophils % (Manual) (0.1-1.2) Platelet Estimate Anisocytosis Macrocytosis Stomatocytes RBC Morph Comment Sodium (136-145) mEq/L Potassium (3.5-5.1) mEq/L Chloride (98-107) mEq/L Carbon Dioxide (21-32) mEq/L Anion Gap (5-15) BUN (7-18) mg/dL Creatinine (0.55-1.02) mg/dL Est Cr Clr Drug Dosing mL/min Estimated GFR (MDRD) (>60) mL/min BUN/Creatinine Ratio (14-18) Glucose (83-115) mg/dL POC Glucose (83-110) mg/dL Hemoglobin A1c 10.10 H (4.50-6.20) % Calcium (8.5-10.1) mg/dL Magnesium 1.6 L (1.8-2.4) mg/dl Total Bilirubin (0.2-1.0) mg/dL AST (15-37) U/L ALT (14-59) U/L Alkaline Phosphatase (46-116) U/L Troponin I < 0.017 (0.00-0.056) ng/mL C-Reactive Protein (<1.0) mg/dL NT-Pro-B Natriuret Pep 1629 H (0-450) pg/mL Total Protein (6.4-8.2) g/dl Albumin (3.4-5.0) g/dl Globulin gm/dL Albumin/Globulin Ratio (1-2) Urine Color (Yellow) Urine Appearance (Clear) Urine pH (5.0-8.0) Ur Specific [place] (1.005-1.030) Urine Protein (Negative) Urine Glucose (UA) (Negative) Urine Ketones (Negative) Urine Occult Blood (Negative) Urine Nitrite (Negative) Urine Bilirubin (Negative) Urine Urobilinogen (0.2-1.0) Ur Leukocyte Esterase (Negative) Urine RBC (0-5) /hpf Urine WBC (0-5) /hpf Ur Epithelial Cells (0-5) /hpf Urine Bacteria (FEW) /hpf Urine Mucus (FEW) /hpf 08/09/18 08/09/18 08/09/18 Range/Units 07:37 07:45 09:05 WBC (3.98-10.04) K/mm3 RBC (3.98-5.22) M/mm3 Hgb (11.2-15.7) gm/L Hct (34.1-44.9) % MCV (79.4-94.8) fl MCH (25.6-32.2) pg MCHC (32.2-35.5) g/dl RDW Std Deviation (36.4-46.3) fL Plt Count (182-369) K/mm3 MPV (9.4-12.3) fl Neutrophils % (Manual) (40-60) % Band Neutrophils % (0-10) % Lymphocytes % (Manual) (20-40) % Atypical Lymphs % % Monocytes % (Manual) (2-10) % Eosinophils % (Manual) (0.7-5.8) % Basophils % (Manual) (0.1-1.2) Platelet Estimate Anisocytosis Macrocytosis Stomatocytes RBC Morph Comment Sodium (136-145) mEq/L Potassium (3.5-5.1) mEq/L Chloride (98-107) mEq/L Carbon Dioxide (21-32) mEq/L Anion Gap (5-15) BUN (7-18) mg/dL Creatinine (0.55-1.02) mg/dL Est Cr Clr Drug Dosing mL/min Estimated GFR (MDRD) (>60) mL/min BUN/Creatinine Ratio (14-18) Glucose (83-115) mg/dL POC Glucose 292 H 270 H (83-110) mg/dL Hemoglobin A1c (4.50-6.20) % Calcium (8.5-10.1) mg/dL Magnesium (1.8-2.4) mg/dl Total Bilirubin (0.2-1.0) mg/dL AST (15-37) U/L ALT (14-59) U/L Alkaline Phosphatase (46-116) U/L Troponin I (0.00-0.056) ng/mL C-Reactive Protein (<1.0) mg/dL NT-Pro-B Natriuret Pep (0-450) pg/mL Total Protein (6.4-8.2) g/dl Albumin (3.4-5.0) g/dl Globulin gm/dL Albumin/Globulin Ratio (1-2) Urine Color Yellow (Yellow) Urine Appearance Clear (Clear) Urine pH 7.0 (5.0-8.0) Ur Specific [place] 1.015 (1.005-1.030) Urine Protein Negative (Negative) Urine Glucose (UA) Trace H (Negative) Urine Ketones Negative (Negative) Urine Occult Blood Negative (Negative) Urine Nitrite Negative (Negative) Urine Bilirubin Negative (Negative) Urine Urobilinogen 0.2 (0.2-1.0) Ur Leukocyte Esterase Negative (Negative) Urine RBC Not seen (0-5) /hpf Urine WBC Not seen (0-5) /hpf Ur Epithelial Cells 0-5 (0-5) /hpf Urine Bacteria Not seen (FEW) /hpf Urine Mucus Not seen (FEW) /hpf Meds: Medications Discontinued Medications Generic Name Dose Route Start Last Admin Trade Name Luis PRN Reason Stop Dose Admin Furosemide 40 mg 08/09/18 08:30 08/09/18 08:44 Lasix IVPUSH 08/09/18 08:31 40 mg NOW ONE Administration Dextrose/Sodium Chloride 1,000 mls @ 100 mls/hr 08/09/18 07:15 08/09/18 07:38 Dextrose 5%-Normal Saline IV 100 mls/hr ASDIRECTED HECTOR Administration - Radiology Interpretation Free Text/Narrative:: 87-year-old female presents to the ED after experiencing a hypoglycemic reaction early this morning. She appreciated when she got up around 0500 hrs. that her legs are weak and would hardly hold her up to walk with her walker from the bedroom to the bathroom. She then broke out in a diaphoretic sweat and went outside to the cool air to try and cool off. Took a bit before she recognized she was having a low blood sugar reaction. She takes insulin at bedtime. Has not taken any insulin this morning . When she checked her sugar at home she got 57. She subsequently had breakfast with 2 teaspoons of sugar. Blood sugar half hour later was up to 70. She took 2 glucose tablets before leaving the house and came to the ED. Blood sugar in the ED is now 242. She has a history of chronic atrial fibrillation and chronic congestive heart failure with daily use of Lasix and Zaroxolyn 3 times weekly. Chronic atrial fibrillation which appears to have rate control. She has some tenderness throughout the left lateral abdominal wall which appears to be coming from the abdominal wall rather than deeper inside. Pain extends left lateral abdominal wall towards the left flank or kidney area on examination. No rashes were identified to suggest shingles at this time. Plan IV will be D5 normal saline at 75 mils per hour. Blood sugar checked in one half hour. Will have a KUB performed. Urinalysis as well routine labs to be collected including CRP. Troponin will be obtained as well as BMP and magnesium levels. - Re-Assessments/Exams Free Text/Narrative Re-Assessment/Exam: 08/09/18: 07;40: Blood sugar was 292 at 0740 hrs. 08/09/18 08:10 Labs reveal a normal white count at 6.63 with 71% neutrophils and no band cells noted. Hemoglobin slightly low 11.5 with hematocrit of 34.6. MCV is normal at 88.3. Platelet count 275,000. Slide shows 1+ anisocytosis cytosis and 1+ macrocytosis and 1+ stomatocytes. Chemistry shows a sodium of 135 and a potassium of 3.6. Chloride 99 with a bicarbonate 29. Anion gap is 10.6. BUN is 30 with a creatinine of 1.7. GFR is only 29 i.e. stage IV chronic kidney disease. Glucose 248 in the lab it would bedside was 292. Hemoglobin A1c is elevated at 10.10 indicating very poor blood sugar control. Calcium 9.4. Magnesium slightly low at 1.6. Total bilirubin 0.4 AST 27 ALT of 33. Alk phosphatase is 40. Troponin I is less than 0.017. C-reactive protein 0.2. BNP is 1629. Total protein 6.3 with an albumin fraction of 3.3. Urinalysis is pending. 08/09/18 08:30 Urinalysis is showing only trace of glucose with no signs of infection. Plan IV D5 normal saline will be discontinued since her blood sugar is elevated at 292. She will receive Lasix 40 mg IV due to elevated BNP. 08/09/18 10:03 She will be discharged on tramadol 50 mg every 6-8 hours as needed for back pain. Is to follow-up with her provider later this week if able. No changes made to her blood sugars although it appears that she likely needs a slight increase in her insulin ( lantus?) due to HGA1c of 10.1. Inadequate dietary intake appears to of contributed to hypoglycemic reaction this morning. Advised she likely requires a snack at bedtime prevent hypoglycemia during the night. Departure - Departure Time of Disposition: 10:04 Disposition: Home, Self-Care 01 Condition: Fair Clinical Impression: Hypoglycemic reaction, Lumbar back pain, Hypoglycemia - Discharge Information *PRESCRIPTION DRUG MONITORING PROGRAM REVIEWED*: Not Applicable *COPY OF PRESCRIPTION DRUG MONITORING REPORT IN PATIENT LEE: Not Applicable Prescriptions: traMADol [Ultram] 50 mg PO Q6H PRN #20 tab PRN Reason: Low back pain relief Instructions: Hypoglycemia Referrals: Tiffanie Brambila NP [Primary Care Provider] - Forms: ED Department Discharge Additional Instructions: Evaluation the emergency room this morning in regards to development of low blood sugar this morning. It was as low as 57 at home. It went up to 70 after you a breakfast with some sugar and took 2 glucose tablets before leaving home. Blood sugar in the emergency department was 242. It continued to elevate up to 292 while in the ED. At this time use regular insulin uses and continue long- acting insulin to Trujeo at bedtime as per your normal. May have to have a snack at bedtime to help prevent hypoglycemic reaction during the night. In regards to low back pain it is coming out of the lower lumbar spine and radiating to the left side along the left flank and lateral abdominal wall. It is point tenderness along the transverse processes of low back indicating this is musculoskeletal in origin. You are not a good candidate to take anti- inflammatory such as naproxen due to poor kidney function. Suggest trying tramadol 50 mg every 6-8 hours as needed for relief of pain. Note this may interact with her gabapentin and make you more tired than normal. Just follow- up with your care provider later this week when able to have a look at your blood sugars and your elevated glycosylated protein at 10.1. This indicates her blood sugars are not very well controlled. Alternative medications. Alternative medications may be required. - My Orders Last 24 Hours: My Active Orders 08/09/18 07:12 EKG Documentation Completion [RC] STAT 08/09/18 07:35 Blood Glucose Check, Bedside [RC] ONETIME 08/09/18 09:01 Blood Glucose Check, Bedside [RC] ONETIME - Assessment/Plan Last 24 Hours: My Active Orders 08/09/18 07:12 EKG Documentation Completion [RC] STAT 08/09/18 07:35 Blood Glucose Check, Bedside [RC] ONETIME 08/09/18 09:01 Blood Glucose Check, Bedside [RC] ONETIME
[2018-08-09] MEDS ORDERED: Dextrose 5%-0.9% NaCl 1,000 ML IV SCH (07:15)
[2018-08-09 07:25] LABS: HEMOGLOBIN A1C 10.1 % (4.50-6.20)
[2018-08-09] MEDS ORDERED: Furosemide 40 MG/4 ML VIAL IVPUSH ONE (08:30)
--- NOTE | 2018-08-09 10:28 | CR ---
Abdomen: Upright view of the abdomen was obtained. Comparison: Prior abdominal x-ray of 09/27/16. Bowel gas pattern is normal. Surgical clips are seen from prior cholecystectomy. Vascular calcification is seen. Mild degenerative change is scattered within the spine. No abnormal soft tissue findings are seen. Mitral annulus calcification is noted within the heart. Impression: 1. Incidental findings. Nothing acute is seen. Diagnostic code #2
== END 2018-08-09 10:25 | disposition home or self-care (01) ==
LOC: JD.ED 06:43
DX: E11.649 Type 2 diabetes mellitus with hypoglycemia without coma (principal); M54.5 Low back pain; I11.0 Hypertensive heart disease with heart failure; I50.9 Heart failure, unspecified; I48.91 Unspecified atrial fibrillation; I25.10 Atherosclerotic heart disease of native coronary artery without angina pectoris; K21.9 Gastro-esophageal reflux disease without esophagitis; M19.90 Unspecified osteoarthritis, unspecified site; M10.9 Gout, unspecified; E66.9 Obesity, unspecified; Z98.49 Cataract extraction status, unspecified eye; Z90.49 Acquired absence of other specified parts of digestive tract; Z79.4 Long term (current) use of insulin; Z79.82 Long term (current) use of aspirin; Z79.899 Other long term (current) drug therapy
CPT/HCPCS: 36415; 74018; 80053; 81001; 82962; 83036; 83735; 83880; 84484; 85007; 85027; 86140; 93005; 96361; 96374; 99284; J1940; J7042; 93010

== ENCOUNTER 2019-04-27 17:45 | Emergency (ER) | payer MEDICARE, BC ==
[2019-04-27 17:52] VITALS: BP 160/55; PULSE 87
[2019-04-27] MEDS ORDERED: Acetaminophen 325 MG Tab PO PRN (18:21)
--- NOTE | 2019-04-27 18:26 | EDM.PDOC ---
<Isac Martinez - Last Filed: 04/27/19 18:41> ED HPI GENERAL MEDICAL PROBLEM - General Chief Complaint: Respiratory Problem Stated Complaint: [facility] Time Seen by Provider: 04/27/19 18:11 Source of Information: Reports: Patient, Long-Term Records History Limitations: Reports: No Limitations - History of Present Illness INITIAL COMMENTS - FREE TEXT/NARRATIVE: 88-year-old female presents to the ED per [facility] from [facility]. Apparently she developed a fever within the last few hours and refused her supper. She was noted to be hypoxic with O2 sats of 88% on room air and working quite hard to breathe. She indicates she has a mild cough that just started today. Dates that she did have breakfast and some dinner but no supper. She is prone to urinary tract infections. She did have a flu shot. She is an insulin-dependent diabetic. She has coronary artery disease and congestive heart failure. Atrial fibrillation with rate controlled denies any nausea vomiting or diarrhea. Denies any chest pain. Onset: Today Onset Date: 04/27/19 Onset Time: 16:00 Duration: Hour(s):, Getting Worse (Early fever was appreciated around 1600 hrs. today.) Location: Reports: Chest (Mild cough with hypoxemia with O2 sats of 88% on room air low-grade fever appreciated at the [facility]. Not received any Tylenol yet.) Quality: Reports: Other Severity: Moderate (Shortness of breath.) Improves with: Reports: Rest Worsens with: Reports: Other Context: Reports: Other (Jorge A he is similar occurrence. She is always a little short of breath on exertion.). Denies: Activity, Exercise (Exertion or movement.), Lifting, Sick Contact, Trauma Associated Symptoms: Reports: Cough, Fever/Chills (Fever with no noted chills.) , Loss of Appetite, Malaise (Nonproductive), Shortness of Breath, Weakness. 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.) - Related Data Allergies Allergy/AdvReac Type Severity Reaction Status Date / Time No Known Allergies Allergy Verified 04/27/19 20:57 Home Meds: Home Meds Aspirin 81 mg PO DAILY 08/11/16 [History] Omeprazole 20 mg PO DAILY 08/11/16 [History] Calcium Carbonate/Vitamin D3 [Caltrate 600 Plus D3 Tablet] 1 tab PO BEDTIME [History] Potassium Chloride [Klor-Con 10] 40 meq PO QAM 07/28/17 [History] Rivaroxaban [Xarelto] 15 mg PO QPM 07/28/17 [History] Insulin Aspart [NovoLOG] See Protocol SUBCUT TID 08/02/17 [History] Pyridoxine HCl (Vitamin B6) [B-6] 200 mg PO BEDTIME 08/02/17 [History] Insulin Glargine,Hum.Rec.Anlog [Toujeo Max Solostar] 40 unit SQ DAILY 08/09/18 [ History] Magnesium 500 mg PO BEDTIME 08/09/18 [History] Multivitamin [Multi-Vitamin Daily] 1 each PO DAILY 08/09/18 [History] Acetaminophen 650 mg PO QID PRN 04/27/19 [History] Cholecalciferol (Vitamin D3) [Vitamin D3] 1,000 unit PO DAILY 04/27/19 [History] Cranberry Fruit Extract [Cranberry] 425 mg PO BID 04/27/19 [History] Docusate Sodium/Sennosides [Senna Plus] 1 each PO BID 04/27/19 [History] Docusate Sodium/Sennosides [Senna Plus] 1 each PO DAILY PRN 04/27/19 [History] Donepezil HCl 10 mg PO BEDTIME 04/27/19 [History] Furosemide [Lasix] 40 mg PO ACLUNCH 04/27/19 [History] Furosemide [Lasix] 80 mg PO ACBREAKFAST 04/27/19 [History] Memantine HCl [Namenda Xr] 28 mg PO DAILY 04/27/19 [History] Nitroglycerin [Nitrostat] 0.4 mg SL ASDIRECTED PRN 04/27/19 [History] Ondansetron [Zofran ODT] 4 mg PO Q4H PRN 04/27/19 [History] Rosuvastatin [Crestor] 10 mg PO BEDTIME 04/27/19 [History] Spironolactone [Aldactone] 25 mg PO DAILY 04/27/19 [History] allopurinoL [Zyloprim] 300 mg PO DAILY 04/27/19 [History] amLODIPine [Norvasc] 10 mg PO DAILY 04/27/19 [History] bisacodyL [Dulcolax] 10 mg RC DAILY PRN 04/27/19 [History] metOLazone [Metolazone] 5 mg PO MO 04/27/19 [History] Past Medical History HEENT History: Reports: Impaired Vision Other HEENT History: Wears glasses Cardiovascular History: Reports: Afib, CAD, Heart Failure, High Cholesterol, Hypertension Other Cardiovascular History: irregular beats Respiratory History: Reports: SOB Other Respiratory History: "I have fluid on my lungs every so often" Gastrointestinal History: Reports: GERD Other Gastrointestinal History: occasional constipation Genitourinary History: Reports: Renal Calculus, Urinary Incontinence Other Genitourinary History: lithrotripsy 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 Musculoskeletal History: Reports: Arthritis, Fracture, Gout Other Musculoskeletal History: broken right foot Neurological History: Reports: Neuropathy, Peripheral Psychiatric History: Reports: Anxiety, Depression Endocrine/Metabolic History: Reports: Diabetes, Type II, Hypothyroidism, Obesity /BMI 30+ Other Endocrine/Metabolic History: 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, has goiter Hematologic History: Reports: B12 Deficiency Oncologic (Cancer) History: Reports: Other (See Below) Other Oncologic History: skin cancer Dermatologic History: Reports: Melanoma - Infectious Disease History Infectious Disease History: Reports: Herpes, Shingles - Past Surgical History HEENT Surgical History: Reports: Cataract Surgery GI Surgical History: Reports: Cholecystectomy Female Surgical History: Reports: Section, Lithotripsy/ESWL Social & Family History - Family History Family Medical History: Noncontributory - Tobacco Use Smoking Status *Q: Never Smoker - Caffeine Use Caffeine Use: Reports: None - Living Situation & Occupation Living situation: Reports: , Alone Occupation: Retired ED ROS GENERAL - Review of Systems Review Of Systems: See Below Constitutional: Reports: Fever, Malaise, Weakness, Fatigue, Decreased Appetite ( Not eat supper tonight). Denies: Chills HEENT: Reports: Glasses, Hearing Loss Respiratory: Reports: Shortness of Breath (Mildly hard of hearing.), Cough. Denies: Wheezing, Pleuritic Chest Pain, Sputum (Nonproductive cough), Hemoptysis Cardiovascular: Reports: Blood Pressure Problem, Dyspnea on Exertion ( lower extremity edema), Edema ([place]), Orthopnea. Denies: Chest Pain, Claudication ( Chronic hypertension), Lightheadedness, Palpitations ( likely) Endocrine: Reports: Fatigue GI/Abdominal: Reports: Constipation (Occasional problems with constipation) : Reports: Frequency, Incontinence (Both urge and stress components.) Musculoskeletal: Reports: Back Pain, Joint Pain (He sips neck and shoulders at times) Skin: Reports: Bruising (Bruises easily as she is on Eliquis.) Neurological: Reports: Dizziness, Difficulty Walking, Weakness. Denies: Confusion, Headache (Occasional dizzy spells), Numbness, Syncope, Tingling Psychiatric: Reports: No Symptoms Hematologic/Lymphatic: Reports: No Symptoms Immunologic: Reports: No Symptoms ED EXAM, GENERAL - Physical Exam Exam: See Below Exam Limited By: No Limitations General Appearance: Alert, WD/WN, Mild Distress, Other (Mildly warm to palpation. Nurses recorded temperature 37.5 she feels slightly warmer. Pulse ox is 87 and a regular regular monitor shows atrial fibrillation respiratory 16 with O2 sats of 88% recorded.) Eye Exam: Bilateral Eye: Normal Inspection (No scleral icterus no blepharal pallor.) Ears: Normal TMs Throat/Mouth: Normal Lips, Other (Tongue is dry and shriveled.). No: Normal Teeth Head: Atraumatic, Normocephalic, Other (Outward signs of any head or facial trauma.) Neck: Normal Inspection, Limited Range of Motion, Tender Lateral (Or both lateral aspects of the neck due to osteoarthritic change.), Tender Midline. No : Supple, Carotid Bruit, Lymphadenopathy (L), Lymphadenopathy (R) Respiratory/Chest: No Accessory Muscle Use, Respiratory Distress (Respirations 20 to 22/min.), Decreased Breath Sounds (Creased breath sounds to the lower 50% of lung chowdhury.), Rales (I believe there are a few rales at both bases but she is not breathing deep enough for me to hear well well.). No: Wheezing Cardiovascular: Normal Peripheral Pulses, No Gallop (Monitor shows atrial fibrillation.), No JVD, No Murmur, No Rub, Irregularly Irregular. No: Regular Rate, Rhythm, No Edema Peripheral Pulses: 2+: Posterior Tibial (L) (Apprising only good pulses to both feet.), Posterior Tibial (R), Dorsalis Pedis (L), Dorsalis Pedis (R) GI/Abdominal: Normal Bowel Sounds, Soft, Non-Tender, No Organomegaly, No Abnormal Bruit, No Mass, Pelvis Stable, Other. No: Guarding, Rigid, Rebound, Tender Back Exam: Other (Mild kyphosis thoracic spine). No: CVA Tenderness (L), CVA Tenderness (R) Extremities: Pedal Edema (His pedal edema both lower extremities 1+.) Neurological: Alert, Oriented, CN II-XII Intact, Normal Cognition Psychiatric: Flat Affect Skin Exam: Warm, Dry, Intact, Normal Color, Pallor (Lightly pallid.) EKG INTERPRETATION EKG Date: 04/27/19 Time: 18:35 Rhythm: A-Fib (With rate of 70 to 112/min) Rate (Beats/Min): 84 [place]: Normal P-Wave: Absent QRS: Other (There are Q waves from V1 to V4 indicating a previous old very large anteroseptal myocardial infarction. Borderline criteria for left ventricular hypertrophy.) ST-T: Other (T wave flattening in leads II and aVF.) QT: Normal EKG Interpretation Comments: Normal ECG with no obvious acute ischemic change. Course - Vital Signs Last Recorded V/S: Last Vital Signs Temp 37.2 C 04/27/19 18:59 Pulse 87 04/27/19 17:49 Resp 16 04/27/19 17:49 BP 160/55 H 04/27/19 17:49 Pulse Ox 88 L 04/27/19 17:49 - Orders/Labs/Meds Orders: Active Orders 24 hr Category Date Time Status Blood Glucose Check, Bedside [RC] ONETIME Care 04/27/19 18:23 Active EKG Documentation Completion [RC] STAT Care 04/27/19 18:22 Active Oxygen Therapy [RC] ASDIRECTED Care 04/27/19 18:27 Active CULTURE BLOOD [BC] Stat Lab 04/27/19 18:59 Received CULTURE BLOOD [BC] Stat Lab 04/27/19 19:40 Received Acetaminophen [Tylenol] Med 04/27/19 18:21 Active 650 mg PO Q4H PRN Sodium Chloride 0.9% [Normal Saline] 1,000 ml Med 04/27/19 18:30 Active IV ASDIRECTED Blood Culture x2 Reflex Set [OM.PC] Stat Oth 04/27/19 18:23 Ordered Isolation [COMM] Routine Oth 04/27/19 18:43 Ordered Medication Orders Acetaminophen (Tylenol) 650 mg PO Q4H PRN PRN Reason: Pain Last Admin: 04/27/19 18:59 Dose: 650 mg Sodium Chloride (Normal Saline) 1,000 mls @ 250 mls/hr IV ASDIRECTED HECTOR Last Admin: 04/27/19 18:59 Dose: 250 mls/hr Labs: Laboratory Tests 04/27/19 04/27/19 04/27/19 Range/Units 18:23 18:44 18:44 WBC 11.24 H (3.98-10.04) K/mm3 RBC 4.29 (3.98-5.22) M/mm3 Hgb 11.3 (11.2-15.7) gm/dl Hct 36.7 (34.1-44.9) % MCV 85.5 D (79.4-94.8) fl MCH 26.3 (25.6-32.2) pg MCHC 30.8 L (32.2-35.5) g/dl RDW Std Deviation 53.8 H (36.4-46.3) fL Plt Count 352 D (182-369) K/mm3 MPV 11.4 (9.4-12.3) fl Neutrophils % (Manual) 80 H (40-60) % Band Neutrophils % 0 (0-10) % Lymphocytes % (Manual) 14 L (20-40) % Atypical Lymphs % 0 % Monocytes % (Manual) 4 (2-10) % Eosinophils % (Manual) 1 (0.7-5.8) % Basophils % (Manual) 1 (0.1-1.2) Platelet Estimate Adequate Plt Morphology Comment Normal Poikilocytosis 1+ slight Anisocytosis 1+ slight RBC Morph Comment Not Reportable ESR (0-20) mm/hr PT 15.1 H (9.7-12.0) SECONDS INR 1.41 APTT 50 H (22-31) SECONDS Puncture Site Radial ABG pH 7.38 (7.35-7.45) ABG pCO2 56.2 H (35.0-45.0) mmHg ABG pO2 80.0 (80.0-100.0) mmHg ABG HCO3 32.6 H (22.0-26.0) meq/L ABG O2 Saturation 93.5 L (96.0-97.0) % ABG Base Excess 6.6 H (-2-2.0) Vlad Test Positive A-a Gradient 50 mmHg Sodium (136-145) mEq/L Potassium (3.5-5.1) mEq/L Chloride (98-107) mEq/L Carbon Dioxide (21-32) mEq/L Anion Gap (5-15) BUN (7-18) mg/dL Creatinine (0.55-1.02) mg/dL Est Cr Clr Drug Dosing mL/min Estimated GFR (MDRD) (>60) mL/min BUN/Creatinine Ratio (14-18) Glucose (83-115) mg/dL Lactic Acid (0.4-2.0) mmol/L Uric Acid (2.6-6.0) mg/dL Calcium (8.5-10.1) mg/dL Magnesium (1.8-2.4) mg/dl Total Bilirubin (0.2-1.0) mg/dL AST (15-37) U/L ALT (14-59) U/L Alkaline Phosphatase (46-116) U/L CK-MB (CK-2) (0-3.6) ng/ml Troponin I (0.00-0.056) ng/mL C-Reactive Protein (<1.0) mg/dL NT-Pro-B Natriuret Pep (0-450) pg/mL Total Protein (6.4-8.2) g/dl Albumin (3.4-5.0) g/dl Globulin gm/dL Albumin/Globulin Ratio (1-2) Urine Color (Yellow) Urine Appearance (Clear) Urine pH (5.0-8.0) Ur Specific Huss[place] (1.005-1.030) Urine Protein (Negative) Urine Glucose (UA) (Negative) Urine Ketones (Negative) Urine Occult Blood (Negative) Urine Nitrite (Negative) Urine Bilirubin (Negative) Urine Urobilinogen (0.2-1.0) Ur Leukocyte Esterase (Negative) U Hyaline Cast (Auto) (0-5) /lpf Urine RBC (0-5) /hpf Urine WBC (0-5) /hpf Ur Squamous Epith Cells (0-5) /hpf Urine Bacteria (FEW) /hpf Urine Mucus (FEW) /hpf 04/27/19 04/27/19 04/27/19 Range/Units 18:44 18:44 18:44 WBC (3.98-10.04) K/mm3 RBC (3.98-5.22) M/mm3 Hgb (11.2-15.7) gm/dl Hct (34.1-44.9) % MCV (79.4-94.8) fl MCH (25.6-32.2) pg MCHC (32.2-35.5) g/dl RDW Std Deviation (36.4-46.3) fL Plt Count (182-369) K/mm3 MPV (9.4-12.3) fl Neutrophils % (Manual) (40-60) % Band Neutrophils % (0-10) % Lymphocytes % (Manual) (20-40) % Atypical Lymphs % % Monocytes % (Manual) (2-10) % Eosinophils % (Manual) (0.7-5.8) % Basophils % (Manual) (0.1-1.2) Platelet Estimate Plt Morphology Comment Poikilocytosis Anisocytosis RBC Morph Comment ESR 50 H (0-20) mm/hr PT (9.7-12.0) SECONDS INR APTT (22-31) SECONDS Puncture Site ABG pH (7.35-7.45) ABG pCO2 (35.0-45.0) mmHg ABG pO2 (80.0-100.0) mmHg ABG HCO3 (22.0-26.0) meq/L ABG O2 Saturation (96.0-97.0) % ABG Base Excess (-2-2.0) Vlad Test A-a Gradient mmHg Sodium 139 (136-145) mEq/L Potassium 4.0 (3.5-5.1) mEq/L Chloride 101 (98-107) mEq/L Carbon Dioxide 33 H (21-32) mEq/L Anion Gap 9.0 (5-15) BUN 46 H (7-18) mg/dL Creatinine 1.7 H (0.55-1.02) mg/dL Est Cr Clr Drug Dosing 17.06 mL/min Estimated GFR (MDRD) 28 (>60) mL/min BUN/Creatinine Ratio 27.1 H (14-18) Glucose 186 H (83-115) mg/dL Lactic Acid (0.4-2.0) mmol/L Uric Acid (2.6-6.0) mg/dL Calcium 9.7 (8.5-10.1) mg/dL Magnesium 1.9 (1.8-2.4) mg/dl Total Bilirubin 0.4 (0.2-1.0) mg/dL AST 26 (15-37) U/L ALT 31 (14-59) U/L Alkaline Phosphatase 116 (46-116) U/L CK-MB (CK-2) 1.8 (0-3.6) ng/ml Troponin I < 0.017 (0.00-0.056) ng/mL C-Reactive Protein 1.0 (<1.0) mg/dL NT-Pro-B Natriuret Pep 2506 H (0-450) pg/mL Total Protein 7.2 (6.4-8.2) g/dl Albumin 3.5 (3.4-5.0) g/dl Globulin 3.7 gm/dL Albumin/Globulin Ratio 1.0 (1-2) Urine Color (Yellow) Urine Appearance (Clear) Urine pH (5.0-8.0) Ur Specific [place] (1.005-1.030) Urine Protein (Negative) Urine Glucose (UA) (Negative) Urine Ketones (Negative) Urine Occult Blood (Negative) Urine Nitrite (Negative) Urine Bilirubin (Negative) Urine Urobilinogen (0.2-1.0) Ur Leukocyte Esterase (Negative) U Hyaline Cast (Auto) (0-5) /lpf Urine RBC (0-5) /hpf Urine WBC (0-5) /hpf Ur Squamous Epith Cells (0-5) /hpf Urine Bacteria (FEW) /hpf Urine Mucus (FEW) /hpf 04/27/19 04/27/19 04/27/19 Range/Units 18:44 18:44 19:21 WBC (3.98-10.04) K/mm3 RBC (3.98-5.22) M/mm3 Hgb (11.2-15.7) gm/dl Hct (34.1-44.9) % MCV (79.4-94.8) fl MCH (25.6-32.2) pg MCHC (32.2-35.5) g/dl RDW Std Deviation (36.4-46.3) fL Plt Count (182-369) K/mm3 MPV (9.4-12.3) fl Neutrophils % (Manual) (40-60) % Band Neutrophils % (0-10) % Lymphocytes % (Manual) (20-40) % Atypical Lymphs % % Monocytes % (Manual) (2-10) % Eosinophils % (Manual) (0.7-5.8) % Basophils % (Manual) (0.1-1.2) Platelet Estimate Plt Morphology Comment Poikilocytosis Anisocytosis RBC Morph Comment ESR (0-20) mm/hr PT (9.7-12.0) SECONDS INR APTT (22-31) SECONDS Puncture Site ABG pH (7.35-7.45) ABG pCO2 (35.0-45.0) mmHg ABG pO2 (80.0-100.0) mmHg ABG HCO3 (22.0-26.0) meq/L ABG O2 Saturation (96.0-97.0) % ABG Base Excess (-2-2.0) Vlad Test A-a Gradient mmHg Sodium (136-145) mEq/L Potassium (3.5-5.1) mEq/L Chloride (98-107) mEq/L Carbon Dioxide (21-32) mEq/L Anion Gap (5-15) BUN (7-18) mg/dL Creatinine (0.55-1.02) mg/dL Est Cr Clr Drug Dosing mL/min Estimated GFR (MDRD) (>60) mL/min BUN/Creatinine Ratio (14-18) Glucose (83-115) mg/dL Lactic Acid 0.7 (0.4-2.0) mmol/L Uric Acid 4.5 (2.6-6.0) mg/dL Calcium (8.5-10.1) mg/dL Magnesium (1.8-2.4) mg/dl Total Bilirubin (0.2-1.0) mg/dL AST (15-37) U/L ALT (14-59) U/L Alkaline Phosphatase (46-116) U/L CK-MB (CK-2) (0-3.6) ng/ml Troponin I (0.00-0.056) ng/mL C-Reactive Protein (<1.0) mg/dL NT-Pro-B Natriuret Pep (0-450) pg/mL Total Protein (6.4-8.2) g/dl Albumin (3.4-5.0) g/dl Globulin gm/dL Albumin/Globulin Ratio (1-2) Urine Color Yellow (Yellow) Urine Appearance Clear (Clear) Urine pH 6.0 (5.0-8.0) Ur Specific [place] 1.020 (1.005-1.030) Urine Protein Negative (Negative) Urine Glucose (UA) Negative (Negative) Urine Ketones Negative (Negative) Urine Occult Blood Negative (Negative) Urine Nitrite Negative (Negative) Urine Bilirubin Negative (Negative) Urine Urobilinogen 0.2 (0.2-1.0) Ur Leukocyte Esterase Negative (Negative) U Hyaline Cast (Auto) 20-30 H (0-5) /lpf Urine RBC Not seen (0-5) /hpf Urine WBC 0-5 (0-5) /hpf Ur Squamous Epith Cells 0-5 (0-5) /hpf Urine Bacteria Few (FEW) /hpf Urine Mucus Rare (FEW) /hpf Meds: Medications Generic Name Dose Route Start Last Admin Trade Name Freq PRN Reason Stop Dose Admin Acetaminophen 650 mg 04/27/19 18:21 04/27/19 18:59 Tylenol PO 650 mg Q4H PRN Administration Pain Sodium Chloride 1,000 mls @ 250 mls/hr 04/27/19 18:30 04/27/19 18:59 Normal Saline IV 250 mls/hr ASDIRECTED HECTOR Administration Discontinued Medications Generic Name Dose Route Start Last Admin Trade Name Freq PRN Reason Stop Dose Admin Azithromycin 500 mg/ Sodium 250 mls @ 250 mls/hr 04/27/19 20:20 04/27/19 21: 23 Chloride IV 04/27/19 21:19 250 mls/hr ONETIME STA Administration Ceftriaxone Sodium 1 gm/ 100 mls @ 200 mls/hr 04/27/19 20:19 04/27/19 20:38 Sodium Chloride IV 04/27/19 20:48 200 mls/hr ONETIME STA Administration - Radiology Interpretation Free Text/Narrative:: 88-year-old female presents to the ED from [facility] where she resides. Apparently she developed a fever sometime this afternoon and did not feel well at suppertime and the nurses appreciated this. She did eat breakfast and supper. He denies any nausea vomiting but is recognized to be short of breath and sats were 88% on room air when she arrived in the ED. She is normally not on oxygen at the [facility]. She has a history of congestive heart failure and is a type II diabetic and insulin-dependent. She has known coronary disease with previous myocardial infarction. She is a history of urinary tract infection. She has a mild cough at this time. She did have a flu shot. Plan septic work-up will be carried out. IV will be normal saline at 200 mils per hour. Pressure is well maintained at this point time. As soon as ABGs are done she will be started on 3 L/min by nasal cannula - Re-Assessments/Exams Free Text/Narrative Re-Assessment/Exam: 04/27/19 19:00 sats are up to 95% on 3 L. Heart rate is in the 80s irregular irregular with atrial fibrillation. BP is slightly elevated 170/78. 04/27/19 19:07 Care will be transferred to Dr. Gaspar as it is now change of shift. None of her labs or chest x-ray are back yet. Departure - Departure Disposition: DC/Tfer to [facility] 02 Clinical Impression: Acute respiratory failure with hypoxia, Chronic renal insufficiency - Discharge Information Referrals: Naveen Patel MD [Physician] - Forms: ED Department Discharge Sepsis Event Note - Evaluation Sepsis Screening Result: No Definite Risk - Focused Exam Vital Signs: Vital Signs Temp Temp Pulse Resp BP Pulse Ox 04/27/19 18:59 37.2 C 04/27/19 17:49 37.5 C 87 16 160/55 H 88 L Date Exam was Performed: 04/27/19 Time Exam was Performed: 18:41 <Garrett Gaspar - Last Filed: 04/27/19 22:12> Course - Re-Assessments/Exams Free Text/Narrative Re-Assessment/Exam: 04/27/19 20:10 Portable chest x-ray is read by Dr. Diego as: 1. Increased density within the right lung base. Uncertain how much of this represents consolidation from possible pneumonia or aspiration, pleural effusion and/or atelectasis. 2. Mild atelectasis is seen more superiorly within the right midlung. 3. Minimal left basilar atelectasis. 4. Mild cardiomegaly and chronic pulmonary vascular congestion. 04/27/19 20:21 The patient CBC is remarkable for a WBC count mildly elevated at 11.24, but with 0% bandemia. The remainder of her CBC is unremarkable. Her CMP is remarkable for a bicarbonate elevated at 33, and a BUN/Cr elevated at 46/1.7. Her blood glucose is elevated at 186, with the remainder of her CMP being unremarkable. Her magnesium level is within normal limits at 1.9. Her CK-MB is within normal limits at 1.8. Her troponin is undetectably low. Her BNP is elevated at 2506. Her uric acid level is within normal limits at 4.5. Her lactic acid level is within normal limits at 0.7. Her CRP is within normal limits at 1.0. Her INR is elevated at 1.41 with a PT of 15.1. Her PTT is elevated at 50. Her urinalysis is unremarkable. Her influenza swab returned negative. The patient's ABG and ESR are still pending. Reviewing prior labs, I see that the patient's BUN/Cr was 38/1.6 on 09/23/2018, indicating that her renal insufficiency is chronic. Reviewing the patient's portable chest x-ray, at first blush, it very much appears that there is pulmonary vascular congestion, however, the patient's BNP is only 2506, which is about average for her. I think it prudent, therefore, to treat the patient for pneumonia. I have ordered IV Rocephin and IV azithromycin. 04/27/19 20:35 The patient's ESR is 50. 04/27/19 21:27 The patient's ABG represents a combined chronic respiratory acidosis with metabolic alkalosis. 04/27/19 22:00 [facility] contacted at 21:38. Case discussed with Marybeth at [facility] at 21:46. Case then discussed with Dr. Almanza, Hospitalist at [facility], at 2 :53. The portable chest x-ray image was pushed to [facility] at 21: 58. Dr. Almanza reviewed the chest x-ray, and agreed that it is difficult to determine if the patient is suffering from exacerbation of congestive heart failure or from pneumonia. He accepted the patient for admission to their telemetry unit at 22:00. The patient will be transported by ground ambulance. Departure - Departure Time of Disposition: 22:02 Condition: Good - Discharge Information *PRESCRIPTION DRUG MONITORING PROGRAM REVIEWED*: Not Applicable *COPY OF PRESCRIPTION DRUG MONITORING REPORT IN PATIENT LEE: Not Applicable Sepsis Event Note - Focused Exam Date Exam was Performed: 04/27/19 Time Exam was Performed: 22:11
[2019-04-27] MEDS ORDERED: Sodium Chloride 0.9% 1,000 ML IV SCH (18:30)
--- NOTE | 2019-04-27 19:45 | CR ---
Chest: Portable view of the chest was obtained. Comparison: Previous chest x-ray of 10/17/17. Heart is enlarged. Parenchymal density is noted within the right lung base. Atelectasis is also seen within the right midlung and within the left lower lung. Mitral annulus calcification is seen. Pulmonary vessels show mild chronic congestion. Impression: 1. Increased density within the right lung base. Uncertain how much of this represents consolidation from possible pneumonia or aspiration, pleural effusion and/or atelectasis. 2. Mild atelectasis is seen more superiorly within the right midlung. 3. Minimal left basilar atelectasis. 4. Mild cardiomegaly and chronic pulmonary vascular congestion. Diagnostic code #3 Study was dictated in MDT
[2019-04-27] MEDS ORDERED: cefTRIAXone 1 GM in Sodium Chloride 0.9% 100 ML IV STA (20:19)
[2019-04-27] MEDS ORDERED: Azithromycin 500 MG in Sodium Chloride 0.9% 250 ML IV STA (20:20)
== END 2019-04-27 22:55 ==
LOC: JD.ED 17:45
DX: J96.01 Acute respiratory failure with hypoxia (principal); I13.0 Hypertensive heart and chronic kidney disease with heart failure and stage 1 through stage 4 chronic kidney disease, or unspecified chronic kidney disease; E11.22 Type 2 diabetes mellitus with diabetic chronic kidney disease; N18.9 Chronic kidney disease, unspecified; I50.9 Heart failure, unspecified; E78.00 Pure hypercholesterolemia, unspecified; I25.10 Atherosclerotic heart disease of native coronary artery without angina pectoris; I48.91 Unspecified atrial fibrillation; K21.9 Gastro-esophageal reflux disease without esophagitis; M10.9 Gout, unspecified; F41.9 Anxiety disorder, unspecified; F32.9 Major depressive disorder, single episode, unspecified; E03.9 Hypothyroidism, unspecified; E66.9 Obesity, unspecified; Z68.35 Body mass index [BMI] 35.0-35.9, adult; Z79.82 Long term (current) use of aspirin; Z79.01 Long term (current) use of anticoagulants; Z79.4 Long term (current) use of insulin; Z79.899 Other long term (current) drug therapy
CPT/HCPCS: 36415; 36600; 71045; 80053; 81001; 82553; 82803; 83605; 83735; 83880; 84484; 84550; 85007; 85027; 85610; 85652; 85730; 86140; 87040; 87804; 93005; 96361; 96365; 96367; 99285; A9270; J0456; J0696; J7030; J7050; 93010